=== PATIENT | female | born 1945 | race Caucasian/White ===

== ENCOUNTER 2017-12-24 13:30 | Outpatient (RCR) | payer MEDICARE, OTHER, SELFPAY ==
--- NOTE | 2017-11-26 16:40 | HP.PTEVAL_ITS ---
Patient's Visit Information TINA GARCIA is a 72 year old F referred to Physical Therapy by Ld ESCOBAR with a diagnosis of LUMBAR SPINAL STENOSIS. Date of Evaluation: 11/26/17 Physical Therapist: Angy Madrigal - Visit Plan Frequency: 2-3x /Week Duration: 4-6 Weeks Plan: MEASURE BENJI KNEE FLEXION ROM NEXT VISIT. AQUATIC THERAPY AND HOME INSTRUCTIONS FOR POSTURE CORRECTION/STRENGTHENING, INSTRUCTION IN APPROPRIATE BODY MECHANICS AND ACTIVITY MODIFICATIONS. DLS STARTING WITH A NEUTRAL SPINE PROGRESSING ROM TOLERATED. BENJI LE ROM, STRETCHING AND STRENGTHENING. HEP INSTRUCTION. - Subjective Subjective: Work/Leisure: RETIRED. Disability: NO. Present symptoms: BENJI LOW BACK, BENJI HIPS, LEFT LATERAL THIGH DEEP ITCHING. Present since: ABOUT 10- 15 YEARS AGO. Pain Scale: WORST 9/10, LEAST 0/10. Currently: 0/10. UNCHANGING. Commenced as a result of: NO APPARENT REASON. Symptoms at onset: BENJI LOW BACK AND HIPS. Worse: WALKING, STANDING, LAUNDRY, RIDING IN THE CAR FOR LONG PERIODS OF TIME. HAS STOPPED STEPS DUE TO PAIN. Better: SITTING AND LYING DOWN. Disturbed sleep: YES. Previous history/Previous treatment: ACCUPUNCUTURE APPOINTMENT PENDING SOON. 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 CHIROPRACTOR BUT NO BENEFIT SO STOPPED GOING YEARS AGO. LUMBAR FRACTURE FROM FALL A TEENAGER - FULLY RECOVERED. Coughing/sneezing/straining: NEGATIVE. Gait: DISTANCE LIMITED DUE TO PAIN. WEAKNESS IN LEGS WITH WALKING AND THAT IS SCARING ME. PATIENT REPORTS SHE FEELS LIKE HER RIGHT LEG DRAGS. OCCASSIONALLY USES CANE AND DID TODAY FOR DISTANCE. I FEEL VERY CLUMSY. Difficulty initiating urinatin: NO. Accidents : NO MVA'S. 2 FALLS WHICH PATIENT RELATES TO BLADDER INFECTION. Unexplained weight loss: NO. Imaging: BRAIN CT 11/04/17 - NORMAL. NO LUMBAR X-RAYS OR MRI FOR ABOUT 11 YEARS. PMH: HYPERLIPIDEMIA, ESSENTIAL TREMOR, DEPRESSION, INSOMNIA, ANXIETY, , DIARRHEA, OSTEOPENIA, HTN, H/O COLON CANCER AGE 42 AND REMOVED. Recent major surgery: RIGHT TKR WITH REVISION 2012 AND 2014, STILL SYMPTOMATIC AND UNDER CARE OF DR. ERNST CURRENTLY. RIGHT ELBOW ORIF 10 YEARS. - Objective Sitting Posture: POOR. Standing Posture: POOR. SCOLIOSIS WITH RIGHT RIB HUMP. Lordosis: REDUCED. Active Correction of posture: NE. Other Observations: INDEP GAIT INTO PT WITH A STRAIGHT CANE AND MILD LIMP ON THE RIGHT LE, DECREASED CADANCE AND INCREASED TRUNK FLEXION. SHE IS UNABLE TO TRANSFER INDEP'LY FROM SIT TO STAND WITHOUT UE ASSIST. Motor deficit: BENJI LE STRENGTH IS GROSSLY 4/5 EXCEPT RIGHT KNEE 4-/5, RIGHT HIP 3+/5 AND LEFT HIP 4-/ 5. Sensory deficit: BENJI LE LIGHT TOUCH SENSATION APPEARS TO BE INTACT AND SYMMETRICAL. ROM: BENJI LE ROM APPEARS TO BE WFL. Dural Signs: NEGATIVE BENJI LE' S. Lumbar mvmt loss: flex - MIN. ext - KELLI. R SG - KELLI. L SG - KELLI. PATIENT DENIES INCREASED PAIN WITH LUMBAR ROM TESTING. Core strength: POOR. Palpation: TIGHT BENJI PARASPINALS. - Goals Goal 1:: DECREASE C/O BACK AND LE SX'S Goal Time Frame: 4-6 Weeks Goal 2:: IMPROVE PERSONAL CARE, LIFTING, WALKING, SITTING, STANDING, SLEEP, SOCIAL LIFE, TRAVEL AND HOMEMAKING FUNCTION Goal Time Frame: 4-6 Weeks Goal 3:: INSTRUCT IN PROPHYLAXIS Goal Time Frame: 4-6 Weeks - Rehabilitation Potential Rehabilitation Potential: Fair - Anticipated Interventions Patient/Client Instruction: Educate patient on: Condition, Plan of Care, Risk Factors, Benefits of Fitness Program For the Purpose of:: To improve self management Therapeutic Exercise to Include: Strength training, Body mechanics, Postural training, Flexibilty training, Dynamic Lumbar Stabilization For the Purpose of:: To improve ability of physical actions for home/community/ work/leisure Cryotherapy (ice pack, ice massage): Yes Thermo therapy (hot pack): Yes Ultrasound (thermal/non thermal): Yes For the Purpose of:: To decrease pain, To decrease swelling/inflammation Thank you for the opportunity to evaluate your patient. For Medicare and Medicare HMO plans, please review the plan of care and approve it. It will need to be FAXED BACK to us at [phone] for Medicare purposes. Please let me know if there are questions or concerns regarding this plan of care. Physician Signature: Date:
--- NOTE | 2017-12-24 15:53 | HP.PTREVAL_ITS ---
Ld Gan DR.TKWOK It has been my pleasure to treat TINA GARCIA over the last 10 visits for LUMBAR SPINAL STENOSIS. Please see the progress note below for an update on the physical therapy plan of care! Subjective: PATIENT REPORTS SHE FEELS LIKE SHE IS MOVING EASIER. WALKING AROUND HER LITTLE HOUSE IS EASIER. HER HIPS DO NOT FLARE UP FAST. PATIENT REPORTS SHE CAN DO MORE LIKE GOING IN THE CAR, WALKING TO THE MAILBOX AND DO LAUNDRY BETTER. STANDING IS STILL A BIG PROBLEM - IS COOKING. PATIENT REPORTS SHE IS LASTING LONGER INTO THE DAY THOUGH AND IT ISN'T BAD LATER IN THE DAY IT WAS. NOT USING THE CANE AT HOME. PATIENT REPORTS THE WATER EX IS HELPING AND SHE WANTS TO CONTINUE WITH US HOWEVER SHE IS GOING OUT OF TOWN FOR A MONTH. SHE DOES THINK SHE WILL HAVE ACCESS TO A POOL THERE AND WILL TRY TO CONTINUE ON HER OWN UNTIL RETURN. Objective/Function: PATIENT IS REPORTING DECREASING PAIN AND INCREASING FUNCTION WHICH SHE RELATES TO THE POOL THERAPY. UPON EXAM, SHE IS DEMONSTRATING THE ABILITY TO BETTER CORRECT HER POSTURE AND SHE COMMUNICATES A GOOD UNDERSTANDING OF THE NEED TO TRY TO CONTINUE INDEP WATER EX ON VACATION. ALL OTHER TESTING IS SIMILAR TO INITIAL EVAL Plan Plan: RESUME PT NEEDED UPON RETURN FROM GOING OUT OF TOWN. PATIENT IS AGREEABLE. Goals Goal 1:: DECREASE C/O BACK AND LE SX'S Goal Time Frame: 4-6 Weeks Goal Progress: Progressing Goal 2:: IMPROVE PERSONAL CARE, LIFTING, WALKING, SITTING, STANDING, SLEEP, SOCIAL LIFE, TRAVEL AND HOMEMAKING FUNCTION Goal Time Frame: 4-6 Weeks Goal Progress: Progressing Goal 3:: INSTRUCT IN PROPHYLAXIS Goal Time Frame: 4-6 Weeks Goal Progress: Progressing Anticipated Interventions Patient/Client Instruction: Educate patient on: Condition, Plan of Care, Risk Factors, Benefits of Fitness Program For the Purpose of:: To improve self management Therapeutic Exercise to Include: Strength training, Body mechanics, Postural training, Flexibilty training, Dynamic Lumbar Stabilization For the Purpose of:: To improve ability of physical actions for home/community/ work/leisure Cryotherapy (ice pack, ice massage): Yes Thermo therapy (hot pack): Yes Ultrasound (thermal/non thermal): Yes For the Purpose of:: To decrease pain, To decrease swelling/inflammation Please do not hesitate to contact me at [phone] by phone or Fax: if you have questions or concerns regarding this new plan of care! Sincerely, Angy Madrigal
--- NOTE | 2018-01-15 12:18 | HP.PTDCNRP_ITS ---
HP - Discharge Summary (1) - Patient Information TINA GARCIA was seen in my office for initial evaluation on 11/26/17. The following Plan of Care was established for this patient: Initial Frequency: 2-3x /Week Initial Duration: 4-6 Weeks - Anticipated Interventions Patient/Client Instruction: Educate patient on: Condition, Plan of Care, Risk Factors, Benefits of Fitness Program For the Purpose of:: To improve self management Therapeutic Exercise to Include: Strength training, Body mechanics, Postural training, Flexibilty training, Dynamic Lumbar Stabilization For the Purpose of:: To improve ability of physical actions for home/community/ work/leisure Cryotherapy (ice pack, ice massage): Yes Thermo therapy (hot pack): Yes Ultrasound (thermal/non thermal): Yes For the Purpose of:: To decrease pain, To decrease swelling/inflammation This patient was last seen in our office 12/24/17. Pertinent comments regarding their Physical therapy will appear below: This patient has not returned to Physical Therapy and is appropriate to return to MD for further follow-up as needed. At this point I will be discontinuing this patient from physical therapy. I would be happy to see this patient again in the future if found appropriate by the physician. Thank you! Angy Madrigal
== END 2017-12-24 19:00 | disposition home or self-care (01) ==
LOC: PT 13:30
PROVIDERS: Family Provider Family Medicine Geriatric Medicine; PCP Family Medicine Geriatric Medicine; Visit Provider Family Medicine Geriatric Medicine
DX: M48.061 Spinal stenosis, lumbar region without neurogenic claudication (principal)
CPT/HCPCS: 97113; 97162; 97530

== ENCOUNTER → 2018-04-27 13:29 | Outpatient (CLI) | payer MEDICARE, OTHER, SELFPAY ==
[2018-04-27 14:59] LABS: Absolute Lymphocyte Count 2.28 X10^3/ul (0.83-4.51); Absolute Neutrophil Count 2.8 X10^3/uL (2.0-7.7); Basophil# 0.03 X10^3/uL; Basophil% 0.5 % (0-1); Eosinophil# 0.16 X10^3/uL; Eosinophils% 2.8 % (0-5); Hematocrit 43.9 % (37-47); Hemoglobin 15.2 g/dl (12.0-15.0); Lymphocyte # 2.28 X10^3/ul (4.0); Lymphocyte % 40.1 % (19-41); Mean Corp Hgb Conc 34.6 g/gl (32-36); Mean Corpuscular Hgb 32.1 pg (27.0-32.0); Mean Corpuscular Volume 92.6 fL (81-99); Mean Platelet Vol. 11.1 fl (6.2-12.0); Monocyte# 0.44 X10^3/uL; Monocyte% 7.7 % (0-10); Neutrophil # 2.77 X10^3/uL (2.7-7.7); Neutrophil % 48.7 % (47-70); POSITIVE COUNT NO; POSITIVE DIFFERENTIAL NO; POSITIVE MORPHOLOGY NO; Platelet Count 161 K/mm3 (150-450); RBC Distribution Width CV 12.7 % (11.6-14.6); RBC Distribution Width SD 42.7 fl (35.1-43.9); Red Blood Count 4.74 M/mm3 (4.2-5.4); White Blood Count 5.7 K/mm3 (4.4-11.0)
[2018-04-27 15:16] LABS: Vitamin D,25 Hydroxy 29.4 ng/mL (29.95-100.01)
[2018-04-27 15:24] LABS: ALB/GLOB Ratio 1.1 RATIO (0.9-2.4); AST(SGOT) 28 U/L (15-37); Alanine Aminotransfer ALT/SGPT 33 U/L (13-56); Albumin, Serum 3.7 g/dL (3.2-5.0); Alkaline Phosphatase 84 U/L (45-117); Anion Gap 7 (5-15); BUN 15 mg/dL (7-18); BUN/Creat Ratio 19.6 RATIO (10-20); Calcium,Total 9.2 mg/dL (8.5-10.1); Chloride 104 mmol/L (98-107); Creatinine, Serum 0.76 mg/dL (0.55-1.02); EST Glomerular Filtration Rate 79 mL/min (>60); Est Glom Filt Rate - Afr Amer 96 mL/min (>60); Globulin 3.5 g/dL (2.2-4.2); Glucose 89 mg/dL (74-106); Protein, Total 7.2 g/dL (6.4-8.2); Sodium Level 141 mmol/L (136-145); Thyroid Stim Hormone (TSH) 0.43 uIU/mL (0.358-3.74)
[2018-04-28 09:51] LABS: Hep C Antibodies <0.1 s/co ratio (0.0-0.9)
== END ==
PROVIDERS: Family Provider Family Medicine Geriatric Medicine; PCP Family Medicine Geriatric Medicine; Visit Provider Family Medicine Geriatric Medicine
DX: I10 Essential (primary) hypertension (principal); E55.9 Vitamin D deficiency, unspecified; Z13.89 Encounter for screening for other disorder
CPT/HCPCS: 36415; 80053; 82306; 84443; 85025; 86803

== ENCOUNTER → 2018-09-02 11:07 | Outpatient (CLI) | payer MEDICARE, OTHER, SELFPAY ==
--- NOTE | 2018-09-02 11:10 | BI_ITS ---
MAMMOGRAPHY - BILATERAL SCREENING REASON FOR EXAM: Female, 73 years old. Routine annual screening examination. PERTINENT HISTORY: Non-contributory. Prior right stereotactic breast biopsy and left stereotactic breast biopsy. TECHNIQUE: Digital bilateral breast french (3D mammographic acquisition) in the CC and MLO projections. 2-D mediolateral oblique (MLO) and craniocaudad (CC) views of both breasts were obtained. CAD: Full Field Digital Mammography with Computer Added Detection was performed. COMPARISON: Comparison is made with prior study date June 11, 2017 and August 30, 2016. FINDINGS: Breast Composition: The breasts are heterogeneously dense, which may obscure small masses. There are no dominant masses or suspicious calcifications. 2 tissue markers are seen in the upper mid portion of the left breast. A tissue clip marker is also seen in the anterior superior aspect of the right breast. No other significant abnormalities are identified. There has been no significant change since the prior study. BI/SCREENING MAMM (CAD), BILAT IMPRESSION: Stable bilateral screening mammogram. Yearly follow-up mammogram recommended. (A) ASSESSMENT CATEGORY: BIRADS Category 2: Benign. A letter regarding these results will be sent to the patient by the facility within 30 days. Approximately 10% of breast cancers are not detected by mammography. A normal mammogram should not delay biopsy of a clinically suspicious abnormality. [id number] Electronically Signed: Fer Helms MD at 12:59 EST Tel [phone], Service support ,
--- NOTE | 2018-09-02 11:13 | BD_ITS ---
STUDY: DUAL ENERGY X-RAY ABSORPTIOMETRY / DXA REASON FOR EXAM: Female, 73 years old. The patient is postmenopausal. Loss of height. TECHNIQUE: Bone Mineral Density (BMD) measurements of lumbar spine and bilateral hips were obtained. COMPARISON: Comparison is made with prior study dated August 27, 2016. FINDINGS: Lumbar Spine (L1-L4): g/cm2 (0.932) / T-score (-2.2) / Z-score (-0.5) Findings are suggestive of osteopenia with a moderate fracture risk. Left Femur Total: g/cm2 (0.877) / T-score (-1.0) / Z-score (0.5) Left Femoral Neck: g/cm2 (0.817) / T-score (-1.6) / Z-score (0.2) Right Femur Total: g/cm2 (0.785) / T-score (-1.8) / Z-score (-0.2) Right Femoral Neck: g/cm2 (0.776) / T-score (-1.9) / Z-score (-0.1) The T-Scores on the most recent prior examination were: Lumbar Spine (L1-L4): There has been improvement of bone density since the previous examination. Left Femur Total: which represents no significant change. . Right Femur Total: which represents a worsening of 3.1%. BD/Dexa Bone Density Study IMPRESSION: The patient is considered osteopenic as outlined below according to World Brant Organization (WHO) criteria with a moderate fracture risk. There has been worsening of bone density since the previous examination. Reference Information: The T-score is the number of standard deviations above or below the standard which is normal for young adults at their peak bone mineral density. The World Health Organization (WHO) interprets the T-scores as follows: Above -1 Normal bone density Between -1 and -2.5 Osteopenia Equal to / or below -2.5 Osteoporosis As a practical clinical guideline, osteopenia may be graded as follows: Mild -1 through -1.5 Moderate -1.6 through -2.0 Severe -2.1 through -2.4 The Z-score is the number of standard deviations above or below age-matched controls. A Z-score of less than -1.5 would be considered abnormal. References: 1. NIH Osteoporosis and Related Bone Diseases http://www.osteo.org 2. International Society for Clinical Densitometry http://www.iscd.org 3. National Osteoporosis Foundation http://www.nof.org Electronically Signed: Fer Helms MD at 11:10 EST Tel [phone], Service support ,
== END ==
PROVIDERS: Family Provider Family Medicine Geriatric Medicine; PCP Family Medicine Geriatric Medicine; Referring Provider Family Medicine Geriatric Medicine; Visit Provider Family Medicine Geriatric Medicine
DX: Z12.31 Encounter for screening mammogram for malignant neoplasm of breast (principal); Z78.0 Asymptomatic menopausal state
CPT/HCPCS: 77063; 77067; 77080

== ENCOUNTER → 2018-10-29 13:13 | Outpatient (CLI) | payer MEDICARE, OTHER, SELFPAY ==
[2018-10-29 17:26] LABS: Absolute Lymphocyte Count 2.54 X10^3/ul (0.83-4.51); Absolute Neutrophil Count 3.8 X10^3/uL (2.0-7.7); Basophil# 0.05 X10^3/uL; Basophil% 0.6 % (0-1); Eosinophil# 1.27 X10^3/uL; Eosinophils% 15.3 % (0-5); Hematocrit 42.5 % (37-47); Hemoglobin 14.2 g/dl (12.0-15.0); Lymphocyte # 2.54 X10^3/ul (4.0); Lymphocyte % 30.6 % (19-41); Mean Corp Hgb Conc 33.4 g/gl (32-36); Mean Corpuscular Hgb 31.8 pg (27.0-32.0); Mean Corpuscular Volume 95.1 fL (81-99); Mean Platelet Vol. 11.2 fl (6.2-12.0); Monocyte# 0.56 X10^3/uL; Monocyte% 6.8 % (0-10); Neutrophil # 3.84 X10^3/uL (2.7-7.7); Neutrophil % 46.3 % (47-70); Platelet Count 177 K/mm3 (150-450); RBC Distribution Width CV 13.2 % (11.6-14.6); RBC Distribution Width SD 44.7 fl (35.1-43.9); Red Blood Count 4.47 M/mm3 (4.2-5.4); White Blood Count 8.3 K/mm3 (4.4-11.0)
[2018-10-29 17:34] LABS: POSITIVE COUNT NO; POSITIVE DIFFERENTIAL NO; POSITIVE MORPHOLOGY NO
[2018-10-29 17:46] LABS: Vitamin D,25 Hydroxy 27.7 ng/mL (29.95-100.01)
[2018-10-29 18:01] LABS: ALB/GLOB Ratio 1.1 RATIO (0.9-2.4); AST(SGOT) 23 U/L (15-37); Alanine Aminotransfer ALT/SGPT 38 U/L (13-56); Albumin, Serum 3.6 g/dL (3.2-5.0); Alkaline Phosphatase 100 U/L (45-117); Anion Gap 7 (5-15); BUN 19 mg/dL (7-18); BUN/Creat Ratio 33.8 RATIO (10-20); Calcium,Total 8.9 mg/dL (8.5-10.1); Chloride 105 mmol/L (98-107); Creatinine, Serum 0.56 mg/dL (0.55-1.02); EST Glomerular Filtration Rate 113 mL/min (>60); Est Glom Filt Rate - Afr Amer 136 mL/min (>60); Globulin 3.4 g/dL (2.2-4.2); Glucose 80 mg/dL (74-106); Potassium 3.6 mmol/L (3.5-5.1); Sodium Level 141 mmol/L (136-145); Thyroid Stim Hormone (TSH) 1.25 uIU/mL (0.358-3.74)
== END ==
PROVIDERS: Family Provider Family Medicine Geriatric Medicine; PCP Family Medicine Geriatric Medicine; Visit Provider Family Medicine Geriatric Medicine
DX: E55.9 Vitamin D deficiency, unspecified (principal); I10 Essential (primary) hypertension
CPT/HCPCS: 36415; 80053; 82306; 84443; 85025

== ENCOUNTER → 2019-02-09 13:07 | Outpatient (CLI) | payer MEDICARE, OTHER, SELFPAY ==
--- NOTE | 2019-02-09 13:09 | RAD_ITS ---
STUDY: X-RAY - RIGHT KNEE REASON FOR EXAM: Female, 74 years old. Right knee pain. History of total hip arthroplasty. TECHNIQUE: 7 view(s) of the knee. COMPARISON: May 02, 2017 FINDINGS: There is generalized osteopenia unchanged. There is a stable revision total knee arthroplasty with no change in position and no complications identified. There is vascular calcification. RAD/Knee 4 or More Views IMPRESSION: Osteopenia with stable uncomplicated revision total knee arthroplasty. Electronically Signed: Clay Vidal MD at 10:29 EDT , Service support ,
== END ==
PROVIDERS: Family Provider Family Medicine Geriatric Medicine; PCP Family Medicine Geriatric Medicine; Referring Provider Orthopaedic Surgery; Visit Provider Orthopaedic Surgery
DX: R52 Pain, unspecified (principal)
CPT/HCPCS: 73564

== ENCOUNTER → 2019-04-06 15:20 | Outpatient (CLI) | payer MEDICARE, OTHER, SELFPAY ==
--- NOTE | 2019-04-06 15:31 | CT_ITS ---
STUDY: CT BRAIN WITHOUT CONTRAST REASON FOR EXAM: Female, 74 years old. Closed head injury due to a fall. RADIATION DOSAGE (If Supplied By Facility): CTDIvol = ( 44.99 ) mGy, DLP = ( 779.24 ) mGycm TECHNIQUE: Transaxial CT imaging of the brain was performed without administration of intravenous contrast material. Individualized dose optimization techniques were used for this CT. COMPARISON: Comparison is made with prior study dated November 04, 2017. FINDINGS: Normal soft tissue structures. There is hyperostosis frontalis internus. Normal size ventricles and extra-axial spaces for the patient's age. Normal white matter tracts of the cerebral hemispheres. Normal basal ganglia and thalami. Normal brainstem. Normal cerebellum. There is no intracranial hemorrhage. There are no findings of an acute ischemic infarction. Normal visualized paranasal sinuses. CT/Brain/Head without Contrast IMPRESSION: Normal unenhanced CT scan of the brain. Electronically Signed: Fer Helms, at 16:02 EDT , Service support ,
--- NOTE | 2019-04-06 15:40 | RAD_ITS ---
STUDY: X-RAY - LEFT FOOT CLINICAL: Female, 74 years old. Left second digit pain post fall yesterday TECHNIQUE: 3 view(s) of the foot. COMPARISON: None. FINDINGS: There is a small plantar calcaneal spur. There is mild demineralization of osseous structures. Normal visualized subtalar, talonavicular, calcaneocuboid, tarsal and tarsometatarsal articulations. Normal metatarsi. Normal metatarsophalangeal joint of the great toe. Normal tibial and fibular sesamoid bones. Normal interphalangeal joint of the great toe. Normal phalanges of the great toe. Normal second through fifth metatarsophalangeal joints. Normal interphalangeal joints and phalanges of the lesser toes. The soft tissue structures are unremarkable. RAD/Foot min 3 Views IMPRESSION: There is no acute displaced fracture or dislocation. Small plantar calcaneal spur. Mild osteopenia. Electronically Signed: Sierra Major MD at 6:56 EDT , Service support ,
--- NOTE | 2019-04-06 15:40 | RAD_ITS ---
STUDY: X-RAY - RIGHT KNEE REASON FOR EXAM: Female, 74 years old. Anterior pain in patellar region post fall yesterday. TECHNIQUE: 4 view(s) of the knee. COMPARISON: February 09, 2019 FINDINGS: Stable total knee arthroplasty in anatomic alignment with intact hardware. Normal visualized distal femur. Normal visualized proximal tibia and fibula. Normal proximal tibiofibular articulation. Normal medial femorotibial compartment. Normal lateral femorotibial compartment. Normal patellofemoral articulation. There is no demonstrated joint effusion. The soft tissue structures are unremarkable. RAD/Knee 4 or More Views IMPRESSION: Intact total knee arthroplasty in anatomic alignment with intact cortices. No effusion. No significant interval change. Electronically Signed: Sierra Major MD at 6:55 EDT , Service support ,
== END ==
PROVIDERS: Family Provider Family Medicine Geriatric Medicine; PCP Family Medicine Geriatric Medicine; Referring Provider Family Medicine Geriatric Medicine; Visit Provider Family Medicine Geriatric Medicine
DX: S09.90XA Unspecified injury of head, initial encounter (principal); M25.569 Pain in unspecified knee; M79.609 Pain in unspecified limb
CPT/HCPCS: 70450; 73564; 73630

== ENCOUNTER → 2019-05-03 13:50 | Outpatient (CLI) | payer MEDICARE, OTHER, SELFPAY ==
[2019-05-03 17:46] LABS: Absolute Lymphocyte Count 2.07 X10^3/ul (0.83-4.51); Absolute Neutrophil Count 3.8 X10^3/uL (2.0-7.7); Basophil# 0.04 X10^3/uL; Basophil% 0.6 % (0-1); Eosinophil# 0.17 X10^3/uL; Eosinophils% 2.5 % (0-5); Hematocrit 43.7 % (37-47); Hemoglobin 14.6 g/dl (12.0-15.0); Lymphocyte # 2.07 X10^3/ul (4.0); Lymphocyte % 30.6 % (19-41); Mean Corp Hgb Conc 33.4 g/gl (32-36); Mean Corpuscular Hgb 31.1 pg (27.0-32.0); Mean Platelet Vol. 10.9 fl (6.2-12.0); Monocyte# 0.65 X10^3/uL; Monocyte% 9.6 % (0-10); Neutrophil # 3.81 X10^3/uL (2.7-7.7); Neutrophil % 56.4 % (47-70); Platelet Count 168 K/mm3 (150-450); White Blood Count 6.8 K/mm3 (4.4-11.0)
[2019-05-03 17:47] LABS: POSITIVE COUNT NO; POSITIVE DIFFERENTIAL NO; POSITIVE MORPHOLOGY NO
[2019-05-03 18:01] LABS: Vitamin D,25 Hydroxy 29.4 ng/mL (29.95-100.01)
[2019-05-03 18:08] LABS: ALB/GLOB Ratio 0.9 RATIO (0.9-2.4); AST(SGOT) 33 U/L (15-37); Alanine Aminotransfer ALT/SGPT 39 U/L (13-56); Albumin, Serum 3.4 g/dL (3.2-5.0); Alkaline Phosphatase 109 U/L (45-117); Anion Gap 4 (5-15); BUN 18 mg/dL (7-18); BUN/Creat Ratio 30.9 RATIO (10-20); Calcium,Total 9.1 mg/dL (8.5-10.1); Chloride 105 mmol/L (98-107); Creatinine, Serum 0.58 mg/dL (0.55-1.02); EST Glomerular Filtration Rate 108 mL/min (>60); Est Glom Filt Rate - Afr Amer 131 mL/min (>60); Globulin 3.7 g/dL (2.2-4.2); Glucose 90 mg/dL (74-106); Potassium 3.6 mmol/L (3.5-5.1); Protein, Total 7.1 g/dL (6.4-8.2); Sodium Level 136 mmol/L (136-145)
== END ==
PROVIDERS: Family Provider Family Medicine Geriatric Medicine; PCP Family Medicine Geriatric Medicine; Visit Provider Family Medicine Geriatric Medicine
DX: I10 Essential (primary) hypertension (principal); E55.9 Vitamin D deficiency, unspecified
CPT/HCPCS: 36415; 80053; 82306; 84443; 85025

== ENCOUNTER → 2019-05-21 10:02 | Outpatient (CLI) | payer MEDICARE, OTHER, SELFPAY ==
[2019-05-20 12:58] LABS: Absolute Lymphocyte Count 1.48 X10^3/uL (0.83-4.51); Absolute Neutrophil Count 3.4 X10^3/uL (2.0-7.7); Basophil# 0.06 X10^3/uL; Eosinophils% 3.5 % (0-5); Hematocrit 41.7 % (37-47); Hemoglobin 13.6 g/dL (12.0-15.0); Lymphocyte # 1.48 X10^3/ul (4.0); Lymphocyte % 25.9 % (19-41); Mean Corp Hgb Conc 32.6 g/dL (32-36); Mean Corpuscular Hgb 30.8 pg (27.0-32.0); Mean Corpuscular Volume 94.3 fL (81-99); Monocyte# 0.57 X10^3/uL; NRBC Flagged by Analyzer 0 % (0-5); Neutrophil # 3.38 X10^3/uL (2.7-7.7); Neutrophil % 59.1 % (47-70); Platelet Count 183 K/mm3 (150-450); RBC Distribution Width CV 12.8 % (11.6-14.6); RBC Distribution Width SD 44.5 fl (35.1-43.9); Red Blood Count 4.42 M/mm3 (4.2-5.4); White Blood Count 5.7 K/mm3 (4.4-11.0)
[2019-05-20 13:10] LABS: Anion Gap 3 (5-15); BUN 6 mg/dL (7-18); BUN/Creat Ratio 11.2 RATIO (10-20); Calcium,Total 8.8 mg/dL (8.5-10.1); Chloride 102 mmol/L (98-107); Creatinine, Serum 0.54 mg/dL (0.55-1.02); EST Glomerular Filtration Rate 119 mL/min (>60); Est Glom Filt Rate - Afr Amer 144 mL/min (>60); Glucose 88 mg/dL (74-106); Potassium 3.4 mmol/L (3.5-5.1); Sodium Level 138 mmol/L (136-145)
--- NOTE | 2019-05-21 10:06 | ECHOD_ITS ---
Reason For Study: SOB Procedure This was a 2D Doppler, Color Flow transthoracic echocardiogram. Pt supine for majority of exam due to hip/nerve pain. Exam performed in department. Left Ventricle Normal LV size. The estimated ejection fraction is 60 %. Stage 2 diastolic dysfunction. No regional wall motion abnormalities noted. Right Ventricle Normal RV size. Normal systolic function. Atria The left atrium is mildly enlarged. Normal right atrium. No doppler evidence for ASD. Mitral Valve There is no mitral valve stenosis. Trivial mitral valve insufficiency. Tricuspid Valve There is no tricuspid stenosis. Mild to moderate (1-2+) tricuspid valve insufficiency. Pulmonary artery systolic pressure is 45 mmHg. Mild pulmonary hypertension. Aortic Valve Trisinus/trileaflet aortic valve. There is no aortic stenosis. Mild (1+) aortic valve insufficiency. Pulmonic Valve There is no pulmonic valvular stenosis. Trivial pulmonic valve insufficiency. Great Vessels Normal aortic root. Pericardium/Pleural No pericardial effusion. MMode/2D Measurements & Calculations LVIDd: 4.4 cm IVSd: 0.76 cm Ao root diam: 3.4 cm LVIDs: 2.8 cm LVPWd: 0.86 cm RVDd: 3.7 cm FS: 35.3 % LAV(MOD-bp): 70.9 ml LA A4 area: 21.6 cm2 LA dimension(2D): 4.2 cm LAV(MOD-bp) Indexed: 38.5 ml/m2 LAV(MOD-sp2): 85.3 ml LAV(MOD-sp4): 61.9 ml RA A4 area: 16.7 cm2 Time Measurements MV dec time: 0.17 sec Doppler Measurements & Calculations MV E max jose alejandro: 103.9 cm/sec Lat Peak E' Jose Alejandro: 8.5 cm/sec Med Peak E' Jose Alejandro: 7.7 cm/sec MV A max jose alejandro: 54.4 cm/sec E/E' lat: 12.3 E/E' med: 13.4 MV E/A: 1.9 Ao V2 max: 123.7 cm/sec AI max jose alejandro: 398.9 cm/sec LV V1 max: 100.4 cm/sec Ao max P.1 mmHg AI max P.7 mmHg LV V1 max P.0 mmHg AI dec slope: 165.1 cm/sec2 AI P1/2t: 707.8 msec PA V2 max: 77.5 cm/sec TR max jose alejandro: 297.9 cm/sec TR max P.6 mmHg Interpretation Summary The estimated ejection fraction is 60 %. Stage 2 diastolic dysfunction. The left atrium is mildly enlarged. Trivial mitral valve insufficiency. Mild to moderate (1-2+) tricuspid valve insufficiency. Pulmonary artery systolic pressure is 45 mmHg. Mild pulmonary hypertension. Mild (1+) aortic valve insufficiency. Trivial pulmonic valve insufficiency. Ordering Physician: Ld Gan Referring Physician: Ld Gan Chi Performed By: Anaya Mejía, OLIVER, RVT
== END ==
PROVIDERS: Family Provider Family Medicine Geriatric Medicine; PCP Family Medicine Geriatric Medicine; Referring Provider Family Medicine Geriatric Medicine; Visit Provider Family Medicine Geriatric Medicine
DX: I10 Essential (primary) hypertension (principal); R06.02 Shortness of breath
CPT/HCPCS: 36415; 80048; 85025; 93306

== ENCOUNTER → 2019-05-28 14:18 | Outpatient (CLI) | payer MEDICARE, OTHER, SELFPAY ==
[2019-05-28 15:38] LABS: Anion Gap 5 (5-15); BUN 17 mg/dL (7-18); Calcium,Total 9.4 mg/dL (8.5-10.1); Chloride 105 mmol/L (98-107); Creatinine, Serum 0.59 mg/dL (0.55-1.02); EST Glomerular Filtration Rate 107 mL/min (>60); Est Glom Filt Rate - Afr Amer 130 mL/min (>60); Glucose 82 mg/dL (74-106); Potassium 4.2 mmol/L (3.5-5.1); Sodium Level 140 mmol/L (136-145)
== END ==
PROVIDERS: Family Provider Family Medicine Geriatric Medicine; PCP Family Medicine Geriatric Medicine; Referring Provider Family Medicine Geriatric Medicine; Visit Provider Family Medicine Geriatric Medicine
DX: E87.6 Hypokalemia (principal)
CPT/HCPCS: 36415; 80048

== ENCOUNTER → 2019-11-01 15:10 | Outpatient (CLI) | payer MEDICARE, OTHER, SELFPAY ==
[2019-10-15 10:18] VITALS: BMI 36.6
[2019-11-01 18:06] LABS: Absolute Lymphocyte Count 1.93 X10^3/uL (0.83-4.51); Absolute Neutrophil Count 2.5 X10^3/uL (2.0-7.7); Basophil# 0.05 X10^3/uL; Eosinophils% 5.8 % (0-5); Hematocrit 40.4 % (37-47); Hemoglobin 13.4 g/dL (12.0-15.0); Lymphocyte # 1.93 X10^3/ul (4.0); Lymphocyte % 37.3 % (19-41); Mean Corp Hgb Conc 33.2 g/dL (32-36); Mean Corpuscular Hgb 30.9 pg (27.0-32.0); Mean Corpuscular Volume 93.1 fL (81-99); Mean Platelet Vol. 10.1 fl (6.2-12.0); Monocyte# 0.42 X10^3/uL; Monocyte% 8.1 % (0-10); NRBC Flagged by Analyzer 0 % (0-5); Neutrophil # 2.47 X10^3/uL (2.7-7.7); Neutrophil % 47.6 % (47-70); Platelet Count 177 K/mm3 (150-450); RBC Distribution Width CV 12.6 % (11.6-14.6); RBC Distribution Width SD 43.3 fl (35.1-43.9); Red Blood Count 4.34 M/mm3 (4.2-5.4); White Blood Count 5.2 K/mm3 (4.4-11.0)
[2019-11-01 18:09] LABS: ALB/GLOB Ratio 0.8 RATIO (0.9-2.4); AST(SGOT) 28 U/L (15-37); Alanine Aminotransfer ALT/SGPT 36 U/L (13-56); Albumin, Serum 3.3 g/dL (3.2-5.0); Alkaline Phosphatase 103 U/L (45-117); Anion Gap 5 (5-15); BUN 17 mg/dL (7-18); BUN/Creat Ratio 25.1 RATIO (10-20); Chloride 105 mmol/L (98-107); Creatinine, Serum 0.68 mg/dL (0.55-1.02); EST Glomerular Filtration Rate 91 mL/min (>60); Est Glom Filt Rate - Afr Amer 110 mL/min (>60); Globulin 3.9 g/dL (2.2-4.2); Glucose 85 mg/dL (74-106); Protein, Total 7.2 g/dL (6.4-8.2); Sodium Level 137 mmol/L (136-145); Thyroid Stim Hormone (TSH) 1.17 uIU/mL (0.358-3.74)
== END ==
PROVIDERS: Family Provider Family Medicine Geriatric Medicine; PCP Family Medicine Geriatric Medicine; Visit Provider Family Medicine Geriatric Medicine
DX: I10 Essential (primary) hypertension (principal); E55.9 Vitamin D deficiency, unspecified
CPT/HCPCS: 36415; 80053; 82306; 84443; 85025

== ENCOUNTER → 2019-12-06 15:48 | Outpatient (CLI) | payer MEDICARE, OTHER, SELFPAY ==
[2019-11-11 10:22] VITALS: BMI 36.6
--- NOTE | 2019-12-06 15:52 | BI_ITS ---
MAMMOGRAPHY - BILATERAL SCREENING REASON FOR EXAM: Female, 74 years old. Routine annual screening examination. PERTINENT HISTORY: Non-contributory. Prior bilateral stereotactic breast biopsies. TECHNIQUE: Digital bilateral breast sukhdev (3D mammographic acquisition) in the CC and MLO projections. 2-D mediolateral oblique (MLO) and craniocaudad (CC) views of both breasts were obtained. CAD: Full Field Digital Mammography with Computer Added Detection was performed. COMPARISON: Comparison is made with prior examination dated September 02, 2018 and June 11, 2017. FINDINGS: Breast Composition: The breasts are heterogeneously dense, which may obscure small masses. There are no dominant masses or suspicious calcifications. Once again, 2 tissue markers are seen in the upper midportion of the left breast. A tissue clip marker is also seen in the anterior superior aspect of the right breast. Stable scattered calcifications. No other significant abnormalities are identified. There has been no significant change since the prior study. BI/SCREEN MAMM (CAD) W/SUKHDEV BILAT IMPRESSION: Stable bilateral screening mammogram. Yearly follow-up mammogram recommended. (A) ASSESSMENT CATEGORY: BIRADS Category 2: Benign. A letter regarding these results will be sent to the patient by the facility within 30 days. Approximately 10% of breast cancers are not detected by mammography. A normal mammogram should not delay biopsy of a clinically suspicious abnormality. [id number] Electronically Signed: Fer Helms, at 8:35 EST , Service support ,
== END ==
PROVIDERS: PCP Family Medicine Geriatric Medicine; Referring Provider Family Medicine Geriatric Medicine; Visit Provider Family Medicine Geriatric Medicine
DX: Z12.31 Encounter for screening mammogram for malignant neoplasm of breast (principal)
CPT/HCPCS: 77063; 77067

== ENCOUNTER → 2019-12-29 12:57 | Outpatient (CLI) | payer MEDICARE, OTHER, SELFPAY ==
[2019-11-11 10:22] VITALS: BMI 36.6
== END ==
PROVIDERS: PCP Family Medicine Geriatric Medicine; Referring Provider Family Medicine Geriatric Medicine; Visit Provider Family Medicine Geriatric Medicine
DX: R07.0 Pain in throat (principal); R50.9 Fever, unspecified; N39.0 Urinary tract infection, site not specified
CPT/HCPCS: 87086; 87088; 87633; 87880

== ENCOUNTER → 2020-03-16 11:58 | Outpatient (CLI) | payer MEDICARE, OTHER, SELFPAY ==
[2019-11-11 10:22] VITALS: BMI 36.6
[2020-03-16 12:56] LABS: Anion Gap 6 (5-15); BUN 18 mg/dL (7-18); BUN/Creat Ratio 27.3 RATIO (10-20); Calcium,Total 9.3 mg/dL (8.5-10.1); Chloride 105 mmol/L (98-107); Creatinine, Serum 0.66 mg/dL (0.55-1.02); EST Glomerular Filtration Rate 93 mL/min (>60); Est Glom Filt Rate - Afr Amer 113 mL/min (>60); Glucose 85 mg/dL (74-106); Potassium 3.7 mmol/L (3.5-5.1); Sodium Level 139 mmol/L (136-145)
== END ==
PROVIDERS: PCP Family Medicine Geriatric Medicine; Visit Provider Family Medicine Geriatric Medicine
DX: G47.00 Insomnia, unspecified (principal)
CPT/HCPCS: 36415; 80048

== ENCOUNTER → 2020-05-04 13:09 | Outpatient (CLI) | payer MEDICARE, OTHER, SELFPAY ==
[2019-11-11 10:22] VITALS: BMI 36.6
[2020-05-04 15:54] LABS: Absolute Lymphocyte Count 1.92 X10^3/uL (0.83-4.51); Absolute Neutrophil Count 3.7 X10^3/uL (2.0-7.7); Basophil# 0.04 X10^3/uL; Basophil% 0.6 % (0-1); Eosinophil# 0.27 X10^3/uL; Eosinophils% 4.2 % (0-5); Hematocrit 43.2 % (37-47); Hemoglobin 13.9 g/dL (12.0-15.0); Lymphocyte # 1.92 X10^3/ul (4.0); Lymphocyte % 29.9 % (19-41); Mean Corp Hgb Conc 32.2 g/dL (32-36); Mean Corpuscular Hgb 31.1 pg (27.0-32.0); Mean Corpuscular Volume 96.6 fL (81-99); Mean Platelet Vol. 10.5 fl (6.2-12.0); Monocyte# 0.47 X10^3/uL; Monocyte% 7.3 % (0-10); NRBC Flagged by Analyzer 0 % (0-5); Neutrophil # 3.71 X10^3/uL (2.7-7.7); Neutrophil % 57.7 % (47-70); Platelet Count 153 K/mm3 (150-450); RBC Distribution Width CV 12.6 % (11.6-14.6); RBC Distribution Width SD 44.6 fl (35.1-43.9); Red Blood Count 4.47 M/mm3 (4.2-5.4); White Blood Count 6.4 K/mm3 (4.4-11.0)
[2020-05-04 16:11] LABS: Vitamin D,25 Hydroxy 59.8 ng/mL
[2020-05-04 16:18] LABS: ALB/GLOB Ratio 0.9 RATIO (0.9-2.4); AST(SGOT) 24 U/L (15-37); Alanine Aminotransfer ALT/SGPT 33 U/L (13-56); Albumin, Serum 3.6 g/dL (3.2-5.0); Alkaline Phosphatase 96 U/L (45-117); Anion Gap 6 (5-15); BUN 21 mg/dL (7-18); BUN/Creat Ratio 30.7 RATIO (10-20); Chloride 104 mmol/L (98-107); Creatinine, Serum 0.68 mg/dL (0.55-1.02); EST Glomerular Filtration Rate 89 mL/min (>60); Est Glom Filt Rate - Afr Amer 108 mL/min (>60); Globulin 3.8 g/dL (2.2-4.2); Glucose 90 mg/dL (74-106); Potassium 3.5 mmol/L (3.5-5.1); Protein, Total 7.4 g/dL (6.4-8.2); Sodium Level 140 mmol/L (136-145); Thyroid Stim Hormone (TSH) 0.85 uIU/mL (0.358-3.74)
== END ==
PROVIDERS: PCP Family Medicine Geriatric Medicine; Visit Provider Family Medicine Geriatric Medicine
DX: E55.9 Vitamin D deficiency, unspecified (principal); I10 Essential (primary) hypertension
CPT/HCPCS: 36415; 80053; 82306; 84443; 85025

== ENCOUNTER → 2020-07-27 16:13 | Outpatient (CLI) | payer MEDICARE, OTHER, SELFPAY ==
[2019-11-11 10:22] VITALS: BMI 36.6
--- NOTE | 2020-07-27 16:16 | MRI_ITS ---
STUDY: MRI BRAIN WITHOUT CONTRAST REASON FOR EXAM: Female, 75 years old. ATAXIA, leg weakness, trouble with eye focus, choking TECHNIQUE: Standardized multiplanar fat and water weighted pulse sequences were obtained. COMPARISON: CTs 04/06/2019 FINDINGS: Normal size of the ventricles and extra-axial spaces for the patient''s age. There are a limited number of small white matter hyperintensities, distributed throughout the deep white matter tracts of the cerebral hemispheres, consistent with mild chronic white matter ischemic changes. Normal bilateral basal ganglia. Normal thalami. There is no extra-axial fluid accumulation. Normal flow voids within the major intracranial circulation suggesting patency by spin echo criteria. Normal sella turcica, pituitary gland, infundibular stalk, optic chiasm and hypothalamus. Normal tectal plate and pineal gland. Normal midbrain, bertha and medulla. Normal cerebellum. Normal basal cisterns. Normal bilateral temporal bones. Normal bilateral internal auditory canals. No demonstrated orbital abnormality, within the constraints of a routine brain study. Normal visualized paranasal sinuses. Hyperostosis frontalis interna. Normal visualized soft tissue structures. Normal visualized upper cervical spine. MRI/Brain without Contrast IMPRESSION: No evidence of acute infarct or hemorrhage. Electronically Signed: Andres Jauregui MD at 20:56 EDT Tel , Service support ,
== END ==
PROVIDERS: PCP Family Medicine Geriatric Medicine; Referring Provider Family Medicine Geriatric Medicine; Visit Provider Family Medicine Geriatric Medicine
DX: R27.9 Unspecified lack of coordination (principal)
CPT/HCPCS: 70551

== ENCOUNTER → 2020-10-02 15:37 | Outpatient (CLI) | payer MEDICARE, OTHER, SELFPAY ==
[2019-11-11 10:22] VITALS: BMI 36.6
--- NOTE | 2020-10-02 15:40 | RAD_ITS ---
STUDY: X-RAY - ABDOMEN/PELVIS REASON FOR EXAM: Female, 75 years old. ABDOMEN PAIN AFTER SHE EATS. TECHNIQUE: AP supine and upright views of the abdomen and pelvis. COMPARISON: Comparison is made with prior study dated 06/07/2016. FINDINGS: Normal visualized lung bases. There is a moderate amount of colonic fecal material. There is no demonstrated free abdominal air. The visualized liver, spleen and kidneys are grossly normal in size and morphology. There are calcified phleboliths in the pelvis. Dextroscoliosis. RAD/Abd Inc Decub and/or Erect IMPRESSION: Moderate amount of fecal material is seen within the colon. Electronically Signed: Fer Helms, at 15:34 EST , Service support ,
== END ==
PROVIDERS: PCP Family Medicine Geriatric Medicine; Referring Provider Family Medicine Geriatric Medicine; Visit Provider Family Medicine Geriatric Medicine
DX: R10.9 Unspecified abdominal pain (principal)
CPT/HCPCS: 74019

== ENCOUNTER → 2020-10-06 10:31 | Outpatient (CLI) | payer MEDICARE, OTHER, SELFPAY ==
[2019-11-11 10:22] VITALS: BMI 36.6
--- NOTE | 2020-10-06 10:33 | US_ITS ---
STUDY: ABDOMINAL ULTRASOUND - RIGHT UPPER QUADRANT REASON FOR VISIT: Female, 75 years old ABDOMEN PAIN -- IRREGULAR BOWEL MOVEMENTS TECHNIQUE: Ultrasound evaluation of the right upper quadrant was performed with real-time and static mckee-scale imaging. TECHNICAL QUALITY: Adequate. COMPARISON: None. FINDINGS: Liver: The liver measures 18 cm. There is normal echogenicity of the liver. The bile ducts are within normal limits. There is hepatic color flow. The direction of portal flow is hepatopetal. There is no demonstrated mass lesion. Gallbladder: The patient is status post cholecystectomy. Common Bile Duct (C.B.D.): The common bile duct measures 7.5 mm. Pancreas: There is no demonstrated pancreatic mass or cyst. Right Kidney: Normal size of the right kidney. The right kidney measures 10.1 x 4.3 x 3.4 cm. There is thinning of the renal cortex.. There is no demonstrated renal mass or cyst. There is no right hydronephrosis. US/Abdomen Limited IMPRESSION: Cholecystectomy. No biliary dilation. Electronically Signed: Scott Lowery MD ([place]) at 15:08 EST , Service support ,
== END ==
PROVIDERS: PCP Family Medicine Geriatric Medicine; Referring Provider Family Medicine Geriatric Medicine; Visit Provider Family Medicine Geriatric Medicine
DX: R10.9 Unspecified abdominal pain (principal)
CPT/HCPCS: 76705

== ENCOUNTER → 2020-11-01 06:21 | Outpatient (CLI) | payer MEDICARE, OTHER, SELFPAY ==
[2019-11-11 10:22] VITALS: BMI 36.6
--- NOTE | 2020-11-01 16:31 | NEURO ---
NCS and/or EMG Patient Report Ordering Doctor: Ld Gan Chi DATE OF SERVICE: 11/01/20 Kaila Figueroa presents for electrodiagnostic testing of the lower limbs. She reports numbness and tingling in both feet. Electrodiagnostic findings: Peroneal motor nerve demonstrates normal distal latency with reduced amplitude bilaterally. There is reduced conduction velocity on the right side. Decreased tibial motor amplitude is noted bilaterally. Absent plantar responses bilaterally. On needle EMG, all muscles tested in the lower limbs showed no evidence of denervation. Motor unit action potentials were normal amplitude and duration. Electrodiagnostic impression: This is an abnormal study in the lower limbs 1. Electrodiagnostic findings demonstrate peripheral polyneuropathy, with involvement of motor and sensory nerves. 2. No electrodiagnostic evidence is noted for lumbosacral radiculopathy. If there are any further questions, please do not hesitate to contact me
== END ==
PROVIDERS: PCP Family Medicine Geriatric Medicine; Referring Provider Family Medicine Geriatric Medicine; Visit Provider Family Medicine Geriatric Medicine
DX: R20.2 Paresthesia of skin (principal)
CPT/HCPCS: 95886; 95912

== ENCOUNTER → 2020-11-02 13:49 | Outpatient (CLI) | payer MEDICARE, OTHER, SELFPAY ==
[2019-11-11 10:22] VITALS: BMI 36.6
[2020-11-02 15:37] LABS: Absolute Lymphocyte Count 1.89 X10^3/uL (0.83-4.51); Absolute Neutrophil Count 3.5 X10^3/uL (2.0-7.7); Basophil# 0.05 X10^3/uL; Basophil% 0.8 % (0-1); Eosinophil# 0.29 X10^3/uL; Eosinophils% 4.6 % (0-5); Hematocrit 39.9 % (37-47); Hemoglobin 13.6 g/dL (12.0-15.0); Lymphocyte # 1.89 X10^3/ul (4.0); Lymphocyte % 29.7 % (19-41); Mean Corp Hgb Conc 34.1 g/dL (32-36); Mean Corpuscular Hgb 33.2 pg (27.0-32.0); Mean Corpuscular Volume 97.3 fL (81-99); Mean Platelet Vol. 10.1 fl (6.2-12.0); Monocyte# 0.59 X10^3/uL; Monocyte% 9.3 % (0-10); NRBC Flagged by Analyzer 0 % (0-5); Neutrophil # 3.52 X10^3/uL (2.7-7.7); Neutrophil % 55.1 % (47-70); Platelet Count 161 K/mm3 (150-450); RBC Distribution Width CV 13.2 % (11.6-14.6); RBC Distribution Width SD 46.3 fl (35.1-43.9); White Blood Count 6.4 K/mm3 (4.4-11.0)
[2020-11-02 15:54] LABS: AST(SGOT) 27 U/L (15-37); Alanine Aminotransfer ALT/SGPT 38 U/L (13-56); Albumin, Serum 3.5 g/dL (3.2-5.0); Alkaline Phosphatase 98 U/L (45-117); Anion Gap 4 (5-15); BUN 19 mg/dL (7-18); BUN/Creat Ratio 26.4 RATIO (10-20); Calcium,Total 9.1 mg/dL (8.5-10.1); Chloride 105 mmol/L (98-107); Creatinine, Serum 0.72 mg/dL (0.55-1.02); EST Glomerular Filtration Rate 84 mL/min (>60); Est Glom Filt Rate - Afr Amer 102 mL/min (>60); Globulin 3.6 g/dL (2.2-4.2); Glucose 90 mg/dL (74-106); Potassium 3.7 mmol/L (3.5-5.1); Protein, Total 7.1 g/dL (6.4-8.2); Sodium Level 138 mmol/L (136-145); Thyroid Stim Hormone (TSH) 0.94 uIU/mL (0.358-3.74)
[2020-11-02 16:00] LABS: Vitamin D,25 Hydroxy 31.2 ng/mL
== END ==
PROVIDERS: PCP Family Medicine Geriatric Medicine; Visit Provider Family Medicine Geriatric Medicine
DX: I10 Essential (primary) hypertension (principal); E55.9 Vitamin D deficiency, unspecified
CPT/HCPCS: 36415; 80053; 82306; 84443; 85025

== ENCOUNTER → 2020-11-09 12:27 | Outpatient (CLI) | payer MEDICARE, OTHER, SELFPAY ==
[2019-11-11 10:22] VITALS: BMI 36.6
--- NOTE | 2020-11-09 12:35 | BD_ITS ---
STUDY: DUAL ENERGY X-RAY ABSORPTIOMETRY / DXA REASON FOR EXAM: Female, 75 years old. 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 COMPARISON: Comparison is made with prior examination dated 09/02/2018. FINDINGS: Lumbar Spine (L1-L4): g/cm2 (0.879) / T-score (-2.7) / Z-score (-0.9) Findings are suggestive of osteoporosis with a high fracture risk. Left Femur Total: g/cm2 (0.858) / T-score (-1.2) / Z-score (0.5) Left Femoral Neck: g/cm2 (0.834) / T-score (-1.5) / Z-score (0.4) Right Femur Total: g/cm2 (0.755) / T-score (-2.0) / Z-score (-0.3) Right Femoral Neck: g/cm2 (0.804) / T-score (-1.7) / Z-score (0.2) The T-Scores on the most recent prior examination were: Lumbar Spine (L1-L4): There has been worsening of bone density since the previous examination. Left Femur Total: which represents a worsening of 2.2%. Right Femur Total: which represents a worsening of 3.8%. BD/Dexa Bone Density Study IMPRESSION: The patient is considered osteoporotic as outlined below according to World [employer]ant Organization (WHO) criteria with a high fracture risk. There has been worsening of bone density since the previous examination. Reference Information: The T-score is the number of standard deviations above or below the standard which is normal for young adults at their peak bone mineral density. The World Health Organization (WHO) interprets the T-scores as follows: Above -1 Normal bone density Between -1 and -2.5 Osteopenia Equal to / or below -2.5 Osteoporosis As a practical clinical guideline, osteopenia may be graded as follows: Mild -1 through -1.5 Moderate -1.6 through -2.0 Severe -2.1 through -2.4 The Z-score is the number of standard deviations above or below age-matched controls. A Z-score of less than -1.5 would be considered abnormal. References: 1. NIH Osteoporosis and Related Bone Diseases www osteo.org 2. International Society for Clinical Densitometry www iscd.org 3. National Osteoporosis Foundation www nof.org Electronically Signed: Fer Helms, at 14:41 EST , Service support ,
== END ==
PROVIDERS: PCP Family Medicine Geriatric Medicine; Referring Provider Family Medicine Geriatric Medicine; Visit Provider Family Medicine Geriatric Medicine
DX: Z78.0 Asymptomatic menopausal state (principal)
CPT/HCPCS: 77080

== ENCOUNTER → 2020-11-16 12:46 | Outpatient (CLI) | payer MEDICARE, OTHER, SELFPAY ==
[2019-11-11 10:22] VITALS: BMI 36.6
--- NOTE | 2020-11-16 13:28 | ST.MBS ---
Modified Barium Swallow - Patient Information Study Date: 11/16/20 Study Time: 13:00 Direct Billable Minutes: 90 Total Minutes procedure & reportin Diagnosis: dysphagia, unspecified (R13.10) Referring Physician: mAador Alvarez Reason for Referral: Patient has reported having frequent coughing including during meals/drinks. Medical History: The patient is a 75/F with past medical history including HTN, GERD, and fibromyalgia per past medical chart. Current Diet Ordered: Regular Textures/Thin Liquids Dentition: Natural Teeth Mental Status: WNL Respiratory Status: Oxygenating on Room Air - Study Findings Consistencies: Thin Liquid, Enemy Swim Thick Liquid, Pudding, Cookie - Penetration-Aspiration Scale Penetration-Aspiration Scale: OBJECTIVE ASSESSMENT OF SWALLOW FUNCTION (QUANTITATIVE ? PER TRIAL): PENETRATION / ASPIRATION SCALE (ROCK): 1 = does not enter airway 2 = enters airway/above vocal folds/ejected 3 = enters airway/above vocal folds/not ejected 4 = enters airway/contacts vocal folds/ejected 5 = enters airway/contacts vocal folds/not ejected 6 = enters airway/below vocal folds/ejected 7 = enters airway/below vocal folds/not ejected despite effort 8 = enters airway/below vocal folds/no effort - Penetration-Aspiration Scale Score Thin Liquid via teaspoon Result: 1= does not enter airway Thin Liquid via teaspoon Trial 2 Result: 1= does not enter airway Thin Liquid via small single sip from cup Result: 1= does not enter airway Thin Liquid via large single sip from cup Result: 2= enter airway/above vocal folds/ejected Thin Liquid via sequential sips from cup Result: 1= does not enter airway Enemy Swim Thick Liquid via large single sip from cup Result: 1= does not enter airway Cookie Result: 1= does not enter airway Thin Liquid via sequential sips from straw Result: 1= does not enter airway - Oral Phase Labial Seal: No Labial Escape Tongue Control During Bolus Hold: Cohesive bolus between tongue to palatal seal Bolus Preparation/Mastication: Timely and efficient chewing and mashing Bolus Transport/Lingual Motion: Brisk tongue motion Oral Residue: Trace residue lining oral structures - Pharyngeal Phase Initiation of Pharyngeal Swallow: Bolus head in valleculae Soft Palate Elevation: No bolus between soft palate and pharyngeal wall Laryngeal Elevation: Partial superior movement thyroid cart/partial apprx aryt-epig petiole Anterior Hyoid Excursion: Partial anterior movement Epiglottic Movement: Complete inversion Laryngeal Vestibule Closure at Height of Swallow: Incomplete; narrow column of air/contrast in laryngeal vestibule Pharyngeal Stripping Wave: Present - diminished Pharyngoesophageal Segment Opening: Complete distension and complete duration; no obstruction of flow Tongue Base Retraction: Narrow column of contrast between tongue base & post. pharyngeal wall Pharyngeal Residue: Trace residue within or on pharyngeal structures - Diagnosis/Impression Diagnosis: Swallow Function Within Normal Limits Impression: The patient has reported symptoms of frequent coughing including during meals and drinks. The patient trialed thin liquid barium via teaspoon, via cup and via straw. Penetration above the vocal cords found 1x following large single sip. No aspiration was found on this date and time. The patient had timely, effective mastication of Dottie Doone shortbread cookie and used thin liquid barium via straw as a chaser to clear trace oral residue. It is recommended patient resume a regular textured/thin liquid diet with only general swallowing precautions listed on this report. - Recommendations Diet: Regular Textures, Thin Liquids Compensatory Strategies: Small Bites, Small Sips, Sitting upright, Remain sitting upright for 30 minutes after PO intake Recommend Repeat Modified Barium Swallow: No Need for Skilled Speech Therapy Services: No Education Completed: 1. Described result of evaluation., 2. Pt understands evaluation & agrees with goals and treatment plan. - Status Active ST Patient: Active - Contact Information [facility] Speech Therapy:: Angy Velasquez MA, CCC-[employer]ARD[employer] FLOORING SPECIALIST [place] [phone] [email or web address]
== END ==
PROVIDERS: PCP Family Medicine Geriatric Medicine; Referring Provider Otolaryngology; Visit Provider Otolaryngology
DX: R13.10 Dysphagia, unspecified (principal)
CPT/HCPCS: 74230; 92611

== ENCOUNTER → 2021-04-04 15:47 | Outpatient (CLI) | payer MEDICARE, OTHER, SELFPAY ==
[2019-11-11 10:22] VITALS: BMI 36.6
== END ==
PROVIDERS: PCP Family Medicine Geriatric Medicine; Visit Provider Family Medicine Geriatric Medicine
DX: R11.2 Nausea with vomiting, unspecified (principal); N39.0 Urinary tract infection, site not specified; I10 Essential (primary) hypertension

== ENCOUNTER → 2021-04-04 15:47 | Outpatient (CLI) | payer MEDICARE, OTHER, SELFPAY ==
[2019-11-11 10:22] VITALS: BMI 36.6
--- NOTE | 2021-04-04 16:00 | RAD_ITS ---
STUDY: X-RAY - ABDOMEN/PELVIS REASON FOR EXAM: Female, 76 years old. 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 COMPARISON: None. FINDINGS: Normal visualized lung bases. There is an unremarkable bowel gas pattern. The visualized liver, spleen and kidneys are grossly normal in size and morphology. Status post cholecystectomy. Dextroscoliosis of the thoracolumbar spine with degenerative disc disease. RAD/Abdomen Single View IMPRESSION: Normal x-ray examination of the abdomen and pelvis. Electronically Signed: Hang Mcdermott MD at 10:02 EDT Tel , Service support ,
[2021-04-04 16:57] LABS: Absolute Lymphocyte Count 1.67 X10^3/uL (0.83-4.51); Absolute Neutrophil Count 3.5 X10^3/uL (2.0-7.7); Basophil# 0.04 X10^3/uL; Basophil% 0.7 % (0-1); Eosinophil# 0.23 X10^3/uL; Eosinophils% 3.9 % (0-5); Hematocrit 40.2 % (37-47); Hemoglobin 13.2 g/dL (12.0-15.0); Lymphocyte # 1.67 X10^3/ul (0.83-4.51); Lymphocyte % 28.1 % (19-41); Mean Corp Hgb Conc 32.8 g/dL (32-36); Mean Corpuscular Hgb 31.4 pg (27.0-32.0); Mean Corpuscular Volume 95.7 fL (81-99); Mean Platelet Vol. 10.5 fl (6.2-12.0); Monocyte# 0.52 X10^3/uL; Monocyte% 8.8 % (0-10); NRBC Flagged by Analyzer 0 % (0-5); Neutrophil # 3.46 X10^3/uL (2.7-7.7); Neutrophil % 58.2 % (47-70); Platelet Count 171 K/mm3 (150-450); RBC Distribution Width CV 12.9 % (11.6-14.6); RBC Distribution Width SD 45.6 fl (35.1-43.9); White Blood Count 5.9 K/mm3 (4.4-11.0)
[2021-04-04 17:44] LABS: Anion Gap 4 (5-15); BUN 17 mg/dL (7-18); BUN/Creat Ratio 24.3 RATIO (10-20); Chloride 104 mmol/L (98-107); EST Glomerular Filtration Rate 87 mL/min (>60); Est Glom Filt Rate - Afr Amer 105 mL/min (>60); Glucose 87 mg/dL (74-106); Potassium 3.7 mmol/L (3.5-5.1); Sodium Level 141 mmol/L (136-145); Thyroid Stim Hormone (TSH) 0.65 uIU/mL (0.358-3.74)
== END ==
PROVIDERS: PCP Family Medicine Geriatric Medicine; Referring Provider Family Medicine Geriatric Medicine; Visit Provider Family Medicine Geriatric Medicine
DX: R11.2 Nausea with vomiting, unspecified (principal); I10 Essential (primary) hypertension; N39.0 Urinary tract infection, site not specified
CPT/HCPCS: 36415; 74018; 80048; 84443; 85025; 87086; 87088

== ENCOUNTER → 2021-05-08 12:55 | Outpatient (CLI) | payer MEDICARE, OTHER, SELFPAY ==
[2019-11-11 10:22] VITALS: BMI 36.6
[2021-05-08 17:13] LABS: Absolute Lymphocyte Count 1.57 X10^3/uL (0.83-4.51); Absolute Neutrophil Count 3.6 X10^3/uL (2.0-7.7); Basophil# 0.04 X10^3/uL; Basophil% 0.7 % (0-1); Eosinophil# 0.24 X10^3/uL; Eosinophils% 4.1 % (0-5); Hematocrit 42.7 % (37-47); Hemoglobin 13.8 g/dL (12.0-15.0); Lymphocyte # 1.57 X10^3/ul (0.83-4.51); Lymphocyte % 26.8 % (19-41); Mean Corp Hgb Conc 32.3 g/dL (32-36); Monocyte# 0.34 X10^3/uL; Monocyte% 5.8 % (0-10); NRBC Flagged by Analyzer 0 % (0-5); Neutrophil # 3.64 X10^3/uL (2.7-7.7); Neutrophil % 62.3 % (47-70); Platelet Count 159 K/mm3 (150-450); RBC Distribution Width CV 12.9 % (11.6-14.6); RBC Distribution Width SD 45.7 fl (35.1-43.9); Red Blood Count 4.45 M/mm3 (4.2-5.4); White Blood Count 5.9 K/mm3 (4.4-11.0)
[2021-05-08 17:38] LABS: Vitamin D,25 Hydroxy 31.4 ng/mL
[2021-05-08 17:42] LABS: AST(SGOT) 33 U/L (15-37); Alanine Aminotransfer ALT/SGPT 40 U/L (13-56); Albumin, Serum 3.5 g/dL (3.2-5.0); Alkaline Phosphatase 84 U/L (45-117); Anion Gap 5 (5-15); BUN 15 mg/dL (7-18); BUN/Creat Ratio 20.1 RATIO (10-20); Calcium,Total 8.8 mg/dL (8.5-10.1); Chloride 105 mmol/L (98-107); Creatinine, Serum 0.75 mg/dL (0.55-1.02); EST Glomerular Filtration Rate 81 mL/min (>60); Est Glom Filt Rate - Afr Amer 98 mL/min (>60); Globulin 3.5 g/dL (2.2-4.2); Glucose 94 mg/dL (74-106); Potassium 3.8 mmol/L (3.5-5.1); Sodium Level 139 mmol/L (136-145); Thyroid Stim Hormone (TSH) 1.01 uIU/mL (0.358-3.74)
== END ==
PROVIDERS: PCP Family Medicine Geriatric Medicine; Visit Provider Family Medicine Geriatric Medicine
DX: E55.9 Vitamin D deficiency, unspecified (principal); I10 Essential (primary) hypertension; N39.0 Urinary tract infection, site not specified
CPT/HCPCS: 36415; 80053; 82306; 84443; 85025; 87086; 87088

== ENCOUNTER 2021-05-10 05:16 | Observation (INO) | payer MEDICARE, OTHER, SELFPAY ==
[2019-11-11 10:22] VITALS: BMI 36.6
[2021-05-10] VITALS (12 sets, daily range): BP systolic 132–177; BP diastolic 52–85; PULSE 45–73; RESP 12–18; TEMP 36.2–37.1; O2SAT 91–100; BMI 38.7; BMI 38.1
--- NOTE | 2021-05-10 05:21 | RAD_ITS ---
STUDY: X-RAY - LEFT ANKLE REASON FOR EXAM: Female, 76 years old. Fracture TECHNIQUE: 3 view(s) of the ankle. COMPARISON: None. FINDINGS: There is a fracture dislocation of the right ankle. There is a displaced fracture of the medial malleolus with lateral dislocation of the talus relative to the tibia. There is fracture of the distal fibula with medial apex angulation. On the lateral view there is a suggestion of a subtle posterior malleolus or tibial fracture. There is a small plantar spur. RAD/Ankle min 3 Views IMPRESSION: Fracture dislocation of the right ankle. Medial malleolus fracture distal fibular fracture possible posterior malleolus fracture. Soft tissue edema disruption of the ankle mortise. Electronically Signed: Courtney Quiles MD at 7:32 EDT Tel , Service support ,
--- NOTE | 2021-05-10 05:22 | EDS_ITS ---
HPI <Dr. Peterson Barraza MD - Last Filed: 05/10/21 07:11> History of Present Illness Informant: patient and EMS Occured/Mechanism Mechanism/Context: Yes injury Onset/Context/Timing Onset: Today and Hours Context: Sudden Onset Timing: Continuous Quality of Pain: Sharp Current Severity: Moderate Maximum Severity: Moderate Associated Symptoms Associated Symptoms: Negative for Parasthesia and Weakness Narrative Narrative: 76-year-old female was walking through her home when she twisted her left ankle and went down. This occurred this evening. Denies other injuries. Denies any prior surgery to that extremity. Prior similar symptoms: No Recent Illness/Hospitalization: No PFSH <Dr. Peterson Barraza MD - Last Filed: 05/10/21 07:11> [facility] Medical History (Updated 05/10/21 @ 06:[address] Peterson Barraza MD) Anxiety Diastolic dysfunction Essential hypertension Fibromyalgia History of revision of total replacement of right knee joint (~2014) Pulmonary hypertension Home Medications pravastatin 40 mg tablet 40 mg PO DAILY 02/09/19 [History Last Taken Unknown] jhyalrjppb-xfwbtlgbfcquk-olbujhei 50 mg-300 mg-40 mg capsule 1 cap PO Q6H PRN cap 07/20/19 [History Last Taken Unknown] escitalopram oxalate 20 mg tablet 20 mg PO DAILY tab 07/20/19 [History Last Taken Unknown] primidone 50 mg tablet 250 mg PO QHS 07/20/19 [History Last Taken Unknown] trazodone 150 mg tablet 150 mg PO QHS 07/20/19 [History Last Taken Unknown] baclofen 10 mg tablet 10 mg PO TID tab 07/28/19 [History Last Taken Unknown] carvedilol 12.5 mg tablet 12.5 mg PO BID #180 tab 07/28/19 [Rx Last Taken Unknown] diazepam 5 mg tablet 5 mg PO TID PRN tab 07/28/19 [History Last Taken Unknown] hydrochlorothiazide 12.5 mg tablet 12.5 mg PO DAILY #90 tab 07/28/19 [Rx Last Taken Unknown] loperamide 2 mg tablet 4 mg PO DAILY tab 07/28/19 [History Last Taken Unknown] meclizine 25 mg tablet 25 mg PO TID PRN 07/28/19 [History Last Taken Unknown] ondansetron HCl 4 mg tablet 4 mg PO TID PRN 10/02/19 [History Last Taken Unknown] lisinopril 40 mg tablet See Rx Instructions .ROUTE .COMPLEX #90 tab 03/21/21 [Rx Last Taken Unknown] Allergy/AdvReac Type Severity Reaction Status Date / Time No Known Allergies Allergy Verified 05/10/21 05:22 Surgical History History of cholecystectomy History of open reduction and internal fixation (ORIF) procedure History of tonsillectomy History of total right knee replacement (~2010) Social History Smoking Status: Never smoker how long ago did patient quit smokin years ago alcohol intake: never substance use type: does not use caffeine: No ROS <Dr. Peterson Barraza MD - Last Filed: 05/10/21 07:11> ROS ED ROS Narrative Patient denies recent illness. Review of Systems ROS Unobtainable: Denies due to encephalopathy Constitutional Constitutional ED: Denies chills or fever(s) Eyes Eyes: Denies change in vision ENT ENT ED: Denies ear pain or sore throat Cardiovascular Cardiovascular: Denies chest pain Respiratory/Chest Respiratory/Chest: Denies dyspnea Gastrointestinal Gastrointestinal: Denies abdominal pain, diarrhea, nausea or vomiting Genitourinary Genitourinary ED: Denies dysuria or hematuria Musculoskeletal Musculoskeletal: Denies myalgias Integumentary Denies rash Neurologic Neurologic: Denies headache(s) Psychiatric Psychiatric: Denies depression Endocrine Endocrinology: Denies polyuria Hematologic/Lymphatic Hematologic/Lymphatic: Denies easy bruising Allergic/Immunologic Allergic/Immunologic ED: Denies urticaria EXAM <Dr. Peterson Barraza MD - Last Filed: 05/10/21 07:11> Physical Exam Narrative Exam Narrative: Older female. Vital signs stable afebrile. HEENT exam atraumatic. No facial droop. Lungs clear to auscultation. Heart regular rhythm no murmur. Abdomen soft nontender. Chest wall nontender. Pelvic girdle intact. Both upper extremities are nontender. 5/5 pullman clerk strength. Back nontender. Right lower extremity unremarkable normal dorsi plantar flexion. No deformity. Left hip and knee are nontender left ankle is deformed. She has cap refill in her right foot. Skin is intact. Exam is consistent with a left ankle fracture. Neurologically she is awake and alert. States she has neuropathies in both feet and has decreased sensation. Const Vital Signs: 05/10/21 05:17 05/10/21 06:10 05/10/21 06:11 Temperature 97.2 F L Temperature Source Temporal Pulse Rate 57 L 47 L Pulse Rate [1 (Initial Baseline)] 47 L Pulse Rate [2] 52 L Respiratory Rate 16 13 Respiratory Rate [1 (Initial Baseline)] 13 Respiratory Rate [2] 13 Blood Pressure 171/80 H 177/85 H Blood Pressure [1 (Initial Baseline)] 177/85 H Blood Pressure [2] 174/77 H Blood Pressure Mean 110 Pulse Ox 94 98 Oxygen Delivery Method Room Air Oxygen Delivery Method [1 (Initial Baseline)] Nasal Cannula Oxygen Delivery Method [2] Nasal Cannula Oxygen Flow Rate (L/min) Oxygen Flow Rate (L/min) [1 (Initial Baseline)] 2 Oxygen Flow Rate (L/min) [2] 10 05/10/21 06:24 05/10/21 06:29 05/10/21 06:34 Temperature Temperature Source Pulse Rate 46 L 49 L 49 L Pulse Rate [1 (Initial Baseline)] Pulse Rate [2] Respiratory Rate 12 13 12 Respiratory Rate [1 (Initial Baseline)] Respiratory Rate [2] Blood Pressure 141/61 H 144/69 H 158/74 H Blood Pressure [1 (Initial Baseline)] Blood Pressure [2] Blood Pressure Mean Pulse Ox 98 98 99 Oxygen Delivery Method Room Air Nasal Cannula Nasal Cannula Oxygen Delivery Method [1 (Initial Baseline)] Oxygen Delivery Method [2] Oxygen Flow Rate (L/min) 8 5 2 Oxygen Flow Rate (L/min) [1 (Initial Baseline)] Oxygen Flow Rate (L/min) [2] 05/10/21 07:21 Temperature 98.8 F Temperature Source Oral Pulse Rate 46 L Pulse Rate [1 (Initial Baseline)] Pulse Rate [2] Respiratory Rate 14 Respiratory Rate [1 (Initial Baseline)] Respiratory Rate [2] Blood Pressure 169/77 H Blood Pressure [1 (Initial Baseline)] Blood Pressure [2] Blood Pressure Mean 107 Pulse Ox 94 Oxygen Delivery Method Room Air Oxygen Delivery Method [1 (Initial Baseline)] Oxygen Delivery Method [2] Oxygen Flow Rate (L/min) Oxygen Flow Rate (L/min) [1 (Initial Baseline)] Oxygen Flow Rate (L/min) [2] Positive well nourished and well developed General Appearance ED: well developed HEENT Reports moist mucous membranes normocephalic and atraumatic; Negative for trauma or tenderness Eyes PERRL Neck full ROM and supple Thyroid: Negative for tender Chest Wall inspection of chest normal and palpation of chest normal Resp normal respiratory effort, no retractions and clear to auscultation bilaterally Cardio regular rate, regular rhythm, S1 normal heart sound, S2 normal heart sound and no murmurs GI non-tender, non-distended and no masses Auscultation: normoactive bowel sounds Palpation: soft; Negative for tender or guarding Back/Spine no CVA tenderness Cervical Spine: Negative for cervical spine tenderness Thoracic Spine / Upper Back: Negative for thoracic spinal tenderness Lumbar Spine / Lower Back: Negative for lumbar spinal tenderness Extremity normal to inspection and full ROM Extremity Narrative: Normal right lower extremity. Left lower extremity has deformity tenderness at the left ankle consistent with a fracture. Skin is intact. Left foot has normal cap refill. Neuro oriented x3 and moves all extremities Sensorium / Orientation: alert, oriented to person, oriented to place and oriented to time Psych mental status grossly normal Skin no wounds Lesions: no lesions Rashes: no rashes <Dr. Cici Ayala MD - Last Filed: 05/10/21 07:41> Physical Exam Const Vital Signs: 05/10/21 05:17 05/10/21 06:10 05/10/21 06:11 Temperature 97.2 F L Temperature Source Temporal Pulse Rate 57 L 47 L Pulse Rate [1 (Initial Baseline)] 47 L Pulse Rate [2] 52 L Respiratory Rate 16 13 Respiratory Rate [1 (Initial Baseline)] 13 Respiratory Rate [2] 13 Blood Pressure 171/80 H 177/85 H Blood Pressure [1 (Initial Baseline)] 177/85 H Blood Pressure [2] 174/77 H Blood Pressure Mean 110 Pulse Ox 94 98 Oxygen Delivery Method Room Air Oxygen Delivery Method [1 (Initial Baseline)] Nasal Cannula Oxygen Delivery Method [2] Nasal Cannula Oxygen Flow Rate (L/min) Oxygen Flow Rate (L/min) [1 (Initial Baseline)] 2 Oxygen Flow Rate (L/min) [2] 10 05/10/21 06:24 05/10/21 06:29 05/10/21 06:34 Temperature Temperature Source Pulse Rate 46 L 49 L 49 L Pulse Rate [1 (Initial Baseline)] Pulse Rate [2] Respiratory Rate 12 13 12 Respiratory Rate [1 (Initial Baseline)] Respiratory Rate [2] Blood Pressure 141/61 H 144/69 H 158/74 H Blood Pressure [1 (Initial Baseline)] Blood Pressure [2] Blood Pressure Mean Pulse Ox 98 98 99 Oxygen Delivery Method Room Air Nasal Cannula Nasal Cannula Oxygen Delivery Method [1 (Initial Baseline)] Oxygen Delivery Method [2] Oxygen Flow Rate (L/min) 8 5 2 Oxygen Flow Rate (L/min) [1 (Initial Baseline)] Oxygen Flow Rate (L/min) [2] 05/10/21 07:21 Temperature 98.8 F Temperature Source Oral Pulse Rate 46 L Pulse Rate [1 (Initial Baseline)] Pulse Rate [2] Respiratory Rate 14 Respiratory Rate [1 (Initial Baseline)] Respiratory Rate [2] Blood Pressure 169/77 H Blood Pressure [1 (Initial Baseline)] Blood Pressure [2] Blood Pressure Mean 107 Pulse Ox 94 Oxygen Delivery Method Room Air Oxygen Delivery Method [1 (Initial Baseline)] Oxygen Delivery Method [2] Oxygen Flow Rate (L/min) Oxygen Flow Rate (L/min) [1 (Initial Baseline)] Oxygen Flow Rate (L/min) [2] MDM <Dr. Peterson Barraza MD - Last Filed: 05/10/21 07:11> MDM MDM Narrative Medical decision making narrative: 76-year-old female fell at home as what appears to be a left ankle fracture. X-rays are being obtained. She will be given IV morphine and Zofran. Discussed with patient and her . They did not think that she would be able to deal with this at home or get around the house. Speak to the hospitalist about admission. Lab Data Attestation: I reviewed the patient's lab results. Lab results narrative: CBC showed a white count of 6. Hemoglobin 13. Electrolytes unremarkable potassium 3.2. Normal creatinine and gap. Labs: Laboratory Results - last 24 hr 05/10/21 05/10/21 06:35 06:35 WBC 6.6 RBC 4.15 L Hgb 13.2 Hct 39.0 MCV 94.0 MCH 31.8 MCHC 33.8 RDW Std Deviation 43.7 RDW Coeff of Rishi 12.6 Plt Count 151 MPV 10.6 Sodium 140 Potassium 3.2 L Chloride 106 Carbon Dioxide 30.0 Anion Gap 4 L BUN 12 Creatinine 0.60 Estim Creat Clear Calc 37.24 Est GFR (MDRD) Af Amer 126 Est GFR (MDRD) Non-Af 104 BUN/Creatinine Ratio 20.0 Glucose 103 Calcium 9.2 Radiography Diagnostic Testing: Radiology Impression Ankle X-Ray 05/10/21 05:21 IMPRESSION: Fracture dislocation of the right ankle. Medial malleolus fracture distal fibular fracture possible posterior malleolus fracture. Soft tissue edema disruption of the ankle mortise. Electronically Signed: Courtney Quiles MD at 7:32 EDT Tel , Service support , Left ankle x-ray 3 views interpreted by myself shows a bimalleolar fracture of both the medial lateral malleolus. I discussed the films with both the patient and her . She was consciously sedated with propofol and placed in a short leg posterior splint with sugar tong support. Patient tolerated procedure well. <Dr. Cici Ayala MD - Last Filed: 05/10/21 07:41> [facility] Lab Data Labs: Laboratory Results - last 24 hr 05/10/21 05/10/21 06:35 06:35 WBC 6.6 RBC 4.15 L Hgb 13.2 Hct 39.0 MCV 94.0 MCH 31.8 MCHC 33.8 RDW Std Deviation 43.7 RDW Coeff of Rishi 12.6 Plt Count 151 MPV 10.6 Sodium 140 Potassium 3.2 L Chloride 106 Carbon Dioxide 30.0 Anion Gap 4 L BUN 12 Creatinine 0.60 Estim Creat Clear Calc 37.24 Est GFR (MDRD) Af Amer 126 Est GFR (MDRD) Non-Af 104 BUN/Creatinine Ratio 20.0 Glucose 103 Calcium 9.2 Radiography Diagnostic Testing: Radiology Impression Ankle X-Ray 05/10/21 05:21 IMPRESSION: Fracture dislocation of the right ankle. Medial malleolus fracture distal fibular fracture possible posterior malleolus fracture. Soft tissue edema disruption of the ankle mortise. Electronically Signed: Courtney Quiles MD at 7:32 EDT Tel , Service support , Procedures <Dr. Peterson Barraza MD - Last Filed: 05/10/21 07:11> Lower Extremity Splints Lower Extremity Splint: Orthoglass and Stirrup Splint Fabrication: Fabricated Location: Left Other Procedures Procedure(s): Conscious sedation by ER using propofol. 50 mg IV. Patient tolerated procedure well. Her oxygen saturation and blood pressure remained stable and normal the entire time. Conscious sedation lasted about 10 minutes. Fracture reduction using manual traction. And patient was placed in the splint. Discharge Plan Dx/Rx/DC Orders Clinical Impression: Fall, Bimalleolar fracture of left ankle Disposition Disposition: Acute Care Hospital [facility]
[2021-05-10] MEDS: Ondansetron 4 MG/2 ML Vial IV (05:34)
[2021-05-10] MEDS: morphine 8 MG/ML Syringe 6 MG IV (05:34)
[2021-05-10] MEDS: Propofol 200 MG/20 ML Vial 50 MG IV BOLUS (06:21)
[2021-05-10 06:40] LABS: Hemoglobin 13.2 g/dL (12.0-15.0); Mean Corp Hgb Conc 33.8 g/dL (32-36); Mean Corpuscular Hgb 31.8 pg (27.0-32.0); Mean Platelet Vol. 10.6 fl (6.2-12.0); Platelet Count 151 K/mm3 (150-450); RBC Distribution Width CV 12.6 % (11.6-14.6); RBC Distribution Width SD 43.7 fl (35.1-43.9); Red Blood Count 4.15 M/mm3 (4.2-5.4); White Blood Count 6.6 K/mm3 (4.4-11.0)
[2021-05-10 06:54] LABS: Anion Gap 4 (5-15); BUN 12 mg/dL (7-18); Calcium,Total 9.2 mg/dL (8.5-10.1); Chloride 106 mmol/L (98-107); EST Glomerular Filtration Rate 104 mL/min (>60); Est Glom Filt Rate - Afr Amer 126 mL/min (>60); Estimated Creatinine Clearance 37.24 ml/min; Glucose 103 mg/dL (74-106); Potassium 3.2 mmol/L (3.5-5.1); Sodium Level 140 mmol/L (136-145)
--- NOTE | 2021-05-10 07:29 | PCM.HP.STD ---
HPI - General General Date of Admission: 05/10/21 Date of Service: 05/10/21 Chief Complaint: L ankle pain, fall. HPI Narrative The patient is a 76 y/o F w/ PMHx: HTN, HLD, Anxiety and Depression, Obesity, Former Tobacco use, Essential tremor, Fibromyalgia who presents to the [facility] 05/10/21 with history of unfortunate mechanical fall while getting up early in the morning to use the restroom, falling and twisting her left ankle with immediate severe 10 out of 10 sharp pain, inability to wear weight, obvious deformity prompting ED evaluation. Upon evaluation patient noted pain had decreased from 10-6 following pain medication in the ED and reduction per ED physician. Work-up in the ED included T 97.2, heart rate 57, BP initially 171/80, respiratory rate 16, 98% on room air, CBC with WC 6.6, hemoglobin 13.2, platelet 151 without differential performed, BMP with sodium 3.2 otherwise not marked appearing, urinalysis unremarkable, plain film of the left ankle with a fracture dislocation with displaced fracture of the medial malleolus as well as lateral dislocation of the talus relative to the tibia, fracture of the distal fibula with medial apex angulation as well as a subtle posterior malleolus or tibial fracture and a small plantar spur with soft tissue edema disruption of the ankle mortis, following reduction in the ED per ED physician with as well posterior splinting with a sugar tong follow-up postreduction x-ray with improved trimalleolar fracture alignment although mild persistent displacement with soft tissue swelling with evident cast application. [facility] Medical History (Updated 05/10/21 @ 17:[address] Cici Ayala MD) Anxiety Diastolic dysfunction Essential and other specified forms of tremor Essential hypertension Fibromyalgia Former smoker History of revision of total replacement of right knee joint (~2014) Osteoporosis Pulmonary hypertension Home Medications pravastatin 40 mg tablet 40 mg PO DAILY 02/09/19 [History Last Taken 05/09/21] tmuturgsdf-zgqutzcwrgeyo-oszxxdtr 50 mg-300 mg-40 mg capsule 1 cap PO Q6H PRN cap 07/20/19 [History Last Taken 05/09/21] escitalopram oxalate 20 mg tablet 20 mg PO DAILY tab 07/20/19 [History Last Taken 05/09/21] primidone 50 mg tablet 250 mg PO QHS 07/20/19 [History Last Taken 05/09/21] trazodone 150 mg tablet 150 mg PO QHS 07/20/19 [History Last Taken 05/09/21] baclofen 10 mg tablet 10 mg PO TID tab 07/28/19 [History Last Taken 05/09/21] carvedilol 12.5 mg tablet 12.5 mg PO BID #180 tab 07/28/19 [Rx Last Taken 05/09/21] diazepam 5 mg tablet 5 mg PO TID PRN tab 07/28/19 [History Last Taken Unknown] hydrochlorothiazide 12.5 mg tablet 12.5 mg PO DAILY #90 tab 07/28/19 [Rx Last Taken 05/09/21] loperamide 2 mg tablet 4 mg PO DAILY tab 07/28/19 [History Last Taken 05/09/21] meclizine 25 mg tablet 25 mg PO TID PRN 07/28/19 [History Last Taken 05/09/21] ondansetron HCl 4 mg tablet 4 mg PO TID PRN 07/28/19 [History Last Taken 05/09/21] Allergy/AdvReac Type Severity Reaction Status Date / Time No Known Allergies Allergy Verified 05/10/21 05:22 Family History (Updated 05/10/21 @ 17:[address] Cici Ayala MD) Mother Dementia Father Colon cancer age 70, unclear specific onset date. Surgical History History of cholecystectomy History of open reduction and internal fixation (ORIF) procedure History of tonsillectomy History of total right knee replacement (~2010) Social History (Updated 05/10/21 @ 17:[address] Cici Ayala MD) household members: spouse Smoking Status: Former smoker how long ago did patient quit smoking: Quit 15 years ago, 1/2 ppd starting in high school. alcohol intake: never substance use type: does not use caffeine: No ROS ROS Narrative Admission Review of Systems: CONSTITUTIONAL: No weight loss, fever, chills, + weakness or fatigue. HEENT: Eyes: No visual loss, blurred vision, double vision or yellow sclerae. Ears, Nose, Throat: No hearing loss, sneezing, congestion, runny nose or sore throat. SKIN: + L ankle evident ecchymoses and bruising initially, now in splint. CARDIOVASCULAR: No chest pain, chest pressure or chest discomfort, palpitations, edema, orthopnea, syncopal events. RESPIRATORY: No shortness of breath, cough or sputum, wheezing, hemoptysis. GASTROINTESTINAL: No anorexia, nausea, vomiting or diarrhea, abdominal pain, melena, BRBPR. GENITOURINARY: No dysuria, frequency, urgency or retention. NEUROLOGICAL: No headache, dizziness, syncope, paralysis, ataxia, numbness or tingling in the extremities, focal weakness, change in bowel or bladder control, seizure. MUSCULOSKELETAL: + muscle, back pain, joint pain or stiffness. HEMATOLOGIC: No anemia, bleeding or bruising. LYMPHATICS: No enlarged nodes. No history of splenectomy. PSYCHIATRIC: + history of depression or anxiety. ENDOCRINOLOGIC: No reports of sweating, cold or heat intolerance. No polyuria or polydipsia. ALLERGIES: No history of asthma, hives, eczema or rhinitis. Vital Signs Vital Signs Vital Signs: 05/10/21 05:17 05/10/21 06:10 05/10/21 06:11 Temperature 97.2 F L Temperature Source Temporal Pulse Rate 57 L 47 L Pulse Rate [1 (Initial Baseline)] 47 L Pulse Rate [2] 52 L Respiratory Rate 16 13 Respiratory Rate [1 (Initial Baseline)] 13 Respiratory Rate [2] 13 Blood Pressure 171/80 H 177/85 H Blood Pressure [1 (Initial Baseline)] 177/85 H Blood Pressure [2] 174/77 H Blood Pressure Mean 110 Pulse Ox 94 98 Oxygen Delivery Method Room Air Oxygen Delivery Method [1 (Initial Baseline)] Nasal Cannula Oxygen Delivery Method [2] Nasal Cannula Oxygen Flow Rate (L/min) Oxygen Flow Rate (L/min) [1 (Initial Baseline)] 2 Oxygen Flow Rate (L/min) [2] 05/10/21 06:24 05/10/21 06:29 05/10/21 06:34 Temperature Temperature Source Pulse Rate 46 L 49 L 49 L Pulse Rate [1 (Initial Baseline)] Pulse Rate [2] Respiratory Rate 12 13 12 Respiratory Rate [1 (Initial Baseline)] Respiratory Rate [2] Blood Pressure 141/61 H 144/69 H 158/74 H Blood Pressure [1 (Initial Baseline)] Blood Pressure [2] Blood Pressure Mean Pulse Ox 98 98 99 Oxygen Delivery Method Room Air Nasal Cannula Nasal Cannula Oxygen Delivery Method [1 (Initial Baseline)] Oxygen Delivery Method [2] Oxygen Flow Rate (L/min) 8 5 2 Oxygen Flow Rate (L/min) [1 (Initial Baseline)] Oxygen Flow Rate (L/min) [2] 05/10/21 07:21 Temperature 98.8 F Temperature Source Oral Pulse Rate 46 L Pulse Rate [1 (Initial Baseline)] Pulse Rate [2] Respiratory Rate 14 Respiratory Rate [1 (Initial Baseline)] Respiratory Rate [2] Blood Pressure 169/77 H Blood Pressure [1 (Initial Baseline)] Blood Pressure [2] Blood Pressure Mean 107 Pulse Ox 94 Oxygen Delivery Method Room Air Oxygen Delivery Method [1 (Initial Baseline)] Oxygen Delivery Method [2] Oxygen Flow Rate (L/min) Oxygen Flow Rate (L/min) [1 (Initial Baseline)] Oxygen Flow Rate (L/min) [2] Weight Weight: 204 lb 12.951 oz Body Mass Index (BMI) 38.7 Physical Exam Narrative Physical Examination: General: Awake, alert, oriented x 3 and cooperative, seated upright in the MS bed, notes pain 6/10. Skin: Normal color, normal turgor, no icterus, no cyanosis except noted ecchymoses and obvious injury to left ankle, currently now in cast/tong splint. HEENT: AT/NC, EOMI, PERRLA, mildly dry MM, no carotid bruits or JVD noted; however, thickened neck makes examination difficult. Lungs: CTA bilaterally, moderate effort, mild decrease BL bases, no rales, ronchi or wheezing. Heart: Regular rate and rhythm; no gallop, rub audible. Abdomen: Soft, obese, NTTP, ND, distant normal BS, no obvious HSM; however, habitus makes examination difficult. Extremities: No cyanosis, no clubbing, left ankle with as noted ankle fracture, edematous, splint/cast in place, toes edematous. Neurological: Patient awake, alert, oriented x 3, cognitive function intact; pupils equally reactive to light and accommodation, cranial nerves II-XII grossly normal, moving all 4 extremities including left lower extremity able to move toes but beyond this avoided any specific movement given ankle fracture, strength accordingly severely globally decreased. Psychiatric: Affect appears mildly uncomfortable, no acute evidence of depressive or anxiety feelings. Results Lab / Micro Data Result Diagrams: 05/10/21 06:35 05/10/21 06:35 Labs: Laboratory Results - last 24 hr 05/10/21 06:35: WBC 6.6, RBC 4.15 L, Hgb 13.2, Hct 39.0, MCV 94.0, MCH 31.8, MCHC 33.8, RDW Std Deviation 43.7, RDW Coeff of Rishi 12.6, Plt Count 151, MPV 10.6 05/10/21 06:35: Sodium 140, Potassium 3.2 L, Chloride 106, Carbon Dioxide 30.0, Anion Gap 4 L, BUN 12, Creatinine 0.60, Estim Creat Clear Calc 37.24, Est GFR (MDRD) Af Amer 126, Est GFR (MDRD) Non-Af 104, BUN/Creatinine Ratio 20.0, Glucose 103, Calcium 9.2 Assessment & Plan Assessment/Plan (1) Closed trimalleolar fracture of left ankle: QUALIFIERS: Encounter type: initial encounter Qualified Code(s): S82.852A - Displaced trimalleolar fracture of left lower leg, initial encounter for closed fracture PLAN: The patient is a 76 y/o F w/ PMHx: Chronic headaches, HTN, HLD, Anxiety and Depression, Obesity, Former Tobacco use, Essential tremor, Fibromyalgia who presents to the [facility] 05/10/21 with history of unfortunate mechanical fall while getting up early in the morning to use the restroom, falling and twisting her left ankle with immediate severe 10 out of 10 sharp pain, inability to wear weight, obvious deformity prompting ED evaluation. 1. Mechanical fall with left bimalleolar ankle fracture: We will admit to the medical surgical floor, maintain on fall precautions, nonweightbearing status, continue ED initiated tongue/cast, orthopedic surgery contacted and foot and ankle specialist will evaluate patient, as needed oral and IV pain regimen, as needed antiemetic if necessary, plan on case management, PT and OT assessments for discharge planning as patient had felt unsafe at home as partial reason for admission. 2. Hypertension: Continue home regimen including Coreg, hydrochlorothiazide with hold parameters as needed, PRN hydralazine. 3. 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 Hyperlipidemia: Continue home statin regimen. 5. Former tobacco use: Encourage continued tobacco cessation. 6. Chronic headaches: We will continue patient as needed Fioricet regimen specifically requested per her. 7. DVT prophylaxis: SCDs, Lovenox. 8. CODE status: present. Discussed CODE status at length including difference between FULL code, DNR-CCA and DNR-CC status. Following discussions about the differences in these status, requested Full Code status. Advanced Care Planning Face to Face Time: 16 minutes. Charges/Coding Visit Charges OBSV E&M: 14911 Initial observation care L3 Procedures Hospitalists Procedures: 97869 Advncd Care Plan 30 Min
--- NOTE | 2021-05-10 08:07 | RAD_ITS ---
STUDY: X-RAY - LEFT ANKLE REASON FOR EXAM: Female, 76 years old. POST REDUCTION XRAY TECHNIQUE: 3 view(s) of the ankle. COMPARISON: Earlier the same day. FINDINGS: Cast application. Improved trimalleolar fracture alignment with mild persistent displacement. No dislocation. No bone destruction. Osteopenia/osteoporosis. Plantar spur. Soft tissue swelling. RAD/Ankle min 3 Views IMPRESSION: Improved trimalleolar fracture alignment with mild persistent displacement Soft tissue swelling Cast application Electronically Signed: Amador Ellington DO at 8:39 EDT Tel , Service support ,
[2021-05-10 08:12] LABS: Magnesium 1.9 mg/dL (1.6-2.6)
[2021-05-10] MEDS: Loperamide 2 MG Capsule 4 MG PO (09:45)
[2021-05-10] MEDS: Carvedilol 12.5 MG Tablet PO ×2 (09:46→23:00)
[2021-05-10] MEDS: hydroCHLOROthiazide 6.25mg TAB 12.5 MG PO (09:46)
[2021-05-10] MEDS: Escitalopram Oxalate 20 MG Tablet PO (09:46)
[2021-05-10] MEDS: Pravastatin 40 MG Tablet PO (09:47)
[2021-05-10] MEDS: oxyCODONE 5 MG Tablet PO ×3 (09:49→23:03)
[2021-05-10] MEDS: Enoxaparin 40 MG/0.4 ML Syringe SC (09:50)
[2021-05-10] MEDS: Baclofen 10 MG Tablet PO ×2 (09:52→22:59)
--- NOTE | 2021-05-10 11:05 | PCM.CONS.GEN ---
Assessment & Plan Assessment/Plan (1) Closed trimalleolar fracture of left ankle: PLAN: PLAN: Patient chart reviewed and patient evaluated. Full discussion had with the patient about the patient's current clinical condition. Radiographs reviewed with the patient in detail. At this time, I discussed with her that she has what is called a displaced trimalleolar fracture of her left ankle. Furthermore, there is significant swelling of the left lower extremity. I discussed with her conservative therapy. Conservative therapy would include continue nonweightbearing in the left lower extremity with eventual placement in a below the knee cast. Eventual transition will be performed to a weightbearing boot and a brace. I discussed the usual treatment course for this. I discussed the risks and benefits of conservative therapy, including but not limited to delayed or nonhealing bone, continued pain, permanent dysfunction of limb. I discussed surgical intervention, which would include an open reduction with internal fixation of the left ankle trimalleolar fracture. I discussed the risks and benefits of surgery, including but not limited to delayed or nonhealing wounds, delayed or nonhealing bone, DVT, infection, decreased function of limb, continued pain, damage to surrounding structures, loss of limb, loss of life. Furthermore, due to the patient's complicated medical history, significant edema present, her age along with osteopenia present on the x-rays, she is at high risk of postoperative complications. All the patient's questions were answered to her satisfaction and all her concerns were addressed. No guarantees were made as to the outcome of the procedure. Due to the patient's active lifestyle and deformity that is present, I do believe that surgical intervention will help the patient return to her activity. Patient is agreeable to this, and states that she is active. She is afraid that if surgery is not performed, this will significantly decrease her quality of life. I am in agreement with this assessment. I did discuss with the patient's that there is significant swelling of the soft tissues surrounding the ankle. This will inhibit immediate surgical intervention. Due to the significant swelling that is present, we will have to delay the surgery for a period of up to 2 weeks. Patient displayed verbal understanding, and is agreeable to delay surgery. At this time I do recommend that the dressing to the left lower extremity be kept clean, dry, intact. I recommend the patient remain nonweightbearing to the left lower extremity. I will continue discussions with the patient for further surgical planning. A CT scan of the left ankle was ordered for pre-operative planning. Patient was agreeable to this. There is no immediate surgical intervention planned at this time. We will plan for surgery in the enxt one to two weeks. Patient's n.p.o. status can be removed. I will continue to follow patient closely and update accordingly. Thank you very much for the consultation and allowing me to take part in the care of your patient HPI Consult Data Date of Consult: 05/10/21 HPI Narrative HPI Narrative: TINA GARCIA, is a 76 F who presents today with a chief complaint of pain in her left ankle. After verbal questioning, patient states that she was in her usual state of health and was asleep at approximately 5 AM on the morning of May 10, 2021. She woke and proceeded to head to the restroom. Unfortunately, she did lose her balance and fell. She did not lose consciousness, and is able to recall the entire event. She does not believe that she tripped over anything and does not believe that she slipped. She believes that she lost her balance . Unfortunately, she did fall awkwardly on her left ankle. Patient felt immediate pain after the injury, and noticed a deformity of the left ankle. She attempted to get up, but was unable to place weight on her left foot. Due to this, the emergency squad was called and patient was transported to the [facility] for further evaluation. At that time, x-rays were taken, revealing a left ankle trimalleolar fracture. This was dislocated in nature. The patient was sedated, and closed reduction was performed. After verbal questioning of the patient and her , they stated that the patient would be unable to be at home and remaining nonweightbearing to the left foot. Due to this, patient was admitted for further evaluation and eventual placement into a rehabilitation facility. Patient states that her left ankle was pain free prior to this injury. She has no previous injury to this ankle prior to today. After verbal questioning, patient states that she admits to pain in her left ankle, but she does have a history of neuropathy. She states that her pain is mild. She states that the pain at its worst is a 5 out of 10, and that it is well controlled. She has not placed any weight on her left foot since the injury. Patient denies any other areas of injury at this time. Patient denies any other acute complaints. Currently, patient denies fever, chills, nausea, vomiting, shortness of breath, chest pain. Patient denies left calf pain. [facility] Medical History (Updated 05/10/21 @ 11:[address] Kody Arrington DPM) Anxiety Diastolic dysfunction Essential and other specified forms of tremor Essential hypertension Fibromyalgia Former smoker History of revision of total replacement of right knee joint (~2014) Osteoporosis Pulmonary hypertension Home Medications pravastatin 40 mg tablet 40 mg PO DAILY 02/09/19 [History Last Taken 05/09/21] mwtumruseo-xzgdbgrllphrz-mcqfrcds 50 mg-300 mg-40 mg capsule 1 cap PO Q6H PRN cap 07/20/19 [History Last Taken 05/09/21] escitalopram oxalate 20 mg tablet 20 mg PO DAILY tab 07/20/19 [History Last Taken 05/09/21] primidone 50 mg tablet 250 mg PO QHS 07/20/19 [History Last Taken 05/09/21] trazodone 150 mg tablet 150 mg PO QHS 07/20/19 [History Last Taken 05/09/21] baclofen 10 mg tablet 10 mg PO TID tab 07/28/19 [History Last Taken 05/09/21] carvedilol 12.5 mg tablet 12.5 mg PO BID #180 tab 07/28/19 [Rx Last Taken 05/09/21] diazepam 5 mg tablet 5 mg PO TID PRN tab 07/28/19 [History Last Taken Unknown] hydrochlorothiazide 12.5 mg tablet 12.5 mg PO DAILY #90 tab 07/28/19 [Rx Last Taken 05/09/21] loperamide 2 mg tablet 4 mg PO DAILY tab 07/28/19 [History Last Taken 05/09/21] meclizine 25 mg tablet 25 mg PO TID PRN 07/28/19 [History Last Taken 05/09/21] ondansetron HCl 4 mg tablet 4 mg PO TID PRN 07/28/19 [History Last Taken 05/09/21] Allergy/AdvReac Type Severity Reaction Status Date / Time No Known Allergies Allergy Verified 05/10/21 05:22 Surgical History History of cholecystectomy History of open reduction and internal fixation (ORIF) procedure History of tonsillectomy History of total right knee replacement (~2010) Social History Smoking Status: Never smoker how long ago did patient quit smokin years ago alcohol intake: never substance use type: does not use caffeine: No ROS ROS Narrative as per HPI. Other review of systems negative Constitutional Constitutional: Reports systems reviewed and no addt'l complaints, except as documented Eyes Eyes: Reports systems reviewed and no addt'l complaints, except as documented ENT HEENT: Reports systems reviewed and no addt'l complaints, except as documented Cardiovascular Cardiovascular: Reports systems reviewed and no addt'l complaints, except as documented Respiratory/Chest Respiratory/Chest: Reports systems reviewed and no addt'l complaints, except as documented Gastrointestinal Gastrointestinal: Reports systems reviewed and no addt'l complaints, except as documented Musculoskeletal Musculoskeletal: Reports systems reviewed and no addt'l complaints, except as documented Integumentary Integumentary: Reports systems reviewed and no addt'l complaints, except as documented Neurologic Neurologic: Reports systems reviewed and no addt'l complaints, except as documented Psychiatric Psychiatric: Reports systems reviewed and no addt'l complaints, except as documented Endocrine Endocrinology: Reports systems reviewed and no addt'l complaints, except as documented Hematologic/Lymphatic Hematologic/Lymphatic: Reports systems reviewed and no addt'l complaints, except as documented Allergic/Immunologic Allergic/Immunologic: Reports systems reviewed and no addt'l complaints, except as documented Physical Exam Narrative Patient seen at bedside resting comfortably. Dressing to left lower extremity is clean, dry, and intact. Foot and ankle appear in a rectus position to the long axis of the tibia at this time and no obvious deformity noted. Const alert, oriented x3 and no apparent distress HEENT normocephalic Head and Scalp: normal to inspection Face and Sinus: normal facial exam Nose: external nose normal Eyes PERRL and EOMs intact bilaterally General Eye: normal appearance of both eyes Neck full ROM General: normal visual inspection Chest inspection of chest normal Resp normal respiratory effort Cardio regular rate, regular rhythm, S1 normal heart sound and S2 normal heart sound GI normal to inspection, nondistended, normoactive bowel sounds Extremity Extremity Narrative: Extremity Narrative: Left lower extremity: Dressing is clean, dry, intact. Dressing removed to further examination. Vascular: Weakly palpable dorsalis pedis pulse and nonpalpable posterior tibial pulse of the right lower extremity. Capillary fill time is less than 3 seconds all digits of the left foot. Temperature gradient is within normal limits of the left lower extremity. Significant nonpitting edema noted in the medial and lateral aspect of the right ankle. Significant nonpitting edema noted on the dorsal aspect of the left foot. Loss of skin lines noted. Neurological: Gross and protective sensation is diminished to the left lower extremity. Patient states that this is normal for her due to her history of neuropathy Dermatological: Ecchymosis noted in the medial and lateral aspect of the right ankle. Skin envelope is intact at this time with no evidence of open lesions noted. No evidence of fracture blisters noted. Musculoskeletal: Ankle appears in a slight valgus position at this time. Talus appears underneath the tibia. Positive pain upon palpation and compression of the lateral and medial aspect of the right ankle. Muscle strength was deferred at this time. Skin Skin Narrative: Skin envelope is intact at this time to the left lower extremity Neuro oriented x3 Lab / Micro Data Result Diagrams: 05/10/21 06:35 05/10/21 06:35 Labs: Laboratory Results - last 24 hr 05/10/21 06:35: WBC 6.6, RBC 4.15 L, Hgb 13.2, Hct 39.0, MCV 94.0, MCH 31.8, MCHC 33.8, RDW Std Deviation 43.7, RDW Coeff of Rishi 12.6, Plt Count 151, MPV 10.6 05/10/21 06:35: Sodium 140, Potassium 3.2 L, Chloride 106, Carbon Dioxide 30.0, Anion Gap 4 L, BUN 12, Creatinine 0.60, Estim Creat Clear Calc 37.24, Est GFR (MDRD) Af Amer 126, Est GFR (MDRD) Non-Af 104, BUN/Creatinine Ratio 20.0, Glucose 103, Calcium 9.2 05/10/21 06:35: Magnesium 1.9 Radiology Impression Ankle X-Ray 05/10/21 05:21 IMPRESSION: Fracture dislocation of the right ankle. Medial malleolus fracture distal fibular fracture possible posterior malleolus fracture. Soft tissue edema disruption of the ankle mortise. Electronically Signed: Courtney Quiles MD at 7:32 EDT Tel , Service support , Ankle X-Ray 05/10/21 08:07 IMPRESSION: Improved trimalleolar fracture alignment with mild persistent displacement Soft tissue swelling Cast application Electronically Signed: Amador Ellington DO at 8:39 EDT Tel , Service support , Charges/Coding Visit Charges Inpatient E&M: 04133 Init Hosp L2
--- NOTE | 2021-05-10 11:26 | CT_ITS ---
STUDY: CT LEFT ANKLE WITHOUT CONTRAST REASON FOR EXAM: Female, 76 years old. trimalleolar fracture left ankle RADIATION DOSAGE (If Supplied By Facility): CTDIvol = ( 13.33 ) mGy, DLP = ( 380.63 ) mGycm TECHNIQUE: Thin section transaxial imaging of the ankle was obtained, with sagittal and coronal reconstructed images. Individualized dose optimization techniques were used for this CT. COMPARISON: X-ray dated 05/10/2021. FINDINGS: Cast application. Acute medial malleolus fracture with 6 mm fracture fragment separation (coronal image 37 series 602). Acute nondisplaced comminuted distal fibula fracture (coronal image 41 series 602). Acute nondisplaced posterior malleolus fracture (sagittal image 22 series 601). Tibiotalar subluxation with approximately 4 mm step-off laterally. Medial malleolus clear space preserved. Lateral malleolus clear space preserved. No mary dislocation. No bone destruction. Tiny tibiotalar joint space bone fragments. Plantar spur. Mild tarsometatarsal joint arthrosis. Osteopenia. Extensive lateral swelling with small hematoma (axial image 25 series 2) measuring 2.8 cm x [address]/Extremity Lower without Contra IMPRESSION: Acute casted trimalleolar fractures, as above Tibiotalar subluxation without mary dislocation Extensive soft tissue swelling lateral malleolus small hematoma Electronically Signed: Amador Ellington DO at 11:52 EDT Tel , Service support ,
[2021-05-10 13:29] LABS: Bacteria 0 SEEN /hpf (None Seen); Mucous, Urine 0 SEEN /hpf (<or=2+); Squamous Epithelial Cells - UA 0 SEEN /hpf (5-10); White Blood Cells 0 SEEN /hpf (0-5)
[2021-05-10 13:38] LABS: Color, Urine Yellow (Yellow); Glucose, Dipstick Normal (Normal); Ketone-Dipstick Negative (Negative); Leukocyte Esterase-Dipstick Negative /ul (Negative); Nitrite-Dipstick Negative (Negative); Occult Blood-Urine 150 /ul (Negative); Protein-Dipstick 15 mg/dl (Negative); Urine Bilirubin Dipstick Negative (Negative); Urine Clarity Clear (Clear); Urine Urobilinogen Normal (Normal)
[2021-05-10 14:13] LABS: Amorphous Sediment 1+; Red Blood Cells-Urine 5-10 SEEN /hpf (0-5)
[2021-05-10] MEDS: 0.9% Saline Lock 10 ML Syringe IV (14:13)
[2021-05-10] MEDS: Acetaminophen/Butalbital/Caffe 1 Tablet PO (14:14)
[2021-05-10] MEDS: traZODone 50 MG Tablet 150 MG PO (22:59)
[2021-05-10] MEDS: Primidone 250 MG Tablet PO (23:00)
[2021-05-11 02:45] VITALS: BP 142/53; PULSE 61; RESP 16; TEMP 37.1; O2SAT 98
[2021-05-11] MEDS: oxyCODONE 5 MG Tablet PO (03:52)
[2021-05-11] MEDS: Acetaminophen/Butalbital/Caffe 1 Tablet PO ×2 (04:13→10:23)
[2021-05-11] MEDS: Baclofen 10 MG Tablet PO ×2 (06:02→13:19)
--- NOTE | 2021-05-11 06:21 | PCM.PN.HOSP ---
Subjective Subjective Patient overnight with complaints of headache, asking for one of her Fioricets and notes that it is similar to her prior, commonly using at least 1-2 tabs daily. Patient notes that pain to her ankle is improved with less swelling. Discussed need for increased elevation above her heart to assist with swelling further. Patient overnight did require eventual Luu catheter placement as noted urinary retention which discussed was likely less activity and narcotic therapy with plan Flomax addition. Patient denies fevers, chills, nausea, emesis, abdominal pain, chest pain or dyspnea. Objective Data Objective Data Vital Signs: Vital Signs Temp Pulse Resp BP Pulse Ox 98.7 F 61 16 142/53 H 98 05/11/21 02:45 05/11/21 02:45 05/11/21 02:45 05/11/21 02:45 05/11/21 02:45 Oxygen Flow Rate (L/min) [2] 10 Oxygen Flow Rate (L/min) [1 ( 2 Initial Baseline)] Oxygen Flow Rate (L/min) 2 Oxygen Delivery Method [2] Nasal Cannula Oxygen Delivery Method [1 ( Nasal Cannula Initial Baseline)] Oxygen Delivery Method Room Air Weight: 199 lb 1.239 oz Body Mass Index (BMI) 38.1 Intake & Output: Intake and Output for Last 24 Hours 05/09/21 05/10/21 05/11/21 23:59 23:59 23:59 Intake Total 450 / 950 1100 / 1100 Output Total 1300 / 1300 200 / 200 Balance -850 / -350 900 / 900 Lab / Micro Data Result Diagrams: 05/11/21 06:42 05/11/21 06:42 Labs: Laboratory Results - last 24 hr 05/10/21 06:35: WBC 6.6, RBC 4.15 L, Hgb 13.2, Hct 39.0, MCV 94.0, MCH 31.8, MCHC 33.8, RDW Std Deviation 43.7, RDW Coeff of Rishi 12.6, Plt Count 151, MPV 10.6 05/10/21 06:35: Sodium 140, Potassium 3.2 L, Chloride 106, Carbon Dioxide 30.0, Anion Gap 4 L, BUN 12, Creatinine 0.60, Estim Creat Clear Calc 37.24, Est GFR (MDRD) Af Amer 126, Est GFR (MDRD) Non-Af 104, BUN/Creatinine Ratio 20.0, Glucose 103, Calcium 9.2 05/10/21 06:35: Magnesium 1.9 05/10/21 13:20: Urine Color Yellow, Urine Clarity Clear, Urine pH 5.0, Ur Specific [place] 1.020, Urine Protein 15 H, Urine Glucose (UA) Normal, Urine Ketones Negative, Urine Occult Blood 150 H, Urine Nitrite Negative, Urine Bilirubin Negative, Urine Urobilinogen Normal, Ur Leukocyte Esterase Negative, Urine RBC 5-10 SEEN, Urine WBC 0 SEEN, Ur Squamous Epith Cells 0 SEEN, Amorphous Sediment 1+, Urine Bacteria 0 SEEN, Urine Mucus 0 SEEN Radiography Diagnostic Testing: Radiology Impression Ankle X-Ray 05/10/21 05:21 IMPRESSION: Fracture dislocation of the right ankle. Medial malleolus fracture distal fibular fracture possible posterior malleolus fracture. Soft tissue edema disruption of the ankle mortise. Electronically Signed: Courtney Quiles MD at 7:32 EDT Tel , Service support , Ankle X-Ray 05/10/21 08:07 IMPRESSION: Improved trimalleolar fracture alignment with mild persistent displacement Soft tissue swelling Cast application Electronically Signed: Amador Ellington DO at 8:39 EDT Tel , Service support , Lower Extremity CT 05/10/21 11:26 IMPRESSION: Acute casted trimalleolar fractures, as above Tibiotalar subluxation without mary dislocation Extensive soft tissue swelling lateral malleolus small hematoma Electronically Signed: Amador Ellington DO at 11:52 EDT Tel , Service support , Physical Exam Narrative Physical Examination: General: Awake, alert, oriented x 3 and cooperative, seated upright in the MS bed, notes pain improved. Skin: Normal color, normal turgor, no icterus, no cyanosis except noted ecchymoses and obvious injury to left ankle, remains in splint/cast. HEENT: AT/NC, EOMI, PERRLA, improved MMM. Lungs: CTA bilaterally, moderate effort, mild decrease BL bases, no rales, ronchi or wheezing. Heart: Regular rate and rhythm; no gallop, rub audible. Abdomen: Soft, obese, NTTP, ND, normal BS, Luu catheter in place. Extremities: No cyanosis, no clubbing, left ankle with as noted ankle fracture, edematous, splint/cast in place, toes less edematous, improved appearing. Neurological: Patient awake, alert, oriented x 3, cognitive function intact; pupils equally reactive to light and accommodation, cranial nerves II-XII grossly normal, moving all 4 extremities including left lower extremity able to move toes but beyond this avoided any specific movement given ankle fracture, strength improving, moderately to severely globally decreased. Psychiatric: Affect appears improved, less uncomfortable appearing, no acute evidence of depressive or anxiety feelings. Assessment & Plan Assessment/Plan (1) Closed trimalleolar fracture of left ankle: QUALIFIERS: Encounter type: initial encounter Qualified Code(s): S82.852A - Displaced trimalleolar fracture of left lower leg, initial encounter for closed fracture PLAN: The patient is a 76 y/o F w/ PMHx: Chronic headaches, HTN, HLD, Anxiety and Depression, Obesity, Former Tobacco use, Essential tremor, Fibromyalgia who presents to the [facility] 05[facility]10[facility]21 with history of unfortunate mechanical fall while getting up early in the morning to use the restroom, falling and twisting her left ankle with immediate severe 10 out of 10 sharp pain, inability to wear weight, obvious deformity prompting ED evaluation. 1. Mechanical fall with left bimalleolar ankle fracture: Patient admitted to medical surgical floor, maintain on fall precautions, nonweightbearing status to the left ankle, evaluated per podiatric surgery with planned likely intervention in approximately 2 weeks to allow edema to decrease, CT left lower extremity obtained per podiatry with noted acute casted trimalleolar fractures with tibiotalar subluxation without mary dislocation with extensive soft tissue swelling of the lateral malleolus with a small hematoma, continue to encourage elevation, icing, oral and IV pain regimen, as needed antiemetic. Case management consulted with PT and OT assessments with planned TCU once insurance approval obtained. 2. Hypertension: Continue home regimen including Coreg, hydrochlorothiazide; however, given blood pressure still elevated although may be pain component we will add low-dose Norvasc and continue to monitor, maintain on hold parameters as needed, PRN hydralazine. 3. 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 Hyperlipidemia: Continue home statin regimen. 5. Former tobacco use: Encourage continued tobacco cessation. 6. Chronic headaches: We will continue patient as needed Fioricet regimen specifically requested per her. 7. DVT prophylaxis: SCDs, Lovenox. 8. CODE status: Full Code. Charges/Coding Visit Charges OBSV E&M: 47779 Subsequent observation care L2
--- NOTE | 2021-05-11 07:12 | PCM.PN.ORT ---
Subjective Subjective Patient seen at bedside resting comfortably. Admits to improved pain in her left ankle. Pain is well controlled with pain medications. Patient has been able to sleep. Patient denies any other acute complaints at this time. Currently, patient denies fever, chills, nausea, vomiting, shortness of breath, chest pain. Patient denies left calf pain. Objective Data Objective Data Vital Signs: Vital Signs Temp Pulse Resp BP Pulse Ox 98.7 F 61 16 142/53 H 98 05/11/21 02:45 05/11/21 02:45 05/11/21 02:45 05/11/21 02:45 05/11/21 02:45 Oxygen Flow Rate (L/min) [2] 10 Oxygen Flow Rate (L/min) [1 ( 2 Initial Baseline)] Oxygen Flow Rate (L/min) 2 Oxygen Delivery Method [2] Nasal Cannula Oxygen Delivery Method [1 ( Nasal Cannula Initial Baseline)] Oxygen Delivery Method Room Air Weight: 90.3 kg Body Mass Index (BMI) 38.1 Intake & Output: Intake and Output for Last 24 Hours 05/09/21 05/10/21 05/11/21 23:59 23:59 23:59 Intake Total 450 / 950 1100 / 1100 Output Total 1300 / 1300 200 / 200 Balance -850 / -350 900 / 900 Lab / Micro Data Result Diagrams: 05/11/21 06:42 05/10/21 06:35 Labs: Laboratory Results - last 24 hr 05/10/21 06:35: Magnesium 1.9 05/10/21 13:20: Urine Color Yellow, Urine Clarity Clear, Urine pH 5.0, Ur Specific [place] 1.020, Urine Protein 15 H, Urine Glucose (UA) Normal, Urine Ketones Negative, Urine Occult Blood 150 H, Urine Nitrite Negative, Urine Bilirubin Negative, Urine Urobilinogen Normal, Ur Leukocyte Esterase Negative, Urine RBC 5-10 SEEN, Urine WBC 0 SEEN, Ur Squamous Epith Cells 0 SEEN, Amorphous Sediment 1+, Urine Bacteria 0 SEEN, Urine Mucus 0 SEEN Radiography Diagnostic Testing: Radiology Impression Ankle X-Ray 05/10/21 05:21 IMPRESSION: Fracture dislocation of the right ankle. Medial malleolus fracture distal fibular fracture possible posterior malleolus fracture. Soft tissue edema disruption of the ankle mortise. Electronically Signed: Courtney Quiles MD at 7:32 EDT Tel , Service support , Ankle X-Ray 05/10/21 08:07 IMPRESSION: Improved trimalleolar fracture alignment with mild persistent displacement Soft tissue swelling Cast application Electronically Signed: Amador Ellington, DO at 8:39 EDT Tel , Service support , Lower Extremity CT 05/10/21 11:26 IMPRESSION: Acute casted trimalleolar fractures, as above Tibiotalar subluxation without mary dislocation Extensive soft tissue swelling lateral malleolus small hematoma Electronically Signed: Amador Ellington, DO at 11:52 EDT Tel , Service support , Physical Exam Narrative Patient appears in no distress at this time and is sitting in bed comfortably. Const alert, oriented x3 and no apparent distress HEENT normocephalic and head/scalp atraumatic Head and Scalp: normal to inspection Eyes PERRL and EOMs intact bilaterally Neck General: normal visual inspection Chest inspection of chest normal Resp normal respiratory effort and normal air movement Effort and Inspection: able to speak in complete sentences and symmetric chest movement Cardio regular rate, regular rhythm, S1 normal heart sound and S2 normal heart sound GI normal to inspection, nondistended, normoactive bowel sounds Extremity Extremity Narrative: Left lower extremity: Dressing is clean, dry, intact. Dressing removed to further examination. Vascular: Weakly palpable dorsalis pedis pulse and nonpalpable posterior tibial pulse of the right lower extremity. Capillary fill time is less than 3 seconds all digits of the left foot. Temperature gradient is within normal limits of the left lower extremity. Significant nonpitting edema noted in the medial and lateral aspect of the right ankle. Significant nonpitting edema noted on the dorsal aspect of the left foot. Loss of skin lines noted. Neurological: Gross and protective sensation is diminished to the left lower extremity. Patient states that this is normal for her due to her history of neuropathy Dermatological: Ecchymosis noted in the medial and lateral aspect of the right ankle. Skin envelope is intact at this time with no evidence of open lesions noted. No evidence of fracture blisters noted. Musculoskeletal: Ankle appears in a slight valgus position at this time. Talus appears underneath the tibia. Positive pain upon palpation and compression of the lateral and medial aspect of the right ankle. Muscle strength was deferred at this time. Skin no wounds Neuro oriented x3 Assessment & Plan Assessment/Plan (1) Closed trimalleolar fracture of left ankle: QUALIFIERS: Encounter type: initial encounter Qualified Code(s): S82.852A - Displaced trimalleolar fracture of left lower leg, initial encounter for closed fracture PLAN: Patient chart reviewed and patient evaluated. Full discussion had with the patient about the patient's current clinical condition. CT scan reviewed with the patient in detail. At this time, I discussed with her that she has what is called a displaced trimalleolar fracture of her left ankle. Furthermore, there is significant swelling of the left lower extremity. I discussed with her conservative therapy vs surgical intervention. Surgical intervention would include an open reduction with internal fixation of the left ankle trimalleolar fracture. I discussed the risks and benefits of surgery, including but not limited to delayed or nonhealing wounds, delayed or nonhealing bone, DVT, infection, decreased function of limb, continued pain, damage to surrounding structures, loss of limb, loss of life. Furthermore, due to the patient's complicated medical history, significant edema present, her age along with osteopenia present on the x-rays, she is at high risk of postoperative complications. All the patient's questions were answered to her satisfaction and all her concerns were addressed. No guarantees were made as to the outcome of the procedure. Due to the patient's active lifestyle and deformity that is present, I do believe that surgical intervention will help the patient return to her activity. Patient is agreeable to this, and states that she is active. She is afraid that if surgery is not performed, this will significantly decrease her quality of life. I am in agreement with this assessment. I did discuss with the patient's that there is significant swelling of the soft tissues surrounding the ankle. This will inhibit immediate surgical intervention. Due to the significant swelling that is present, we will have to delay the surgery for a period of up to 2 weeks. Patient displayed verbal understanding, and is agreeable to delay surgery. At this time I do recommend that the dressing to the left lower extremity be kept clean, dry, intact. A new compressive dressing was placed to the left lower extremity and the splint was reapplied. Neurovascular status was assessed at the application and deemed intact to the left lower extremity. I recommend the patient remain nonweightbearing to the left lower extremity. I will continue discussions with the patient for further surgical planning. There is no immediate surgical intervention planned at this time. We will plan for surgery in the next one to two weeks. Please have patient follow up with me in the [facility] on 05/15/21 as an outpatient if she is discharged before then I will continue to follow patient and update accordingly. I will next see the patient on 05/15 if still an inpatient. Thank you very much for allowing me to take part in the care of your patient Charges/Coding Visit Charges Inpatient E&M: 92980 Subs Hosp L2
[2021-05-11 07:15] LABS: Absolute Lymphocyte Count 1.77 X10^3/uL (0.83-4.51); Absolute Neutrophil Count 4.3 X10^3/uL (2.0-7.7); Basophil# 0.04 X10^3/uL; Basophil% 0.6 % (0-1); Eosinophil# 0.16 X10^3/uL; Eosinophils% 2.3 % (0-5); Hematocrit 38.1 % (37-47); Lymphocyte # 1.77 X10^3/ul (0.83-4.51); Lymphocyte % 25.3 % (19-41); Mean Corp Hgb Conc 34.1 g/dL (32-36); Mean Corpuscular Hgb 31.5 pg (27.0-32.0); Mean Corpuscular Volume 92.3 fL (81-99); Mean Platelet Vol. 10.5 fl (6.2-12.0); Monocyte# 0.76 X10^3/uL; Monocyte% 10.9 % (0-10); NRBC Flagged by Analyzer 0 % (0-5); Neutrophil # 4.25 X10^3/uL (2.7-7.7); Neutrophil % 60.6 % (47-70); Platelet Count 136 K/mm3 (150-450); RBC Distribution Width CV 12.4 % (11.6-14.6); RBC Distribution Width SD 42.2 fl (35.1-43.9); Red Blood Count 4.13 M/mm3 (4.2-5.4)
[2021-05-11 07:35] LABS: AST(SGOT) 57 U/L (15-37); Alanine Aminotransfer ALT/SGPT 68 U/L (13-56); Albumin, Serum 3.3 g/dL (3.2-5.0); Alkaline Phosphatase 112 U/L (45-117); Anion Gap 7 (5-15); BUN 5 mg/dL (7-18); BUN/Creat Ratio 9.3 RATIO (10-20); Calcium,Total 8.9 mg/dL (8.5-10.1); Chloride 101 mmol/L (98-107); Creatinine, Serum 0.54 mg/dL (0.55-1.02); EST Glomerular Filtration Rate 118 mL/min (>60); Est Glom Filt Rate - Afr Amer 143 mL/min (>60); Estimated Creatinine Clearance 37.24 ml/min; Globulin 3.3 g/dL (2.2-4.2); Glucose 94 mg/dL (74-106); Potassium 3.7 mmol/L (3.5-5.1); Protein, Total 6.6 g/dL (6.4-8.2); Sodium Level 138 mmol/L (136-145)
[2021-05-11 07:46] VITALS: BP 147/57; PULSE 59; RESP 18; TEMP 36.7; O2SAT 99
[2021-05-11] MEDS: Loperamide 2 MG Capsule 4 MG PO (07:50)
[2021-05-11] MEDS: Tamsulosin HCl 0.4 MG Capsule PO (07:50)
[2021-05-11] MEDS: Pravastatin 40 MG Tablet PO (07:51)
[2021-05-11] MEDS: hydroCHLOROthiazide 6.25mg TAB 12.5 MG PO (07:51)
[2021-05-11] MEDS: Enoxaparin 40 MG/0.4 ML Syringe SC (07:51)
[2021-05-11] MEDS: Escitalopram Oxalate 20 MG Tablet PO (07:53)
--- NOTE | 2021-05-11 10:39 | CASEMGMT ---
Social Work Assessment Referral Date: 05/11/2021 Date of Assessment: 05/11/2021 Reason for consult: Likely SNF placement Informant: Physician Personal Status: SW met with pt to complete initial assessment. SW introduced self and role at [facility]. Pt is alert and orientated, answers questions appropriately. Pt's Mikey is present in room and pt gave this worker permission to speak to her in front of her guest. Living Arrangements: Pt states she lives with her in a two story home with first floor set up. Pt states there are about five steps to enter the home with railings by the steps. DME: Cane, walker, wheelchair PCP: Dr. Gan Pharmacy: [id number] ADLs: Pt states she was requiring assistance with ADLs, Mikey states he is able to assist pt as needed. Transportation: Mikey Advanced Directives: Pt states she has complete both HCPOA and LW. Mikey states he has documents on his computer and he is able to email them to this worker. SW provided business card with email. Substance Abuse Hx: Pt denied any current use, states she used to smoke cigarettes but quit about 15 years ago. HHC: Pt states she has had HHC in the past, unable to recall name of the agency SNF: None SW spoke with pt and Mikey about discharge plans. Pt states she is aware she will need SNF at discharge. Patient was provided a list of SNF providers including quality and resource use data and consistent with the patient?s preferred geographic region, medical needs, and insurance network. Pt's preferred provide is [facility] TCU. Pt states she has had COVID vaccinations. SW placed a call to [facility] with TCU and provided referral. TCU is able to accept pt today. HUMERA updated pt and Mikey. Physician updated. Plan: TCU today Quiana Eller AURICULAR DETOXIFICATION SPECIALIST, TRACK REPAIR SUPERVISOR
--- NOTE | 2021-05-11 11:40 | PCM.TXEXTCAR ---
Diet 05/10/21 08:56 Diet: Cardiac - Heart Healthy Food consistency:: Regular Liquid Consistency:: Regular/Thin Routine Orders/Code Status Enema Type: Fleetz Enema Frequency: Daily PRN Suppository Type: Dulcolax 10mg Suppository Frequency: Daily PRN Laureano Catheter Size: 16 Change Laureano Catheter: Please change laureano catheter per TCU protocol. Keep PO Greater than or Equal to (%): 92 Routine Lab Work: - (Please repeat CBC, BMP within 1 week.) Code Status: Full Code Suggestions for Active Care Change Position every (hours): 2 Hours to sit in a chair: 4 Times a day to sit in chair: 3 Therapies Weight Bearing: Non weight bearing (NWB to the LLE.) Extremity Affected:: Left Lower Physical Therapy: Eval and Treat Occupational Therapy: Eval and Treat Problem/Diagnosis (1) Closed trimalleolar fracture of left ankle: Status: Acute Allergies/Procedures Done in Hospital Allergies No Known Allergies Allergy (Verified 05/10/21 05:22) Procedures: EKG Type of Care/Length of Stay Estimated LOS: Convalescent Care Less Than 30 days Type of Care Needed: Skilled Rehab Potential: Good Prognosis: Good Additional Orders/Day of Discharge Additional Orders: (1) Please maintain laureano catheter for 1-2 days then attempt D/C as started on flomax for retention, may need to replace if recurrent retention with Urology assessment. (2) Fall precautions. (3) Continue icing, LLE elevation above heart for edema. (4) Encourage OOB to at least chair with all meals. (5) Encourage IS 10x/hr 7a-7p. (6) Monitor BP, added norvas inpatient as not at goal, may need further adjusted. Day of Discharge: 05/11/21 Discharge Plan Admission Admit Date/Time: 05/10/21 07:44 Primary Reason for Your Visit: Mechanical fall with left bimalleolar ankle fracture, Urinary retention Attending Provider: Cici Ayala Primary Care Provider: Ld Gan Chi Consulting Providers: Kody Arrington Instructions Patient Instructions: Treating Ankle Fractures, Understanding an Ankle Fracture, ED Urinary Retention, Female Additional Instructions / Restrictions: Mechanical fall with left bimalleolar ankle fracture: Currently plan is for continued conservative care, elevation, icing, oral pain control, nonweightbearing status with outpatient follow-up with Dr. Kody Arrington with possible intervention in 2 weeks once swelling has improved. Current plan is for follow-up in the office 05/15/2021 as an outpatient. During the admission likely secondary to decreased mobility, narcotic therapy you had onset of urinary retention requiring Laureano catheter placement. Laureano catheter will be continued upon transition to TCU with initiation of Flomax and would plan attempt to remove Laureano catheter in 1 to 2 days. If this is needed recurrently then may require urology consultation. During the admission your blood pressure was up likely secondary to pain however it was ongoing despite pain control prompting addition of oral Norvasc to your blood pressure regimen. This will be further addressed and continue to be evaluated/adjusted upon your TCU transition. Discharge Orders/Prescriptions Prescriptions: No Action pravastatin 40 mg tablet 40 mg PO DAILY RF: 0 trazodone 150 mg tablet 150 mg PO QHS RF: 0 inxpsvecuz-hpdzsyqswjivo-dadf [Fioricet] 50-300-40 mg capsule 1 cap PO Q6H PRN (Reason: headaches) RF: 0 escitalopram oxalate [Lexapro] 20 mg tablet 20 mg PO DAILY RF: 0 diazepam [Valium] 5 mg tablet 5 mg PO TID PRN (Reason: Anxiety) RF: 0 baclofen 10 mg tablet 10 mg PO TID RF: 0 loperamide [Imodium A-D] 2 mg tablet 4 mg PO DAILY RF: 0 hydrochlorothiazide 12.5 mg tablet 12.5 mg PO DAILY Qty: 90 RF: 3 carvedilol 12.5 mg tablet 12.5 mg PO BID Qty: 180 RF: 3 primidone 50 mg tablet 250 mg PO QHS RF: 0 meclizine 25 mg tablet 25 mg PO TID PRN (Reason: Dizziness) RF: 0 ondansetron HCl 4 mg tablet 4 mg PO TID PRN (Reason: Nausea) RF: 0 Referrals / Follow Up: Ld Gan Chi, MD [Primary Care Provider] - (Please assure continued follow-up with Dr. Gan upon TCU transition.) Kody Arrington DPM [STAFF PHYSICIAN] - (Follow-up on 05/15/[address] Kody Arrington.) Disposition Disposition (needs filled in before D/C Order can be placed): [facility] Facility Charges/Coding Visit Charges Inpatient E&M: 25234 Disch Hosp
--- NOTE | 2021-05-11 11:46 | PCM.DC.SUM ---
Providers Date of Admission: 05/10/21 Primary Care Physician: Dr. Ld Gan MD Consultations 05/10/21 08:56 Consult: Orthopedics Routine Consulting Provider: Kody Arrington Reason for Consult: L ankle fracture EMERGENT Consult: No MD Notified: Yes Date Notified: 05/10/21 Time Notified: 07:39 Method of Notification: called Vadim Arrington Reason For Visit: L ANKLE FRACTURE, FALL Diagnosis Discharge Diagnosis (1) Closed trimalleolar fracture of left ankle: Status: Acute Code(s): S82.852A - Displaced trimalleolar fracture of left lower leg, initial encounter for closed fracture Qualifiers: Encounter type: initial encounter Qualified Code(s): S82.852A - Displaced trimalleolar fracture of left lower leg, initial encounter for closed fracture Medications at Discharge Home Medications pravastatin 40 mg tablet 40 mg PO DAILY 02/09/19 escitalopram oxalate 20 mg tablet 20 mg PO DAILY tab 07/20/19 primidone 50 mg tablet 250 mg PO QHS 07/20/19 trazodone 150 mg tablet 150 mg PO QHS 07/20/19 baclofen 10 mg tablet 10 mg PO TID tab 07/28/19 carvedilol 12.5 mg tablet 12.5 mg PO BID #180 tab 07/28/19 diazepam 5 mg tablet 5 mg PO TID PRN tab 07/28/19 hydrochlorothiazide 12.5 mg tablet 12.5 mg PO DAILY #90 tab 07/28/19 loperamide 2 mg tablet 4 mg PO DAILY tab 07/28/19 meclizine 25 mg tablet 25 mg PO TID PRN 07/28/19 ondansetron HCl 4 mg tablet 4 mg PO TID PRN 07/28/19 amlodipine 5 mg PO DAILY #0 tab 05/11/21 romqjvpeuk-owriytonmdgzf-hhts 1 tab PO Q4H PRN PRN #0 tab 05/11/21 enoxaparin 40 mg SUBCUT DAILY #0 ml 05/11/21 lisinopril 40 mg PO DAILY #0 tab 05/11/21 oxycodone 5 mg PO Q4H PRN PRN #0 tab 05/11/21 tamsulosin 0.4 mg PO BID #0 cap 05/11/21 Hospital Course Operations None Procedures EKG and - (Splinting in the ED.) Summary of Care Provided Minutes Spent on Discharge: 35 Hospital Course: Discharge Diagnoses: 1. Mechanical fall with left bimalleolar ankle fracture 2. Urinary retention, likely associated with narcotics, decreased movement secondary to #1 3. Hypertension 4. Anxiety and depression 5. Hyperlipidemia 6. Former tobacco use 7. Chronic headaches 8. Obesity Discharge Summary: The patient is a 76 y/o F w/ PMHx: Chronic headaches, HTN, HLD, Anxiety and Depression, Obesity, Former Tobacco use, Essential tremor, Fibromyalgia who presents to the [facility] 05/10/21 with history of unfortunate mechanical fall while getting up early in the morning to use the restroom, falling and twisting her left ankle with immediate severe 10 out of 10 sharp pain, inability to wear weight, obvious deformity prompting ED evaluation. Patient admitted to medical surgical floor, maintain on fall precautions, nonweightbearing status to the left ankle, evaluated per podiatric surgery with planned likely intervention in approximately 2 weeks to allow edema to decrease, CT left lower extremity obtained per podiatry with noted acute casted trimalleolar fractures with tibiotalar subluxation without mary dislocation with extensive soft tissue swelling of the lateral malleolus with a small hematoma, continued to encourage elevation, icing, oral pain regimen. Case management consulted with PT and OT assessments with TCU transition approved. During admission, BP elevated despite pain regimen; therefore, continued home regimen including Coreg, hydrochlorothiazide and added low dose norvasc. Patient during admission with urinary retention, laureano eventually placed and patient started on flomax with recommendation upon patient transition to consider reattempt for Laureano DC in 1 to 2 days following this medication initiation and if recurrent need may require urology assessment. Patient discharged to TCU in improved condition with plan follow-up with PCP as well as follow-up with Dr. Kody Arrington 05/15/2021 and likely operative intervention in 2 weeks. Patient continued on nonweightbearing status. Discharge Time: 35 Minutes Weight / BMI Weight Weight: 199 lb 1.239 oz Body Mass Index (BMI) 38.1 ABG / Lab / Microbiology Data Result Diagrams: 05/11/21 06:42 05/11/21 06:42 Laboratory: Laboratory Results - last 24 hr 05/10/21 13:20: Urine Color Yellow, Urine Clarity Clear, Urine pH 5.0, Ur Specific [place] 1.020, Urine Protein 15 H, Urine Glucose (UA) Normal, Urine Ketones Negative, Urine Occult Blood 150 H, Urine Nitrite Negative, Urine Bilirubin Negative, Urine Urobilinogen Normal, Ur Leukocyte Esterase Negative, Urine RBC 5-10 SEEN, Urine WBC 0 SEEN, Ur Squamous Epith Cells 0 SEEN, Amorphous Sediment 1+, Urine Bacteria 0 SEEN, Urine Mucus 0 SEEN 05/11/21 06:42: WBC 7.0, RBC 4.13 L, Hgb 13.0, Hct 38.1, MCV 92.3, MCH 31.5, MCHC 34.1, RDW Std Deviation 42.2, RDW Coeff of Rishi 12.4, Plt Count 136 L, MPV 10.5, Immature Gran % (Auto) 0.300, Neut % (Auto) 60.6, Lymph % (Auto) 25.3, [place] % (Auto) 10.9 H, Eos % (Auto) 2.3, Baso % (Auto) 0.6, Absolute Neuts (auto) 4.3, Absolute Lymphs (auto) 1.77, Nucleated RBC % 0 05/11/21 06:42: Sodium 138, Potassium 3.7, Chloride 101, Carbon Dioxide 30.0, Anion Gap 7, BUN 5 L, Creatinine 0.54 L, Estim Creat Clear Calc 37.24, Est GFR (MDRD) Af Amer 143, Est GFR (MDRD) Non-Af 118, BUN/Creatinine Ratio 9.3 L, Glucose 94, Calcium 8.9, Total Bilirubin 0.40, AST 57 H, ALT 68 H, Alkaline Phosphatase 112, Total Protein 6.6, Albumin 3.3, Globulin 3.3, Albumin/Globulin Ratio 1.0 Microbiology: Microbiology 05/11/21 10:10 Mucosa - Nasopharyngeal SARS-CoV-2 Antigen (Rapid) - Final Radiography Diagnostic Testing: Radiology Impression Lower Extremity CT 05/10/21 11:26 IMPRESSION: Acute casted trimalleolar fractures, as above Tibiotalar subluxation without mary dislocation Extensive soft tissue swelling lateral malleolus small hematoma Electronically Signed: Amador Ellington DO at 11:52 EDT Tel , Service support , Meaningful Use Info Meaningful Use Diagnoses (Choose all that apply): None applicable Discharge Plan Admission Admit Date/Time: 05/10/21 07:44 Primary Reason for Your Visit: Mechanical fall with left bimalleolar ankle fracture, Urinary retention Attending Provider: Cici Ayala Primary Care Provider: Ld Gan Chi Consulting Providers: Kody Arrington Instructions Patient Instructions: Treating Ankle Fractures, Understanding an Ankle Fracture, ED Urinary Retention, Female Additional Instructions / Restrictions: Mechanical fall with left bimalleolar ankle fracture: Currently plan is for continued conservative care, elevation, icing, oral pain control, nonweightbearing status with outpatient follow-up with Dr. Kody Arrington with possible intervention in 2 weeks once swelling has improved. Current plan is for follow-up in the office 05/15/2021 as an outpatient. During the admission likely secondary to decreased mobility, narcotic therapy you had onset of urinary retention requiring Laureano catheter placement. Laureano catheter will be continued upon transition to TCU with initiation of Flomax and would plan attempt to remove Laureano catheter in 1 to 2 days. If this is needed recurrently then may require urology consultation. During the admission your blood pressure was up likely secondary to pain however it was ongoing despite pain control prompting addition of oral Norvasc to your blood pressure regimen. This will be further addressed and continue to be evaluated/adjusted upon your TCU transition. Discharge Orders/Prescriptions Prescriptions: New vlxwrhmwbb-optoyybxzjwuv-yqsq 50-325-40 mg Tablet 1 tab PO Q4H PRN PRN (Reason: headaches) Qty: 0 RF: 0 amlodipine 5 mg Tablet 5 mg PO DAILY Qty: 0 RF: 0 tamsulosin 0.4 mg Capsule 0.4 mg PO BID Qty: 0 RF: 0 lisinopril 40 mg Tablet 40 mg PO DAILY Qty: 0 RF: 0 oxycodone 5 mg Tablet 5 mg PO Q4H PRN PRN (Reason: Pain Score 4-5) Qty: 0 RF: 0 enoxaparin 40 mg/0.4 mL Syringe 40 mg subcut DAILY Qty: 0 RF: 0 Continued pravastatin 40 mg tablet 40 mg PO DAILY RF: 0 trazodone 150 mg tablet 150 mg PO QHS RF: 0 escitalopram oxalate [Lexapro] 20 mg tablet 20 mg PO DAILY RF: 0 diazepam [Valium] 5 mg tablet 5 mg PO TID PRN (Reason: Anxiety) RF: 0 baclofen 10 mg tablet 10 mg PO TID RF: 0 loperamide [Imodium A-D] 2 mg tablet 4 mg PO DAILY RF: 0 hydrochlorothiazide 12.5 mg tablet 12.5 mg PO DAILY Qty: 90 RF: 3 carvedilol 12.5 mg tablet 12.5 mg PO BID Qty: 180 RF: 3 primidone 50 mg tablet 250 mg PO QHS RF: 0 meclizine 25 mg tablet 25 mg PO TID PRN (Reason: Dizziness) RF: 0 ondansetron HCl 4 mg tablet 4 mg PO TID PRN (Reason: Nausea) RF: 0 Discontinued kqwehtyzhw-ahbcfedezhqhs-kjfz [Fioricet] 50-300-40 mg capsule 1 cap PO Q6H PRN (Reason: headaches) RF: 0 Referrals / Follow Up: Ld Gan Chi, MD [Primary Care Provider] - (Please assure continued follow-up with Dr. Gan upon TCU transition.) Kody Arrington DPM [STAFF PHYSICIAN] - (Follow-up on 05/15/[address] Kody Arrington.) Disposition Disposition (needs filled in before D/C Order can be placed): [facility] Facility Charges/Coding Visit Charges Inpatient E&M: 41804 Disch Hosp
--- NOTE | 2021-05-11 11:47 | CASEMGMT ---
Social Work Note SW received email from pt's Mikey with HCPOA and LW documents, documents are not completed, documents are on a word document. SW in to speak with pt and Mikey. SW informed pt and Mikey that documents were received but documents are not complete. Mikey states that their employment attorney wrote up the documents. SW informed Mikey that this worker is not sure if this worker can sign off on the documents his media strategist completed but informed pt and Mikey that this worker has advanced directives documents that pt can complete while at [facility] and then this worker can sign off on those documents. Pt agreeable to completing new HCPOA and LW documents. HCPOA and LW completed, original provided back to pt and copy on pt's chart. Quiana Eller HOT MIX OPERATOR, SUPERINTENDENT TRANSPORTATION
--- NOTE | 2021-05-11 11:51 | CASEMGMT ---
Social Work Note Per motorcycle tester questions, pt has completed HCPOA and LW and provided documents to [facility]. Documents are not complete. Pt completed new HCPOA and LW documents and documents placed on pt's chart. Original provided to pt. Quiana Eller WELDER METAL FAB, EXECUTIVE PRODUCER PROMOS
--- NOTE | 2021-05-11 11:51 | CASEMGMT ---
RN ARTHUR NOTE: Intro role of CM to patient and who is in room. [facility]ES form explained re: Observation status for treatment of left ankle fracture . Explained hospitalization will be paid per her insurance policy for Outpatient billing and condition will continue to be evaluated for Inpt necessity. Also let pt/ know that [facility] sends paper in the billing packet with their phone number if questions arise. Discussed Pharmacy section of BARNES form and self administered medication guideline. Pt/ verbalize understanding and do not have further questions. Form signed, copy made and placed in chart, and original given to pt/. Pa HUTTONN RN CM
[2021-05-11] MEDS: amLODIPine 5 MG Tablet PO (12:21)
[2021-05-11 13:15] VITALS: BP 117/49; PULSE 88; RESP 18; TEMP 37; O2SAT 94
== END 2021-05-11 13:39 | disposition skilled nursing facility (03) ==
LOC: ED 06:34 → MS3 07:59
PROVIDERS: Admitting Provider Family Medicine; Emergency Provider Emergency Medicine; PCP Family Medicine Geriatric Medicine; Visit Provider Family Medicine
DX: S82.852A Displaced trimalleolar fracture of left lower leg, initial encounter for closed fracture (principal); W01.0XXD Fall on same level from slipping, tripping and stumbling without subsequent striking against object, subsequent encounter; Y93.01 Activity, walking, marching and hiking; Y92.009 Unspecified place in unspecified non-institutional (private) residence as the place of occurrence of the external cause; Y99.9 Unspecified external cause status; M79.7 Fibromyalgia; I10 Essential (primary) hypertension; F41.9 Anxiety disorder, unspecified; I27.20 Pulmonary hypertension, unspecified; E78.5 Hyperlipidemia, unspecified; E66.01 Morbid (severe) obesity due to excess calories; G25.0 Essential tremor; Z68.38 Body mass index [BMI] 38.0-38.9, adult; F32.9 Major depressive disorder, single episode, unspecified; Z79.899 Other long term (current) drug therapy; Z87.891 Personal history of nicotine dependence; R51.9 Headache, unspecified; R33.9 Retention of urine, unspecified
CPT/HCPCS: 27818; 36415; 73610; 73700; 80048; 80053; 81001; 83735; 85025; 85027; 87086; 87426; 96372; 96374; 96375; 97163; 97166; 99218; 99251; 99285; A4216; G0378; G0463; J2405

== ENCOUNTER 2021-05-11 13:50 | Inpatient (IN) | payer MEDICARE, OTHER, SELFPAY ==
[2021-05-10 08:56] VITALS: BMI 38.1
[2021-05-11 14:04] VITALS: BP 144/77; PULSE 86; RESP 18; TEMP 36.6; O2SAT 94; BMI 38.7
--- NOTE | 2021-05-11 14:24 | HP.PCM_ITS ---
HPI - General General Date of Admission: 05/11/21 HPI Narrative 05/10/2021 TINA GARCIA, is a 76 Female who presents to [facility] Emergency Department with left ankle pain. Walking at home, twisted left ankle, fell down. X-ray shows left ankle fracture. Morphine IV, Zofran IV given. unable to care for her at home. 05/10/2021 Admit to Hospital. Non-Weight bearing left lower extremity, tongue cast, IV pain medications for left bimalleolar fracture. 05/10/2021 Dr. Constantin Arrington recommended left ankle surgery in 2 weeks when swelling improved. 05/11/2021 Admit to TCU with debility, here for rehabilitation, strengthening, pending left ankle surgery, then discharge home with . [facility] Medical History Anxiety Diastolic dysfunction Essential and other specified forms of tremor Essential hypertension Fibromyalgia Former smoker History of revision of total replacement of right knee joint (~2014) Osteoporosis Pulmonary hypertension Home Medications pravastatin 40 mg tablet 40 mg PO DAILY 02/09/19 [History Last Taken 05/09/21] escitalopram oxalate 20 mg tablet 20 mg PO DAILY tab 07/20/19 [History Last Taken 05/09/21] primidone 50 mg tablet 250 mg PO QHS 07/20/19 [History Last Taken 05/09/21] trazodone 150 mg tablet 150 mg PO QHS 07/20/19 [History Last Taken 05/09/21] baclofen 10 mg tablet 10 mg PO TID tab 07/28/19 [History Last Taken 05/09/21] diazepam 5 mg tablet 5 mg PO TID PRN tab 07/28/19 [History Last Taken Unknown] loperamide 2 mg tablet 4 mg PO DAILY tab 07/28/19 [History Last Taken 05/09/21] meclizine 25 mg tablet 25 mg PO TID PRN 07/28/19 [History Last Taken 05/09/21] ondansetron HCl 4 mg tablet 4 mg PO TID PRN 07/28/19 [History Last Taken 05/09/21] amlodipine 5 mg PO DAILY 05/11/21 [History Last Taken Unknown] ijopqwewki-rguccoaiagplu-ubow 1 tab PO Q4H PRN PRN #0 tab 05/11/21 [Rx Last Taken Unknown] carvedilol 12.5 mg PO BID 05/11/21 [History Last Taken Unknown] enoxaparin 40 mg SUBCUT DAILY 05/11/21 [History Last Taken Unknown] hydrochlorothiazide 12.5 mg PO DAILY 05/11/21 [History Last Taken Unknown] lisinopril 40 mg PO DAILY 05/11/21 [History Last Taken Unknown] oxycodone 5 mg PO Q4H PRN PRN #0 tab 05/11/21 [Rx Last Taken Unknown] tamsulosin 0.4 mg PO BID 05/11/21 [History Last Taken Unknown] Allergy/AdvReac Type Severity Reaction Status Date / Time No Known Allergies Allergy Verified 05/10/21 05:22 Family History Mother Dementia Father Colon cancer age 70, unclear specific onset date. Surgical History History of cholecystectomy History of open reduction and internal fixation (ORIF) procedure History of tonsillectomy History of total right knee replacement (~2010) Social History household members: spouse Smoking Status: Former smoker how long ago did patient quit smoking: Quit 15 years ago, 1/2 ppd starting in high school. alcohol intake: never substance use type: does not use caffeine: No ROS Constitutional Constitutional: Denies chills, fever(s) or weight gain ENT HEENT: Denies headache(s), nasal congestion or nasal discharge Cardiovascular Cardiovascular: Denies chest pain or palpitations Respiratory/Chest Respiratory/Chest: Denies cough, excessive phlegm production or shortness of breath with exertion Gastrointestinal Gastrointestinal: Denies abdominal pain, nausea or vomiting Genitourinary Genitourinary: Denies dysuria Musculoskeletal Musculoskeletal: Denies joint pain or joint swelling Integumentary Integumentary: Denies rash or wounds Neurologic Neurologic: Denies focal weakness, numbness or tingling Psychiatric Psychiatric: Reports auditory hallucinations; Denies anxiety, depression, homicidal ideation or suicidal ideation Vital Signs Vital Signs Vital Signs: Weight Body Mass Index (BMI) 38.1 Physical Exam Const alert and oriented x3 General Appearance: cooperative HEENT normocephalic Eyes PERRL and EOMs intact bilaterally Neck supple, no JVD and no carotid bruits Resp normal respiratory effort, normal air movement and clear to auscultation bilaterally Cardio regular rate and regular rhythm GI normal to inspection, nondistended, normoactive bowel sounds, non-tender and non-distended Extremity normal capillary refill Extremity Narrative: Left lower extremity splint, ТАТЬЯНА wrap. General Extremity: Negative for edema Skin no rashes or lesions noted General Skin Exam: no breakdown Psych affect normal Appearance: appropriate Assessment & Plan Assessment/Plan (1) Debility: (2) Closed trimalleolar fracture of left ankle: QUALIFIERS: Encounter type: initial encounter Qualified Code(s): S82.852A - Displaced trimalleolar fracture of left lower leg, initial encounter for closed fracture (3) Anxiety: (4) Hypertension: (5) Diastolic dysfunction: (6) Fibromyalgia: (7) Pulmonary hypertension: (8) Hyperlipidemia: (9) Depression: (10) Migraine: (11) Tremor: (12) Insomnia: (13) Muscle spasm: (14) Dizziness: PLAN: 76 year old female with below past medical history hospitalized for left ankle fracture, Dr. Constantin Arrington recommends left ankle surgery once swelling improved, admitted to TCU with debility, here for rehabilitation, strengthening, pending left ankle surgery, discharge home with . * Debility - PT/OT. * Pain - Tylenol 1000MG Q6H PRN pain (1-5), Oxycodone 5MG Q4H PRN pain (6-10). * Bowel - Senna/colace 1 tablet twice daily, Duloclax 10MG daliy PRN. * Adult immunization - Administer Prevnar 13, Pneumovax 23, Fluzone, COVID19 vaccine as appropriate. * DVT prophylaxis - Lovenox 40MG SC daily. * Hypertension - Coreg 12.5MG BID, Lisinopril 40MG daily, HCTZ 12.5MG daily, Amlodipine 5MG daily. * Muscle spasm - Baclofen 10MG TID. * Anxiety - Diazepam 5MG TID PRN, stable chronic intermediate use, GDR not recommended. * Depression - Lexapro 20MG daily, stable chronic terminal makeup operator use, GDR not recommended. * Dizziness - Meclizine 25MG TID PRN. * Nausea - Zofran 4MG TID PRN. * Hyperlipidemia - Pravastatin 40MG QHS. * Tremor - Primidone 250MG QHS. * Urinary retention - Tamsulosin 0.4MG BID. * Insomnia - Trazodone 150MG QHS.
[2021-05-11] MEDS: oxyCODONE 5 MG Tablet PO (15:49)
[2021-05-11] MEDS: Tamsulosin HCl 0.4 MG Capsule PO (17:32)
[2021-05-11] MEDS: Senna/Docusate Sodium 1 Tablet PO (17:32)
[2021-05-11] MEDS: Carvedilol 12.5 MG Tablet PO (17:32)
[2021-05-11] MEDS: Primidone 250 MG Tablet PO (21:08)
[2021-05-11] MEDS: Pravastatin 40 MG Tablet PO (21:08)
[2021-05-11] MEDS: Baclofen 10 MG Tablet PO (21:08)
[2021-05-11] MEDS: traZODone 50 MG Tablet 150 MG PO (21:08)
[2021-05-11] MEDS: Acetaminophen 500 MG Tablet 1000 MG PO (21:14)
[2021-05-12 05:00] VITALS: BP 121/58; PULSE 74; RESP 16; TEMP 36.5; O2SAT 94
[2021-05-12] MEDS: Acetaminophen 500 MG Tablet 1000 MG PO ×2 (05:13→17:50)
[2021-05-12] MEDS: hydroCHLOROthiazide 12.5mg 12.5 MG PO (05:14)
[2021-05-12] MEDS: Baclofen 10 MG Tablet PO ×3 (05:14→21:25)
[2021-05-12] MEDS: Carvedilol 12.5 MG Tablet PO ×2 (05:14→17:44)
[2021-05-12] MEDS: Escitalopram Oxalate 20 MG Tablet PO (05:14)
[2021-05-12] MEDS: Senna/Docusate Sodium 1 Tablet PO ×2 (05:15→17:44)
[2021-05-12] MEDS: amLODIPine 5 MG Tablet PO (05:15)
[2021-05-12] MEDS: Enoxaparin 40 MG/0.4 ML Syringe SC (05:16)
[2021-05-12] MEDS: Nystatin Powder 15gm Bottle 1 APPLIC TOPICAL ×2 (05:16→17:53)
[2021-05-12] MEDS: oxyCODONE 5 MG Tablet PO ×2 (05:20→21:24)
[2021-05-12 08:08] LABS: Absolute Lymphocyte Count 1.63 X10^3/uL (0.83-4.51); Basophil# 0.05 X10^3/uL; Basophil% 0.6 % (0-1); Eosinophil# 0.18 X10^3/uL; Lymphocyte # 1.63 X10^3/ul (0.83-4.51); Lymphocyte % 18.5 % (19-41); Mean Corp Hgb Conc 34.2 g/dL (32-36); Mean Corpuscular Hgb 31.4 pg (27.0-32.0); Mean Corpuscular Volume 91.8 fL (81-99); Mean Platelet Vol. 10.6 fl (6.2-12.0); Monocyte# 0.89 X10^3/uL; Monocyte% 10.1 % (0-10); NRBC Flagged by Analyzer 0 % (0-5); Neutrophil # 6.04 X10^3/uL (2.7-7.7); Neutrophil % 68.3 % (47-70); Platelet Count 147 K/mm3 (150-450); RBC Distribution Width CV 12.7 % (11.6-14.6); RBC Distribution Width SD 42.8 fl (35.1-43.9); Red Blood Count 4.14 M/mm3 (4.2-5.4); White Blood Count 8.8 K/mm3 (4.4-11.0)
[2021-05-12] MEDS: Tamsulosin HCl 0.4 MG Capsule PO ×2 (08:22→17:44)
[2021-05-12 08:34] LABS: Anion Gap 9 (5-15); BUN 7 mg/dL (7-18); Calcium,Total 8.8 mg/dL (8.5-10.1); Chloride 99 mmol/L (98-107); Creatinine, Serum 0.47 mg/dL (0.55-1.02); EST Glomerular Filtration Rate 138 mL/min (>60); Est Glom Filt Rate - Afr Amer 167 mL/min (>60); Estimated Creatinine Clearance 35.45 ml/min; Glucose 105 mg/dL (74-106); Potassium 2.9 mmol/L (3.5-5.1); Sodium Level 137 mmol/L (136-145)
[2021-05-12] MEDS: Potassium Chloride Oral Tablet 20 MEQ 40 MEQ PO (10:12)
[2021-05-12] MEDS: Tuberculin,Purif.prot.deriv. 50 TU/ML Vial 0.1 ML ID (10:13)
[2021-05-12 14:36] VITALS: BP 157/61; PULSE 74; RESP 16; TEMP 36.3; O2SAT 16
--- NOTE | 2021-05-12 16:10 | NURSING ---
Pt stated Dr. Gan Discontinued her Lisinopril d/t cough pt refused 05/[address] Gna updated and Lisinopril Discontinued. Will continue to monitor blood pressure call light within reach.
[2021-05-12] MEDS: traZODone 50 MG Tablet 150 MG PO (21:25)
[2021-05-12] MEDS: Primidone 250 MG Tablet PO (21:25)
[2021-05-12] MEDS: Pravastatin 40 MG Tablet PO (21:25)
[2021-05-13] MEDS: Acetaminophen 500 MG Tablet 1000 MG PO ×2 (03:15→16:21)
[2021-05-13] MEDS: diazePAM 5 MG Tablet PO ×2 (03:15→21:54)
[2021-05-13 05:00] VITALS: BP 137/58; PULSE 77; RESP 16; TEMP 36.6; O2SAT 95
[2021-05-13] MEDS: Baclofen 10 MG Tablet PO ×3 (06:40→21:53)
[2021-05-13] MEDS: amLODIPine 5 MG Tablet PO (06:40)
[2021-05-13] MEDS: Escitalopram Oxalate 20 MG Tablet PO (06:40)
[2021-05-13] MEDS: Carvedilol 12.5 MG Tablet PO ×2 (06:40→17:16)
[2021-05-13] MEDS: hydroCHLOROthiazide 12.5mg 12.5 MG PO (06:41)
[2021-05-13] MEDS: Senna/Docusate Sodium 1 Tablet PO (06:41)
[2021-05-13] MEDS: Enoxaparin 40 MG/0.4 ML Syringe SC (06:42)
[2021-05-13] MEDS: Nystatin Powder 15gm Bottle 1 APPLIC TOPICAL ×2 (06:44→17:17)
[2021-05-13] MEDS: Tamsulosin HCl 0.4 MG Capsule PO ×2 (07:32→17:16)
[2021-05-13] MEDS: Potassium Chloride Oral Tablet 20 MEQ PO (07:32)
--- NOTE | 2021-05-13 08:10 | NURSING ---
Addendum entered by Fany López 05/13/21 08:12: Discharge paperwork mentions an appointment for Dr. Constantin Arrington contact acid plant operator from [facility] on 05/15/21 but does not mention a time, BRANCH SERVICE LEADER legal administrative secretary updated on need to call office tomorrow morning to clarify time and get transport set up d/t office being closed today. Original Note: Discharge paperwork mentions an appointment for Dr. Constantin Arrington contact acid plant operator from [facility] on 05/15/21 bu, POt does not mention a time
[2021-05-13 13:58] VITALS: BP 114/75; PULSE 91; RESP 18; TEMP 36.9; O2SAT 95
[2021-05-13] MEDS: traZODone 50 MG Tablet 150 MG PO (21:53)
[2021-05-13] MEDS: Primidone 250 MG Tablet PO (21:53)
[2021-05-13] MEDS: Pravastatin 40 MG Tablet PO (21:53)
[2021-05-14] MEDS: amLODIPine 5 MG Tablet PO (05:58)
[2021-05-14] MEDS: Carvedilol 12.5 MG Tablet PO ×2 (05:58→17:34)
[2021-05-14] MEDS: Baclofen 10 MG Tablet PO ×3 (05:58→22:02)
[2021-05-14] MEDS: Escitalopram Oxalate 20 MG Tablet PO (05:59)
[2021-05-14] MEDS: hydroCHLOROthiazide 12.5mg 12.5 MG PO (05:59)
[2021-05-14] MEDS: Enoxaparin 40 MG/0.4 ML Syringe SC (06:00)
[2021-05-14 06:01] LABS: Anion Gap 6 (5-15); BUN 9 mg/dL (7-18); BUN/Creat Ratio 22.1 RATIO (10-20); Calcium,Total 8.6 mg/dL (8.5-10.1); Chloride 101 mmol/L (98-107); Creatinine, Serum 0.41 mg/dL (0.55-1.02); EST Glomerular Filtration Rate 162 mL/min (>60); Est Glom Filt Rate - Afr Amer 196 mL/min (>60); Estimated Creatinine Clearance 35.45 ml/min; Glucose 94 mg/dL (74-106); Potassium 3.3 mmol/L (3.5-5.1); Sodium Level 137 mmol/L (136-145)
[2021-05-14] MEDS: Acetaminophen 500 MG Tablet 1000 MG PO ×2 (06:05→22:00)
[2021-05-14] MEDS: Nystatin Powder 15gm Bottle 1 APPLIC TOPICAL ×2 (06:05→18:44)
[2021-05-14 06:06] VITALS: BP 124/60; PULSE 78; RESP 16; TEMP 36.6; O2SAT 94
[2021-05-14] MEDS: Tamsulosin HCl 0.4 MG Capsule PO ×2 (08:07→17:34)
[2021-05-14] MEDS: Potassium Chloride Oral Tablet 20 MEQ 40 MEQ PO (08:11)
[2021-05-14] MEDS: Loperamide 2 MG Capsule 4 MG PO (08:55)
--- NOTE | 2021-05-14 09:22 | PHA.CONS_ITS ---
Progress Note - Pharmacy Subjective: TCU Admission Objective: Allergies No Known Allergies Allergy (Verified 05/10/21 05:22) Current Medications Generic Name Dose Route Start Last Admin Trade Name Genesis PRN Reason Stop Dose Admin Acetaminophen 1,000 mg 05/11/21 14:40 05/14/21 06:05 Acetaminophen 500 Mg Tablet PO 1,000 mg Q6H PRN PRN Administration Pain Score 1-5 Amlodipine Besylate 5 mg 05/12/21 06:00 05/14/21 05:58 Amlodipine 5 Mg Tablet PO 5 mg DAILY DILCIA Administration Baclofen 10 mg 05/11/21 22:00 05/14/21 05:58 Baclofen 10 Mg Tablet PO 10 mg TID DILCIA Administration Bisacodyl 10 mg 05/11/21 14:23 Bisacodyl 5 Mg Tablet PO DAILY PRN CONSTIPATION Carvedilol 12.5 mg 05/11/21 18:00 05/14/21 05:58 Carvedilol 12.5 Mg Tablet PO 12.5 mg BID DILCIA Administration Diazepam 5 mg 05/11/21 14:16 05/13/21 21:54 Diazepam 5 Mg Tablet PO 5 mg TID PRN Administration ANXIETY Enoxaparin Sodium 40 mg 05/12/21 06:00 05/14/21 06:00 Enoxaparin 40 Mg/0.4 Ml Syringe SC 40 mg DAILY DILCIA Administration Escitalopram Oxalate 20 mg 05/12/21 06:00 05/14/21 05:59 Escitalopram Oxalate 20 Mg Tablet PO 20 mg DAILY DILCIA Administration Hydrochlorothiazide 12.5 mg 05/12/21 06:00 05/14/21 05:59 Hydrochlorothiazide 12.5mg PO 12.5 mg DAILY DILCIA Administration Loperamide HCl 4 mg 05/15/21 06:00 Loperamide 2 Mg Capsule PO DAILY DILCIA Meclizine HCl 25 mg 05/11/21 14:16 Meclizine Hcl 25 Mg Tablet PO TID PRN Dizziness Nystatin 1 applic 05/12/21 06:00 05/14/21 06:05 Nystatin Powder 15gm Bottle TOPICAL 1 applic BID DILCIA Administration Protocol Ondansetron HCl 4 mg 05/11/21 15:00 Ondansetron Odt 4 Mg Tablet PO TID PRN Nausea Oxycodone HCl 5 mg 05/11/21 14:41 05/12/21 21:24 Oxycodone 5 Mg Tablet PO 5 mg Q4H PRN PRN Administration Pain Score 6-10 Potassium Chloride 40 meq 05/14/21 08:00 05/14/21 08:11 Potassium Chloride Oral Tablet 20 Meq PO 40 meq DAILYCM DILCIA Administration Pravastatin Sodium 40 mg 05/11/21 22:00 05/13/21 21:53 Pravastatin 40 Mg Tablet PO 40 mg QHS DILCIA Administration Primidone 250 mg 05/11/21 22:00 05/13/21 21:53 Primidone 250 Mg Tablet PO 250 mg QHS DILCIA Administration Senna/Docusate Sodium 1 tablet 05/13/21 21:45 Senna/Docusate Sodium 1 Tablet PO BID PRN PRN CONSTIPATION Tamsulosin HCl 0.4 mg 05/11/21 17:30 05/14/21 08:07 Tamsulosin Hcl 0.4 Mg Capsule PO 0.4 mg 0830,1730 DILCIA Administration Trazodone HCl 300 mg 05/14/21 22:00 Trazodone 100 Mg Tablet PO QHS [facility] Tuberculin PPD 0.1 ml 05/19/21 10:00 Tuberculin,Purif.Prot.Deriv. 50 Tu/Ml Vial ID 05/19/21 10:01 X1 ONE Problem List (Last Reviewed 05/11/21 @ 14:[address] Ld Gan MD) Dizziness (Acute) Muscle spasm (Acute) Insomnia (Acute) Tremor (Acute) Migraine (Acute) Depression (Acute) Hyperlipidemia (Acute) Pulmonary hypertension (Acute) Fibromyalgia (Acute) Diastolic dysfunction (Acute) Hypertension (Chronic) Anxiety (Acute) Debility (Acute) Closed trimalleolar fracture of left ankle (Acute) Vital Signs Temp Pulse Resp BP Pulse Ox 97.9 F 78 16 124/60 H 94 05/14/21 06:06 05/14/21 06:06 05/14/21 06:06 05/14/21 06:06 05/14/21 06:06 Oxygen Flow Rate (L/min) 95 Oxygen Delivery Method Room Air Weight: 89.8 kg Body Mass Index (BMI) 38.7 Sodium 137 mmol/L (136-145) 05/14/21 05:20 Potassium 3.3 mmol/L (3.5-5.1) L 05/14/21 05:20 Chloride 101 mmol/L (98-107) 05/14/21 05:20 Carbon Dioxide 30.0 mmol/L (21.0-32.0) 05/14/21 05:20 Anion Gap 6 (5-15) 05/14/21 05:20 BUN 9 mg/dL (7-18) 05/14/21 05:20 Creatinine 0.41 mg/dL (0.55-1.02) L 05/14/21 05:20 Est GFR (MDRD) Af Amer 196 mL/min (>60) 05/14/21 05:20 Est GFR (MDRD) Non-Af 162 mL/min (>60) 05/14/21 05:20 BUN/Creatinine Ratio 22.1 RATIO (10-20) H 05/14/21 05:20 Glucose 94 mg/dL (74-106) 05/14/21 05:20 Assessment/Plan: 1. Pain: acetaminophen 1000mg PO Q6H PRN pain 1-5 and oxycodone 5mg PO Q4H PRN pain 6-10. Please continue to monitor for increased pain, PRN usage, constipation and respiratory depression. 2. DVT prophylaxis: enoxaparin 40mg SC daily. Please continue to monitor for S/S of bleeding, hemoglobin (last 13g/dL), platelets (last 147,000), and renal function. 3. Hypertension: carvedilol 12.5mg PO BID, hydrochlorothiazide 12.5mg PO daily, and amlodipine 5mg PO daily. Please continue to monitor BP (last 124/60), HR (last 78), potassium (last 3.3mmol/L), sodium (last 137mg/dL), and edema. 4. Tremor: primidone 250mg PO QHS. Please continue to monitor for tremor. *5. Hyperlipidemia: pravastatin 40mg PO QHS. Please continue to monitor for muscle pain. Patient does not have a lipid panel in chart. Please consider ordering a lipid panel. Thanks. 6. Urinary retention: tamsulosin 0.4mg PO BID. Please continue to monitor for urinary retention and hypotension. 7. Muscle spasms: baclofen 10mg PO TID. Please continue to monitor for muscle pain and anticholinergic side effects. 8. Dizziness: meclizine 25mg PO TID PRN dizziness. Please continue to monitor for dizziness, PRN usage and drowsiness. 9. Nausea: ondansetron 4mg PO TID PRN nausea. Please continue to monitor for PRN usage and nausea. 10. Hypokalemia (potassium 3.3mmol/L): potassium chloride 40mEq PO DAILYCM. Please continue to monitor potassium levels. Psychotropic Medications: 1. Anxiety: diazepam 5mg PO TID PRN anxiety. Please see physician note regarding GDR. 2. Depression: escitalopram 20mg PO daily. Please see physician note regarding GDR. 3. Insomnia: trazodone 300mg PO QHS. Dose increased this morning, would not try a GDR at this point. Please continue to monitor for excessive drowsiness. Unnecessary Medications: None Bowel Regimen: senna/docusate 1T PO BID PRN constipation, bisacodyl 10mg PO daily PRN constipation and loperamide 4mg PO daily. Please continue to monitor for S/S of constipation and PRN usage. Date of Note:: 05/14/21
--- NOTE | 2021-05-14 11:52 | NURSING ---
Iva CHANGED CODE STATUS TO DNR-CCA WITH INTUBATION. NEW FORM SIGNED BY Iva AND PURPLE BRACELET APPLIED.
--- NOTE | 2021-05-14 12:22 | CASEMGMT ---
Social Work See attached for complete assessment. MOLST form completed with patient. Patient wishes to be a DNR-CCA with intubation. Nursing staff updated. Patient plans to continue with care/treatment on the TCU until ankle surgery. Patient to have orthopeadic doctor appointment tomorrow. Will continue to follow. Chelsey ERVIN, CUATE
[2021-05-14 14:08] VITALS: BP 148/76; PULSE 90; RESP 18; TEMP 36.1; O2SAT 97
[2021-05-14] MEDS: Menthol/Lanolin/Calamine/Znox 113 GM Tube 1 APPLIC TOPICAL (18:44)
[2021-05-14 22:00] VITALS: PULSE 90; RESP 18; O2SAT 97
[2021-05-14] MEDS: traZODone 100 MG Tablet 300 MG PO (22:01)
[2021-05-14] MEDS: Primidone 250 MG Tablet PO (22:02)
[2021-05-14] MEDS: Pravastatin 40 MG Tablet PO (22:03)
[2021-05-15] MEDS: diazePAM 5 MG Tablet PO (02:55)
[2021-05-15 05:00] VITALS: BP 144/71; PULSE 81; RESP 18; TEMP 36.4; O2SAT 95
[2021-05-15] MEDS: Enoxaparin 40 MG/0.4 ML Syringe SC (06:38)
[2021-05-15] MEDS: Loperamide 2 MG Capsule 4 MG PO (06:38)
[2021-05-15] MEDS: Escitalopram Oxalate 20 MG Tablet PO (06:39)
[2021-05-15] MEDS: hydroCHLOROthiazide 12.5mg 12.5 MG PO (06:39)
[2021-05-15] MEDS: Menthol/Lanolin/Calamine/Znox 113 GM Tube 1 APPLIC TOPICAL ×2 (06:39→17:25)
[2021-05-15] MEDS: amLODIPine 5 MG Tablet PO (06:39)
[2021-05-15] MEDS: Baclofen 10 MG Tablet PO ×3 (06:39→21:04)
[2021-05-15] MEDS: Nystatin Powder 15gm Bottle 1 APPLIC TOPICAL ×2 (06:39→21:04)
[2021-05-15] MEDS: Potassium Chloride Oral Tablet 20 MEQ 40 MEQ PO (08:17)
[2021-05-15] MEDS: Carvedilol 12.5 MG Tablet PO ×2 (08:18→17:24)
[2021-05-15] MEDS: Tamsulosin HCl 0.4 MG Capsule PO ×2 (08:20→17:24)
[2021-05-15 08:27] VITALS: BP 117/81; PULSE 91
--- NOTE | 2021-05-15 10:40 | CASEMGMT ---
Social Work Brief interview for mental status (BIMS) and resident mood interview (PHQ-9) completed on this day. Chelsey ERVIN, ECHOS
[2021-05-15] MEDS: NYSTATIN 500,000 UNIT/5 ML UDC 500000 UNIT PO ×3 (11:23→21:04)
[2021-05-15 14:14] VITALS: BP 133/72; PULSE 92; RESP 16; TEMP 36.3; O2SAT 93
[2021-05-15] MEDS: Pravastatin 40 MG Tablet PO (21:04)
[2021-05-15] MEDS: Primidone 250 MG Tablet PO (21:04)
[2021-05-15] MEDS: oxyCODONE 5 MG Tablet PO (21:08)
[2021-05-15] MEDS: traZODone 100 MG Tablet 300 MG PO (22:02)
[2021-05-16 05:10] VITALS: BP 126/65; PULSE 83; RESP 17; TEMP 36.6; O2SAT 93
[2021-05-16] MEDS: hydroCHLOROthiazide 12.5mg 12.5 MG PO (05:14)
[2021-05-16] MEDS: Menthol/Lanolin/Calamine/Znox 113 GM Tube 1 APPLIC TOPICAL ×2 (05:14→17:25)
[2021-05-16] MEDS: Enoxaparin 40 MG/0.4 ML Syringe SC (05:15)
[2021-05-16] MEDS: NYSTATIN 500,000 UNIT/5 ML UDC 500000 UNIT PO ×4 (05:15→22:13)
[2021-05-16] MEDS: Escitalopram Oxalate 20 MG Tablet PO (05:15)
[2021-05-16] MEDS: amLODIPine 5 MG Tablet PO (05:15)
[2021-05-16] MEDS: Baclofen 10 MG Tablet PO ×3 (05:16→22:13)
[2021-05-16] MEDS: Nystatin Powder 15gm Bottle 1 APPLIC TOPICAL ×2 (05:16→17:25)
[2021-05-16 05:57] LABS: Anion Gap 6 (5-15); BUN 9 mg/dL (7-18); BUN/Creat Ratio 19.4 RATIO (10-20); Calcium,Total 8.4 mg/dL (8.5-10.1); Chloride 103 mmol/L (98-107); Creatinine, Serum 0.46 mg/dL (0.55-1.02); EST Glomerular Filtration Rate 139 mL/min (>60); Est Glom Filt Rate - Afr Amer 169 mL/min (>60); Estimated Creatinine Clearance 35.45 ml/min; Glucose 92 mg/dL (74-106); Sodium Level 139 mmol/L (136-145)
[2021-05-16] MEDS: Potassium Chloride Oral Tablet 20 MEQ 40 MEQ PO (08:38)
[2021-05-16] MEDS: Tamsulosin HCl 0.4 MG Capsule PO ×2 (08:38→17:24)
[2021-05-16] MEDS: Carvedilol 12.5 MG Tablet PO ×2 (08:38→17:23)
--- NOTE | 2021-05-16 10:40 | CASEMGMT ---
Social Work Plan of care meeting held. Patient present as well as patient spouse. No discharge date set. Patient to have doctors appointment on 05/18/2021 with orthopaedic surgeon for status of when patient will have surgery on left ankle. Patient to continue with care and treatment on the Transitional Care Unit. Will continue to follow. Chelsey ERVIN, CUATE
[2021-05-16 14:03] VITALS: BP 129/54; PULSE 82; RESP 16; TEMP 36.3; O2SAT 94
[2021-05-16] MEDS: Acetaminophen 500 MG Tablet 1000 MG PO (17:22)
--- NOTE | 2021-05-16 18:03 | NURSING ---
pt c/o vaginal irritation stating she feels like she is getting a yeast infection, Dr. Gan updated and N.O. x1 dose diflucan
[2021-05-16] MEDS: FLUCONAZOLE 150 MG TABLET PO (20:13)
[2021-05-16 20:21] VITALS: PULSE 72; RESP 16; O2SAT 94
[2021-05-16] MEDS: Pravastatin 40 MG Tablet PO (22:13)
[2021-05-16] MEDS: Primidone 250 MG Tablet PO (22:13)
[2021-05-16] MEDS: traZODone 100 MG Tablet 300 MG PO (22:13)
[2021-05-17 05:00] VITALS: BP 148/68; PULSE 78; RESP 14; TEMP 36.4; O2SAT 94
[2021-05-17] MEDS: Enoxaparin 40 MG/0.4 ML Syringe SC (06:02)
[2021-05-17] MEDS: NYSTATIN 500,000 UNIT/5 ML UDC 500000 UNIT PO ×4 (06:02→21:56)
[2021-05-17] MEDS: amLODIPine 5 MG Tablet PO (06:02)
[2021-05-17] MEDS: Escitalopram Oxalate 20 MG Tablet PO (06:02)
[2021-05-17] MEDS: hydroCHLOROthiazide 12.5mg 12.5 MG PO (06:02)
[2021-05-17] MEDS: Baclofen 10 MG Tablet PO ×3 (06:02→21:56)
[2021-05-17] MEDS: Nystatin Powder 15gm Bottle 1 APPLIC TOPICAL ×2 (06:08→18:02)
[2021-05-17] MEDS: Menthol/Lanolin/Calamine/Znox 113 GM Tube 1 APPLIC TOPICAL ×2 (06:09→18:01)
[2021-05-17] MEDS: Potassium Chloride Oral Tablet 20 MEQ 40 MEQ PO (08:05)
[2021-05-17] MEDS: Tamsulosin HCl 0.4 MG Capsule PO ×2 (08:05→17:58)
[2021-05-17] MEDS: Carvedilol 12.5 MG Tablet PO ×2 (08:05→17:57)
[2021-05-17 16:00] VITALS: BP 121/69; PULSE 73; RESP 18; TEMP 36.5; O2SAT 98
[2021-05-17] MEDS: Acetaminophen 500 MG Tablet 1000 MG PO (21:55)
[2021-05-17] MEDS: traZODone 100 MG Tablet 300 MG PO (21:56)
[2021-05-17] MEDS: Primidone 250 MG Tablet PO (21:57)
[2021-05-17] MEDS: Pravastatin 40 MG Tablet PO (21:58)
--- NOTE | 2021-05-18 02:21 | NURSING ---
Pt c/o bladder pain when sitting up or reaching for something. Cath is draining well, urine clear-faint yellow color, tubing appears taught. removed and reapplied stat lock to give more slack to tubing to see if that will help with discomfort. Will continue to monitor, rn aware.
[2021-05-18 05:00] VITALS: BP 136/60; PULSE 78; RESP 18; O2SAT 94
[2021-05-18] MEDS: NYSTATIN 500,000 UNIT/5 ML UDC 500000 UNIT PO ×4 (06:32→22:21)
[2021-05-18] MEDS: hydroCHLOROthiazide 12.5mg 12.5 MG PO (06:32)
[2021-05-18] MEDS: Escitalopram Oxalate 20 MG Tablet PO (06:32)
[2021-05-18] MEDS: Baclofen 10 MG Tablet PO ×3 (06:32→22:25)
[2021-05-18] MEDS: Enoxaparin 40 MG/0.4 ML Syringe SC (06:32)
[2021-05-18] MEDS: Menthol/Lanolin/Calamine/Znox 113 GM Tube 1 APPLIC TOPICAL ×2 (06:33→17:37)
[2021-05-18] MEDS: amLODIPine 5 MG Tablet PO (06:33)
[2021-05-18] MEDS: Nystatin Powder 15gm Bottle 1 APPLIC TOPICAL ×2 (06:33→22:21)
[2021-05-18] MEDS: Loperamide 2 MG Capsule 4 MG PO (06:53)
[2021-05-18] MEDS: Potassium Chloride Oral Tablet 20 MEQ 40 MEQ PO (08:22)
[2021-05-18] MEDS: Tamsulosin HCl 0.4 MG Capsule PO ×2 (08:22→17:36)
[2021-05-18] MEDS: Acetaminophen 500 MG Tablet 1000 MG PO ×2 (08:28→23:20)
[2021-05-18] MEDS: Carvedilol 12.5 MG Tablet PO ×2 (08:29→17:36)
[2021-05-18 08:33] VITALS: BP 125/70; PULSE 87
--- NOTE | 2021-05-18 08:33 | NURSING ---
PT LEFT AT 8:35 AM BY WHEEL CHAIR FOR APPOINTMENT. TO MEET AT OFFICE.
--- NOTE | 2021-05-18 11:30 | NURSING ---
PT BACK TO FLOOR FROM APPOINTMENT AT 11:10. NEW ORDERS,RN AWARE AND LOOKING OVER.
[2021-05-18] MEDS: oxyCODONE 5 MG Tablet PO ×2 (11:35→23:19)
--- NOTE | 2021-05-18 13:18 | NURSING ---
Orders from ortho appointment. Scheduled to have surgery for ankle repair on 05/24/21. Communication order entered.
--- NOTE | 2021-05-18 14:43 | NURSING ---
UPDATED AT PT DR. APPOINTMENT.
[2021-05-18 15:49] VITALS: BP 130/64; PULSE 77; RESP 17; TEMP 36.2; O2SAT 95
--- NOTE | 2021-05-18 22:00 | NURSING ---
Luu catheter drained for 2000 ml of semi-cloudy, yellow urine. Semi-foul odor noted. Denies any c/o abdominal pain.
[2021-05-18] MEDS: Primidone 250 MG Tablet PO (22:25)
[2021-05-18] MEDS: Pravastatin 40 MG Tablet PO (22:25)
[2021-05-18] MEDS: traZODone 100 MG Tablet 300 MG PO (22:26)
[2021-05-19 05:37] VITALS: BP 147/63; PULSE 81; RESP 16; TEMP 36.3; O2SAT 96
[2021-05-19] MEDS: NYSTATIN 500,000 UNIT/5 ML UDC 500000 UNIT PO ×4 (05:38→21:59)
[2021-05-19] MEDS: Loperamide 2 MG Capsule 4 MG PO (05:39)
[2021-05-19] MEDS: Escitalopram Oxalate 20 MG Tablet PO (05:39)
[2021-05-19] MEDS: amLODIPine 5 MG Tablet PO (05:39)
[2021-05-19] MEDS: Baclofen 10 MG Tablet PO ×3 (05:40→22:00)
[2021-05-19] MEDS: hydroCHLOROthiazide 12.5mg 12.5 MG PO (05:40)
[2021-05-19] MEDS: Enoxaparin 40 MG/0.4 ML Syringe SC (05:40)
[2021-05-19] MEDS: Menthol/Lanolin/Calamine/Znox 113 GM Tube 1 APPLIC TOPICAL ×2 (05:47→17:39)
[2021-05-19] MEDS: Nystatin Powder 15gm Bottle 1 APPLIC TOPICAL ×2 (05:47→17:39)
[2021-05-19 06:35] LABS: Absolute Lymphocyte Count 1.53 X10^3/uL (0.83-4.51); Basophil# 0.04 X10^3/uL; Basophil% 0.5 % (0-1); Eosinophil# 0.23 X10^3/uL; Eosinophils% 2.7 % (0-5); Hematocrit 37.4 % (37-47); Hemoglobin 12.4 g/dL (12.0-15.0); Lymphocyte # 1.53 X10^3/ul (0.83-4.51); Lymphocyte % 17.6 % (19-41); Mean Corp Hgb Conc 33.2 g/dL (32-36); Mean Corpuscular Hgb 31.2 pg (27.0-32.0); Mean Platelet Vol. 8.8 fl (6.2-12.0); Monocyte# 0.85 X10^3/uL; Monocyte% 9.8 % (0-10); NRBC Flagged by Analyzer 0 % (0-5); Neutrophil # 5.95 X10^3/uL (2.7-7.7); Neutrophil % 68.6 % (47-70); Platelet Count 209 K/mm3 (150-450); RBC Distribution Width CV 12.6 % (11.6-14.6); RBC Distribution Width SD 43.6 fl (35.1-43.9); Red Blood Count 3.98 M/mm3 (4.2-5.4); White Blood Count 8.7 K/mm3 (4.4-11.0)
[2021-05-19 07:02] LABS: Anion Gap 5 (5-15); BUN 8 mg/dL (7-18); BUN/Creat Ratio 16.3 RATIO (10-20); Calcium,Total 8.5 mg/dL (8.5-10.1); Chloride 104 mmol/L (98-107); Creatinine, Serum 0.49 mg/dL (0.55-1.02); EST Glomerular Filtration Rate 131 mL/min (>60); Est Glom Filt Rate - Afr Amer 158 mL/min (>60); Estimated Creatinine Clearance 35.45 ml/min; Glucose 103 mg/dL (74-106); Potassium 3.6 mmol/L (3.5-5.1); Sodium Level 136 mmol/L (136-145)
[2021-05-19] MEDS: Carvedilol 12.5 MG Tablet PO ×2 (09:04→17:38)
[2021-05-19] MEDS: Tamsulosin HCl 0.4 MG Capsule PO ×2 (09:04→17:38)
[2021-05-19] MEDS: Potassium Chloride Oral Tablet 20 MEQ 40 MEQ PO (09:04)
[2021-05-19] MEDS: oxyCODONE 5 MG Tablet PO ×2 (10:29→22:06)
[2021-05-19] MEDS: Tuberculin,Purif.prot.deriv. 50 TU/ML Vial 0.1 ML ID (10:30)
[2021-05-19] MEDS: Acetaminophen 500 MG Tablet 1000 MG PO ×2 (13:14→22:05)
[2021-05-19 14:21] VITALS: BP 129/46; PULSE 79; RESP 16; TEMP 35.6; O2SAT 93
[2021-05-19 16:00] VITALS: BP 129/46; PULSE 79; RESP 16; TEMP 36.2; O2SAT 93
--- NOTE | 2021-05-19 20:52 | NURSING ---
Focused assessment complete. Requests HS meds closer to 2200.
[2021-05-19] MEDS: Primidone 250 MG Tablet PO (21:59)
[2021-05-19] MEDS: traZODone 100 MG Tablet 300 MG PO (22:00)
[2021-05-19] MEDS: Pravastatin 40 MG Tablet PO (22:00)
[2021-05-20 05:48] VITALS: BP 121/76; PULSE 74; RESP 16; TEMP 36.3; O2SAT 94
[2021-05-20] MEDS: Enoxaparin 40 MG/0.4 ML Syringe SC (05:49)
[2021-05-20] MEDS: Baclofen 10 MG Tablet PO ×3 (05:50→21:26)
[2021-05-20] MEDS: amLODIPine 5 MG Tablet PO (05:50)
[2021-05-20] MEDS: Escitalopram Oxalate 20 MG Tablet PO (05:50)
[2021-05-20] MEDS: NYSTATIN 500,000 UNIT/5 ML UDC 500000 UNIT PO ×4 (05:51→21:28)
[2021-05-20] MEDS: hydroCHLOROthiazide 12.5mg 12.5 MG PO (05:52)
[2021-05-20] MEDS: Menthol/Lanolin/Calamine/Znox 113 GM Tube 1 APPLIC TOPICAL ×2 (05:53→16:54)
[2021-05-20] MEDS: Nystatin Powder 15gm Bottle 1 APPLIC TOPICAL ×2 (05:54→16:55)
[2021-05-20] MEDS: Carvedilol 12.5 MG Tablet PO ×2 (08:42→16:51)
[2021-05-20] MEDS: Potassium Chloride Oral Tablet 20 MEQ 40 MEQ PO (08:42)
[2021-05-20] MEDS: Tamsulosin HCl 0.4 MG Capsule PO ×2 (08:42→16:49)
[2021-05-20] MEDS: Acetaminophen 500 MG Tablet 1000 MG PO ×2 (08:48→21:26)
[2021-05-20] MEDS: oxyCODONE 5 MG Tablet PO (08:48)
[2021-05-20 13:11] VITALS: BP 137/67; PULSE 71; RESP 17; TEMP 36.4; O2SAT 96
[2021-05-20 21:21] VITALS: PULSE 70; RESP 16; O2SAT 96
[2021-05-20] MEDS: traZODone 100 MG Tablet 300 MG PO (21:26)
[2021-05-20] MEDS: Pravastatin 40 MG Tablet PO (21:26)
[2021-05-20] MEDS: Primidone 250 MG Tablet PO (21:26)
[2021-05-21 05:00] VITALS: BP 156/60; PULSE 71; RESP 16; TEMP 36.4; O2SAT 95
[2021-05-21] MEDS: amLODIPine 5 MG Tablet PO (06:28)
[2021-05-21] MEDS: NYSTATIN 500,000 UNIT/5 ML UDC 500000 UNIT PO ×4 (06:28→21:33)
[2021-05-21] MEDS: Escitalopram Oxalate 20 MG Tablet PO (06:28)
[2021-05-21] MEDS: Baclofen 10 MG Tablet PO ×3 (06:28→21:33)
[2021-05-21] MEDS: Enoxaparin 40 MG/0.4 ML Syringe SC (06:33)
[2021-05-21] MEDS: Menthol/Lanolin/Calamine/Znox 113 GM Tube 1 APPLIC TOPICAL ×2 (06:36→17:12)
[2021-05-21] MEDS: Nystatin Powder 15gm Bottle 1 APPLIC TOPICAL ×2 (06:36→17:12)
[2021-05-21] MEDS: hydroCHLOROthiazide 12.5mg 12.5 MG PO (08:12)
[2021-05-21] MEDS: Acetaminophen 500 MG Tablet 1000 MG PO ×2 (08:13→21:36)
[2021-05-21] MEDS: Potassium Chloride Oral Tablet 20 MEQ 40 MEQ PO (08:15)
[2021-05-21] MEDS: Tamsulosin HCl 0.4 MG Capsule PO ×2 (08:15→17:12)
[2021-05-21] MEDS: Carvedilol 12.5 MG Tablet PO ×2 (08:17→17:12)
[2021-05-21 08:19] VITALS: BP 128/58; PULSE 82
[2021-05-21 10:15] VITALS: PULSE 71; RESP 18; O2SAT 95
--- NOTE | 2021-05-21 11:54 | NURSING ---
Talked with Nurse from Dr. Arrington's office Pre-op orders confirmed with Nurse. New order entered for CBC w/diff, BMP, Hemaglobin A1c, PT/PTT, EKG, and Chest X-ray.
--- NOTE | 2021-05-21 13:32 | RAD_ITS ---
STUDY: X-RAY CHEST REASON FOR EXAM: Female, 76 years old. Preoperative TECHNIQUE: PA and lateral views of the chest. COMPARISON: None. FINDINGS: The lungs are clear and expanded. Scattered calcified granulomas. There is no demonstrated pleural abnormality. There is moderate cardiac enlargement. Normal mediastinum and jeannine. Normal visualized pulmonary arteries. There is atherosclerotic calcification of the aortic arch with tortuosity. There are diffuse degenerative changes of the visualized thoracic spine. Dextroscoliosis. Normal visualized ribs, clavicles, and shoulders. There is no demonstrated abnormality of the visualized soft tissue structures of the upper abdomen. RAD/Chest PA and Lateral IMPRESSION: Cardiomegaly. Dextroscoliosis. Electronically Signed: Fer Helms MD at 15:34 EDT , Service support ,
--- NOTE | 2021-05-21 13:33 | EKG12_ITS ---
Test Reason : PREOP Blood Pressure : / mmHG Vent. Rate : 079 BPM Atrial Rate : 079 BPM P-R Int : 142 ms QRS Dur : 076 ms QT Int : 372 ms P-R-T Axes : 044 -29 052 degrees QTc Int : 426 ms Normal sinus rhythm Voltage criteria for left ventricular hypertrophy Poor R wave progression Abnormal ECG Confirmed by ERAN WYMAN, JORDAN ([id number]), society editor AMPARO OWEN ([id number]) on 05/23/2021 1:20:05 PM Referred By: TERRI Confirmed By:JORDAN BARILLAS MD
[2021-05-21 13:57] VITALS: BP 140/78; PULSE 85; RESP 16; TEMP 35.8; O2SAT 94
[2021-05-21 14:48] LABS: International Normalized Ratio 1.1; Partial Thromboplast Time 30.3 Seconds (24.1-36.2); Prothrombin Time (Protime)PT. 13.3 SECONDS (11.7-14.9)
[2021-05-21] MEDS: Primidone 250 MG Tablet PO (21:33)
[2021-05-21] MEDS: traZODone 100 MG Tablet 300 MG PO (21:33)
[2021-05-21] MEDS: Pravastatin 40 MG Tablet PO (21:33)
[2021-05-22 05:00] VITALS: BP 139/63; PULSE 75; RESP 16; TEMP 36.4; O2SAT 94
[2021-05-22] MEDS: NYSTATIN 500,000 UNIT/5 ML UDC 500000 UNIT PO ×4 (06:13→22:16)
[2021-05-22] MEDS: Baclofen 10 MG Tablet PO ×3 (06:13→22:16)
[2021-05-22] MEDS: Loperamide 2 MG Capsule 4 MG PO ×2 (06:14→08:18)
[2021-05-22] MEDS: amLODIPine 5 MG Tablet PO (06:14)
[2021-05-22] MEDS: Enoxaparin 40 MG/0.4 ML Syringe SC (06:14)
[2021-05-22] MEDS: Escitalopram Oxalate 20 MG Tablet PO (06:14)
[2021-05-22] MEDS: hydroCHLOROthiazide 12.5mg 12.5 MG PO (06:14)
[2021-05-22] MEDS: Menthol/Lanolin/Calamine/Znox 113 GM Tube 1 APPLIC TOPICAL ×2 (06:17→16:55)
[2021-05-22] MEDS: Nystatin Powder 15gm Bottle 1 APPLIC TOPICAL ×2 (06:19→16:56)
[2021-05-22] MEDS: Tamsulosin HCl 0.4 MG Capsule PO ×2 (08:15→16:55)
[2021-05-22] MEDS: Carvedilol 12.5 MG Tablet PO ×2 (08:15→16:55)
[2021-05-22] MEDS: Potassium Chloride Oral Tablet 20 MEQ 40 MEQ PO (08:15)
[2021-05-22] MEDS: Acetaminophen 500 MG Tablet 1000 MG PO ×2 (08:21→15:18)
[2021-05-22 08:25] VITALS: BP 134/64; PULSE 80
[2021-05-22 13:55] VITALS: BP 126/58; PULSE 81; RESP 16; TEMP 36.6; O2SAT 95
[2021-05-22 22:15] VITALS: PULSE 60; RESP 16; O2SAT 91
[2021-05-22] MEDS: Pravastatin 40 MG Tablet PO (22:16)
[2021-05-22] MEDS: Primidone 250 MG Tablet PO (22:17)
[2021-05-22] MEDS: traZODone 100 MG Tablet 300 MG PO (22:17)
[2021-05-23 05:00] VITALS: BP 134/63; PULSE 67; RESP 18; O2SAT 94
[2021-05-23] MEDS: Menthol/Lanolin/Calamine/Znox 113 GM Tube 1 APPLIC TOPICAL ×2 (05:56→17:24)
[2021-05-23] MEDS: amLODIPine 5 MG Tablet PO (05:57)
[2021-05-23] MEDS: Loperamide 2 MG Capsule 4 MG PO ×2 (05:57→09:06)
[2021-05-23] MEDS: Acetaminophen 500 MG Tablet 1000 MG PO ×2 (05:57→22:15)
[2021-05-23] MEDS: Baclofen 10 MG Tablet PO ×3 (05:58→20:34)
[2021-05-23] MEDS: hydroCHLOROthiazide 12.5mg 12.5 MG PO (05:58)
[2021-05-23] MEDS: Escitalopram Oxalate 20 MG Tablet PO (05:58)
[2021-05-23] MEDS: Nystatin Powder 15gm Bottle 1 APPLIC TOPICAL ×2 (05:58→17:24)
[2021-05-23] MEDS: NYSTATIN 500,000 UNIT/5 ML UDC 500000 UNIT PO ×4 (05:58→20:33)
[2021-05-23] MEDS: Carvedilol 12.5 MG Tablet PO ×2 (07:59→17:23)
[2021-05-23] MEDS: Tamsulosin HCl 0.4 MG Capsule PO ×2 (07:59→17:22)
[2021-05-23] MEDS: Potassium Chloride Oral Tablet 20 MEQ 40 MEQ PO (07:59)
[2021-05-23] MEDS: diazePAM 5 MG Tablet PO (12:17)
[2021-05-23 13:17] VITALS: BP 132/73; PULSE 85; RESP 17; TEMP 36.4; O2SAT 94
[2021-05-23] MEDS: traZODone 100 MG Tablet 300 MG PO (20:33)
[2021-05-23] MEDS: Primidone 250 MG Tablet PO (20:34)
[2021-05-23] MEDS: Pravastatin 40 MG Tablet PO (20:35)
[2021-05-24] MEDS: amLODIPine 5 MG Tablet PO (06:06)
[2021-05-24] MEDS: Carvedilol 12.5 MG Tablet PO ×2 (06:06→17:03)
[2021-05-24 06:07] VITALS: BP 132/49; PULSE 68; RESP 16; TEMP 36.9; O2SAT 94
--- NOTE | 2021-05-24 08:12 | MDS.RN ---
Information for the mds was obtained from review of the clinical record, interview of resident, staff, and direct observation of resident's care.
--- NOTE | 2021-05-24 08:39 | NURSING ---
pt off unit to AC
[2021-05-24 14:58] VITALS: BP 129/62; PULSE 76; RESP 18; TEMP 36.9; O2SAT 94
[2021-05-24] MEDS: Potassium Chloride Oral Tablet 20 MEQ 40 MEQ PO (15:10)
[2021-05-24] MEDS: Acetaminophen 500 MG Tablet 1000 MG PO ×2 (15:10→21:33)
[2021-05-24] MEDS: Escitalopram Oxalate 20 MG Tablet PO (15:11)
[2021-05-24] MEDS: hydroCHLOROthiazide 12.5mg 12.5 MG PO (15:11)
[2021-05-24] MEDS: Loperamide 2 MG Capsule 4 MG PO (15:11)
[2021-05-24] MEDS: Baclofen 10 MG Tablet PO ×2 (15:11→21:22)
[2021-05-24] MEDS: NYSTATIN 500,000 UNIT/5 ML UDC 500000 UNIT PO ×2 (17:02→21:23)
[2021-05-24] MEDS: Tamsulosin HCl 0.4 MG Capsule PO (17:02)
[2021-05-24] MEDS: oxyCODONE 5 MG Tablet PO ×2 (17:02→21:21)
[2021-05-24] MEDS: Menthol/Lanolin/Calamine/Znox 113 GM Tube 1 APPLIC TOPICAL (17:02)
[2021-05-24] MEDS: Nystatin Powder 15gm Bottle 1 APPLIC TOPICAL (17:03)
[2021-05-24] MEDS: traZODone 100 MG Tablet 300 MG PO (21:22)
[2021-05-24] MEDS: Pravastatin 40 MG Tablet PO (21:22)
[2021-05-24 22:00] VITALS: RESP 16
[2021-05-24] MEDS: Primidone 250 MG Tablet PO (23:20)
[2021-05-25] MEDS: oxyCODONE 5 MG Tablet PO ×2 (01:27→06:38)
[2021-05-25] MEDS: Acetaminophen 500 MG Tablet 1000 MG PO ×3 (03:30→18:40)
[2021-05-25] MEDS: amLODIPine 5 MG Tablet PO (06:30)
[2021-05-25] MEDS: Loperamide 2 MG Capsule 4 MG PO (06:30)
[2021-05-25] MEDS: Baclofen 10 MG Tablet PO ×3 (06:30→23:33)
[2021-05-25] MEDS: Nystatin Powder 15gm Bottle 1 APPLIC TOPICAL ×2 (06:31→17:13)
[2021-05-25] MEDS: Menthol/Lanolin/Calamine/Znox 113 GM Tube 1 APPLIC TOPICAL ×2 (06:32→17:13)
[2021-05-25] MEDS: diazePAM 5 MG Tablet PO (06:37)
[2021-05-25] MEDS: Enoxaparin 40 MG/0.4 ML Syringe SC (06:47)
[2021-05-25] MEDS: hydroCHLOROthiazide 12.5mg 12.5 MG PO (06:55)
[2021-05-25] MEDS: Escitalopram Oxalate 20 MG Tablet PO (06:55)
[2021-05-25] MEDS: Tamsulosin HCl 0.4 MG Capsule PO ×2 (08:14→17:13)
[2021-05-25] MEDS: Carvedilol 12.5 MG Tablet PO ×2 (08:14→17:13)
[2021-05-25] MEDS: Potassium Chloride Oral Tablet 20 MEQ 40 MEQ PO (08:21)
[2021-05-25] MEDS: oxyCODONE 5 MG Tablet 10 MG PO ×4 (10:40→23:33)
[2021-05-25 14:37] VITALS: BP 107/50; PULSE 78; RESP 14; TEMP 36.1; O2SAT 95
[2021-05-25 17:17] VITALS: BP 123/58; PULSE 72
[2021-05-25] MEDS: traZODone 100 MG Tablet 300 MG PO (23:32)
[2021-05-25] MEDS: Primidone 250 MG Tablet PO (23:33)
[2021-05-26 02:07] VITALS: PULSE 73; O2SAT 96
[2021-05-26 05:00] VITALS: BP 126/57; PULSE 79; RESP 18; O2SAT 94
[2021-05-26] MEDS: oxyCODONE 5 MG Tablet 10 MG PO ×4 (06:38→21:00)
[2021-05-26] MEDS: Baclofen 10 MG Tablet PO ×3 (06:40→22:05)
[2021-05-26] MEDS: Escitalopram Oxalate 20 MG Tablet PO (06:40)
[2021-05-26] MEDS: Acetaminophen 500 MG Tablet 1000 MG PO ×3 (06:40→21:01)
[2021-05-26] MEDS: amLODIPine 5 MG Tablet PO (06:40)
[2021-05-26] MEDS: hydroCHLOROthiazide 12.5mg 12.5 MG PO (06:41)
[2021-05-26] MEDS: Loperamide 2 MG Capsule 4 MG PO (06:41)
[2021-05-26] MEDS: Enoxaparin 40 MG/0.4 ML Syringe SC (06:41)
[2021-05-26] MEDS: Nystatin Powder 15gm Bottle 1 APPLIC TOPICAL ×2 (06:42→21:03)
[2021-05-26] MEDS: Menthol/Lanolin/Calamine/Znox 113 GM Tube 1 APPLIC TOPICAL ×2 (06:42→21:03)
[2021-05-26] MEDS: Potassium Chloride Oral Tablet 20 MEQ 40 MEQ PO (08:48)
[2021-05-26] MEDS: Carvedilol 12.5 MG Tablet PO ×2 (08:48→18:06)
[2021-05-26] MEDS: Tamsulosin HCl 0.4 MG Capsule PO ×2 (08:48→18:06)
[2021-05-26 08:49] VITALS: BP 113/43; PULSE 91
[2021-05-26 08:52] LABS: Absolute Lymphocyte Count 1.29 X10^3/uL (0.83-4.51); Absolute Neutrophil Count 4.5 X10^3/uL (2.0-7.7); Basophil# 0.04 X10^3/uL; Basophil% 0.6 % (0-1); Eosinophil# 0.14 X10^3/uL; Eosinophils% 2.1 % (0-5); Hematocrit 36.2 % (37-47); Hemoglobin 11.8 g/dL (12.0-15.0); Lymphocyte # 1.29 X10^3/ul (0.83-4.51); Lymphocyte % 19.4 % (19-41); Mean Corp Hgb Conc 32.6 g/dL (32-36); Monocyte# 0.65 X10^3/uL; Monocyte% 9.8 % (0-10); NRBC Flagged by Analyzer 0 % (0-5); Neutrophil # 4.49 X10^3/uL (2.7-7.7); Neutrophil % 67.3 % (47-70); Platelet Count 263 K/mm3 (150-450); RBC Distribution Width CV 13.2 % (11.6-14.6); RBC Distribution Width SD 46.1 fl (35.1-43.9); Red Blood Count 3.81 M/mm3 (4.2-5.4); White Blood Count 6.7 K/mm3 (4.4-11.0)
[2021-05-26 09:14] LABS: Anion Gap 5 (5-15); BUN 5 mg/dL (7-18); BUN/Creat Ratio 14.5 RATIO (10-20); Calcium,Total 8.5 mg/dL (8.5-10.1); Chloride 106 mmol/L (98-107); Creatinine, Serum 0.35 mg/dL (0.55-1.02); EST Glomerular Filtration Rate 196 mL/min (>60); Est Glom Filt Rate - Afr Amer 237 mL/min (>60); Estimated Creatinine Clearance 35.45 ml/min; Glucose 89 mg/dL (74-106); Potassium 3.8 mmol/L (3.5-5.1); Sodium Level 140 mmol/L (136-145)
[2021-05-26 10:50] VITALS: PULSE 70; RESP 18; O2SAT 95
--- NOTE | 2021-05-26 15:25 | NURSING ---
UPDATED AT VISIT
[2021-05-26 16:00] VITALS: BP 111/60; PULSE 75; RESP 16; TEMP 36.3; O2SAT 94
[2021-05-26] MEDS: traZODone 100 MG Tablet 300 MG PO (22:05)
[2021-05-26] MEDS: Primidone 250 MG Tablet PO (22:05)
[2021-05-26] MEDS: Pravastatin 40 MG Tablet PO (22:05)
[2021-05-26] MEDS: diazePAM 5 MG Tablet PO (23:18)
[2021-05-27 05:00] VITALS: BP 134/67; PULSE 70; RESP 18; O2SAT 95
[2021-05-27] MEDS: oxyCODONE 5 MG Tablet 10 MG PO ×5 (05:51→22:48)
[2021-05-27] MEDS: Acetaminophen 500 MG Tablet 1000 MG PO ×3 (05:52→22:49)
[2021-05-27] MEDS: Menthol/Lanolin/Calamine/Znox 113 GM Tube 1 APPLIC TOPICAL ×2 (05:53→22:50)
[2021-05-27] MEDS: Baclofen 10 MG Tablet PO ×3 (05:53→22:48)
[2021-05-27] MEDS: Loperamide 2 MG Capsule 4 MG PO (05:53)
[2021-05-27] MEDS: amLODIPine 5 MG Tablet PO (05:53)
[2021-05-27] MEDS: Nystatin Powder 15gm Bottle 1 APPLIC TOPICAL ×2 (05:53→22:50)
[2021-05-27] MEDS: hydroCHLOROthiazide 12.5mg 12.5 MG PO (05:53)
[2021-05-27] MEDS: Escitalopram Oxalate 20 MG Tablet PO (05:53)
[2021-05-27] MEDS: Enoxaparin 40 MG/0.4 ML Syringe SC (05:53)
[2021-05-27 09:07] VITALS: BP 122/49; PULSE 70
[2021-05-27] MEDS: Potassium Chloride Oral Tablet 20 MEQ 40 MEQ PO (09:07)
[2021-05-27] MEDS: Carvedilol 12.5 MG Tablet PO ×2 (09:07→17:11)
[2021-05-27] MEDS: Tamsulosin HCl 0.4 MG Capsule PO ×2 (09:07→17:11)
--- NOTE | 2021-05-27 15:32 | NURSING ---
UPDATED AT VISIT BY PT.
[2021-05-27 16:00] VITALS: BP 105/49; PULSE 74; RESP 18; TEMP 36.1; O2SAT 94
[2021-05-27 17:11] VITALS: BP 123/60; PULSE 64
[2021-05-27 22:00] VITALS: PULSE 73; O2SAT 95
[2021-05-27] MEDS: Pravastatin 40 MG Tablet PO (22:48)
[2021-05-27] MEDS: Primidone 250 MG Tablet PO (22:48)
[2021-05-27] MEDS: traZODone 100 MG Tablet 300 MG PO (22:48)
[2021-05-28 05:10] VITALS: BP 132/55; PULSE 69; RESP 16; TEMP 35.9; O2SAT 95
[2021-05-28] MEDS: Baclofen 10 MG Tablet PO ×3 (05:12→21:14)
[2021-05-28] MEDS: hydroCHLOROthiazide 12.5mg 12.5 MG PO (05:12)
[2021-05-28] MEDS: amLODIPine 5 MG Tablet PO (05:12)
[2021-05-28] MEDS: Escitalopram Oxalate 20 MG Tablet PO (05:12)
[2021-05-28] MEDS: Loperamide 2 MG Capsule 4 MG PO (05:12)
[2021-05-28] MEDS: Enoxaparin 40 MG/0.4 ML Syringe SC (05:13)
[2021-05-28] MEDS: Acetaminophen 500 MG Tablet 1000 MG PO ×3 (05:14→21:14)
[2021-05-28] MEDS: oxyCODONE 5 MG Tablet 10 MG PO ×5 (05:17→21:32)
[2021-05-28] MEDS: Menthol/Lanolin/Calamine/Znox 113 GM Tube 1 APPLIC TOPICAL ×2 (05:25→17:27)
[2021-05-28] MEDS: Nystatin Powder 15gm Bottle 1 APPLIC TOPICAL ×2 (05:26→17:27)
[2021-05-28] MEDS: Tamsulosin HCl 0.4 MG Capsule PO ×2 (09:11→17:27)
[2021-05-28] MEDS: Potassium Chloride Oral Tablet 20 MEQ 40 MEQ PO (09:11)
[2021-05-28] MEDS: Carvedilol 12.5 MG Tablet PO ×2 (09:11→17:27)
[2021-05-28 10:00] VITALS: PULSE 68; RESP 16
[2021-05-28 14:44] VITALS: BP 121/68; PULSE 67; RESP 16; TEMP 36.2; O2SAT 97
[2021-05-28] MEDS: traZODone 100 MG Tablet 300 MG PO (21:14)
[2021-05-28] MEDS: Pravastatin 40 MG Tablet PO (21:14)
[2021-05-28] MEDS: Primidone 250 MG Tablet PO (21:14)
[2021-05-29] MEDS: diazePAM 5 MG Tablet PO (02:29)
[2021-05-29] MEDS: oxyCODONE 5 MG Tablet 10 MG PO ×5 (02:29→20:39)
[2021-05-29 06:37] VITALS: BP 125/59; PULSE 69; RESP 16; TEMP 36.3; O2SAT 96
[2021-05-29] MEDS: Escitalopram Oxalate 20 MG Tablet PO (06:39)
[2021-05-29] MEDS: amLODIPine 5 MG Tablet PO (06:39)
[2021-05-29] MEDS: Baclofen 10 MG Tablet PO ×3 (06:39→23:01)
[2021-05-29] MEDS: Acetaminophen 500 MG Tablet 1000 MG PO ×3 (06:39→20:39)
[2021-05-29] MEDS: hydroCHLOROthiazide 12.5mg 12.5 MG PO (06:39)
[2021-05-29] MEDS: Enoxaparin 40 MG/0.4 ML Syringe SC (06:42)
[2021-05-29] MEDS: Nystatin Powder 15gm Bottle 1 APPLIC TOPICAL ×2 (06:44→20:41)
[2021-05-29] MEDS: Menthol/Lanolin/Calamine/Znox 113 GM Tube 1 APPLIC TOPICAL ×2 (06:45→20:41)
[2021-05-29] MEDS: Potassium Chloride Oral Tablet 20 MEQ 40 MEQ PO (08:24)
[2021-05-29] MEDS: Carvedilol 12.5 MG Tablet PO ×2 (08:24→18:07)
[2021-05-29] MEDS: Tamsulosin HCl 0.4 MG Capsule PO ×2 (08:25→18:06)
[2021-05-29 08:26] VITALS: BP 125/50; PULSE 77
--- NOTE | 2021-05-29 10:18 | NURSING ---
pt requesting potassium pills to be smaller stating that she was having a hard time getting them down. explained to pt that she would have 4 pills compared to 2. pt stated she was ok with that. called aquilino in pharmacy. rn aware.
[2021-05-29 14:03] VITALS: BP 138/47; PULSE 77; RESP 18; TEMP 36.2; O2SAT 96
[2021-05-29] MEDS: Polyethylene Glycol 3350 17 GM PACKET PO (14:57)
[2021-05-29] MEDS: traZODone 100 MG Tablet 300 MG PO (23:01)
[2021-05-29] MEDS: Pravastatin 40 MG Tablet PO (23:01)
[2021-05-29] MEDS: Primidone 250 MG Tablet PO (23:01)
[2021-05-30 05:00] VITALS: BP 134/51; PULSE 67; RESP 18; O2SAT 97
[2021-05-30] MEDS: oxyCODONE 5 MG Tablet 10 MG PO ×4 (06:23→22:11)
[2021-05-30] MEDS: Enoxaparin 40 MG/0.4 ML Syringe SC (06:23)
[2021-05-30] MEDS: Acetaminophen 500 MG Tablet 1000 MG PO ×3 (06:23→22:13)
[2021-05-30] MEDS: Menthol/Lanolin/Calamine/Znox 113 GM Tube 1 APPLIC TOPICAL ×2 (06:23→17:03)
[2021-05-30] MEDS: Nystatin Powder 15gm Bottle 1 APPLIC TOPICAL ×2 (06:23→17:03)
[2021-05-30] MEDS: Escitalopram Oxalate 20 MG Tablet PO (06:24)
[2021-05-30] MEDS: Polyethylene Glycol 3350 17 GM PACKET PO (06:24)
[2021-05-30] MEDS: amLODIPine 5 MG Tablet PO (06:24)
[2021-05-30] MEDS: hydroCHLOROthiazide 12.5mg 12.5 MG PO (06:24)
[2021-05-30] MEDS: Baclofen 10 MG Tablet PO ×3 (06:24→22:12)
[2021-05-30] MEDS: Potassium Chloride Oral Tablet 10 MEQ 40 MEQ PO (09:24)
[2021-05-30] MEDS: Tamsulosin HCl 0.4 MG Capsule PO ×2 (09:24→17:01)
[2021-05-30] MEDS: Carvedilol 12.5 MG Tablet PO ×2 (09:24→17:01)
[2021-05-30 09:27] VITALS: BP 127/55; PULSE 73
[2021-05-30] MEDS: Senna/Docusate Sodium 1 Tablet PO (13:05)
[2021-05-30] MEDS: Bisacodyl 5 MG Tablet 10 MG PO (15:34)
[2021-05-30 16:00] VITALS: BP 126/53; PULSE 67; RESP 16; TEMP 36.2; O2SAT 95
--- NOTE | 2021-05-30 17:45 | RAD_ITS ---
HISTORY: Constipation EXAMINATION/TECHNIQUE: XR Abdomen 1 View: COMPARISON: None FINDINGS: LINES AND TUBES: None. BOWEL GAS PATTERN: Non-obstructive. Significant colonic fecal retention with formed stool in the rectum. FREE AIR: Not assessed on a single supine view. ORGANOMEGALY: Not seen. CALCIFICATIONS: No abnormal calcifications observed. BONES AND SOFT TISSUES: No acute pathology. Scoliosis. RAD/Abdomen Single View IMPRESSION: Colonic fecal retention consistent with clinical constipation. at 1908 Reported and signed by: Cachorro Merino MD Electronically Signed: Cachorro Merino MD at 19:07 EDT Tel , Service support ,
[2021-05-30] MEDS: traZODone 100 MG Tablet 300 MG PO (22:11)
[2021-05-30] MEDS: Pravastatin 40 MG Tablet PO (22:13)
[2021-05-30] MEDS: Primidone 250 MG Tablet PO (22:14)
[2021-05-31 05:00] VITALS: BP 123/61; PULSE 66; RESP 18; O2SAT 94
[2021-05-31] MEDS: Baclofen 10 MG Tablet PO ×3 (06:29→22:26)
[2021-05-31] MEDS: Acetaminophen 500 MG Tablet 1000 MG PO ×3 (06:29→22:25)
[2021-05-31] MEDS: hydroCHLOROthiazide 12.5mg 12.5 MG PO (06:29)
[2021-05-31] MEDS: Enoxaparin 40 MG/0.4 ML Syringe SC (06:29)
[2021-05-31] MEDS: oxyCODONE 5 MG Tablet 10 MG PO ×4 (06:29→23:47)
[2021-05-31] MEDS: Menthol/Lanolin/Calamine/Znox 113 GM Tube 1 APPLIC TOPICAL ×2 (06:30→17:27)
[2021-05-31] MEDS: Escitalopram Oxalate 20 MG Tablet PO (06:30)
[2021-05-31] MEDS: Nystatin Powder 15gm Bottle 1 APPLIC TOPICAL ×2 (06:30→17:27)
[2021-05-31] MEDS: amLODIPine 5 MG Tablet PO (06:30)
[2021-05-31] MEDS: Carvedilol 12.5 MG Tablet PO ×2 (08:23→17:29)
[2021-05-31] MEDS: Potassium Chloride Oral Tablet 10 MEQ 40 MEQ PO (08:23)
[2021-05-31] MEDS: Tamsulosin HCl 0.4 MG Capsule PO ×2 (08:24→17:26)
--- NOTE | 2021-05-31 13:42 | MDS.RN ---
Information for the mds was obtained from review of the clinical record, interview of resident, staff, and direct observation of resident's care.
[2021-05-31 13:54] VITALS: BP 113/53; PULSE 74; RESP 16; TEMP 36.3; O2SAT 98
[2021-05-31 17:31] VITALS: BP 131/55; PULSE 63
[2021-05-31] MEDS: traZODone 100 MG Tablet 300 MG PO (22:25)
[2021-05-31] MEDS: Primidone 250 MG Tablet PO (22:26)
[2021-05-31] MEDS: Pravastatin 40 MG Tablet PO (22:26)
[2021-06-01 05:59] VITALS: BP 124/58; PULSE 60; RESP 16; TEMP 36.1; O2SAT 96
[2021-06-01] MEDS: Baclofen 10 MG Tablet PO ×3 (06:01→22:24)
[2021-06-01] MEDS: Loperamide 2 MG Capsule 4 MG PO (06:01)
[2021-06-01] MEDS: amLODIPine 5 MG Tablet PO (06:01)
[2021-06-01] MEDS: hydroCHLOROthiazide 12.5mg 12.5 MG PO (06:02)
[2021-06-01] MEDS: Enoxaparin 40 MG/0.4 ML Syringe SC (06:02)
[2021-06-01] MEDS: Acetaminophen 500 MG Tablet 1000 MG PO ×3 (06:02→22:22)
[2021-06-01] MEDS: Escitalopram Oxalate 20 MG Tablet PO (06:03)
[2021-06-01] MEDS: Nystatin Powder 15gm Bottle 1 APPLIC TOPICAL ×2 (08:05→22:28)
[2021-06-01] MEDS: Menthol/Lanolin/Calamine/Znox 113 GM Tube 1 APPLIC TOPICAL ×2 (08:06→17:07)
[2021-06-01] MEDS: Carvedilol 12.5 MG Tablet PO ×2 (08:09→17:07)
[2021-06-01] MEDS: Potassium Chloride Oral Tablet 10 MEQ 40 MEQ PO (08:09)
[2021-06-01] MEDS: Tamsulosin HCl 0.4 MG Capsule PO ×2 (08:09→17:07)
[2021-06-01] MEDS: oxyCODONE 5 MG Tablet 10 MG PO ×3 (08:11→22:24)
[2021-06-01 08:15] VITALS: BP 113/50; PULSE 67
--- NOTE | 2021-06-01 10:05 | NURSING ---
transport here to take pt to appointment at 8;40am. transferred by wheel chair.
--- NOTE | 2021-06-01 10:14 | NURSING ---
pt returned from appointment at 10:10
[2021-06-01] MEDS: Bisacodyl 5 MG Tablet 10 MG PO (11:00)
[2021-06-01] MEDS: Polyethylene Glycol 3350 17 GM PACKET PO (11:00)
[2021-06-01 11:15] VITALS: PULSE 81; RESP 18; O2SAT 96
--- NOTE | 2021-06-01 11:15 | NURSING ---
prn mirlax and Dulcolax given for constipation.
[2021-06-01] MEDS: Doxycycline 100 MG CAPSULE PO ×2 (11:47→17:08)
[2021-06-01 13:59] VITALS: BP 139/54; PULSE 81; RESP 16; TEMP 36.4; O2SAT 96
--- NOTE | 2021-06-01 15:46 | NURSING ---
PT STATED SHE UPDATES FAMILY
--- NOTE | 2021-06-01 16:38 | NURSING ---
STOOL SOFTENERS POSITIVE RESULTS. LOOSE LIQUID.
[2021-06-01] MEDS: traZODone 100 MG Tablet 300 MG PO (22:23)
[2021-06-01] MEDS: Primidone 250 MG Tablet PO (22:24)
[2021-06-01] MEDS: Pravastatin 40 MG Tablet PO (22:24)
[2021-06-02 05:55] VITALS: BP 140/49; PULSE 61; RESP 16; TEMP 36.3; O2SAT 97
[2021-06-02] MEDS: Enoxaparin 40 MG/0.4 ML Syringe SC (05:57)
[2021-06-02] MEDS: Doxycycline 100 MG CAPSULE PO ×2 (05:58→17:13)
[2021-06-02] MEDS: Escitalopram Oxalate 20 MG Tablet PO (05:58)
[2021-06-02] MEDS: Acetaminophen 500 MG Tablet 1000 MG PO ×3 (05:58→22:05)
[2021-06-02] MEDS: hydroCHLOROthiazide 12.5mg 12.5 MG PO (05:58)
[2021-06-02] MEDS: Baclofen 10 MG Tablet PO ×3 (05:58→22:05)
[2021-06-02] MEDS: amLODIPine 5 MG Tablet PO (05:59)
[2021-06-02] MEDS: Nystatin Powder 15gm Bottle 1 APPLIC TOPICAL ×2 (06:00→17:14)
[2021-06-02] MEDS: Menthol/Lanolin/Calamine/Znox 113 GM Tube 1 APPLIC TOPICAL ×2 (06:01→17:13)
[2021-06-02 06:54] LABS: Absolute Lymphocyte Count 1.75 X10^3/uL (0.83-4.51); Absolute Neutrophil Count 2.7 X10^3/uL (2.0-7.7); Basophil# 0.05 X10^3/uL; Basophil% 0.9 % (0-1); Eosinophil# 0.23 X10^3/uL; Eosinophils% 4.4 % (0-5); Hematocrit 36.2 % (37-47); Hemoglobin 11.6 g/dL (12.0-15.0); Lymphocyte # 1.75 X10^3/ul (0.83-4.51); Lymphocyte % 33.2 % (19-41); Mean Corpuscular Hgb 31.1 pg (27.0-32.0); Mean Corpuscular Volume 97.1 fL (81-99); Mean Platelet Vol. 8.8 fl (6.2-12.0); Monocyte# 0.49 X10^3/uL; Monocyte% 9.3 % (0-10); NRBC Flagged by Analyzer 0 % (0-5); Neutrophil # 2.71 X10^3/uL (2.7-7.7); Neutrophil % 51.4 % (47-70); Platelet Count 252 K/mm3 (150-450); RBC Distribution Width CV 13.4 % (11.6-14.6); RBC Distribution Width SD 48.2 fl (35.1-43.9); Red Blood Count 3.73 M/mm3 (4.2-5.4); White Blood Count 5.3 K/mm3 (4.4-11.0)
[2021-06-02 07:20] LABS: Anion Gap 5 (5-15); BUN 5 mg/dL (7-18); BUN/Creat Ratio 14.4 RATIO (10-20); Calcium,Total 8.5 mg/dL (8.5-10.1); Chloride 106 mmol/L (98-107); Creatinine, Serum 0.35 mg/dL (0.55-1.02); EST Glomerular Filtration Rate 195 mL/min (>60); Est Glom Filt Rate - Afr Amer 236 mL/min (>60); Estimated Creatinine Clearance 37.24 ml/min; Glucose 87 mg/dL (74-106); Potassium 4.1 mmol/L (3.5-5.1); Sodium Level 140 mmol/L (136-145)
[2021-06-02] MEDS: Potassium Chloride Oral Tablet 10 MEQ 40 MEQ PO (09:21)
[2021-06-02] MEDS: Tamsulosin HCl 0.4 MG Capsule PO ×2 (09:21→17:13)
[2021-06-02] MEDS: Carvedilol 12.5 MG Tablet PO ×2 (09:21→17:13)
[2021-06-02] MEDS: oxyCODONE 5 MG Tablet 10 MG PO ×3 (09:24→18:41)
[2021-06-02 09:25] VITALS: BP 124/61; PULSE 68
[2021-06-02 15:07] VITALS: BP 117/73; PULSE 76; RESP 16; TEMP 36.2; O2SAT 94
[2021-06-02 22:04] VITALS: PULSE 72; RESP 16; O2SAT 96
[2021-06-02] MEDS: Pravastatin 40 MG Tablet PO (22:05)
[2021-06-02] MEDS: traZODone 100 MG Tablet 300 MG PO (22:05)
[2021-06-02] MEDS: Primidone 250 MG Tablet PO (22:05)
[2021-06-03] MEDS: Doxycycline 100 MG CAPSULE PO ×2 (06:50→17:48)
[2021-06-03] MEDS: Acetaminophen 500 MG Tablet 1000 MG PO ×3 (06:50→21:54)
[2021-06-03] MEDS: amLODIPine 5 MG Tablet PO (06:50)
[2021-06-03] MEDS: hydroCHLOROthiazide 12.5mg 12.5 MG PO (06:50)
[2021-06-03] MEDS: Baclofen 10 MG Tablet PO ×3 (06:50→21:54)
[2021-06-03] MEDS: Escitalopram Oxalate 20 MG Tablet PO (06:51)
[2021-06-03] MEDS: oxyCODONE 5 MG Tablet 10 MG PO ×3 (06:54→21:54)
[2021-06-03] MEDS: Enoxaparin 40 MG/0.4 ML Syringe SC (06:55)
[2021-06-03] MEDS: Menthol/Lanolin/Calamine/Znox 113 GM Tube 1 APPLIC TOPICAL ×2 (06:55→17:52)
[2021-06-03] MEDS: Nystatin Powder 15gm Bottle 1 APPLIC TOPICAL ×2 (06:56→17:52)
[2021-06-03 07:01] VITALS: BP 126/70; PULSE 74; RESP 16; TEMP 36.9; O2SAT 96
[2021-06-03] MEDS: Potassium Chloride Oral Tablet 10 MEQ 40 MEQ PO (08:26)
[2021-06-03] MEDS: Tamsulosin HCl 0.4 MG Capsule PO ×2 (08:26→17:48)
[2021-06-03] MEDS: Carvedilol 12.5 MG Tablet PO ×2 (08:26→17:49)
[2021-06-03 14:51] VITALS: BP 122/53; PULSE 67; RESP 18; TEMP 36.3; O2SAT 93
[2021-06-03 17:50] VITALS: BP 131/57; PULSE 66
[2021-06-03] MEDS: traZODone 100 MG Tablet 300 MG PO (21:54)
[2021-06-03] MEDS: Primidone 250 MG Tablet PO (21:55)
[2021-06-03] MEDS: Pravastatin 40 MG Tablet PO (21:55)
[2021-06-04 06:33] VITALS: BP 121/54; PULSE 64; RESP 16; TEMP 36.2; O2SAT 96
[2021-06-04] MEDS: Enoxaparin 40 MG/0.4 ML Syringe SC (06:34)
[2021-06-04] MEDS: Baclofen 10 MG Tablet PO ×3 (06:35→22:29)
[2021-06-04] MEDS: Acetaminophen 500 MG Tablet 1000 MG PO ×3 (06:35→22:28)
[2021-06-04] MEDS: hydroCHLOROthiazide 12.5mg 12.5 MG PO (06:35)
[2021-06-04] MEDS: Escitalopram Oxalate 20 MG Tablet PO (06:35)
[2021-06-04] MEDS: Doxycycline 100 MG CAPSULE PO ×2 (06:35→17:58)
[2021-06-04] MEDS: amLODIPine 5 MG Tablet PO (06:35)
[2021-06-04] MEDS: Menthol/Lanolin/Calamine/Znox 113 GM Tube 1 APPLIC TOPICAL ×2 (06:38→22:36)
[2021-06-04] MEDS: Nystatin Powder 15gm Bottle 1 APPLIC TOPICAL ×2 (06:39→22:36)
[2021-06-04] MEDS: oxyCODONE 5 MG Tablet 10 MG PO ×3 (09:05→22:35)
[2021-06-04] MEDS: Tamsulosin HCl 0.4 MG Capsule PO ×2 (09:07→17:57)
[2021-06-04] MEDS: Potassium Chloride Oral Tablet 10 MEQ 40 MEQ PO (09:07)
[2021-06-04] MEDS: Carvedilol 12.5 MG Tablet PO ×2 (09:07→17:57)
[2021-06-04 09:10] VITALS: BP 127/74; PULSE 73
[2021-06-04 14:41] VITALS: BP 125/73; PULSE 66; RESP 17; TEMP 36.1; O2SAT 96
--- NOTE | 2021-06-04 19:28 | PN.TCU_ITS ---
Subjective Subjective Resident seen, examined for regulatory visit. She is sitting in chair in room. On 05/24/2021, Dr. Kody Arrington performed open reduction internal fixation left ankle trimalleolar fracture. Resident is non weight bearing to left lower extremity, but she has been participating with therapy and progressing. Objective Data Objective Data Vital Signs: Vital Signs Temp Pulse Resp BP Pulse Ox 97.0 F L 66 17 125/73 H 96 06/04/21 14:41 06/04/21 14:41 06/04/21 14:41 06/04/21 14:41 06/04/21 14:41 Oxygen Flow Rate (L/min) 95 Oxygen Delivery Method Room Air Weight: 91.654 kg Body Mass Index (BMI) 38.7 Intake & Output: Intake and Output for Last 24 Hours 06/02/21 06/03/21 06/04/21 23:59 23:59 23:59 Intake Total 600 / 600 1080 / 1080 640 / 640 Output Total 2150 / 2150 3600 / 3600 3000 / 3000 Balance -1550 / -1550 -2520 / -2520 -2360 / -2360 Medical Nutrition Assessment Dietitian: Nutrition Therapy Diagnosis Start: 05/23/21 15:43 Freq: Status: Active Protocol: Document 05/30/21 14:33 MIGUEL A (Rec: 05/30/21 14:33 [facility] [id number]) Nutrition Malnutrition Evidence of Malnutrition Exists No Intake Problem None at this time Status Active Problem Clinical Problem Obese, Class 2 Etiology related to lack of activity and suspected excessive energy intake Signs/Symptoms as evidenced by BMI 39.5 Status Inactive Problem Recommendation Dietitian Recommendations/Changes Will discontinue therapeutic diet per res request. Will communciate to tally office res desire for smaller portions. Lab / Micro Data Result Diagrams: 06/02/21 06:23 06/02/21 06:23 Physical Exam Const alert and oriented x3 General Appearance: cooperative HEENT normocephalic Eyes PERRL and EOMs intact bilaterally Neck supple, no JVD and no carotid bruits Resp normal respiratory effort, normal air movement and clear to auscultation bilaterally Cardio regular rate and regular rhythm GI normal to inspection, nondistended, normoactive bowel sounds, non-tender and non-distended Extremity normal capillary refill Extremity Narrative: Left lower extremity splint. General Extremity: Negative for edema Skin no rashes or lesions noted General Skin Exam: no breakdown Psych affect normal Appearance: appropriate Assessment & Plan Assessment/Plan (1) Debility: (2) Closed trimalleolar fracture of left ankle: QUALIFIERS: Encounter type: initial encounter Qualified Code(s): S82.852A - Displaced trimalleolar fracture of left lower leg, initial encounter for closed fracture (3) Anxiety: (4) Hypertension: (5) Diastolic dysfunction: (6) Fibromyalgia: (7) Pulmonary hypertension: (8) Hyperlipidemia: (9) Depression: (10) Migraine: (11) Tremor: (12) Insomnia: (13) Muscle spasm: (14) Dizziness: PLAN: 76 year old female with below past medical history hospitalized for left ankle fracture, left ORIF ankle fracture 05/24/[address] Constantin Arrington, admitted to TCU with debility, here for rehabilitation, strengthening, prior to discharge home with . * Debility - PT/OT. * Pain - Tylenol 1000MG Q8H, Oxycodone 10MG Q4H PRN pain (6-10). * Bowel - Miralax 17GM daily PRN, Senna/colace 1 tablet twice daily PRN, Dulocla x 10MG daliy PRN. * Adult immunization - Administer Prevnar 13, Pneumovax 23, Fluzone, COVID19 vaccine as appropriate. * DVT prophylaxis - Lovenox 40MG SC daily. * Hypertension - HCTZ 12.5MG daily, Amlodipine 5MG daily. * Muscle spasm - Baclofen 10MG TID. 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 * Depression - Lexapro 20MG daily, stable chronic shelter use, GDR not recommended. * Dizziness - Meclizine 25MG TID PRN. * Nausea - Zofran 4MG TID PRN. * Hyperlipidemia - Pravastatin 40MG QHS. * Tremor - Primidone 250MG QHS. * Urinary retention - Tamsulosin 0.4MG twice daily, indwelling laureano catheter. * Insomnia - Trazodone 300MG QHS. * ID - Doxycycline 100mg twice daily. * Lactose intolerance - Lactase daily PRN. * Diarrhea - Loperamide 4mg daily. * Skin irritation - Calmoseptine topical twice daily. * Tinea Corporis - Nystatin powder topical twice daily. * Hypokalemia - KCL 40MEQ daily. Capacity Capacity Assessment Tool Can the patient make a choice & communicate that choice?: Yes Can the patient understand benefits, risks and alternatives?: Yes Can the patient make a logical, rational choice?: Yes Is the choice the patient makes consistent w/ their values?: Yes Is there an impending, emergent risk to the patient?: No Does the patient have an Advance Directive?: Yes Is there a Surrogate Available?: Yes i.e. HCPOA: Yes i.e. close relative (spouse, child, parent, sibling)?: Yes
[2021-06-04] MEDS: Pravastatin 40 MG Tablet PO (22:29)
[2021-06-04] MEDS: traZODone 100 MG Tablet 300 MG PO (22:30)
[2021-06-04] MEDS: Primidone 250 MG Tablet PO (22:35)
[2021-06-05 05:37] VITALS: BP 134/47; PULSE 63; RESP 14; TEMP 36.1; O2SAT 95
[2021-06-05] MEDS: amLODIPine 5 MG Tablet PO (05:41)
[2021-06-05] MEDS: oxyCODONE 5 MG Tablet 10 MG PO ×3 (05:41→19:38)
[2021-06-05] MEDS: Doxycycline 100 MG CAPSULE PO ×2 (05:42→17:44)
[2021-06-05] MEDS: Baclofen 10 MG Tablet PO ×3 (05:42→22:38)
[2021-06-05] MEDS: Enoxaparin 40 MG/0.4 ML Syringe SC (05:42)
[2021-06-05] MEDS: hydroCHLOROthiazide 12.5mg 12.5 MG PO (05:42)
[2021-06-05] MEDS: Acetaminophen 500 MG Tablet 1000 MG PO ×3 (05:42→19:38)
[2021-06-05] MEDS: Escitalopram Oxalate 20 MG Tablet PO (05:42)
[2021-06-05] MEDS: Menthol/Lanolin/Calamine/Znox 113 GM Tube 1 APPLIC TOPICAL ×2 (05:44→20:01)
[2021-06-05] MEDS: Nystatin Powder 15gm Bottle 1 APPLIC TOPICAL ×2 (05:45→20:02)
[2021-06-05] MEDS: Tamsulosin HCl 0.4 MG Capsule PO ×2 (08:53→17:43)
[2021-06-05] MEDS: Carvedilol 12.5 MG Tablet PO ×2 (08:53→17:43)
[2021-06-05] MEDS: Potassium Chloride Oral Tablet 10 MEQ 40 MEQ PO (08:53)
[2021-06-05 08:55] VITALS: BP 125/55; PULSE 70
[2021-06-05 10:00] VITALS: PULSE 65; RESP 18; O2SAT 96
[2021-06-05 14:19] VITALS: BP 111/66; PULSE 68; RESP 16; TEMP 36.4; O2SAT 96
--- NOTE | 2021-06-05 14:37 | CASEMGMT ---
Social Work SW met with pt to discuss discharge plans. Pt stating that ortho has informed her she will be NWB for 6 more weeks. SW discussed with pt Medicare benefit and likelihood that pt will not be able to stay in TCU until WBS is improved. Pt stating that she still feels like she has a lot of things to work on and would benefit from continued stay in TCU. Pt does state that a ramp is ordered for entry into the home. Pt does have a walker but will need a knee sling and pt has a wheelchair but it is wide and will not fit through the door way. Pt spouse to measure doorways and let SW know. SW will continue to follow for support and discharge planning. SANAZ Moody
--- NOTE | 2021-06-05 14:52 | NURSING ---
PT STATED SHE UPDATES HER FAMILY
--- NOTE | 2021-06-05 17:48 | NURSING ---
PT REQUESTING THAT ON WEIGH DAYS THAT 2 PEOPLE HELP HER UP ON SCALE. RN AWARE
[2021-06-05] MEDS: traZODone 100 MG Tablet 300 MG PO (22:37)
[2021-06-05] MEDS: Pravastatin 40 MG Tablet PO (22:38)
[2021-06-05] MEDS: Primidone 250 MG Tablet PO (22:38)
[2021-06-06 05:00] VITALS: BP 126/59; PULSE 65; RESP 18; O2SAT 95
[2021-06-06] MEDS: amLODIPine 5 MG Tablet PO (06:37)
[2021-06-06] MEDS: Acetaminophen 500 MG Tablet 1000 MG PO ×3 (06:37→22:27)
[2021-06-06] MEDS: Doxycycline 100 MG CAPSULE PO ×2 (06:37→17:57)
[2021-06-06] MEDS: Enoxaparin 40 MG/0.4 ML Syringe SC (06:37)
[2021-06-06] MEDS: Nystatin Powder 15gm Bottle 1 APPLIC TOPICAL ×2 (06:37→18:04)
[2021-06-06] MEDS: hydroCHLOROthiazide 12.5mg 12.5 MG PO (06:37)
[2021-06-06] MEDS: Baclofen 10 MG Tablet PO ×3 (06:37→22:28)
[2021-06-06] MEDS: Escitalopram Oxalate 20 MG Tablet PO (06:37)
[2021-06-06] MEDS: Menthol/Lanolin/Calamine/Znox 113 GM Tube 1 APPLIC TOPICAL ×2 (06:37→18:04)
[2021-06-06] MEDS: oxyCODONE 5 MG Tablet 10 MG PO ×4 (06:38→22:27)
[2021-06-06] MEDS: Tamsulosin HCl 0.4 MG Capsule PO ×2 (08:37→17:56)
[2021-06-06] MEDS: Carvedilol 12.5 MG Tablet PO ×2 (08:37→17:57)
[2021-06-06] MEDS: Potassium Chloride Oral Tablet 10 MEQ 40 MEQ PO (08:37)
[2021-06-06 14:13] VITALS: BP 101/64; PULSE 65; RESP 16; TEMP 36.3; O2SAT 94
[2021-06-06] MEDS: traZODone 100 MG Tablet 300 MG PO (22:28)
[2021-06-06] MEDS: Pravastatin 40 MG Tablet PO (22:28)
[2021-06-06] MEDS: Primidone 250 MG Tablet PO (22:28)
[2021-06-06 22:45] VITALS: PULSE 61; RESP 16; O2SAT 95
[2021-06-07 05:00] VITALS: BP 145/64; PULSE 64; RESP 16; TEMP 36.1; O2SAT 96
[2021-06-07] MEDS: hydroCHLOROthiazide 12.5mg 12.5 MG PO (06:49)
[2021-06-07] MEDS: Enoxaparin 40 MG/0.4 ML Syringe SC (06:49)
[2021-06-07] MEDS: Baclofen 10 MG Tablet PO ×3 (06:49→21:58)
[2021-06-07] MEDS: Doxycycline 100 MG CAPSULE PO ×2 (06:49→17:23)
[2021-06-07] MEDS: amLODIPine 5 MG Tablet PO (06:49)
[2021-06-07] MEDS: Acetaminophen 500 MG Tablet 1000 MG PO ×3 (06:49→21:58)
[2021-06-07] MEDS: Escitalopram Oxalate 20 MG Tablet PO (06:49)
[2021-06-07] MEDS: Menthol/Lanolin/Calamine/Znox 113 GM Tube 1 APPLIC TOPICAL ×2 (06:51→22:00)
[2021-06-07] MEDS: Nystatin Powder 15gm Bottle 1 APPLIC TOPICAL ×2 (06:52→22:00)
[2021-06-07] MEDS: Potassium Chloride Oral Tablet 10 MEQ 40 MEQ PO (08:09)
[2021-06-07] MEDS: Carvedilol 12.5 MG Tablet PO ×2 (08:09→17:23)
[2021-06-07] MEDS: Tamsulosin HCl 0.4 MG Capsule PO ×2 (08:09→17:23)
[2021-06-07] MEDS: oxyCODONE 5 MG Tablet 10 MG PO ×3 (08:12→21:58)
[2021-06-07 08:17] VITALS: BP 119/85; PULSE 64
[2021-06-07] MEDS: diazePAM 5 MG Tablet PO (11:49)
[2021-06-07 14:52] VITALS: BP 114/78; PULSE 72; RESP 16; TEMP 36.2; O2SAT 94
--- NOTE | 2021-06-07 15:20 | NURSING ---
PT STATED SHE UPDATES FAMILY. IN ROOM,
[2021-06-07 15:25] VITALS: PULSE 81; RESP 18; O2SAT 97
--- NOTE | 2021-06-07 15:42 | CASEMGMT ---
Social Work SW spoke with pt spouse who states that he has ordered a ramp and [employer] is coming to their home on Friday to evaluate having it installed. Pt spouse also states that he has purchased a transport chair that will fit through the doorways of the home and that he is currently talking to someone about getting a knee sling. HUMERA will continue to follow for d/c planning. Brad Moody
[2021-06-07] MEDS: traZODone 100 MG Tablet 300 MG PO (21:58)
[2021-06-07] MEDS: Primidone 250 MG Tablet PO (21:58)
[2021-06-07] MEDS: Pravastatin 40 MG Tablet PO (21:58)
[2021-06-08] MEDS: Acetaminophen 500 MG Tablet 1000 MG PO ×3 (06:03→22:52)
[2021-06-08] MEDS: Loperamide 2 MG Capsule 4 MG PO (06:03)
[2021-06-08] MEDS: oxyCODONE 5 MG Tablet 10 MG PO ×2 (06:03→13:57)
[2021-06-08] MEDS: amLODIPine 5 MG Tablet PO (06:04)
[2021-06-08] MEDS: Baclofen 10 MG Tablet PO ×3 (06:04→22:52)
[2021-06-08] MEDS: Doxycycline 100 MG CAPSULE PO ×2 (06:04→17:35)
[2021-06-08] MEDS: Escitalopram Oxalate 20 MG Tablet PO (06:04)
[2021-06-08] MEDS: Enoxaparin 40 MG/0.4 ML Syringe SC (06:04)
[2021-06-08] MEDS: hydroCHLOROthiazide 12.5mg 12.5 MG PO (06:04)
[2021-06-08] MEDS: Nystatin Powder 15gm Bottle 1 APPLIC TOPICAL ×2 (06:06→17:38)
[2021-06-08] MEDS: Menthol/Lanolin/Calamine/Znox 113 GM Tube 1 APPLIC TOPICAL ×2 (06:06→17:38)
[2021-06-08 06:07] VITALS: BP 124/53; PULSE 72; RESP 18; TEMP 36.7; O2SAT 96
--- NOTE | 2021-06-08 10:44 | NURSING ---
Pt had appointment with Dr. Arrington today at [facility]. Communication from Dr. Arrington states to continue non-weight bearing to LLE, continue tylenol 3,000mg daily (1,000mg Q8h prn), continue doxycycline and lovenox, f/u in one week with Dr. Arrington, keep cast dry at all times.
[2021-06-08] MEDS: Carvedilol 12.5 MG Tablet PO ×2 (10:52→17:35)
[2021-06-08] MEDS: Tamsulosin HCl 0.4 MG Capsule PO ×2 (10:52→17:34)
[2021-06-08] MEDS: Potassium Chloride Oral Tablet 10 MEQ 40 MEQ PO (10:52)
[2021-06-08 14:09] VITALS: BP 126/46; PULSE 62; RESP 16; TEMP 36.1; O2SAT 96
[2021-06-08 17:36] VITALS: BP 123/53; PULSE 61
[2021-06-08 22:06] VITALS: PULSE 64
[2021-06-08] MEDS: Primidone 250 MG Tablet PO (22:52)
[2021-06-08] MEDS: traZODone 100 MG Tablet 300 MG PO (22:52)
[2021-06-08] MEDS: Pravastatin 40 MG Tablet PO (22:54)
[2021-06-09 05:00] VITALS: BP 131/47; PULSE 63; RESP 18; O2SAT 96
[2021-06-09] MEDS: Menthol/Lanolin/Calamine/Znox 113 GM Tube 1 APPLIC TOPICAL ×2 (06:37→18:43)
[2021-06-09] MEDS: Nystatin Powder 15gm Bottle 1 APPLIC TOPICAL ×2 (06:38→18:45)
[2021-06-09] MEDS: Enoxaparin 40 MG/0.4 ML Syringe SC (06:39)
[2021-06-09] MEDS: hydroCHLOROthiazide 12.5mg 12.5 MG PO (06:39)
[2021-06-09] MEDS: amLODIPine 5 MG Tablet PO (06:39)
[2021-06-09] MEDS: Doxycycline 100 MG CAPSULE PO ×2 (06:39→18:43)
[2021-06-09] MEDS: Baclofen 10 MG Tablet PO ×3 (06:39→22:05)
[2021-06-09] MEDS: Acetaminophen 500 MG Tablet 1000 MG PO ×3 (06:39→22:07)
[2021-06-09] MEDS: Escitalopram Oxalate 20 MG Tablet PO (06:39)
[2021-06-09] MEDS: Potassium Chloride Oral Tablet 10 MEQ 40 MEQ PO (07:55)
[2021-06-09] MEDS: Tamsulosin HCl 0.4 MG Capsule PO ×2 (07:55→18:43)
[2021-06-09] MEDS: Carvedilol 12.5 MG Tablet PO ×2 (07:55→18:43)
[2021-06-09] MEDS: Loperamide 2 MG Capsule 4 MG PO (07:57)
[2021-06-09 08:29] LABS: Absolute Lymphocyte Count 2.01 X10^3/uL (0.83-4.51); Basophil# 0.05 X10^3/uL; Basophil% 0.9 % (0-1); Eosinophil# 0.21 X10^3/uL; Eosinophils% 3.6 % (0-5); Hematocrit 41.4 % (37-47); Hemoglobin 13.5 g/dL (12.0-15.0); Lymphocyte # 2.01 X10^3/ul (0.83-4.51); Lymphocyte % 34.8 % (19-41); Mean Corp Hgb Conc 32.6 g/dL (32-36); Mean Corpuscular Hgb 31.8 pg (27.0-32.0); Mean Corpuscular Volume 97.4 fL (81-99); Mean Platelet Vol. 9.5 fl (6.2-12.0); Monocyte# 0.51 X10^3/uL; Monocyte% 8.8 % (0-10); NRBC Flagged by Analyzer 0 % (0-5); Neutrophil # 2.95 X10^3/uL (2.7-7.7); Neutrophil % 51.2 % (47-70); Platelet Count 229 K/mm3 (150-450); RBC Distribution Width CV 13.8 % (11.6-14.6); RBC Distribution Width SD 49.6 fl (35.1-43.9); Red Blood Count 4.25 M/mm3 (4.2-5.4); White Blood Count 5.8 K/mm3 (4.4-11.0)
[2021-06-09 08:51] LABS: Anion Gap 5 (5-15); BUN 11 mg/dL (7-18); BUN/Creat Ratio 25.3 RATIO (10-20); Calcium,Total 8.6 mg/dL (8.5-10.1); Chloride 107 mmol/L (98-107); Creatinine, Serum 0.44 mg/dL (0.55-1.02); EST Glomerular Filtration Rate 150 mL/min (>60); Est Glom Filt Rate - Afr Amer 182 mL/min (>60); Estimated Creatinine Clearance 37.24 ml/min; Glucose 86 mg/dL (74-106); Potassium 3.9 mmol/L (3.5-5.1); Sodium Level 139 mmol/L (136-145)
[2021-06-09] MEDS: oxyCODONE 5 MG Tablet 10 MG PO ×2 (11:13→22:07)
[2021-06-09 14:39] VITALS: BP 141/56; PULSE 62; RESP 16; TEMP 36.2; O2SAT 94
[2021-06-09 21:30] VITALS: BP 156/72; PULSE 89; RESP 16; TEMP 36.8; O2SAT 97
--- NOTE | 2021-06-09 21:30 | NURSING ---
CONTACT AGENT approaches this nurse reporting pt is on the floor. Upon entering room, pt sitting on buttocks. Reports new cast applied is slippery and did not stay on knee walker attachment. Pt reports gracefully sat on the floor. Denies any pain or discomfort. SANDOVAL without difficulty. Vitals obtained- 156/72, 89, 16, 98.2, ans 97% on RA. Transferred back to be via jessica lift per this nurse and CONTACT AGENT. Positioned in bed for comfort. Pericare and cath care completed. Brief was not soiled, but changed. HS meds given. LLE elevated on soft pillow and polarcare applied after refilled w/ ice and water. Rt pedal edema noted and pt refuses to have RLE elevated. Call light w/ in reach.
--- NOTE | 2021-06-09 22:00 | PCA ---
When transferring patient into bed, patients left leg slipped out of platform on walker and TENTERING MACHINE FEEDER had to lower patient to the floor. Patient denied any pain. RN was made aware.
[2021-06-09] MEDS: traZODone 100 MG Tablet 300 MG PO (22:04)
[2021-06-09] MEDS: Pravastatin 40 MG Tablet PO (22:05)
[2021-06-09] MEDS: Primidone 250 MG Tablet PO (22:06)
[2021-06-10 06:31] VITALS: BP 125/51; PULSE 63; RESP 16; TEMP 36.8; O2SAT 97
[2021-06-10] MEDS: Acetaminophen 500 MG Tablet 1000 MG PO ×3 (06:31→21:40)
[2021-06-10] MEDS: Baclofen 10 MG Tablet PO ×3 (06:32→21:39)
[2021-06-10] MEDS: Escitalopram Oxalate 20 MG Tablet PO (06:32)
[2021-06-10] MEDS: Doxycycline 100 MG CAPSULE PO ×2 (06:32→18:05)
[2021-06-10] MEDS: Enoxaparin 40 MG/0.4 ML Syringe SC (06:33)
[2021-06-10] MEDS: hydroCHLOROthiazide 12.5mg 12.5 MG PO (06:33)
[2021-06-10] MEDS: amLODIPine 5 MG Tablet PO (06:34)
[2021-06-10] MEDS: Loperamide 2 MG Capsule 4 MG PO (06:34)
[2021-06-10] MEDS: Menthol/Lanolin/Calamine/Znox 113 GM Tube 1 APPLIC TOPICAL ×2 (06:35→18:07)
[2021-06-10] MEDS: Nystatin Powder 15gm Bottle 1 APPLIC TOPICAL ×2 (06:35→18:06)
[2021-06-10] MEDS: Potassium Chloride Oral Tablet 10 MEQ 40 MEQ PO (09:31)
[2021-06-10] MEDS: Carvedilol 12.5 MG Tablet PO ×2 (09:33→18:05)
[2021-06-10] MEDS: Tamsulosin HCl 0.4 MG Capsule PO ×2 (09:33→18:05)
[2021-06-10] MEDS: diazePAM 5 MG Tablet PO (09:40)
[2021-06-10 14:24] VITALS: BP 115/59; TEMP 36.3
[2021-06-10] MEDS: oxyCODONE 5 MG Tablet 10 MG PO (18:25)
[2021-06-10] MEDS: Primidone 250 MG Tablet PO (21:39)
[2021-06-10] MEDS: Pravastatin 40 MG Tablet PO (21:39)
[2021-06-10] MEDS: traZODone 100 MG Tablet 300 MG PO (21:39)
[2021-06-10 21:54] VITALS: PULSE 68; RESP 16; O2SAT 95
[2021-06-11 06:32] VITALS: BP 114/45; PULSE 61; RESP 16; TEMP 36; O2SAT 96
[2021-06-11] MEDS: Acetaminophen 500 MG Tablet 1000 MG PO ×3 (06:34→22:19)
[2021-06-11] MEDS: hydroCHLOROthiazide 12.5mg 12.5 MG PO (06:34)
[2021-06-11] MEDS: Escitalopram Oxalate 20 MG Tablet PO (06:35)
[2021-06-11] MEDS: Loperamide 2 MG Capsule 4 MG PO (06:35)
[2021-06-11] MEDS: Enoxaparin 40 MG/0.4 ML Syringe SC (06:35)
[2021-06-11] MEDS: Baclofen 10 MG Tablet PO ×3 (06:36→22:19)
[2021-06-11] MEDS: Menthol/Lanolin/Calamine/Znox 113 GM Tube 1 APPLIC TOPICAL ×2 (06:39→22:38)
[2021-06-11] MEDS: Nystatin Powder 15gm Bottle 1 APPLIC TOPICAL ×2 (06:40→22:38)
--- NOTE | 2021-06-11 07:54 | NURSING ---
Doxycycline is not in med box or accudose. Communication sent to pharmacy. Oncoming nurse updated.
--- NOTE | 2021-06-11 07:55 | NURSING ---
Mile held this am d/t DBP at 45. Pt more fatigued than baseline but is able to carry on conversation. Denies any dizziness or lightheadedness. Reported to oncoming nurse.
[2021-06-11] MEDS: amLODIPine 5 MG Tablet PO (08:45)
[2021-06-11] MEDS: Potassium Chloride Oral Tablet 10 MEQ 40 MEQ PO (08:45)
[2021-06-11] MEDS: Doxycycline 100 MG CAPSULE PO ×2 (08:45→17:36)
[2021-06-11] MEDS: Carvedilol 12.5 MG Tablet PO ×2 (08:45→17:35)
[2021-06-11] MEDS: Tamsulosin HCl 0.4 MG Capsule PO ×2 (08:46→17:35)
[2021-06-11 08:51] VITALS: BP 126/66; PULSE 68
[2021-06-11 11:00] VITALS: PULSE 59; RESP 18; O2SAT 95
[2021-06-11] MEDS: Ondansetron ODT 4 MG Tablet PO (11:07)
[2021-06-11 14:48] VITALS: BP 110/61; PULSE 72; RESP 16; TEMP 35.8; O2SAT 96
--- NOTE | 2021-06-11 15:30 | NURSING ---
PER . BENAVIDES IS TO BE D/C. PT ASKING IF IT COULD BE DONE AT BED TIME. PT VERY ANXIOUS ABOUT IT AND DIDNT WANT IT REMOVED. EXPLAINED TO PT ABOUT THE RISKS OF KEEPING A BENAVIDES IN,PT UNDER STOOD. THIS NURSE ASKED PT IF SHE WOULD LIKE A PUREWICK AT NIGHT,PT STATED I WOULD LIKE TO TRY IT. OK PER RN.
--- NOTE | 2021-06-11 15:39 | NURSING ---
PT HAS APPOINTMENT WITH AT [facility] ON 06/18 AT 10:15 AM. DAVID AT 9:15 AM.
[2021-06-11] MEDS: Primidone 250 MG Tablet PO (22:19)
[2021-06-11] MEDS: Pravastatin 40 MG Tablet PO (22:19)
[2021-06-11] MEDS: traZODone 100 MG Tablet 300 MG PO (22:19)
--- NOTE | 2021-06-12 00:40 | NURSING ---
Luu removed at hs at [address] order. 15 ml fl removed from balloon, Tip intact, pericare provided, and purwick placed for tonight with attends. Bladder scanned at 31 ml. Pt states no discomfort or pain, laying in bed with call light in reach. RN aware.
[2021-06-12 05:00] VITALS: BP 116/63; PULSE 59; RESP 18; TEMP 36.4; O2SAT 98
[2021-06-12] MEDS: amLODIPine 5 MG Tablet PO (06:33)
[2021-06-12] MEDS: Enoxaparin 40 MG/0.4 ML Syringe SC (06:33)
[2021-06-12] MEDS: Acetaminophen 500 MG Tablet 1000 MG PO ×3 (06:33→22:16)
[2021-06-12] MEDS: Escitalopram Oxalate 20 MG Tablet PO (06:33)
[2021-06-12] MEDS: Doxycycline 100 MG CAPSULE PO ×2 (06:34→17:49)
[2021-06-12] MEDS: hydroCHLOROthiazide 12.5mg 12.5 MG PO (06:34)
[2021-06-12] MEDS: Menthol/Lanolin/Calamine/Znox 113 GM Tube 1 APPLIC TOPICAL ×2 (06:36→17:49)
[2021-06-12] MEDS: Nystatin Powder 15gm Bottle 1 APPLIC TOPICAL (06:36)
[2021-06-12] MEDS: Carvedilol 12.5 MG Tablet PO ×2 (08:18→17:49)
[2021-06-12] MEDS: Potassium Chloride Oral Tablet 10 MEQ 40 MEQ PO (08:19)
[2021-06-12 10:00] VITALS: PULSE 62; RESP 16; O2SAT 95
[2021-06-12] MEDS: oxyCODONE 5 MG Tablet 10 MG PO (11:20)
[2021-06-12 15:12] VITALS: BP 115/68; PULSE 63; RESP 16; TEMP 36.9; O2SAT 96
[2021-06-12] MEDS: Pravastatin 40 MG Tablet PO (22:16)
[2021-06-12] MEDS: Primidone 250 MG Tablet PO (22:16)
[2021-06-12] MEDS: Baclofen 10 MG Tablet PO (22:16)
[2021-06-12] MEDS: traZODone 100 MG Tablet 300 MG PO (22:17)
--- NOTE | 2021-06-13 02:13 | NURSING ---
Patient rang, feeling like she has to urinate and unable too. Bladder scanned at 591 mL. Patient requested to be transferred to bedside commode. MIG TIG WELDER and this Nurse transferred patient.
[2021-06-13] MEDS: amLODIPine 5 MG Tablet PO (05:37)
[2021-06-13] MEDS: Escitalopram Oxalate 20 MG Tablet PO (05:38)
[2021-06-13] MEDS: Acetaminophen 500 MG Tablet 1000 MG PO ×3 (05:38→20:15)
[2021-06-13] MEDS: hydroCHLOROthiazide 12.5mg 12.5 MG PO (05:38)
[2021-06-13] MEDS: Doxycycline 100 MG CAPSULE PO ×2 (05:38→17:57)
[2021-06-13] MEDS: Baclofen 10 MG Tablet PO ×3 (05:38→20:15)
[2021-06-13] MEDS: Enoxaparin 40 MG/0.4 ML Syringe SC (05:38)
[2021-06-13] MEDS: Menthol/Lanolin/Calamine/Znox 113 GM Tube 1 APPLIC TOPICAL ×2 (05:41→17:55)
[2021-06-13] MEDS: Potassium Chloride Oral Tablet 10 MEQ 40 MEQ PO (08:33)
[2021-06-13] MEDS: Carvedilol 12.5 MG Tablet PO ×2 (08:34→17:56)
[2021-06-13] MEDS: Tamsulosin HCl 0.4 MG Capsule PO ×2 (08:34→17:57)
[2021-06-13 08:39] VITALS: BP 115/54; PULSE 74
[2021-06-13] MEDS: Ondansetron ODT 4 MG Tablet PO ×2 (09:58→19:51)
[2021-06-13 10:00] VITALS: PULSE 66; RESP 18; O2SAT 96
--- NOTE | 2021-06-13 11:03 | NURSING ---
PT STATED SHE WILL HAVE HER TAKE HER TO HER APPOINTMENT WITH ON 06/18 AT 9;15 am and to cancel the transport. copper plate lithographer notified,rn aware.
--- NOTE | 2021-06-13 12:56 | CASEMGMT ---
Social Work SW met with pt to discuss discharge plans. Pt states ramp has not been installed yet and she is uncertain when this will happen. SW explained to pt that discharge date will likely be set soon. Pt stating she is continuing to work to improve and she understands she cannot stay until WBS is upgraded. Pt has obtained a transport chair and a gait belt. Pt will need a knee sling at discharge as well. Phone call to [employer] and they do not carry this product. Phone calll to [employer] and they can order this item for $90 and insurance does not cover it. Pt updated about knee sling. SW to follow for d/c planning. SANAZ Moody
[2021-06-13 15:41] VITALS: BP 123/62; PULSE 66; RESP 18; TEMP 36.4; O2SAT 96
[2021-06-13] MEDS: Primidone 250 MG Tablet PO (20:15)
[2021-06-13] MEDS: Pravastatin 40 MG Tablet PO (20:15)
[2021-06-13] MEDS: traZODone 100 MG Tablet 300 MG PO (20:15)
[2021-06-14] MEDS: Acetaminophen 500 MG Tablet 1000 MG PO ×3 (06:24→22:04)
[2021-06-14] MEDS: Baclofen 10 MG Tablet PO ×3 (06:25→22:04)
[2021-06-14] MEDS: Enoxaparin 40 MG/0.4 ML Syringe SC (06:25)
[2021-06-14] MEDS: amLODIPine 5 MG Tablet PO (06:25)
[2021-06-14] MEDS: hydroCHLOROthiazide 12.5mg 12.5 MG PO (06:25)
[2021-06-14] MEDS: Doxycycline 100 MG CAPSULE PO ×2 (06:25→17:00)
[2021-06-14] MEDS: Escitalopram Oxalate 20 MG Tablet PO (06:25)
[2021-06-14] MEDS: Menthol/Lanolin/Calamine/Znox 113 GM Tube 1 APPLIC TOPICAL (06:27)
[2021-06-14] MEDS: Tamsulosin HCl 0.4 MG Capsule PO ×2 (08:59→17:00)
[2021-06-14] MEDS: Potassium Chloride Oral Tablet 10 MEQ 40 MEQ PO (08:59)
[2021-06-14] MEDS: Ondansetron ODT 4 MG Tablet PO ×2 (09:03→17:55)
[2021-06-14 09:07] VITALS: BP 112/52; PULSE 68
[2021-06-14] MEDS: diazePAM 5 MG Tablet PO (12:19)
[2021-06-14 12:49] VITALS: BP 102/51; PULSE 87; RESP 18; TEMP 36.4; O2SAT 96
[2021-06-14] MEDS: Carvedilol 12.5 MG Tablet PO (17:00)
[2021-06-14 17:01] VITALS: BP 124/51; PULSE 80
[2021-06-14] MEDS: traZODone 100 MG Tablet 300 MG PO (22:04)
[2021-06-14] MEDS: Primidone 250 MG Tablet PO (22:04)
[2021-06-14] MEDS: Pravastatin 40 MG Tablet PO (22:04)
[2021-06-14 22:29] VITALS: PULSE 69; RESP 16; O2SAT 96
[2021-06-15 06:24] VITALS: BP 131/56; PULSE 69; RESP 16; O2SAT 96
[2021-06-15] MEDS: amLODIPine 5 MG Tablet PO (06:26)
[2021-06-15] MEDS: Baclofen 10 MG Tablet PO ×3 (06:26→22:35)
[2021-06-15] MEDS: Doxycycline 100 MG CAPSULE PO ×2 (06:26→17:06)
[2021-06-15] MEDS: Enoxaparin 40 MG/0.4 ML Syringe SC (06:26)
[2021-06-15] MEDS: Acetaminophen 500 MG Tablet 1000 MG PO ×3 (06:26→22:35)
[2021-06-15] MEDS: Escitalopram Oxalate 20 MG Tablet PO (06:26)
[2021-06-15] MEDS: hydroCHLOROthiazide 12.5mg 12.5 MG PO (06:26)
[2021-06-15] MEDS: Ondansetron ODT 4 MG Tablet PO ×2 (06:30→17:09)
[2021-06-15] MEDS: Potassium Chloride Oral Tablet 10 MEQ 40 MEQ PO (08:23)
[2021-06-15] MEDS: Tamsulosin HCl 0.4 MG Capsule PO ×2 (08:23→17:06)
[2021-06-15] MEDS: diazePAM 5 MG Tablet PO (08:25)
[2021-06-15 09:28] VITALS: BP 116/44; PULSE 81
[2021-06-15 10:00] VITALS: PULSE 80; RESP 16; O2SAT 98
[2021-06-15] MEDS: oxyCODONE 5 MG Tablet 10 MG PO ×2 (11:32→19:31)
[2021-06-15 14:03] VITALS: BP 132/51; PULSE 86; RESP 18; TEMP 36.1; O2SAT 99
--- NOTE | 2021-06-15 18:58 | NURSING ---
Pt complaining of increased pain to left ankle, stating she thinks she over did it in therapy today because today is the first day she used weights when exercising. Pt states it feels like bone pain and hopes nothing is messed up. This nurse stated she would update Dr. Gan and asked if she would feel more comfortable if we did a repeat xray of her ankle. Pt stated that she did not want Dr. Gan updated or a repeat xray at this time, she would see how she felt in the morning and make a decision.
--- NOTE | 2021-06-15 21:54 | NURSING ---
Pt. requests RTN Trazodone be re-ordered, states I have to have it to sleep, I take it every night, contacted via phone related to pt. request. New order Trazodone 300mg PO QHS
[2021-06-15] MEDS: Pravastatin 40 MG Tablet PO (22:35)
[2021-06-15] MEDS: Primidone 250 MG Tablet PO (22:36)
[2021-06-15] MEDS: traZODone 100 MG Tablet 300 MG PO (22:53)
[2021-06-16 06:07] VITALS: BP 133/62; PULSE 69; RESP 14; O2SAT 92
[2021-06-16] MEDS: amLODIPine 5 MG Tablet PO (06:09)
[2021-06-16] MEDS: Enoxaparin 40 MG/0.4 ML Syringe SC (06:09)
[2021-06-16] MEDS: Baclofen 10 MG Tablet PO ×3 (06:10→22:23)
[2021-06-16] MEDS: Escitalopram Oxalate 20 MG Tablet PO (06:10)
[2021-06-16] MEDS: Acetaminophen 500 MG Tablet 1000 MG PO ×3 (06:10→22:23)
[2021-06-16] MEDS: Doxycycline 100 MG CAPSULE PO ×2 (06:10→17:07)
[2021-06-16] MEDS: hydroCHLOROthiazide 12.5mg 12.5 MG PO (06:10)
[2021-06-16] MEDS: Ondansetron ODT 4 MG Tablet PO ×2 (06:16→14:23)
[2021-06-16 07:50] LABS: Absolute Neutrophil Count 2.2 X10^3/uL (2.0-7.7); Basophil# 0.03 X10^3/uL; Basophil% 0.6 % (0-1); Eosinophil# 0.21 X10^3/uL; Eosinophils% 4.3 % (0-5); Hematocrit 38.4 % (37-47); Hemoglobin 12.1 g/dL (12.0-15.0); Lymphocyte % 38.7 % (19-41); Mean Corp Hgb Conc 31.5 g/dL (32-36); Mean Corpuscular Hgb 31.2 pg (27.0-32.0); Mean Platelet Vol. 9.7 fl (6.2-12.0); Monocyte# 0.56 X10^3/uL; Monocyte% 11.4 % (0-10); NRBC Flagged by Analyzer 0 % (0-5); Neutrophil # 2.18 X10^3/uL (2.7-7.7); Neutrophil % 44.4 % (47-70); Platelet Count 192 K/mm3 (150-450); RBC Distribution Width CV 13.8 % (11.6-14.6); RBC Distribution Width SD 50.6 fl (35.1-43.9); Red Blood Count 3.88 M/mm3 (4.2-5.4); White Blood Count 4.9 K/mm3 (4.4-11.0)
[2021-06-16 08:12] LABS: Anion Gap 3 (5-15); BUN 11 mg/dL (7-18); BUN/Creat Ratio 25.1 RATIO (10-20); Calcium,Total 8.4 mg/dL (8.5-10.1); Chloride 108 mmol/L (98-107); Creatinine, Serum 0.44 mg/dL (0.55-1.02); EST Glomerular Filtration Rate 149 mL/min (>60); Est Glom Filt Rate - Afr Amer 180 mL/min (>60); Estimated Creatinine Clearance 37.24 ml/min; Glucose 83 mg/dL (74-106); Potassium 4.5 mmol/L (3.5-5.1); Sodium Level 140 mmol/L (136-145)
[2021-06-16] MEDS: oxyCODONE 5 MG Tablet 10 MG PO ×2 (08:56→19:27)
[2021-06-16] MEDS: Tamsulosin HCl 0.4 MG Capsule PO ×2 (08:57→17:06)
[2021-06-16] MEDS: Potassium Chloride Oral Tablet 10 MEQ 40 MEQ PO (08:57)
--- NOTE | 2021-06-16 13:57 | NURSING ---
pt stated she updates family
[2021-06-16 16:24] VITALS: BP 135/57; PULSE 87; RESP 18; TEMP 36.6; O2SAT 94
[2021-06-16] MEDS: Pravastatin 40 MG Tablet PO (22:23)
[2021-06-16] MEDS: traZODone 100 MG Tablet 300 MG PO (22:23)
[2021-06-16] MEDS: Primidone 250 MG Tablet PO (22:23)
--- NOTE | 2021-06-17 01:25 | NURSING ---
Pt voiced her feeling under a lot of stress lately, and mentioned her mother is not well and actively dying. She stated hospice will be in on Friday. She would like to go and visit her mother before she passes. RN aware.
[2021-06-17] MEDS: hydroCHLOROthiazide 12.5mg 12.5 MG PO (06:48)
[2021-06-17] MEDS: Doxycycline 100 MG CAPSULE PO ×2 (06:48→17:36)
[2021-06-17] MEDS: Baclofen 10 MG Tablet PO ×3 (06:48→19:56)
[2021-06-17] MEDS: Enoxaparin 40 MG/0.4 ML Syringe SC (06:48)
[2021-06-17] MEDS: Escitalopram Oxalate 20 MG Tablet PO (06:48)
[2021-06-17] MEDS: amLODIPine 5 MG Tablet PO (06:48)
[2021-06-17] MEDS: Acetaminophen 500 MG Tablet 1000 MG PO ×3 (06:48→19:55)
[2021-06-17] MEDS: Ondansetron ODT 4 MG Tablet PO ×2 (06:51→15:13)
[2021-06-17] MEDS: Potassium Chloride Oral Tablet 10 MEQ 40 MEQ PO (08:40)
[2021-06-17] MEDS: Tamsulosin HCl 0.4 MG Capsule PO ×2 (08:41→17:36)
[2021-06-17 10:00] VITALS: PULSE 75; RESP 18; O2SAT 95
[2021-06-17] MEDS: oxyCODONE 5 MG Tablet 10 MG PO ×2 (15:56→20:02)
[2021-06-17 16:28] VITALS: BP 114/63; PULSE 69; RESP 18; TEMP 36.8; O2SAT 93
[2021-06-17] MEDS: Pravastatin 40 MG Tablet PO (19:56)
[2021-06-17] MEDS: Primidone 250 MG Tablet PO (19:56)
[2021-06-17] MEDS: traZODone 100 MG Tablet 300 MG PO (22:22)
[2021-06-18] MEDS: Escitalopram Oxalate 20 MG Tablet PO (06:31)
[2021-06-18] MEDS: Enoxaparin 40 MG/0.4 ML Syringe SC (06:31)
[2021-06-18] MEDS: Doxycycline 100 MG CAPSULE PO ×2 (06:31→17:11)
[2021-06-18] MEDS: amLODIPine 5 MG Tablet PO (06:31)
[2021-06-18] MEDS: hydroCHLOROthiazide 12.5mg 12.5 MG PO (06:31)
[2021-06-18] MEDS: Acetaminophen 500 MG Tablet 1000 MG PO ×3 (06:32→20:00)
[2021-06-18] MEDS: Baclofen 10 MG Tablet PO ×3 (06:32→20:00)
[2021-06-18] MEDS: Ondansetron ODT 4 MG Tablet PO (06:35)
[2021-06-18] MEDS: Tamsulosin HCl 0.4 MG Capsule PO ×2 (08:59→17:11)
[2021-06-18] MEDS: Potassium Chloride Oral Tablet 10 MEQ 40 MEQ PO (08:59)
[2021-06-18] MEDS: diazePAM 5 MG Tablet PO (09:01)
[2021-06-18] MEDS: oxyCODONE 5 MG Tablet 10 MG PO ×2 (09:02→13:34)
--- NOTE | 2021-06-18 10:02 | NURSING ---
Addendum entered by Fany López 06/18/21 13:10: continue Ice PRN, elevate left foot above level of heart, F/U in 3 weeks on 07/11/21 at 1345 Addendum entered by Fany López 06/18/21 13:06: Pt returned from Office visit with Dr. Arrington, cast placed to left lower extremity keep cast dry and left lower extremity, remain Non weight bearing to Left foot/ankle, continue DVT prophylaxis, conitn Original Note: Pt left for appointment with Dr. Arrington. here to transport
[2021-06-18 14:33] VITALS: BP 121/67; PULSE 71; RESP 16; TEMP 36.1; O2SAT 99
[2021-06-18 19:43] VITALS: PULSE 75; RESP 16; O2SAT 94
[2021-06-18] MEDS: Pravastatin 40 MG Tablet PO (20:00)
[2021-06-18] MEDS: Primidone 50 MG Tablet PO (21:48)
[2021-06-18] MEDS: Primidone 250 MG Tablet PO (21:48)
[2021-06-18] MEDS: traZODone 100 MG Tablet 300 MG PO (21:49)
[2021-06-19] MEDS: Doxycycline 100 MG CAPSULE PO ×2 (06:12→17:43)
[2021-06-19] MEDS: hydroCHLOROthiazide 12.5mg 12.5 MG PO (06:12)
[2021-06-19] MEDS: amLODIPine 5 MG Tablet PO (06:12)
[2021-06-19] MEDS: Escitalopram Oxalate 20 MG Tablet PO (06:12)
[2021-06-19] MEDS: Acetaminophen 500 MG Tablet 1000 MG PO ×3 (06:12→22:27)
[2021-06-19] MEDS: Loperamide 2 MG Capsule PO (06:12)
[2021-06-19] MEDS: Baclofen 10 MG Tablet PO ×3 (06:12→22:26)
[2021-06-19] MEDS: Enoxaparin 40 MG/0.4 ML Syringe SC (06:13)
[2021-06-19] MEDS: Nystatin Powder 15gm Bottle 1 APPLIC TOPICAL ×2 (06:17→22:30)
[2021-06-19] MEDS: Tamsulosin HCl 0.4 MG Capsule PO ×2 (08:30→17:42)
[2021-06-19] MEDS: Potassium Chloride Oral Tablet 10 MEQ 40 MEQ PO (08:30)
[2021-06-19] MEDS: oxyCODONE 5 MG Tablet 10 MG PO ×2 (09:38→15:57)
[2021-06-19 09:45] VITALS: PULSE 81; RESP 18; O2SAT 98
[2021-06-19 13:32] VITALS: BP 120/55; PULSE 81; RESP 18; TEMP 36.6; O2SAT 98
[2021-06-19] MEDS: Ondansetron ODT 4 MG Tablet PO (14:00)
[2021-06-19] MEDS: traZODone 100 MG Tablet 300 MG PO (22:26)
[2021-06-19] MEDS: Pravastatin 40 MG Tablet PO (22:27)
[2021-06-19] MEDS: Primidone 50 MG Tablet PO (22:27)
[2021-06-19] MEDS: Primidone 250 MG Tablet PO (22:28)
[2021-06-19] MEDS: Menthol/Lanolin/Calamine/Znox 113 GM Tube 1 APPLIC TOPICAL (22:30)
[2021-06-20] MEDS: Acetaminophen 500 MG Tablet 1000 MG PO ×3 (06:38→21:50)
[2021-06-20] MEDS: hydroCHLOROthiazide 12.5mg 12.5 MG PO (06:38)
[2021-06-20] MEDS: Baclofen 10 MG Tablet PO ×3 (06:38→21:50)
[2021-06-20] MEDS: Doxycycline 100 MG CAPSULE PO ×2 (06:38→17:30)
[2021-06-20] MEDS: amLODIPine 5 MG Tablet PO (06:38)
[2021-06-20] MEDS: Enoxaparin 40 MG/0.4 ML Syringe SC (06:38)
[2021-06-20] MEDS: Escitalopram Oxalate 20 MG Tablet PO (06:38)
[2021-06-20] MEDS: Menthol/Lanolin/Calamine/Znox 113 GM Tube 1 APPLIC TOPICAL ×2 (06:39→21:53)
[2021-06-20] MEDS: Nystatin Powder 15gm Bottle 1 APPLIC TOPICAL ×2 (06:39→21:53)
[2021-06-20] MEDS: Tamsulosin HCl 0.4 MG Capsule PO ×2 (08:52→17:30)
[2021-06-20] MEDS: Potassium Chloride Oral Tablet 10 MEQ 40 MEQ PO (08:52)
[2021-06-20] MEDS: Ondansetron ODT 4 MG Tablet PO ×2 (08:59→18:12)
[2021-06-20 13:13] VITALS: BP 132/48; PULSE 84; RESP 16; TEMP 36; O2SAT 98
[2021-06-20] MEDS: Pravastatin 40 MG Tablet PO (21:50)
[2021-06-20] MEDS: Primidone 50 MG Tablet PO (21:50)
[2021-06-20] MEDS: Primidone 250 MG Tablet PO (21:50)
[2021-06-20] MEDS: traZODone 100 MG Tablet 300 MG PO (21:51)
[2021-06-20 21:53] VITALS: PULSE 71; RESP 16; O2SAT 96
[2021-06-21 06:23] VITALS: BP 128/56; PULSE 59
[2021-06-21] MEDS: Doxycycline 100 MG CAPSULE PO ×2 (06:26→16:45)
[2021-06-21] MEDS: Enoxaparin 40 MG/0.4 ML Syringe SC (06:26)
[2021-06-21] MEDS: Baclofen 10 MG Tablet PO ×3 (06:26→19:32)
[2021-06-21] MEDS: Acetaminophen 500 MG Tablet 1000 MG PO ×3 (06:26→19:31)
[2021-06-21] MEDS: Escitalopram Oxalate 20 MG Tablet PO (06:26)
[2021-06-21] MEDS: hydroCHLOROthiazide 12.5mg 12.5 MG PO (06:26)
[2021-06-21] MEDS: Loperamide 2 MG Capsule PO (06:27)
[2021-06-21] MEDS: Ondansetron ODT 4 MG Tablet PO ×2 (06:27→14:56)
[2021-06-21] MEDS: amLODIPine 5 MG Tablet PO (06:27)
[2021-06-21] MEDS: Nystatin Powder 15gm Bottle 1 APPLIC TOPICAL ×2 (06:28→16:46)
[2021-06-21] MEDS: Menthol/Lanolin/Calamine/Znox 113 GM Tube 1 APPLIC TOPICAL ×2 (06:34→16:46)
[2021-06-21] MEDS: Potassium Chloride Oral Tablet 10 MEQ 40 MEQ PO (08:49)
[2021-06-21] MEDS: Tamsulosin HCl 0.4 MG Capsule PO ×2 (08:50→16:45)
--- NOTE | 2021-06-21 10:05 | CASEMGMT ---
Social Work SW met with pt and spoke with pt . Notice of non coverage issued with [employer] 06/28/21 and d/c or pt liability 06/29/21. Pt and spouse states that ramp is to be installed in home by that date. Pt spouse has obtained needed DME. SW provided a list of HHC providers including quality and resource use data and consistent with the patient's preferred geographic region, medical needs and insurance network. Pt preferred provider is [facility]. Referral made to [facility] for PT/OT/MUSICAL INSTRUMENT MAKER and SW will await determination if they can accept. Discharge Date: 06/29/21 Discharge Disposition: Home with . Home Health PT/OT/MUSICAL INSTRUMENT MAKER SANAZ Moody
[2021-06-21 13:41] VITALS: BP 131/74; PULSE 84; RESP 18; TEMP 35.9; O2SAT 96
--- NOTE | 2021-06-21 16:12 | CASEMGMT ---
Social Work Return call from [facility] and they are able to accept pt with a start date of Monday 07/02. SANAZ Moody
[2021-06-21] MEDS: Pravastatin 40 MG Tablet PO (19:31)
[2021-06-21] MEDS: Primidone 50 MG Tablet PO (19:32)
[2021-06-21] MEDS: Primidone 250 MG Tablet PO (19:32)
--- NOTE | 2021-06-21 20:13 | PCM.DC.SUM ---
Providers Date of Admission: 05/11/21 Primary Care Physician: Dr. Ld Gan MD Reason For Visit: LEFT ANKLE FRACTURE Diagnosis Discharge Diagnosis (1) Debility: Status: Acute Code(s): R53.81 - Other malaise (2) Closed trimalleolar fracture of left ankle: Code(s): S82.852A - Displaced trimalleolar fracture of left lower leg, initial encounter for closed fracture Qualifiers: Encounter type: initial encounter Qualified Code(s): S82.852A - Displaced trimalleolar fracture of left lower leg, initial encounter for closed fracture (3) Anxiety: Status: Acute Code(s): F41.9 - Anxiety disorder, unspecified (4) Hypertension: Status: Chronic Code(s): I10 - Essential (primary) hypertension (5) Diastolic dysfunction: Status: Acute Code(s): I51.89 - Other ill-defined heart diseases (6) Fibromyalgia: Status: Acute Code(s): M79.7 - Fibromyalgia (7) Pulmonary hypertension: Status: Acute Code(s): I27.20 - Pulmonary hypertension, unspecified (8) Hyperlipidemia: Status: Acute Code(s): E78.5 - Hyperlipidemia, unspecified (9) Depression: Status: Acute Code(s): F32.9 - Major depressive disorder, single episode, unspecified (10) Migraine: Status: Acute Code(s): G43.909 - Migraine, unspecified, not intractable, without status migrainosus (11) Tremor: Status: Acute Code(s): R25.1 - Tremor, unspecified (12) Insomnia: Status: Acute Code(s): G47.00 - Insomnia, unspecified (13) Muscle spasm: Status: Acute Code(s): M62.838 - Other muscle spasm (14) Dizziness: Status: Acute Code(s): R42 - Dizziness and giddiness Medications at Discharge Home Medications pravastatin 40 mg tablet 40 mg PO DAILY 02/09/19 escitalopram oxalate 20 mg tablet 20 mg PO DAILY tab 07/20/19 baclofen 10 mg tablet 10 mg PO TID tab 07/28/19 diazepam 5 mg tablet 5 mg PO TID PRN tab 07/28/19 loperamide 2 mg tablet 4 mg PO DAILY tab 07/28/19 ondansetron HCl 4 mg tablet 4 mg PO TID PRN 07/28/19 amlodipine 5 mg PO DAILY 05/11/21 hydrochlorothiazide 12.5 mg PO DAILY 05/11/21 tamsulosin 0.4 mg PO BID 05/11/21 acetaminophen 1,000 mg PO Q8 #0 tab 06/21/21 acidophilus-pectin, citrus 1 tab PO BID #0 tab 06/21/21 menthol-zinc oxide [Calmoseptine] 1 applic TOPICAL BID #0 g 06/21/21 nystatin [Nyamyc] 1 applic TOPICAL BID #0 g 06/21/21 potassium chloride 40 meq PO DAILYCM 30 Days #120 tab 06/21/21 primidone 50 mg PO QHS 30 Days #30 tab 06/21/21 primidone 250 mg PO QHS 30 Days #30 tab 06/21/21 trazodone 300 mg PO QHS 30 Days #90 tab 06/21/21 Hospital Course Operations - (Left ORIF ankle fracture.) Procedures None Summary of Care Provided Minutes Spent on Discharge: 35 Hospital Course: 76 year old female with below past medical history hospitalized for left ankle fracture, Dr. Constantin Arrington recommends left ankle surgery once swelling improved, admitted to TCU with debility, here for rehabilitation, strengthening, pending left ankle surgery, discharge home with . Dr. Kody Arrington performed left ORIF ankle fracture 05/24/2021. Discharge home with 06/29/2021, [facility] PT/OT/GRAVITY PROSPECTOR. Physical Exam Const alert and oriented x3 General Appearance: cooperative HEENT normocephalic Eyes PERRL and EOMs intact bilaterally Neck supple, no JVD and no carotid bruits Resp normal respiratory effort, normal air movement and clear to auscultation bilaterally Cardio regular rate and regular rhythm GI normal to inspection, nondistended, normoactive bowel sounds, non-tender and non-distended Extremity normal capillary refill General Extremity: Negative for edema Skin no rashes or lesions noted General Skin Exam: no breakdown Psych affect normal Appearance: appropriate Medical Records Data Medical Nutrition Assessment Dietitian: Malnutrition Criteria Met Start: 05/23/21 15:43 Freq: Status: Active Protocol: Document 06/06/21 16:42 MIGUEL A (Rec: 06/06/21 16:42 SLA [id number]) Nutrition Malnutrition Evidence of Malnutrition Exists No Intake Problem None at this time Status Active Problem Clinical Problem Obese, Class 2 Etiology related to lack of activity and suspected excessive energy intake Signs/Symptoms as evidenced by BMI >35 Status Inactive Problem Recommendation Dietitian Recommendations/Changes Will discontinue therapeutic diet per res request. Will communciate to tally office res desire for smaller portions. Weight / BMI Weight Weight: 93.185 kg Body Mass Index (BMI) 38.7 ABG / Lab / Microbiology Data Result Diagrams: 06/16/21 07:15 06/16/21 07:15 D/C Instructions Discharge Diet: No restrictions Discharge Activity: Return to Normal Activity, May Shower and Use Walker Weight Bearing Status: No weight bearing (Left lower extremity.) Call your doctor if you observe: Fever of 101 or Higher, Inability to urinate, Inability to have a bowel movement, Shortness of breath, Dizziness, Fainting spells, Swelling in the ankles, Chest pain, Increased palpitations (irregular heartbeat) and Uncontrolled pain Additional Instructions: Discharge home with 06/29/2021, [facility] PT/OT/GRAVITY PROSPECTOR. Please Follow Up With: Kody Arrington DPM When: As scheduled. Meaningful Use Info Meaningful Use Diagnoses (Choose all that apply): None applicable Discharge Plan Admission Admit Date/Time: 05/11/21 13:50 Primary Reason for Your Visit: Debility. Attending Provider: Ld Gan Chi Primary Care Provider: Ld Gan Chi Instructions Additional Instructions / Restrictions: Discharge home with 06/29/2021, [facility] PT/OT/GRAVITY PROSPECTOR. Discharge Orders/Prescriptions Prescriptions: New primidone 50 mg Tablet 50 mg PO QHS 30 Days Qty: 30 RF: 0 acetaminophen 500 mg Tablet 1,000 mg PO Q8 Qty: 0 RF: 0 primidone 250 mg Tablet 250 mg PO QHS 30 Days Qty: 30 RF: 0 trazodone 100 mg Tablet 300 mg PO QHS 30 Days Qty: 90 RF: 0 acidophilus-pectin, citrus 25 million cell -100 mg Tablet 1 tab PO BID Qty: 0 RF: 0 nystatin [Nyamyc] 100,000 unit/gram Powder 1 applic topical BID Qty: 0 RF: 0 potassium chloride 10 mEq Tablet,Er Particles/Crystals 40 meq PO DAILYCM 30 Days Qty: 120 RF: 0 menthol-zinc oxide [Calmoseptine] 0.44-20.6 % Ointment 1 applic topical BID Qty: 0 RF: 0 Continued pravastatin 40 mg tablet 40 mg PO DAILY RF: 0 escitalopram oxalate [Lexapro] 20 mg tablet 20 mg PO DAILY RF: 0 diazepam [Valium] 5 mg tablet 5 mg PO TID PRN (Reason: Anxiety) RF: 0 baclofen 10 mg tablet 10 mg PO TID RF: 0 loperamide [Imodium A-D] 2 mg tablet 4 mg PO DAILY RF: 0 ondansetron HCl 4 mg tablet 4 mg PO TID PRN (Reason: Nausea) RF: 0 amlodipine 5 mg tablet 5 mg PO DAILY RF: 0 tamsulosin 0.4 mg capsule 0.4 mg PO BID RF: 0 hydrochlorothiazide 12.5 mg tablet 12.5 mg PO DAILY RF: 0 Discontinued trazodone 150 mg tablet 150 mg PO QHS RF: 0 primidone 50 mg tablet 250 mg PO QHS RF: 0 meclizine 25 mg tablet 25 mg PO TID PRN (Reason: Dizziness) RF: 0 lstimmncsn-bcpkjkgfdmeab-wabr 50-325-40 mg Tablet 1 tab PO Q4H PRN PRN (Reason: headaches) Qty: 0 RF: 0 oxycodone 5 mg Tablet 5 mg PO Q4H PRN PRN (Reason: Pain Score 4-5) Qty: 0 RF: 0 carvedilol 12.5 mg tablet 12.5 mg PO BID RF: 0 lisinopril 40 mg tablet 40 mg PO DAILY RF: 0 enoxaparin 40 mg/0.4 mL syringe 40 mg subcut DAILY RF: 0 Referrals / Follow Up: Ld Gan Chi, MD [Primary Care Provider] - Disposition Disposition (needs filled in before D/C Order can be placed): Home Health Service
[2021-06-21] MEDS: traZODone 100 MG Tablet 300 MG PO (22:05)
[2021-06-22] MEDS: Doxycycline 100 MG CAPSULE PO ×2 (04:56→16:48)
[2021-06-22] MEDS: Menthol/Lanolin/Calamine/Znox 113 GM Tube 1 APPLIC TOPICAL ×2 (04:56→16:48)
[2021-06-22] MEDS: hydroCHLOROthiazide 12.5mg 12.5 MG PO (04:57)
[2021-06-22] MEDS: Enoxaparin 40 MG/0.4 ML Syringe SC (04:57)
[2021-06-22] MEDS: Escitalopram Oxalate 20 MG Tablet PO (04:57)
[2021-06-22] MEDS: Nystatin Powder 15gm Bottle 1 APPLIC TOPICAL ×2 (04:57→16:48)
[2021-06-22] MEDS: Acetaminophen 500 MG Tablet 1000 MG PO ×3 (04:58→20:36)
[2021-06-22] MEDS: Baclofen 10 MG Tablet PO ×3 (05:00→20:39)
[2021-06-22] MEDS: amLODIPine 5 MG Tablet PO (05:04)
[2021-06-22] MEDS: Ondansetron ODT 4 MG Tablet PO ×3 (05:05→22:26)
[2021-06-22 05:53] LABS: Absolute Lymphocyte Count 2.08 X10^3/uL (0.83-4.51); Absolute Neutrophil Count 1.8 X10^3/uL (2.0-7.7); Basophil# 0.03 X10^3/uL; Basophil% 0.7 % (0-1); Eosinophil# 0.12 X10^3/uL; Eosinophils% 2.7 % (0-5); Hematocrit 39.5 % (37-47); Hemoglobin 12.5 g/dL (12.0-15.0); Lymphocyte # 2.08 X10^3/ul (0.83-4.51); Mean Corp Hgb Conc 31.6 g/dL (32-36); Mean Corpuscular Hgb 31.4 pg (27.0-32.0); Mean Corpuscular Volume 99.2 fL (81-99); Mean Platelet Vol. 9.8 fl (6.2-12.0); Monocyte# 0.48 X10^3/uL; Monocyte% 10.6 % (0-10); NRBC Flagged by Analyzer 0 % (0-5); Neutrophil # 1.79 X10^3/uL (2.7-7.7); Neutrophil % 39.6 % (47-70); Platelet Count 171 K/mm3 (150-450); RBC Distribution Width CV 14.4 % (11.6-14.6); RBC Distribution Width SD 53.1 fl (35.1-43.9); Red Blood Count 3.98 M/mm3 (4.2-5.4); White Blood Count 4.5 K/mm3 (4.4-11.0)
[2021-06-22 07:05] LABS: Anion Gap 2 (5-15); BUN 10 mg/dL (7-18); BUN/Creat Ratio 22.1 RATIO (10-20); Calcium,Total 8.2 mg/dL (8.5-10.1); Chloride 109 mmol/L (98-107); Creatinine, Serum 0.45 mg/dL (0.55-1.02); EST Glomerular Filtration Rate 144 mL/min (>60); Est Glom Filt Rate - Afr Amer 174 mL/min (>60); Estimated Creatinine Clearance 37.24 ml/min; Glucose 80 mg/dL (74-106); Potassium 4.1 mmol/L (3.5-5.1); Sodium Level 142 mmol/L (136-145)
[2021-06-22] MEDS: Tamsulosin HCl 0.4 MG Capsule PO ×2 (08:30→16:48)
[2021-06-22] MEDS: Potassium Chloride Oral Tablet 10 MEQ 40 MEQ PO (08:30)
[2021-06-22] MEDS: diazePAM 5 MG Tablet PO ×2 (09:41→19:15)
[2021-06-22] MEDS: Loperamide 2 MG Capsule PO ×2 (09:44→16:48)
[2021-06-22 16:00] VITALS: BP 125/39; PULSE 68; RESP 16; TEMP 36.2; O2SAT 93
[2021-06-22] MEDS: Primidone 250 MG Tablet PO (20:37)
[2021-06-22] MEDS: Primidone 50 MG Tablet PO (20:37)
[2021-06-22] MEDS: Pravastatin 40 MG Tablet PO (20:37)
[2021-06-22] MEDS: traZODone 100 MG Tablet 300 MG PO (22:26)
[2021-06-23] MEDS: hydroCHLOROthiazide 12.5mg 12.5 MG PO (06:47)
[2021-06-23] MEDS: Acetaminophen 500 MG Tablet 1000 MG PO ×3 (06:47→20:55)
[2021-06-23] MEDS: Enoxaparin 40 MG/0.4 ML Syringe SC (06:47)
[2021-06-23] MEDS: Doxycycline 100 MG CAPSULE PO ×2 (06:47→16:59)
[2021-06-23] MEDS: amLODIPine 5 MG Tablet PO (06:47)
[2021-06-23] MEDS: Baclofen 10 MG Tablet PO ×3 (06:47→20:56)
[2021-06-23] MEDS: Escitalopram Oxalate 20 MG Tablet PO (06:48)
[2021-06-23] MEDS: Loperamide 2 MG Capsule PO (06:50)
[2021-06-23] MEDS: Ondansetron ODT 4 MG Tablet PO ×2 (06:51→20:56)
[2021-06-23] MEDS: Menthol/Lanolin/Calamine/Znox 113 GM Tube 1 APPLIC TOPICAL ×2 (06:52→17:01)
[2021-06-23] MEDS: Nystatin Powder 15gm Bottle 1 APPLIC TOPICAL ×2 (06:52→17:01)
[2021-06-23] MEDS: Potassium Chloride Oral Tablet 10 MEQ 40 MEQ PO (08:17)
[2021-06-23] MEDS: Tamsulosin HCl 0.4 MG Capsule PO ×2 (08:17→17:00)
[2021-06-23] MEDS: diazePAM 5 MG Tablet PO (12:00)
[2021-06-23 13:11] VITALS: BP 122/45; PULSE 72; RESP 17; TEMP 36.1; O2SAT 95
[2021-06-23] MEDS: oxyCODONE 5 MG Tablet 10 MG PO (16:59)
[2021-06-23 17:02] VITALS: BP 117/71; PULSE 64
[2021-06-23 20:47] VITALS: PULSE 75; RESP 16; O2SAT 94
[2021-06-23] MEDS: Primidone 250 MG Tablet PO (20:56)
[2021-06-23] MEDS: Pravastatin 40 MG Tablet PO (20:56)
[2021-06-23] MEDS: traZODone 100 MG Tablet 300 MG PO (20:56)
[2021-06-23] MEDS: Primidone 50 MG Tablet PO (20:56)
[2021-06-24] MEDS: Enoxaparin 40 MG/0.4 ML Syringe SC (06:34)
[2021-06-24] MEDS: hydroCHLOROthiazide 12.5mg 12.5 MG PO (06:35)
[2021-06-24] MEDS: amLODIPine 5 MG Tablet PO (06:35)
[2021-06-24] MEDS: Doxycycline 100 MG CAPSULE PO ×2 (06:35→17:21)
[2021-06-24] MEDS: Escitalopram Oxalate 20 MG Tablet PO (06:35)
[2021-06-24] MEDS: Baclofen 10 MG Tablet PO ×3 (06:35→21:45)
[2021-06-24] MEDS: Acetaminophen 500 MG Tablet 1000 MG PO ×3 (06:35→21:46)
[2021-06-24] MEDS: Ondansetron ODT 4 MG Tablet PO ×3 (06:37→22:38)
[2021-06-24] MEDS: Loperamide 2 MG Capsule PO (06:39)
[2021-06-24] MEDS: Menthol/Lanolin/Calamine/Znox 113 GM Tube 1 APPLIC TOPICAL ×2 (06:41→17:23)
[2021-06-24] MEDS: Nystatin Powder 15gm Bottle 1 APPLIC TOPICAL ×2 (06:41→17:22)
[2021-06-24 06:43] VITALS: BP 130/55; PULSE 69; RESP 16; TEMP 36.6; O2SAT 94
[2021-06-24] MEDS: Potassium Chloride Oral Tablet 10 MEQ 40 MEQ PO (08:10)
[2021-06-24] MEDS: Tamsulosin HCl 0.4 MG Capsule PO ×2 (08:10→17:22)
[2021-06-24] MEDS: diazePAM 5 MG Tablet PO (08:11)
[2021-06-24 11:03] VITALS: PULSE 75; O2SAT 97
[2021-06-24] MEDS: oxyCODONE 5 MG Tablet 10 MG PO (13:08)
[2021-06-24] MEDS: Primidone 250 MG Tablet PO (21:45)
[2021-06-24] MEDS: traZODone 100 MG Tablet 300 MG PO (21:45)
[2021-06-24] MEDS: Primidone 50 MG Tablet PO (21:46)
[2021-06-24] MEDS: Pravastatin 40 MG Tablet PO (21:46)
[2021-06-25 06:33] VITALS: BP 120/53; PULSE 63
[2021-06-25] MEDS: Doxycycline 100 MG CAPSULE PO ×2 (06:34→17:16)
[2021-06-25] MEDS: amLODIPine 5 MG Tablet PO (06:34)
[2021-06-25] MEDS: Baclofen 10 MG Tablet PO ×3 (06:35→20:46)
[2021-06-25] MEDS: hydroCHLOROthiazide 12.5mg 12.5 MG PO (06:35)
[2021-06-25] MEDS: Escitalopram Oxalate 20 MG Tablet PO (06:35)
[2021-06-25] MEDS: Loperamide 2 MG Capsule PO (06:35)
[2021-06-25] MEDS: Acetaminophen 500 MG Tablet 1000 MG PO ×3 (06:35→20:47)
[2021-06-25] MEDS: Ondansetron ODT 4 MG Tablet PO ×3 (06:35→23:01)
[2021-06-25] MEDS: Enoxaparin 40 MG/0.4 ML Syringe SC (06:36)
[2021-06-25] MEDS: Nystatin Powder 15gm Bottle 1 APPLIC TOPICAL ×2 (06:49→21:00)
[2021-06-25] MEDS: Menthol/Lanolin/Calamine/Znox 113 GM Tube 1 APPLIC TOPICAL ×2 (06:49→17:16)
[2021-06-25] MEDS: Potassium Chloride Oral Tablet 10 MEQ 40 MEQ PO (08:36)
[2021-06-25] MEDS: Tamsulosin HCl 0.4 MG Capsule PO ×2 (08:36→17:17)
[2021-06-25] MEDS: diazePAM 5 MG Tablet PO (08:38)
--- NOTE | 2021-06-25 09:54 | PCM.PN.RX ---
Progress Note - Pharmacy Subjective: TCU MONTHLY ASSESSMENT Objective: Allergies No Known Allergies Allergy (Verified 05/10/21 05:22) Current Medications Generic Name Dose Route Start Last Admin Trade Name Freq PRN Reason Stop Dose Admin Acetaminophen 1,000 mg 05/27/21 06:00 06/25/21 06:35 Acetaminophen 500 Mg Tablet PO 1,000 mg Q8 DILCIA Administration Amlodipine Besylate 5 mg 06/13/21 06:00 06/25/21 06:34 Amlodipine 5 Mg Tablet PO 5 mg DAILY DILCIA Administration Baclofen 10 mg 06/12/21 22:00 06/25/21 06:35 Baclofen 10 Mg Tablet PO 10 mg TID DILCIA Administration Calamine/Phenol 1 applic 06/19/21 18:00 06/25/21 06:49 Menthol/Lanolin/Calamine/Znox 113 Gm Tube TOPICAL 1 applic BID DILCIA Administration Protocol Diazepam 5 mg 06/13/21 07:49 06/25/21 08:38 Diazepam 5 Mg Tablet PO 5 mg TID PRN PRN Administration ANXIETY Doxycycline Monohydrate 100 mg 06/01/21 10:35 06/25/21 06:34 Doxycycline 100 Mg Capsule PO 100 mg BID DILCIA Administration Enoxaparin Sodium 40 mg 05/25/21 06:00 06/25/21 06:36 Enoxaparin 40 Mg/0.4 Ml Syringe SC 40 mg DAILY DILCIA Administration Escitalopram Oxalate 20 mg 06/13/21 06:00 06/25/21 06:35 Escitalopram Oxalate 20 Mg Tablet PO 20 mg DAILY DILCIA Administration Hydrochlorothiazide 12.5 mg 06/13/21 06:00 06/25/21 06:35 Hydrochlorothiazide 12.5mg PO 12.5 mg DAILY DILCIA Administration Lactobacillus Acidophilus 1 tablet 06/16/21 18:00 06/25/21 06:34 Lactobacillus Acidophilus PO 1 tablet BID DILCIA Administration Loperamide HCl 2 mg 06/13/21 07:49 06/25/21 06:35 Loperamide 2 Mg Capsule PO 2 mg Q6H PRN PRN Administration Diarrhea Nystatin 1 applic 06/19/21 06:00 06/25/21 06:49 Nystatin Powder 15gm Bottle TOPICAL 1 applic BID DILCIA Administration Protocol Ondansetron HCl 4 mg 06/13/21 07:49 06/25/21 06:35 Ondansetron Odt 4 Mg Tablet PO 4 mg Q8H PRN PRN Administration NAUSEA Oxycodone HCl 10 mg 05/25/21 07:53 06/24/21 13:08 Oxycodone 5 Mg Tablet PO 10 mg Q4H PRN PRN Administration Pain Score 6-10 Polyethylene Glycol 17 gm 05/28/21 17:35 06/01/21 11:00 Polyethylene Glycol 3350 17 Gm Packet PO 17 gm DAILY PRN PRN Administration Constipation Potassium Chloride 40 meq 05/30/21 08:00 06/25/21 08:36 Potassium Chloride Oral Tablet 10 Meq PO 40 meq DAILYCM DILCIA Administration Pravastatin Sodium 40 mg 06/12/21 22:00 06/24/21 21:46 Pravastatin 40 Mg Tablet PO 40 mg QHS DILCIA Administration Primidone 50 mg 06/18/21 22:00 06/24/21 21:46 Primidone 50 Mg Tablet PO 50 mg QHS DILCIA Administration Primidone 250 mg 06/18/21 22:00 06/24/21 21:45 Primidone 250 Mg Tablet PO 250 mg QHS DILCIA Administration Tamsulosin HCl 0.4 mg 06/13/21 08:30 06/25/21 08:36 Tamsulosin Hcl 0.4 Mg Capsule PO 0.4 mg 0830,1730 DILCIA Administration Trazodone HCl 300 mg 06/15/21 22:00 06/24/21 21:45 Trazodone 100 Mg Tablet PO 300 mg QHS DILCIA Administration Problem List (Last Updated 05/21/21 @ 13:46 by Pham Shepard) Debility (Acute) Anxiety (Acute) Hypertension (Chronic) Diastolic dysfunction (Acute) Fibromyalgia (Acute) Pulmonary hypertension (Acute) Hyperlipidemia (Acute) Depression (Acute) Migraine (Acute) Tremor (Acute) Insomnia (Acute) Muscle spasm (Acute) Dizziness (Acute) Vital Signs Temp Pulse Resp BP Pulse Ox 97.8 F 63 16 120/53 L 97 06/24/21 06:43 06/25/21 06:33 06/24/21 06:43 06/25/21 06:33 06/24/21 11:03 Oxygen Flow Rate (L/min) 95 Oxygen Delivery Method Room Air Weight: 93.185 kg Body Mass Index (BMI) 38.7 Sodium 142 mmol/L (136-145) 06/22/21 05:05 Potassium 4.1 mmol/L (3.5-5.1) 06/22/21 05:05 Chloride 109 mmol/L (98-107) H 06/22/21 05:05 Carbon Dioxide 31.0 mmol/L (21.0-32.0) 06/22/21 05:05 Anion Gap 2 (5-15) L 06/22/21 05:05 BUN 10 mg/dL (7-18) 06/22/21 05:05 Creatinine 0.45 mg/dL (0.55-1.02) L 06/22/21 05:05 Est GFR (MDRD) Af Amer 174 mL/min (>60) 06/22/21 05:05 Est GFR (MDRD) Non-Af 144 mL/min (>60) 06/22/21 05:05 BUN/Creatinine Ratio 22.1 RATIO (10-20) H 06/22/21 05:05 Glucose 80 mg/dL (74-106) 06/22/21 05:05 Assessment/Plan: 1.Pain: acetaminophen 1000mg PO Q8h and oxycodone 10mg PO Q4H PRN pain 6-10. Please continue to monitor for increased pain, PRN usage, constipation and respiratory depression. 2. DVT prophylaxis: enoxaparin 40mg SC daily. Please continue to monitor for S/S of bleeding, hemoglobin, platelets, and renal function. 3. Hypertension: hydrochlorothiazide 12.5mg PO daily, and amlodipine 5mg PO daily. Please continue to monitor BP, potassium, sodium, and edema. 4. Tremor: primidone 300mg PO QHS. Please continue to monitor for tremor. 5. Hyperlipidemia: pravastatin 40mg PO QHS. Please continue to monitor for muscle pain, lipid panel annually or sooner if clinically indicated, thank you. 6. Urinary retention: tamsulosin 0.4mg PO BID. Please continue to monitor for urinary retention and hypotension. 7. Muscle spasms: baclofen 10mg PO TID. Please continue to monitor for muscle pain and anticholinergic side effects. 8. Nausea: ondansetron 4mg PO TID PRN nausea. Please continue to monitor for PRN usage and nausea. 9. Hypokalemia: potassium chloride 40mEq PO DAILYCM. Please continue to monitor potassium levels. *10. ID: Doxycycline 100mg PO BID. Please assess for infection resolution/ please consider adding stop date as clinically indicated, thank you 11. General Wellness: Acidophilus 1 tab PO BID. Please continue to monitor. Psychotropic Medications: 1. Anxiety: diazepam 5mg PO TID PRN anxiety. Please see physician note regarding GDR. 2. Depression: escitalopram 20mg PO daily. Please see physician note regarding GDR. 3. Insomnia: trazodone 300mg PO QHS. Dose increased this morning, would not try a GDR at this point. Please continue to monitor for excessive drowsiness. Unnecessary Medications: None Bowel Regimen: Miralax 17g PO Daily PRN constipation and loperamide 2mg PO Q6h PRN diarrhea. Please continue to monitor for S/S of constipation and PRN usage. Date of Note:: 06/25/21
[2021-06-25 10:00] VITALS: PULSE 69; RESP 16
[2021-06-25 16:06] VITALS: BP 130/54; PULSE 71; RESP 20; TEMP 36.4; O2SAT 96
[2021-06-25] MEDS: oxyCODONE 5 MG Tablet 10 MG PO (20:45)
[2021-06-25] MEDS: Pravastatin 40 MG Tablet PO (20:45)
[2021-06-25] MEDS: Primidone 50 MG Tablet PO (20:46)
[2021-06-25] MEDS: Primidone 250 MG Tablet PO (20:46)
[2021-06-25] MEDS: traZODone 100 MG Tablet 300 MG PO (22:01)
[2021-06-26 06:36] VITALS: BP 124/56; PULSE 60
[2021-06-26] MEDS: hydroCHLOROthiazide 12.5mg 12.5 MG PO (06:38)
[2021-06-26] MEDS: Doxycycline 100 MG CAPSULE PO ×2 (06:38→17:13)
[2021-06-26] MEDS: Acetaminophen 500 MG Tablet 1000 MG PO ×3 (06:39→20:16)
[2021-06-26] MEDS: Enoxaparin 40 MG/0.4 ML Syringe SC (06:39)
[2021-06-26] MEDS: Escitalopram Oxalate 20 MG Tablet PO (06:39)
[2021-06-26] MEDS: amLODIPine 5 MG Tablet PO (06:39)
[2021-06-26] MEDS: Baclofen 10 MG Tablet PO ×3 (06:39→20:17)
[2021-06-26] MEDS: Ondansetron ODT 4 MG Tablet PO (06:44)
[2021-06-26] MEDS: Nystatin Powder 15gm Bottle 1 APPLIC TOPICAL ×2 (06:48→20:19)
[2021-06-26] MEDS: Menthol/Lanolin/Calamine/Znox 113 GM Tube 1 APPLIC TOPICAL ×2 (06:48→17:13)
[2021-06-26] MEDS: Tamsulosin HCl 0.4 MG Capsule PO ×2 (08:48→17:14)
[2021-06-26] MEDS: Potassium Chloride Oral Tablet 10 MEQ 40 MEQ PO (08:55)
[2021-06-26 10:25] VITALS: PULSE 66; RESP 18; O2SAT 96
[2021-06-26] MEDS: diazePAM 5 MG Tablet PO (12:20)
--- NOTE | 2021-06-26 14:26 | NURSING ---
Resident and spouse, Mikey, updated on COVID status on the unit.
[2021-06-26] MEDS: oxyCODONE 5 MG Tablet 10 MG PO (15:16)
[2021-06-26 16:26] VITALS: BP 116/48; PULSE 62; RESP 19; TEMP 36.4; O2SAT 98
[2021-06-26] MEDS: Primidone 50 MG Tablet PO (20:17)
[2021-06-26] MEDS: Primidone 250 MG Tablet PO (20:17)
[2021-06-26] MEDS: Pravastatin 40 MG Tablet PO (20:18)
[2021-06-26] MEDS: traZODone 100 MG Tablet 300 MG PO (21:59)
[2021-06-27] MEDS: Enoxaparin 40 MG/0.4 ML Syringe SC (06:42)
[2021-06-27] MEDS: Baclofen 10 MG Tablet PO ×3 (06:43→21:16)
[2021-06-27] MEDS: hydroCHLOROthiazide 12.5mg 12.5 MG PO (06:43)
[2021-06-27] MEDS: Acetaminophen 500 MG Tablet 1000 MG PO ×3 (06:43→21:17)
[2021-06-27] MEDS: Escitalopram Oxalate 20 MG Tablet PO (06:43)
[2021-06-27] MEDS: amLODIPine 5 MG Tablet PO (06:43)
[2021-06-27] MEDS: Doxycycline 100 MG CAPSULE PO ×2 (06:43→18:32)
[2021-06-27] MEDS: Loperamide 2 MG Capsule PO ×2 (06:47→21:18)
[2021-06-27] MEDS: oxyCODONE 5 MG Tablet 10 MG PO (06:47)
[2021-06-27] MEDS: Ondansetron ODT 4 MG Tablet PO ×2 (06:48→21:18)
[2021-06-27] MEDS: Potassium Chloride Oral Tablet 10 MEQ 40 MEQ PO (08:53)
[2021-06-27] MEDS: Tamsulosin HCl 0.4 MG Capsule PO ×2 (08:53→18:32)
--- NOTE | 2021-06-27 08:55 | NURSING ---
PT COMPLAINING OF A LOT PAIN IN LEFT ANKLE AND LEFT WRIST. PT STATED THAT SHE HAD TO STAND TO LONG WHEN TRANSFERRING LAST NIGHT WITH AID AND FEELS SHE HURT HER SELF. PT ASKED ABOUT A X-RAY TO ANKLE. KAMERON AWARE
[2021-06-27] MEDS: Nystatin Powder 15gm Bottle 1 APPLIC TOPICAL ×2 (13:19→21:16)
--- NOTE | 2021-06-27 13:22 | NURSING ---
PT STATED SHE WAS STAYING IN BED TODAY TO REST HER ANKLE AND STATED IT SEEMS TO BE HELPING.
[2021-06-27 16:00] VITALS: BP 115/53; PULSE 71; RESP 18; TEMP 36.3; O2SAT 95
[2021-06-27] MEDS: Menthol/Lanolin/Calamine/Znox 113 GM Tube 1 APPLIC TOPICAL (21:16)
[2021-06-27] MEDS: traZODone 100 MG Tablet 300 MG PO (21:16)
[2021-06-27] MEDS: Pravastatin 40 MG Tablet PO (21:17)
[2021-06-27] MEDS: Primidone 50 MG Tablet PO (21:17)
[2021-06-27] MEDS: Primidone 250 MG Tablet PO (21:17)
[2021-06-28] MEDS: hydroCHLOROthiazide 12.5mg 12.5 MG PO (06:42)
[2021-06-28] MEDS: Doxycycline 100 MG CAPSULE PO (06:42)
[2021-06-28] MEDS: Enoxaparin 40 MG/0.4 ML Syringe SC (06:42)
[2021-06-28] MEDS: amLODIPine 5 MG Tablet PO (06:42)
[2021-06-28] MEDS: Baclofen 10 MG Tablet PO ×3 (06:42→21:43)
[2021-06-28] MEDS: Escitalopram Oxalate 20 MG Tablet PO (06:43)
[2021-06-28] MEDS: Acetaminophen 500 MG Tablet 1000 MG PO ×3 (06:43→21:44)
[2021-06-28] MEDS: Menthol/Lanolin/Calamine/Znox 113 GM Tube 1 APPLIC TOPICAL ×2 (06:44→17:26)
[2021-06-28] MEDS: Nystatin Powder 15gm Bottle 1 APPLIC TOPICAL ×2 (06:45→17:26)
[2021-06-28] MEDS: Potassium Chloride Oral Tablet 10 MEQ 40 MEQ PO (08:21)
[2021-06-28] MEDS: Tamsulosin HCl 0.4 MG Capsule PO ×2 (08:21→17:25)
[2021-06-28] MEDS: Ondansetron ODT 4 MG Tablet PO (08:24)
--- NOTE | 2021-06-28 10:10 | CASEMGMT ---
BIMS and PHQ9 interviews complete on this date for MDS. SANAZ Moody
[2021-06-28] MEDS: diazePAM 5 MG Tablet PO (10:59)
[2021-06-28 13:17] VITALS: BP 132/55; PULSE 93; RESP 16; TEMP 36.2; O2SAT 93
[2021-06-28] MEDS: Primidone 50 MG Tablet PO (21:44)
[2021-06-28] MEDS: Pravastatin 40 MG Tablet PO (21:44)
[2021-06-28] MEDS: Primidone 250 MG Tablet PO (21:44)
[2021-06-28] MEDS: Loperamide 2 MG Capsule PO (21:45)
[2021-06-28] MEDS: traZODone 100 MG Tablet 300 MG PO (21:46)
[2021-06-29 01:04] VITALS: PULSE 71; O2SAT 95
[2021-06-29 04:45] LABS: Absolute Lymphocyte Count 1.74 X10^3/uL (0.83-4.51); Absolute Neutrophil Count 1.9 X10^3/uL (2.0-7.7); Basophil# 0.04 X10^3/uL; Basophil% 0.9 % (0-1); Eosinophil# 0.18 X10^3/uL; Eosinophils% 4.1 % (0-5); Hematocrit 37.2 % (37-47); Hemoglobin 11.7 g/dL (12.0-15.0); Lymphocyte # 1.74 X10^3/ul (0.83-4.51); Lymphocyte % 39.3 % (19-41); Mean Corp Hgb Conc 31.5 g/dL (32-36); Mean Corpuscular Hgb 31.1 pg (27.0-32.0); Mean Corpuscular Volume 98.9 fL (81-99); Monocyte% 13.5 % (0-10); NRBC Flagged by Analyzer 0 % (0-5); Neutrophil # 1.86 X10^3/uL (2.7-7.7); Platelet Count 176 K/mm3 (150-450); RBC Distribution Width CV 14.3 % (11.6-14.6); RBC Distribution Width SD 52.4 fl (35.1-43.9); Red Blood Count 3.76 M/mm3 (4.2-5.4); White Blood Count 4.4 K/mm3 (4.4-11.0)
[2021-06-29 05:48] LABS: Anion Gap 3 (5-15); BUN 9 mg/dL (7-18); BUN/Creat Ratio 26.4 RATIO (10-20); Calcium,Total 7.9 mg/dL (8.5-10.1); Chloride 109 mmol/L (98-107); Creatinine, Serum 0.34 mg/dL (0.55-1.02); EST Glomerular Filtration Rate 199 mL/min (>60); Est Glom Filt Rate - Afr Amer 241 mL/min (>60); Estimated Creatinine Clearance 37.24 ml/min; Glucose 78 mg/dL (74-106); Potassium 4.1 mmol/L (3.5-5.1); Sodium Level 142 mmol/L (136-145)
[2021-06-29] MEDS: hydroCHLOROthiazide 12.5mg 12.5 MG PO (06:35)
[2021-06-29] MEDS: amLODIPine 5 MG Tablet PO (06:35)
[2021-06-29] MEDS: Loperamide 2 MG Capsule PO (06:35)
[2021-06-29] MEDS: Acetaminophen 500 MG Tablet 1000 MG PO (06:35)
[2021-06-29] MEDS: Enoxaparin 40 MG/0.4 ML Syringe SC (06:35)
[2021-06-29] MEDS: Escitalopram Oxalate 20 MG Tablet PO (06:35)
[2021-06-29] MEDS: Menthol/Lanolin/Calamine/Znox 113 GM Tube 1 APPLIC TOPICAL (06:36)
[2021-06-29] MEDS: Baclofen 10 MG Tablet PO (06:36)
[2021-06-29] MEDS: Nystatin Powder 15gm Bottle 1 APPLIC TOPICAL (06:36)
[2021-06-29] MEDS: Potassium Chloride Oral Tablet 10 MEQ 40 MEQ PO (07:50)
[2021-06-29] MEDS: Tamsulosin HCl 0.4 MG Capsule PO (07:50)
[2021-06-29 07:51] VITALS: BP 130/56; PULSE 63; RESP 16; TEMP 36.7; O2SAT 94
== END 2021-06-29 12:13 | disposition home health service (06) | DRG 561 ==
PROVIDERS: Admitting Provider Family Medicine Geriatric Medicine; PCP Family Medicine Geriatric Medicine; Visit Provider Family Medicine Geriatric Medicine
DX: S82.852D Displaced trimalleolar fracture of left lower leg, subsequent encounter for closed fracture with routine healing (principal); W19.XXXD Unspecified fall, subsequent encounter; I10 Essential (primary) hypertension; M79.7 Fibromyalgia; F41.9 Anxiety disorder, unspecified; R25.1 Tremor, unspecified; I27.20 Pulmonary hypertension, unspecified; E78.5 Hyperlipidemia, unspecified; B35.4 Tinea corporis; E87.6 Hypokalemia; R33.9 Retention of urine, unspecified; F32.9 Major depressive disorder, single episode, unspecified; G43.909 Migraine, unspecified, not intractable, without status migrainosus; Z87.891 Personal history of nicotine dependence; Z79.899 Other long term (current) drug therapy
CPT/HCPCS: 36415; 71046; 74018; 80048; 83036; 85025; 85610; 85730; 87635; 93005; 97110; 97116; 97163; 97166; 97530; 97535; 97537; 97802; U0005; J2405; U0003

== ENCOUNTER 2021-05-24 08:26 | Day surgery (SDC) | payer MEDICARE, OTHER, SELFPAY ==
[2021-05-24] MEDS: Lactated Ringers 1,000 ML 100 ML IV (08:15)
[2021-05-24 08:51] VITALS: BP 122/66; PULSE 71; RESP 16; TEMP 36.8; O2SAT 94; BMI 37.2
[2021-05-24] MEDS: Cefazolin 2 GM in 0.9% Normal Saline 100 ML IV (09:40)
--- NOTE | 2021-05-24 10:00 | RAD_ITS ---
STUDY: X-RAY - LEFT ANKLE REASON FOR EXAM: Intraoperative fluoroscopy for ORIF of left ankle fracture. TECHNIQUE: 12 intraoperative images of the ankle. COMPARISON: Radiographs 05/10/2021. FINDINGS: There is an intramedullary pin transfixing a fibular fracture and 2 orthopedic screws transfixing a medial malleolar fracture. 460 seconds of fluoroscopy time was used. Electronically Signed: Joseph Mendenhall MD at 15:00 EDT Tel , Service support , RAD/Ankle 2 Views
--- NOTE | 2021-05-24 12:59 | RAD_ITS ---
STUDY: X-RAY - LEFT ANKLE REASON FOR EXAM: Postoperative evaluation of ORIF of left ankle fracture. TECHNIQUE: 3 view(s) of the ankle. COMPARISON: None. FINDINGS: There is an intramedullary pin in the distal fibula transfixing the distal fibular fracture in anatomical alignment and position. There are 2 orthopedic screws in the medial malleolus transfixing the medial malleolar fracture in near anatomical alignment and position. There is a nondisplaced posterior malleolar fracture. There is slight widening of the ankle mortise at the medial aspect. Normal visualized talus and calcaneus. The visualized subtalar, talonavicular, calcaneocuboid and tarsal articulations are normal. There is soft tissue swelling and overlying skin sherrell. RAD/Ankle min 3 Views IMPRESSION: ORIF of trimalleolar fracture. Electronically Signed: Joseph Mendenhall MD at 14:54 EDT Tel , Service support ,
[2021-05-24 13:00] VITALS: BP 122/66; BP 133/76; PULSE 73; RESP 16; TEMP 36.4; O2SAT 93
--- NOTE | 2021-05-24 13:05 | DCINST_ITS ---
Discharge Instructions Diet Discharge Diet: Light diet - advance as tolerated Activity Discharge Activity: May Not Drive, May Not Shower, Use Walker and Use Crutches Weight Bearing Status: No weight bearing (to left leg) Lifting Restrictions: no lifting more than five pounds Keep extremity elevated above heart level: Left Leg Additional Activity Instructions:: 1. Keep dressing to left leg clean, dry, intact. Do not get dressing wet. If get dressing wet, call office for further instruction. I recommend sponge bathing at this time. 2. Ice around left knee 30 minutes every hour as needed for pain. 3. Elevate left foot above level of heart as often as possible until further instructed. 4. No walking/standing/placing any pressure or weight on left foot. Use crutche s/walker/knee scooter for assistance. 5. Begin taking doxycycline (antibiotic) tomorrow, May 25, 2021, one pill twice a day as instructed. 6. Resume lovenox 40mg subcutaneous injection daily starting tomorrow, May 25 2021. 7. Begin taking Percocet (pain medication) today, May 25, 2021 as needed and as instructed on bottle. 8. Follow-up with Dr. Arrington in 1 week as previously scheduled. Dressing / Incision Call your doctor if your incision/area has: Sudden Increased Bleeding and Increased Pain/ Swelling Call your doctor if you observe: Fever of 101 or Higher, Coldness, Increased Pain, Inability to have a bowel movement, Shortness of breath, Chest pain, Increased palpitations (irregular heartbeat), Calf discomfort and Uncontrolled pain Change Dressing in: do not change dressing Remove Dressing in: do not remove dressing Cleanse incision/area with: Do not get Incision Wet and Keep Dressing Clean & Dry Follow Up Care Please Follow Up With: yudelka arrington When: in one week at previously scheduled appointment Test Results: Test results from this visit will be discussed in further detail at your follow-up appointment, if applicable. Discharge Plan Admission Attending Provider: Yudelka Arrington Primary Care Provider: Ld Gan Chi Discharge Orders/Prescriptions Prescriptions: No Action pravastatin 40 mg tablet 40 mg PO DAILY RF: 0 trazodone 150 mg tablet 150 mg PO QHS RF: 0 escitalopram oxalate [Lexapro] 20 mg tablet 20 mg PO DAILY RF: 0 diazepam [Valium] 5 mg tablet 5 mg PO TID PRN (Reason: Anxiety) RF: 0 baclofen 10 mg tablet 10 mg PO TID RF: 0 loperamide [Imodium A-D] 2 mg tablet 4 mg PO DAILY RF: 0 primidone 50 mg tablet 250 mg PO QHS RF: 0 meclizine 25 mg tablet 25 mg PO TID PRN (Reason: Dizziness) RF: 0 ondansetron HCl 4 mg tablet 4 mg PO TID PRN (Reason: Nausea) RF: 0 kkmuifwyeq-uumowgzkfqwim-jyxe 50-325-40 mg Tablet 1 tab PO Q4H PRN PRN (Reason: headaches) Qty: 0 RF: 0 oxycodone 5 mg Tablet 5 mg PO Q4H PRN PRN (Reason: Pain Score 4-5) Qty: 0 RF: 0 carvedilol 12.5 mg tablet 12.5 mg PO BID RF: 0 amlodipine 5 mg tablet 5 mg PO DAILY RF: 0 tamsulosin 0.4 mg capsule 0.4 mg PO BID RF: 0 lisinopril 40 mg tablet 40 mg PO DAILY RF: 0 enoxaparin 40 mg/0.4 mL syringe 40 mg subcut DAILY RF: 0 hydrochlorothiazide 12.5 mg tablet 12.5 mg PO DAILY RF: 0 Disposition Discharge Orders: Discharge Patient (Routine); Ordered 05/24/21 Ordered By: Dr. Yudelka Arrington
--- NOTE | 2021-05-24 13:09 | PCM.OPRPT ---
Report of Operation Date of Procedure: 05/24/21 Pre-Operative Diagnosis: left ankle trimalleolar fracture Post-Operative Diagnosis: left ankle trimalleolar fracture Surgery/Procedure Performed:: open reduction with internal fixation left ankle trimalleolar fracture Description of Surgical Findings:: Consistent with diagnosis. Reduction of deformities achieved and held with internal fixation. Her bone was significantly soft and osteopenic. Furthermore, her tissues proved difficult to close due to their frailty. Surgeon: Kody Arrington nursing home manager: Teresa Foreman Type of Anesthesia: MAC/Supplemental and Spinal Anesthesiologist: Kei Rea Special Medications: 2 grams of ancef given preoperatively for antibiotic prophylaxis Specimen's removed: none Drains: none Estimated Blood Loss (mL): 50mL Description of Procedure: Hemostasis: Pneumatic thigh tourniquet placed at the level of the left thigh at 275 mmHg for 112 minutes Materials: 1. Arthrex 2.7 x 12 mm cortical screw. 2. Arthrex 2.7 x 16 mm cortical screw. 3. Arthrex 4.0 cannulated short thread screw 40 mm, 2 screws used total 4. Arthrex 3.0 x 130 mm fibula left fibular nail #5. Size 0 Vicryl. 6. Size 2-0 Vicryl. 7. Size 3-0 Vicryl. 8. Size 3-0 nylon. 9. Skin sherrell Injectables: None Complications: Difficulty closing the patient's surgical wounds due to the friability of her tissues. Furthermore, her bone was very osteopenic and was difficult to hold reduction. Condition: Stable Indications: TINA GARCIA, is a 76 F who presents today with a chief complaint of pain in her left ankle. After verbal questioning, patient states that she was in her usual state of health and was asleep at approximately 5 AM on the morning of May 10, 2021. She woke and proceeded to head to the restroom. Unfortunately, she did lose her balance and fell. She did not lose consciousness, and is able to recall the entire event. She does not believe that she tripped over anything and does not believe that she slipped. She believes that she lost her balance . Unfortunately, she did fall awkwardly on her left ankle. Patient felt immediate pain after the injury, and noticed a deformity of the left ankle. She attempted to get up, but was unable to place weight on her left foot. Due to this, the emergency squad was called and patient was transported to the [facility] for further evaluation. At that time, x-rays were taken, revealing a left ankle trimalleolar fracture. This was dislocated in nature. The patient was sedated, and closed reduction was performed. After verbal questioning of the patient and her , they stated that the patient would be unable to be at home and remaining nonweightbearing to the left foot. Due to this, patient was admitted for further evaluation and eventual placement into a rehabilitation facility. Patient states that her left ankle was pain free prior to this injury. She has no previous injury to this ankle prior to today. I was then consulted on the patient for further evaluation. Full discussion had with the patient about the patient's current clinical condition. Radiographs reviewed with the patient in detail. At that time, I discussed with her that she has what is called a displaced trimalleolar fracture of her left ankle. Furthermore, there is significant swelling of the left lower extremity. I discussed with her conservative therapy. Conservative therapy would include continue nonweightbearing in the left lower extremity with eventual placement in a below the knee cast. Eventual transition will be performed to a weightbearing boot and a brace. I discussed the usual treatment course for this. I discussed the risks and benefits of conservative therapy, including but not limited to delayed or nonhealing bone, continued pain, permanent dysfunction of limb. I discussed surgical intervention, which would include an open reduction with internal fixation of the left ankle trimalleolar fracture. I discussed the risks and benefits of surgery, including but not limited to delayed or nonhealing wounds, delayed or nonhealing bone, DVT, infection, decreased function of limb, continued pain, damage to surrounding structures, loss of limb, loss of life. Furthermore, due to the patient's complicated medical history, significant edema present, her age along with osteopenia present on the x-rays, she is at high risk of postoperative complications. All the patient's questions were answered to her satisfaction and all her concerns were addressed. No guarantees were made as to the outcome of the procedure. Due to the patient's active lifestyle and deformity that is present, I do believe that surgical intervention will help the patient return to her activity. Patient is agreeable to this, and states that she is active. She is afraid that if surgery is not performed, this will significantly decrease her quality of life. I am in agreement with this assessment. Due to the swelling that was present, surgery was delayed. Patient was then transferred to the transitional care unit in [facility]. Patient then subsequently saw me in the office, and a reduction of the swelling was noted. Due to this, surgical intervention was then planned for today, May 24, 2021. A CT scan of the left ankle was ordered for preoperative assessment. Operative report: Before the patient was brought to the operating room, the risks, benefits, possible outcomes, possible complications of the procedure were discussed with the patient and the patient's once again. All the patient's questions were answered to her satisfaction and all of her concerns were addressed. No guarantees were made to the outcome of the procedure. Patient understood all aspects of the procedure, and was agreeable to proceed with surgical intervention. The left lower extremity was appropriately marked and identified as the correct ankle. Patient was then brought to the operating room. At this time, spinal anesthesia was achieved by the anesthesia team. Next, 2 g of Ancef was given for antibiotic prophylaxis. At this time, IV sedation was achieved. Anesthesia to control the airway and the IV access. Next, well-padded pneumatic thigh tourniquet was placed the level of the left thigh. The left foot, ankle, leg were then scrubbed, prepped, draped in the usual sterile manner. Elevation of the left lower extremity was followed by exsanguination via Esmarch and inflation of the pneumatic thigh tourniquet to 275 mmHg. Attention was then directed to the lateral aspect of the left ankle. At this time, radiograph evaluation was used to determine the level of the fibular fracture. This was then marked on the patient. Next, attention was then directed to the medial aspect of the medial malleolus where the medial malleolus fracture was identified and marked. After reviewing the CT scan and the preoperative x-rays, it was determined that the posterior malleolus fracture was small, nondisplaced and would not need to be fixated. Attention was then directed back to the lateral malleolus. At this time, #15 blade was used to perform a linear longitudinal incision starting at the distal tip of the fibula fracture extending proximally to the proximal tip of the fibular fracture. The incision was approximately 3 cm in length. This incision was deepened utilizing sharp and blunt dissection. Care was taken retract all vital neural and vascular structures. All bleeders were cauterized and ligated as necessary. Next, a linear periosteal incision was made in line with the original skin incision. The periosteal and capsular structures were then reflected anteriorly and posteriorly, thus exposing the fibular fracture at the operative site. At this time, a curette was used to remove any fibrous tissue contained within the fracture site. The surgical site was irrigated copious amounts of normal sterile saline. Next, the fibular fracture was reduced and held with temporary fixation. Of note, the fibula was soft and the bone was osteopenic. Radiograph valuation was then performed. The fibula was noted to be reduced when compared to preoperative assessment. At this time, attention was then directed to the distal aspect of the lateral hindfoot. Next, a live radiograph evaluation was used to insert the K wire from the distal tip of the lateral malleolus through the midshaft of the fibula for the intramedullary fibular nail. Once adequate positioning was had of the K wire, a stab incision was made at the level of the K wire and skin junction. Next, the fibula was then drilled and reamed appropriately. At this time, the Arthrex 3.0 x 130 mm fibular nail for the left fibula was placed through the distal surgical hole into the fibula and into the medullary canal of the fibula. Multiple radiographic views were used to ensure that the nail was well contained within the medullary canal. Once adequate positioning of the nail was had, this was held in place via the 2.7 cortical screws. The screws were inserted in standard fashion. Attempts were made to engage the proximal aspect of the fibular nail into the cortical bone with the talons. It was noted that the talons were not engaging after multiple attempts. Due to the stability of the nail that was present, it was determined that the talons would not be needed at this time. All temporary fixation was then removed. Radiograph evaluation was then performed. The fibular nail was noted to hold the fibula in the corrected reduced position. The fibula nail was noted to be well contained within the fibula and not penetrating any of the cortices. The Arthrex jig was then removed in its entirety. At this time, live radiograph evaluation was used to assess the syndesmosis. The syndesmosis was deemed intact at this time. No fixation of the syndesmosis would be needed. The surgical sites were irrigated with copious amounts of irrisept and normal sterile saline. The periosteal and capsular structures of both of the lateral surgical sites were reapproximated and coapted utilizing size 0 Vicryl and 2-0 Vicryl. The subcutaneous tissues of the surgical sites were reapproximated and coapted utilizing size 2-0 Vicryl. The skin of the proximal surgical site was reapproximated and coapted utilizing skin sherrell. The skin at the distal surgical site was reapproximated and coapted utilizing size 3-0 nylon in a simple interrupted horizontal mattress fashion. Attention was then directed to the medial aspect of the medial malleolus. At this time, #15 blade was used to perform a curvilinear incision starting at the medial aspect of the medial malleolus extending distally to the distal tip of the medial malleolus. This incision was deepened utilizing sharp and blunt dissection. Care was taken retract all vital neural and vascular structures. All bleeders were cauterized and ligated as necessary. Next, a linear periosteal and ligamentous incision was made in line of the original skin incision. The periosteal and ligamentous structures were reflected anteriorly and posteriorly, thus exposing the medial malleolus fracture at the operative site. At this time, a curette was used to remove any fibrous tissue contained within the fracture site. The surgical site was irrigated copious amounts of normal sterile saline. At this time, multiple attempts were made to reduce the medial malleolus fracture. Due to her soft bone and osteopenia, this proved difficult. At this time, is determined that a hook plate might benefit her. The incision was then extended proximally approximately 1 cm. The hook plate was then used to reduce the medial malleolus fracture. This was then held via temporary fixation. Due to the prominence of the medial hook plate, it was determined that closure would prove difficult over this plate. The hook plate was used to help reduce the medial malleolus fracture back into a reduced position. Due to the prominence, it was determined that we would not use the medial malleolus of the plate and would just be used for reduction. K wires then in inserted from the distal tip of the medial malleolus into the midshaft of the tibia. Radiograph evaluation was used to confirm the positioning of these K wires. Once adequate positioning was had, these were then drilled, and the Arthrex size 4.5 x 40 mm cannulated screws x 2 were placed from distal to proximal over the K wires to hold the medial malleolus fracture in the reduced position. Of note during insertion of the screws was adequate compression of the screws and fracture fragment. No shifting of the fracture occurred during insertion of the screws. Once the screws were fully inserted, all temporary fixation was then removed. Radiograph valuation was then performed. The medial malleolus was noted to be reduced when compared to preoperative assessment. The fibula was noted to be reduced when compared to preoperative assessment. The talus was noted to be shifted back into the medial more corrected position. The posterior malleolus fracture was noted to be small and was noted to be less than 25% of the articulating surface. Due to this and his nondisplaced nature, no fixation would be needed. The pneumatic thigh tourniquet was then released and a prompt hyperemic response was noted to the entirety left lower extremity. Bleeders were cauterized and ligated as necessary. The medial surgical site was irrigated with copious amounts of irrisept and normal sterile saline. The ligamentous structures were reapproximated and coapted using size 0 Vicryl. The subcutaneous tissues were reapproximated and coapted using size 2-0 Vicryl and 3-0 Vicryl. The skin was reapproximated coapted using size skin sherrell. Neurovascular status was assessed at the end of the procedure and deemed intact the left lower extremity. Each surgical site was then dressed with Betadine soaked gauze, and a dry sterile dressing setting of 4 x 4 gauze, ABD pads, wrapped with Kerlix. The left foot and ankle were then wrapped in Avinash bandage. Next, a stockinette was placed over the left lower extremity. Cast padding was wrapped from the metatarsal heads extending proximally to a level just distal to the tibial tuberosity. A posterior splint was fashioned to the left lower extremity and was adhered to the left lower extremity utilizing Avinash bandages. Care was taken make sure that the foot and ankle held in neutral position as the posterior splint dried. Neurovascular status was assessed at the end the application of the dressing and deemed intact the left lower extremity. The patient tolerated the anesthesia and procedure well and was transported to the PACU with vital signs stable and neurovascular status intact to left lower extremity. After period of postoperative monitoring, patient cale be discharged back to the transitional care unit with postoperative instructions. The medical receptionist medical assistant, the physician human resources office assistant, was utilized throughout the entire procedure. She helped with patient positioning, holding of limb, holding of retractors. She helped with exposure throughout. She helped with bandage application, and cast application. Without the medical receptionist medical assistant, surgical time would have been increased and surgical outcome could have been less optimal.
[2021-05-24 13:15] VITALS: BP 122/66; BP 134/76; PULSE 75; RESP 16; O2SAT 92
[2021-05-24 13:30] VITALS: BP 122/66; BP 124/73; PULSE 75; RESP 16; O2SAT 92
[2021-05-24 13:44] VITALS: BP 122/66; BP 125/67; PULSE 73; RESP 16; TEMP 36.4; O2SAT 95
[2021-05-24 14:48] VITALS: BP 108/70; BP 122/66; PULSE 76; RESP 16; TEMP 36.4; O2SAT 94
== END 2021-05-24 14:49 | disposition home or self-care (01) ==
LOC: SDC 08:28 → AC 08:28
PROVIDERS: PCP Family Medicine Geriatric Medicine; Referring Provider Podiatrist Foot & Ankle Surgery; Visit Provider Podiatrist Foot & Ankle Surgery
PROC: (CPT 27822; principal; 2021-05-24 09:10)
DX: S82.852A Displaced trimalleolar fracture of left lower leg, initial encounter for closed fracture (principal); W01.0XXA Fall on same level from slipping, tripping and stumbling without subsequent striking against object, initial encounter; M85.80 Other specified disorders of bone density and structure, unspecified site; M79.7 Fibromyalgia; E66.9 Obesity, unspecified; Z68.37 Body mass index [BMI] 37.0-37.9, adult; Z87.891 Personal history of nicotine dependence
CPT/HCPCS: 01480; 27822; 64450; 73600; 73610; 76000; C1713

== ENCOUNTER → 2021-07-13 12:41 | Outpatient (CLI) | payer MEDICARE, OTHER, SELFPAY ==
--- NOTE | 2021-07-13 13:09 | VDLE_ITS ---
Reason For Study: Edema RIGHT GSV is normal. CFV is compressible, spontaneous, phasic, competent and demonstrates normal augmentation. FV is compressible, spontaneous, phasic, competent and demonstrates normal augmentation. POP V is compressible, spontaneous, phasic, competent and demonstrates normal augmentation. T/P Trunk is compressible. PTV is compressible. RT PerV is compressible. Procedure This is a venous duplex using B-mode, color flow and spectral Doppler. Exam performed in department. The study was technically difficult. A preliminary report was called and/or faxed to Dr. Gan. VL/Venous Duplex US, Unilateral Interpretation Summary Deep veins of the right lower extremity are patent and compressible segmentally . There is no evidence of right lower extremity deep vein thrombosis. Valvular competence faraz ears intact within the proximal deep venous system on the right . The right great saphenous vein a ppears patent and compressible segmentally. Ordering Physician: Ld Gan Chi Referring Physician: Ld Gan Chi Performed By: Kierra Faust, NICACS, RVT
[2021-07-13 13:28] LABS: Anion Gap 5 (5-15); BUN 6 mg/dL (7-18); BUN/Creat Ratio 11.8 RATIO (10-20); Calcium,Total 8.4 mg/dL (8.5-10.1); Chloride 107 mmol/L (98-107); Creatinine, Serum 0.51 mg/dL (0.55-1.02); EST Glomerular Filtration Rate 126 mL/min (>60); Est Glom Filt Rate - Afr Amer 152 mL/min (>60); Glucose 90 mg/dL (74-106); Potassium 3.4 mmol/L (3.5-5.1); Sodium Level 141 mmol/L (136-145)
--- NOTE | 2021-07-13 14:48 | EKG12_ITS ---
Test Reason : CHEST PAIN Blood Pressure : / mmHG Vent. Rate : 056 BPM Atrial Rate : 056 BPM P-R Int : 154 ms QRS Dur : 074 ms QT Int : 414 ms P-R-T Axes : 056 -22 047 degrees QTc Int : 399 ms Sinus bradycardia Nonspecific ST and T wave abnormality Abnormal ECG Confirmed by EARN WYMAN, JORDAN ([id number]), supervising editor trailer AMPARO OWEN ([id number]) on 07/16/2021 10:03:01 AM Referred By: TERRI Confirmed By:JORDAN BARILLAS MD
== END ==
PROVIDERS: PCP Family Medicine Geriatric Medicine; Visit Provider Family Medicine Geriatric Medicine
DX: R60.0 Localized edema (principal); E87.6 Hypokalemia
CPT/HCPCS: 36415; 80048; 93005; 93971

== ENCOUNTER 2021-07-15 15:45 | Inpatient (IN) | payer MEDICARE, OTHER, SELFPAY ==
[2021-07-15 16:21] VITALS: BP 131/97; PULSE 57; RESP 18; TEMP 36.4; O2SAT 92; BMI 39.0
--- NOTE | 2021-07-15 18:09 | HP.PCM_ITS ---
HPI - General General Date of Admission: 07/15/21 HPI Narrative 05/10/2021 TINA GARCIA, is a 76 Female who presents to [facility] Emergency Department with left ankle pain. Walking at home, twisted left ankle, fell down. X-ray shows left ankle fracture. Morphine IV, Zofran IV given. unable to care for her at home. 05/10/2021 Admit to Hospital. Non-Weight bearing left lower extremity, tongue cast, IV pain medications for left bimalleolar fracture. 05/10/2021 Dr. Constantin Arrington recommended left ankle surgery in 2 weeks when swelling improved. 05/11/2021 Admit to TCU with debility, here for rehabilitation, strengthening, pending left ankle surgery, then discharge home with . 05/24/2021 Dr. Kody Arrington performed left ORIF ankle fracture. 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 07/13/2021 Patient seen by PCP(myself), unable to care for her at home due to non weight bearing left lower extremity status. 07/15/2021 Admit to TCU with debility, here for rehabilitation, strengthening, prior to discharge home with . Of note, Dr. Kody Arrington no longer in practice in [place]. [facility] Medical History (Updated 07/15/21 @ 18:[address] Ld Gan MD) Ambulates with cane Anxiety Back pain Closed trimalleolar fracture of left ankle Diastolic dysfunction Essential and other specified forms of tremor Essential hypertension Essential tremor Fibromyalgia Former smoker High cholesterol History of chronic diarrhea History of echocardiogram History of GI bleed History of revision of total replacement of right knee joint (~2014) History of stress test Lactose intolerance Osteoporosis Pulmonary hypertension Shortness of breath on exertion Uses wheelchair Walker as ambulation aid Wears glasses Home Medications pravastatin 40 mg tablet 40 mg PO DAILY 02/09/19 [History Last Taken 05/09/21] escitalopram oxalate 20 mg tablet 20 mg PO DAILY tab 07/20/19 [History Last Taken 05/09/21] baclofen 10 mg tablet 10 mg PO TID tab 07/28/19 [History Last Taken 05/09/21] diazepam 5 mg tablet 5 mg PO TID PRN tab 07/28/19 [History Last Taken Unknown] loperamide 2 mg tablet 4 mg PO DAILY tab 07/28/19 [History Last Taken 05/09/21] ondansetron HCl 4 mg tablet 4 mg PO TID PRN 07/28/19 [History Last Taken 05/09/21] amlodipine 5 mg PO DAILY 05/11/21 [History Last Taken Unknown] hydrochlorothiazide 12.5 mg PO DAILY 05/11/21 [History Last Taken Unknown] tamsulosin 0.4 mg PO BID 05/11/21 [History Last Taken Unknown] acetaminophen 1,000 mg PO Q8 07/15/21 [History Last Taken Unknown] acidophilus-pectin, citrus 1 tab PO BID 07/15/21 [History Last Taken Unknown] menthol-zinc oxide [Calmoseptine] 1 applic TOPICAL BID 07/15/21 [History Last Taken Unknown] nystatin [Nyamyc] 1 applic TOPICAL BID 07/15/21 [History Last Taken Unknown] potassium chloride 40 meq PO DAILYCM 07/15/21 [History Last Taken Unknown] primidone 50 mg PO QHS 07/15/21 [History Last Taken Unknown] primidone 250 mg PO QHS 07/15/21 [History Last Taken Unknown] trazodone 300 mg PO QHS 07/15/21 [History Last Taken Unknown] Allergy/AdvReac Type Severity Reaction Status Date / Time No Known Allergies Allergy Verified 05/10/21 05:22 Family History Mother Dementia Father Colon cancer age 70, unclear specific onset date. Surgical History History of cholecystectomy History of open reduction and internal fixation (ORIF) procedure History of tonsillectomy History of total right knee replacement (~2010) Social History household members: spouse Smoking Status: Former smoker how long ago did patient quit smoking: Quit 15 years ago, 1/2 ppd starting in high school. alcohol intake: never substance use type: does not use caffeine: No ROS Constitutional Constitutional: Denies chills, fever(s) or weight gain ENT HEENT: Denies headache(s), nasal congestion or nasal discharge Cardiovascular Cardiovascular: Denies chest pain or palpitations Respiratory/Chest Respiratory/Chest: Denies cough, excessive phlegm production or shortness of breath with exertion Gastrointestinal Gastrointestinal: Denies abdominal pain, nausea or vomiting Genitourinary Genitourinary: Denies dysuria Musculoskeletal Musculoskeletal: Denies joint pain or joint swelling Integumentary Integumentary: Denies rash or wounds Neurologic Neurologic: Denies focal weakness, numbness or tingling Psychiatric Psychiatric: Reports auditory hallucinations; Denies anxiety, depression, homicidal ideation or suicidal ideation Vital Signs Vital Signs Vital Signs: 07/15/21 16:21 Temperature 97.5 F L Temperature Source Temporal Pulse Rate 57 L Pulse Rhythm Regular Pulse Strength Normal (2+) Respiratory Rate 18 Respiratory Effort Normal Non-Labored Respiratory Depth Normal Respiratory Pattern Normal Blood Pressure 131/97 H Blood Pressure Mean 108 Blood Pressure Source Monitor Blood Pressure Position Sitting Blood Pressure Location Right Arm Pulse Ox 92 Oxygen Delivery Method Room Air Weight Weight: 93.712 kg Body Mass Index (BMI) 39.0 Physical Exam Const alert and oriented x3 General Appearance: cooperative HEENT normocephalic Eyes PERRL and EOMs intact bilaterally Neck supple, no JVD and no carotid bruits Resp normal respiratory effort, normal air movement and clear to auscultation bilaterally Cardio regular rate and regular rhythm GI normal to inspection, nondistended, normoactive bowel sounds, non-tender and non-distended Extremity normal capillary refill Extremity Narrative: Left lower extremity Splint. General Extremity: Negative for edema Skin no rashes or lesions noted General Skin Exam: no breakdown Psych affect normal Appearance: appropriate Results Lab / Micro Data Result Diagrams: 07/16/21 05:14 07/16/21 05:14 Micro: Microbiology 07/15/21 16:57 Nasal Secretion SARS-CoV-2 Antigen (Rapid) - Final Assessment & Plan Assessment/Plan (1) Debility: (2) Closed trimalleolar fracture of left ankle: QUALIFIERS: Encounter type: initial encounter Qualified Code(s): S82.852A - Displaced trimalleolar fracture of left lower leg, initial encounter for closed fracture (3) Diastolic dysfunction: (4) Pulmonary hypertension: (5) Anxiety: (6) Hypertension: (7) Fibromyalgia: (8) Hyperlipidemia: (9) Depression: (10) Migraine: (11) Tremor: (12) Insomnia: (13) Muscle spasm: (14) Essential hypertension: PLAN: 76 year old female with below past medical history significant for left ankle fracture, underwent ORIF left ankle 05/24/2021, discharged home from [facility] 06/29/2021, failed home discharge, admit to TCU with debility, here for rehabilitation, strengthening, prior to discharge home with . * Debility - PT/OT. * Pain - Tylenol 1000mg Q8H. * Bowel - Loperamide 4mg daily. * Adult immunization - Administer prevnar 13, pneumovax 23, fluzone, covid19 va ccine as appropriate. * DVT prophylaxis - Lovenox 40mg sc daily. * Hypertension - HCTZ 12.5mg daily, Amlodipine 5mg daily. * Muscle spasm - Baclofen 10mg TID. * Anxiety - Diazepam 5mg Q8H PRN, stable chronic supervisor intermediates use, GDR not recommended. * Depression - Lexapro 20mg daily, stable chronic nursing home use, GDR not recommended. * GI prophylaxis - Lactobacillus 1 tablet twice daily. * Skin irritation - Calmoseptine topical twice daily. * Tinea Corporis - Nystatin power topical twice daily. * Chronic nausea - Zofran odt 4mg tid prn. * Hypokalemia - KCL 20meq tid. * Hyperlipidemia - Pravastatin 40mg QHS. * Tremor - Primidone 300mg QHS. * Urinary retention - Tamsulosin 0.4mg daily. * Insomnia - Trazodone 300mg QHS. * Edema - Furosemide 40mg daily x 7 days.
[2021-07-15] MEDS: Tamsulosin HCl 0.4 MG Capsule PO (19:58)
[2021-07-15] MEDS: Nystatin Powder 15gm Bottle 1 APPLIC TOPICAL (20:05)
[2021-07-15] MEDS: Menthol/Lanolin/Calamine/Znox 113 GM Tube 1 APPLIC TOPICAL (20:06)
[2021-07-15] MEDS: Pravastatin 40 MG Tablet PO (21:44)
[2021-07-15] MEDS: traZODone 100 MG Tablet 300 MG PO (21:44)
[2021-07-15] MEDS: Baclofen 10 MG Tablet PO (21:44)
[2021-07-15] MEDS: Primidone 50 MG Tablet PO (21:44)
[2021-07-15] MEDS: Primidone 250 MG Tablet PO (21:44)
[2021-07-15] MEDS: Acetaminophen 500 MG Tablet 1000 MG PO (21:44)
[2021-07-16 05:35] LABS: Absolute Lymphocyte Count 1.76 X10^3/uL (0.83-4.51); Absolute Neutrophil Count 2.7 X10^3/uL (2.0-7.7); Basophil# 0.05 X10^3/uL; Basophil% 0.9 % (0-1); Eosinophil# 0.22 X10^3/uL; Eosinophils% 4.1 % (0-5); Hematocrit 34.7 % (37-47); Hemoglobin 11.2 g/dL (12.0-15.0); Lymphocyte # 1.76 X10^3/ul (0.83-4.51); Lymphocyte % 32.8 % (19-41); Mean Corp Hgb Conc 32.3 g/dL (32-36); Mean Corpuscular Hgb 31.2 pg (27.0-32.0); Mean Corpuscular Volume 96.7 fL (81-99); Mean Platelet Vol. 10.3 fl (6.2-12.0); Monocyte# 0.58 X10^3/uL; Monocyte% 10.8 % (0-10); NRBC Flagged by Analyzer 0 % (0-5); Neutrophil # 2.73 X10^3/uL (2.7-7.7); Neutrophil % 50.8 % (47-70); Platelet Count 194 K/mm3 (150-450); Red Blood Count 3.59 M/mm3 (4.2-5.4); White Blood Count 5.4 K/mm3 (4.4-11.0)
[2021-07-16 05:58] LABS: Anion Gap 4 (5-15); BUN 5 mg/dL (7-18); BUN/Creat Ratio 11.7 RATIO (10-20); Chloride 110 mmol/L (98-107); Creatinine, Serum 0.43 mg/dL (0.55-1.02); EST Glomerular Filtration Rate 154 mL/min (>60); Est Glom Filt Rate - Afr Amer 186 mL/min (>60); Estimated Creatinine Clearance 37.24 ml/min; Glucose 86 mg/dL (74-106); Potassium 3.3 mmol/L (3.5-5.1); Sodium Level 141 mmol/L (136-145)
[2021-07-16] MEDS: Baclofen 10 MG Tablet PO ×3 (07:18→22:13)
[2021-07-16] MEDS: Loperamide 2 MG Capsule 4 MG PO (07:18)
[2021-07-16] MEDS: Escitalopram Oxalate 20 MG Tablet PO (07:19)
[2021-07-16] MEDS: Acetaminophen 500 MG Tablet 1000 MG PO ×3 (07:19→22:12)
[2021-07-16] MEDS: hydroCHLOROthiazide 12.5mg 12.5 MG PO (07:19)
[2021-07-16] MEDS: amLODIPine 5 MG Tablet PO (07:19)
[2021-07-16] MEDS: Tamsulosin HCl 0.4 MG Capsule PO ×2 (07:21→17:17)
[2021-07-16] MEDS: Enoxaparin 40 MG/0.4 ML Syringe SC (07:21)
[2021-07-16] MEDS: Nystatin Powder 15gm Bottle 1 APPLIC TOPICAL ×2 (07:24→22:14)
[2021-07-16] MEDS: Menthol/Lanolin/Calamine/Znox 113 GM Tube 1 APPLIC TOPICAL ×2 (07:24→17:19)
[2021-07-16] MEDS: Furosemide 40 MG Tablet PO (08:48)
[2021-07-16 09:00] VITALS: PULSE 76; RESP 18; O2SAT 94
[2021-07-16] MEDS: Potassium Chloride Oral Tablet 20 MEQ PO ×2 (11:12→17:17)
[2021-07-16] MEDS: Tuberculin,Purif.prot.deriv. 50 TU/ML Vial 0.1 ML ID (11:12)
[2021-07-16 16:41] VITALS: BP 127/68; PULSE 66; RESP 18; TEMP 36.8; O2SAT 95
--- NOTE | 2021-07-16 17:49 | CASEMGMT ---
Social Work Met with patient for initial assessment. Discussed code status with pt. Pt confirmed DNR-CCA, no intubation. MOLST form correct in chart. Explained Medicare benefit - pt admitted on day 52/100. Explained pt wants to be cautious on using [facility] days because she will need rehab once receives WBS. Pt agrees and states she just wants to get a little stronger to be more helpful to . Pt has f/u appt with ortho in 3 weeks and hopeful to get TTWBS. Pt aware that may till require pt not putting any weight on LE. Encouraged pt to tell this worker when she wants to DC to save days. Pt agrees. pt aware after 100 days are exhausted and does not have break in services, SNF stay will be private pay. SW to continue to follow. AZIZA Osborne TOOL TECHNICIAN
[2021-07-16] MEDS: Pravastatin 40 MG Tablet PO (22:13)
[2021-07-16] MEDS: Primidone 50 MG Tablet PO (22:13)
[2021-07-16] MEDS: Primidone 250 MG Tablet PO (22:13)
[2021-07-16] MEDS: traZODone 100 MG Tablet 300 MG PO (22:13)
[2021-07-17 06:03] LABS: Anion Gap 3 (5-15); BUN 3 mg/dL (7-18); BUN/Creat Ratio 8.1 RATIO (10-20); Calcium,Total 8.2 mg/dL (8.5-10.1); Chloride 109 mmol/L (98-107); Creatinine, Serum 0.37 mg/dL (0.55-1.02); EST Glomerular Filtration Rate 181 mL/min (>60); Est Glom Filt Rate - Afr Amer 219 mL/min (>60); Estimated Creatinine Clearance 37.24 ml/min; Glucose 83 mg/dL (74-106); Potassium 3.3 mmol/L (3.5-5.1); Sodium Level 141 mmol/L (136-145)
[2021-07-17] MEDS: Acetaminophen 500 MG Tablet 1000 MG PO ×3 (06:26→20:01)
[2021-07-17] MEDS: Furosemide 40 MG Tablet PO (06:26)
[2021-07-17] MEDS: Escitalopram Oxalate 20 MG Tablet PO (06:26)
[2021-07-17] MEDS: amLODIPine 5 MG Tablet PO (06:26)
[2021-07-17] MEDS: Tamsulosin HCl 0.4 MG Capsule PO ×2 (06:26→17:44)
[2021-07-17] MEDS: Loperamide 2 MG Capsule 4 MG PO (06:27)
[2021-07-17] MEDS: Baclofen 10 MG Tablet PO ×3 (06:27→20:02)
[2021-07-17] MEDS: hydroCHLOROthiazide 12.5mg 12.5 MG PO (06:27)
[2021-07-17] MEDS: Menthol/Lanolin/Calamine/Znox 113 GM Tube 1 APPLIC TOPICAL ×2 (06:30→17:46)
[2021-07-17] MEDS: Enoxaparin 40 MG/0.4 ML Syringe SC (06:30)
[2021-07-17] MEDS: Nystatin Powder 15gm Bottle 1 APPLIC TOPICAL ×2 (06:31→17:46)
[2021-07-17] MEDS: Potassium Chloride Oral Tablet 20 MEQ PO ×3 (08:06→17:45)
[2021-07-17 14:43] VITALS: BP 137/44; PULSE 72; RESP 16; TEMP 37.2; O2SAT 95
--- NOTE | 2021-07-17 14:50 | PCM.PN.RX ---
Progress Note - Pharmacy Subjective: TCU Admission Objective: Allergies No Known Allergies Allergy (Verified 05/10/21 05:22) Current Medications Generic Name Dose Route Start Last Admin Trade Name Genesis PRN Reason Stop Dose Admin Acetaminophen 1,000 mg 07/15/21 22:00 07/17/21 13:59 Acetaminophen 500 Mg Tablet PO 1,000 mg Q8 DILCIA Administration Amlodipine Besylate 5 mg 07/16/21 06:00 07/17/21 06:26 Amlodipine 5 Mg Tablet PO 5 mg DAILY DILCIA Administration Baclofen 10 mg 07/15/21 22:00 07/17/21 13:59 Baclofen 10 Mg Tablet PO 10 mg TID DILCIA Administration Calamine/Phenol 1 applic 07/15/21 18:00 07/17/21 06:30 Menthol/Lanolin/Calamine/Znox 113 Gm Tube TOPICAL 1 applic BID DILCIA Administration Protocol Diazepam 5 mg 07/15/21 16:30 Diazepam 5 Mg Tablet PO Q8H PRN PRN ANXIETY Enoxaparin Sodium 40 mg 07/16/21 06:00 07/17/21 06:30 Enoxaparin 40 Mg/0.4 Ml Syringe SC 40 mg 0600 DILCIA Administration Escitalopram Oxalate 20 mg 07/16/21 06:00 07/17/21 06:26 Escitalopram Oxalate 20 Mg Tablet PO 20 mg DAILY DILCIA Administration Furosemide 40 mg 07/17/21 06:00 07/17/21 06:26 Furosemide 40 Mg Tablet PO 07/24/21 06:01 40 mg DAILY DILCIA Administration Hydrochlorothiazide 12.5 mg 07/16/21 06:00 07/17/21 06:27 Hydrochlorothiazide 12.5mg PO 12.5 mg DAILY DILCIA Administration Lactobacillus Acidophilus 1 tablet 07/15/21 18:00 07/17/21 06:26 Lactobacillus Acidophilus PO 1 tablet BID DILCIA Administration Loperamide HCl 4 mg 07/16/21 06:00 07/17/21 06:27 Loperamide 2 Mg Capsule PO 4 mg DAILY DILCIA Administration Nystatin 1 applic 07/15/21 18:00 07/17/21 06:31 Nystatin Powder 15gm Bottle TOPICAL 1 applic BID DILCIA Administration Protocol Ondansetron HCl 4 mg 07/15/21 16:30 Ondansetron Odt 4 Mg Tablet PO TID PRN Nausea Oxycodone HCl 5 mg 09/21/21 07:58 Oxycodone 5 Mg Tablet PO Q4H PRN PRN Pain Score 6-10 Potassium Chloride 20 meq 07/16/21 12:45 07/17/21 13:59 Potassium Chloride Oral Tablet 20 Meq PO 20 meq TIDCM DILCIA Administration Pravastatin Sodium 40 mg 07/15/21 22:00 07/16/21 22:13 Pravastatin 40 Mg Tablet PO 40 mg QHS DILCIA Administration Primidone 50 mg 07/15/21 22:00 07/16/21 22:13 Primidone 50 Mg Tablet PO 50 mg QHS DILCIA Administration Primidone 250 mg 07/15/21 22:00 07/16/21 22:13 Primidone 250 Mg Tablet PO 250 mg QHS DILCIA Administration Tamsulosin HCl 0.4 mg 07/15/21 18:00 07/17/21 06:26 Tamsulosin Hcl 0.4 Mg Capsule PO 0.4 mg BID DILCIA Administration Trazodone HCl 300 mg 07/15/21 22:00 07/16/21 22:13 Trazodone 100 Mg Tablet PO 300 mg QHS DILCIA Administration Tuberculin PPD 0.1 ml 07/23/21 10:00 Tuberculin,Purif.Prot.Deriv. 50 Tu/Ml Vial ID 07/23/21 10:01 X1 ONE Problem List (Last Updated 07/15/21 @ 18:[address] Ld Gan MD) Closed trimalleolar fracture of left ankle (Acute) Diastolic dysfunction (Acute) Pulmonary hypertension (Acute) Debility (Acute) Anxiety (Acute) Hypertension (Chronic) Fibromyalgia (Acute) Hyperlipidemia (Acute) Depression (Acute) Migraine (Acute) Tremor (Acute) Insomnia (Acute) Muscle spasm (Acute) Essential hypertension (Chronic) Vital Signs Temp Pulse Resp BP Pulse Ox 99.0 F 72 16 137/44 H 95 07/17/21 14:43 07/17/21 14:43 07/17/21 14:43 07/17/21 14:43 07/17/21 14:43 Oxygen Delivery Method Room Air Weight: 91.6 kg Body Mass Index (BMI) 39.0 Sodium 141 mmol/L (136-145) 07/17/21 05:17 Potassium 3.3 mmol/L (3.5-5.1) L 07/17/21 05:17 Chloride 109 mmol/L (98-107) H 07/17/21 05:17 Carbon Dioxide 29.0 mmol/L (21.0-32.0) 07/17/21 05:17 Anion Gap 3 (5-15) L 07/17/21 05:17 BUN 3 mg/dL (7-18) L 07/17/21 05:17 Creatinine 0.37 mg/dL (0.55-1.02) L 07/17/21 05:17 Est GFR (MDRD) Af Amer 219 mL/min (>60) 07/17/21 05:17 Est GFR (MDRD) Non-Af 181 mL/min (>60) 07/17/21 05:17 BUN/Creatinine Ratio 8.1 RATIO (10-20) L 07/17/21 05:17 Glucose 83 mg/dL (74-106) 07/17/21 05:17 Assessment/Plan: 1. Pain: acetaminophen 1000mg PO Q8H and oxycodone 5mg PO Q6H PRN pain 6-10. Please continue to monitor for increased pain and PRN usage. 2. DVT prophylaxis: enoxaparin 40mg SC daily. Please continue to monitor for S/S of bleeding, hemoglobin (last 11.2g/dL), platelets (last 194,000) and renal function. 3. Hypertension/edema: hydrochlorothiazide 12.5mg PO daily, amlodipine 5mg PO daily and furosemide 40mg PO daily thru 07/24/21. Please continue to monitor potassium (last 3.3mmol/L), sodium (last 141 mmol/L), renal function, BP (last 137/44) and swelling. 4. Hypokalemia: potassium chloride 20mEq PO TIDCM. Please continue to monitor potassium levels. *5. Hyperlipidemia: pravastatin 40mg PO QHS. Please consider ordering a lipid panel (patient does not have one in the chart). Thanks. Please continue to monitor for muscle pain. 6. Tremor: primidone 300mg PO QHS. Please continue to monitor for tremor, agitation and dizziness. 7. Muscle spasms: baclofen 10mg PO TID. Please continue to monitor for muscle spasms and drowsiness. 8. Urinary retention: tamsulosin 0.4mg PO BID. Please continue to monitor for hypotension and urinary retention. 9. Chronic nausea: ondansetron ODT 4mg PO TID PRN nausea. Please continue to monitor for nausea and PRN usage. 10. GI prophylaxis: lactobacillus 1T PO BID. Please continue to monitor. Psychotropic Medications: 1. Anxiety: diazepam 5mg PO Q8H PRN anxiety. Please see physician note regarding GDR. 2. Depression: escitalopram 20mg PO daily. Please see physician note regarding GDR. *3. Insomnia: trazodone 300mg PO QHS. Please consider GDR by 12/2021 if clinically appropriate. Thanks. Unnecessary Medications: None Bowel Regimen: loperamide 4mg PO daily. Please continue to monitor for diarrhea and constipation. Date of Note:: 07/17/21
[2021-07-17] MEDS: Pravastatin 40 MG Tablet PO (20:02)
[2021-07-17] MEDS: Primidone 50 MG Tablet PO (20:02)
[2021-07-17] MEDS: Primidone 250 MG Tablet PO (20:02)
[2021-07-17 22:00] VITALS: PULSE 80; O2SAT 96
[2021-07-17] MEDS: traZODone 100 MG Tablet 300 MG PO (22:37)
[2021-07-18] MEDS: amLODIPine 5 MG Tablet PO (06:52)
[2021-07-18] MEDS: Baclofen 10 MG Tablet PO ×3 (06:52→20:24)
[2021-07-18] MEDS: Tamsulosin HCl 0.4 MG Capsule PO ×2 (06:52→17:38)
[2021-07-18] MEDS: Furosemide 40 MG Tablet PO (06:52)
[2021-07-18] MEDS: hydroCHLOROthiazide 12.5mg 12.5 MG PO (06:52)
[2021-07-18] MEDS: Enoxaparin 40 MG/0.4 ML Syringe SC (06:52)
[2021-07-18] MEDS: Escitalopram Oxalate 20 MG Tablet PO (06:52)
[2021-07-18] MEDS: Acetaminophen 500 MG Tablet 1000 MG PO ×3 (06:53→20:22)
[2021-07-18] MEDS: Loperamide 2 MG Capsule 4 MG PO (06:54)
[2021-07-18] MEDS: Menthol/Lanolin/Calamine/Znox 113 GM Tube 1 APPLIC TOPICAL ×2 (07:00→17:39)
[2021-07-18] MEDS: Nystatin Powder 15gm Bottle 1 APPLIC TOPICAL ×2 (07:01→17:40)
[2021-07-18] MEDS: Potassium Chloride Oral Tablet 10 MEQ 20 MEQ PO ×3 (08:49→17:38)
[2021-07-18 15:35] VITALS: BP 140/79; PULSE 78; RESP 18; TEMP 36.1; O2SAT 95
--- NOTE | 2021-07-18 15:59 | CASEMGMT ---
Social Work IDT met with patient and for care plan meeting. Discussed patient's progress in therapy and nursing. Explained Medicare benefit, admitting on day 52. Reiterated encouragement of using Medicare days as needed as any days in a SNF after those 100 days are private pay. Pt and expressed understanding and are in agreement. SW to continue follow. Roslyn Walden, LEAKAGE TESTER BULLDOZER PRESS OPERATOR
[2021-07-18] MEDS: Pravastatin 40 MG Tablet PO (20:24)
[2021-07-18] MEDS: Primidone 50 MG Tablet PO (20:24)
[2021-07-18] MEDS: Primidone 250 MG Tablet PO (20:24)
[2021-07-18] MEDS: traZODone 100 MG Tablet 300 MG PO (22:10)
[2021-07-19 06:23] LABS: Anion Gap 3 (5-15); BUN 6 mg/dL (7-18); BUN/Creat Ratio 15.2 RATIO (10-20); Calcium,Total 8.4 mg/dL (8.5-10.1); Chloride 107 mmol/L (98-107); EST Glomerular Filtration Rate 168 mL/min (>60); Est Glom Filt Rate - Afr Amer 203 mL/min (>60); Estimated Creatinine Clearance 37.24 ml/min; Glucose 92 mg/dL (74-106); Potassium 3.9 mmol/L (3.5-5.1); Sodium Level 140 mmol/L (136-145)
[2021-07-19] MEDS: amLODIPine 5 MG Tablet PO (06:45)
[2021-07-19] MEDS: Furosemide 40 MG Tablet PO (06:45)
[2021-07-19] MEDS: hydroCHLOROthiazide 12.5mg 12.5 MG PO (06:45)
[2021-07-19] MEDS: Loperamide 2 MG Capsule 4 MG PO (06:45)
[2021-07-19] MEDS: Enoxaparin 40 MG/0.4 ML Syringe SC (06:45)
[2021-07-19] MEDS: Baclofen 10 MG Tablet PO ×3 (06:45→21:47)
[2021-07-19] MEDS: Menthol/Lanolin/Calamine/Znox 113 GM Tube 1 APPLIC TOPICAL ×2 (06:46→17:18)
[2021-07-19] MEDS: Nystatin Powder 15gm Bottle 1 APPLIC TOPICAL ×2 (06:46→22:02)
[2021-07-19] MEDS: Escitalopram Oxalate 20 MG Tablet PO (06:46)
[2021-07-19] MEDS: Acetaminophen 500 MG Tablet 1000 MG PO ×3 (06:46→21:47)
[2021-07-19] MEDS: Tamsulosin HCl 0.4 MG Capsule PO ×2 (06:46→17:20)
[2021-07-19] MEDS: Potassium Chloride Oral Tablet 10 MEQ 20 MEQ PO ×3 (07:53→17:20)
[2021-07-19 16:00] VITALS: BP 123/79; PULSE 79; RESP 16; TEMP 36.3; O2SAT 94
[2021-07-19 19:17] VITALS: PULSE 74; RESP 16; O2SAT 97
[2021-07-19] MEDS: Pravastatin 40 MG Tablet PO (21:47)
[2021-07-19] MEDS: Primidone 50 MG Tablet PO (21:47)
[2021-07-19] MEDS: Primidone 250 MG Tablet PO (21:47)
[2021-07-19] MEDS: traZODone 100 MG Tablet 300 MG PO (21:47)
[2021-07-19] MEDS: oxyCODONE 5 MG Tablet PO (21:49)
[2021-07-20] MEDS: Enoxaparin 40 MG/0.4 ML Syringe SC (06:26)
[2021-07-20] MEDS: Loperamide 2 MG Capsule 4 MG PO (06:26)
[2021-07-20] MEDS: Baclofen 10 MG Tablet PO ×3 (06:26→20:37)
[2021-07-20] MEDS: Acetaminophen 500 MG Tablet 1000 MG PO ×3 (06:26→20:33)
[2021-07-20] MEDS: amLODIPine 5 MG Tablet PO (06:26)
[2021-07-20] MEDS: Tamsulosin HCl 0.4 MG Capsule PO ×2 (06:26→17:08)
[2021-07-20] MEDS: Furosemide 40 MG Tablet PO (06:26)
[2021-07-20] MEDS: hydroCHLOROthiazide 12.5mg 12.5 MG PO (06:26)
[2021-07-20] MEDS: Escitalopram Oxalate 20 MG Tablet PO (06:26)
[2021-07-20] MEDS: Potassium Chloride Oral Tablet 10 MEQ 20 MEQ PO ×3 (08:06→17:07)
--- NOTE | 2021-07-20 09:02 | CASEMGMT ---
Social Work BIMS and PHQ-9 completed for MDS assessment. Roslyn Walden, STATISTICAL SECRETARY LEARNING SUPPORT ASSISTANT
[2021-07-20] MEDS: Menthol/Lanolin/Calamine/Znox 113 GM Tube 1 APPLIC TOPICAL ×2 (09:36→20:32)
[2021-07-20] MEDS: Nystatin Powder 15gm Bottle 1 APPLIC TOPICAL ×2 (09:37→20:32)
--- NOTE | 2021-07-20 12:49 | MDS.RN ---
Completed pain interview for ALEXIA 07/22/21
[2021-07-20 14:54] VITALS: BP 122/58; PULSE 82; RESP 16; TEMP 36.5; O2SAT 93
[2021-07-20] MEDS: Primidone 250 MG Tablet PO (20:38)
[2021-07-20] MEDS: Primidone 50 MG Tablet PO (20:38)
[2021-07-20] MEDS: Pravastatin 40 MG Tablet PO (20:39)
[2021-07-20 22:00] VITALS: PULSE 73; O2SAT 95
[2021-07-20] MEDS: traZODone 100 MG Tablet 300 MG PO (22:05)
[2021-07-21] MEDS: hydroCHLOROthiazide 12.5mg 12.5 MG PO (06:01)
[2021-07-21] MEDS: amLODIPine 5 MG Tablet PO (06:01)
[2021-07-21] MEDS: Loperamide 2 MG Capsule 4 MG PO (06:02)
[2021-07-21] MEDS: Baclofen 10 MG Tablet PO ×3 (06:02→19:55)
[2021-07-21] MEDS: Enoxaparin 40 MG/0.4 ML Syringe SC (06:02)
[2021-07-21] MEDS: Acetaminophen 500 MG Tablet 1000 MG PO ×3 (06:02→19:57)
[2021-07-21] MEDS: Tamsulosin HCl 0.4 MG Capsule PO ×2 (06:02→17:04)
[2021-07-21] MEDS: Furosemide 40 MG Tablet PO (06:02)
[2021-07-21] MEDS: Escitalopram Oxalate 20 MG Tablet PO (06:02)
[2021-07-21] MEDS: Menthol/Lanolin/Calamine/Znox 113 GM Tube 1 APPLIC TOPICAL ×2 (06:05→17:04)
[2021-07-21] MEDS: Nystatin Powder 15gm Bottle 1 APPLIC TOPICAL ×2 (06:06→17:05)
[2021-07-21 06:13] VITALS: BP 131/57; PULSE 72
[2021-07-21] MEDS: Potassium Chloride Oral Tablet 10 MEQ 20 MEQ PO ×3 (08:08→17:04)
[2021-07-21] MEDS: diazePAM 5 MG Tablet PO (10:07)
[2021-07-21 14:37] VITALS: BP 137/72; PULSE 93; RESP 18; TEMP 36.6; O2SAT 96
[2021-07-21] MEDS: Primidone 250 MG Tablet PO (19:56)
[2021-07-21] MEDS: Primidone 50 MG Tablet PO (19:56)
[2021-07-21] MEDS: Pravastatin 40 MG Tablet PO (19:57)
[2021-07-21 22:29] VITALS: PULSE 80; RESP 14; O2SAT 96
[2021-07-21] MEDS: traZODone 100 MG Tablet 300 MG PO (23:25)
[2021-07-22] MEDS: Enoxaparin 40 MG/0.4 ML Syringe SC (06:15)
[2021-07-22] MEDS: amLODIPine 5 MG Tablet PO (06:16)
[2021-07-22] MEDS: hydroCHLOROthiazide 12.5mg 12.5 MG PO (06:16)
[2021-07-22] MEDS: Furosemide 40 MG Tablet PO (06:16)
[2021-07-22] MEDS: Tamsulosin HCl 0.4 MG Capsule PO ×2 (06:16→17:26)
[2021-07-22] MEDS: Baclofen 10 MG Tablet PO ×3 (06:16→20:15)
[2021-07-22] MEDS: Acetaminophen 500 MG Tablet 1000 MG PO ×3 (06:16→20:15)
[2021-07-22] MEDS: Escitalopram Oxalate 20 MG Tablet PO (06:16)
[2021-07-22] MEDS: Menthol/Lanolin/Calamine/Znox 113 GM Tube 1 APPLIC TOPICAL ×2 (06:17→17:26)
[2021-07-22] MEDS: Nystatin Powder 15gm Bottle 1 APPLIC TOPICAL ×2 (06:17→20:15)
[2021-07-22] MEDS: Loperamide 2 MG Capsule 4 MG PO (06:17)
[2021-07-22] MEDS: Potassium Chloride Oral Tablet 10 MEQ 20 MEQ PO ×3 (08:31→17:26)
[2021-07-22] MEDS: diazePAM 5 MG Tablet PO (10:03)
[2021-07-22 14:34] VITALS: BP 124/59; PULSE 76; RESP 16; TEMP 36.6; O2SAT 96
[2021-07-22] MEDS: Pravastatin 40 MG Tablet PO (20:15)
[2021-07-22] MEDS: Primidone 50 MG Tablet PO (20:15)
[2021-07-22] MEDS: Primidone 250 MG Tablet PO (20:15)
[2021-07-22] MEDS: traZODone 100 MG Tablet 300 MG PO (22:08)
[2021-07-23 05:49] LABS: Absolute Lymphocyte Count 2.11 X10^3/uL (0.83-4.51); Basophil# 0.05 X10^3/uL; Eosinophil# 0.26 X10^3/uL; Eosinophils% 5.2 % (0-5); Hematocrit 37.5 % (37-47); Hemoglobin 11.9 g/dL (12.0-15.0); Lymphocyte # 2.11 X10^3/ul (0.83-4.51); Lymphocyte % 42.3 % (19-41); Mean Corp Hgb Conc 31.7 g/dL (32-36); Mean Corpuscular Hgb 30.8 pg (27.0-32.0); Mean Corpuscular Volume 97.2 fL (81-99); Mean Platelet Vol. 9.6 fl (6.2-12.0); Monocyte# 0.53 X10^3/uL; Monocyte% 10.6 % (0-10); NRBC Flagged by Analyzer 0 % (0-5); Neutrophil % 40.1 % (47-70); Platelet Count 196 K/mm3 (150-450); RBC Distribution Width CV 13.6 % (11.6-14.6); RBC Distribution Width SD 48.9 fl (35.1-43.9); Red Blood Count 3.86 M/mm3 (4.2-5.4)
[2021-07-23 06:32] LABS: Anion Gap 7 (5-15); BUN 7 mg/dL (7-18); BUN/Creat Ratio 14.3 RATIO (10-20); Calcium,Total 8.2 mg/dL (8.5-10.1); Chloride 106 mmol/L (98-107); Creatinine, Serum 0.49 mg/dL (0.55-1.02); EST Glomerular Filtration Rate 131 mL/min (>60); Est Glom Filt Rate - Afr Amer 159 mL/min (>60); Estimated Creatinine Clearance 37.24 ml/min; Glucose 85 mg/dL (74-106); Sodium Level 141 mmol/L (136-145)
[2021-07-23] MEDS: Acetaminophen 500 MG Tablet 1000 MG PO ×3 (06:37→21:58)
[2021-07-23] MEDS: Loperamide 2 MG Capsule 4 MG PO (06:37)
[2021-07-23] MEDS: Enoxaparin 40 MG/0.4 ML Syringe SC (06:37)
[2021-07-23] MEDS: Furosemide 40 MG Tablet PO (06:38)
[2021-07-23] MEDS: Tamsulosin HCl 0.4 MG Capsule PO ×2 (06:38→17:36)
[2021-07-23] MEDS: amLODIPine 5 MG Tablet PO (06:38)
[2021-07-23] MEDS: Escitalopram Oxalate 20 MG Tablet PO (06:38)
[2021-07-23] MEDS: Baclofen 10 MG Tablet PO ×3 (06:38→21:58)
[2021-07-23] MEDS: hydroCHLOROthiazide 12.5mg 12.5 MG PO (06:38)
[2021-07-23] MEDS: Nystatin Powder 15gm Bottle 1 APPLIC TOPICAL ×2 (06:42→22:06)
[2021-07-23] MEDS: Menthol/Lanolin/Calamine/Znox 113 GM Tube 1 APPLIC TOPICAL ×2 (06:42→22:08)
[2021-07-23] MEDS: Potassium Chloride Oral Tablet 10 MEQ 20 MEQ PO ×3 (08:11→17:36)
--- NOTE | 2021-07-23 09:25 | NURSING ---
PER NASIR PT DOES NOT NEED 2ND TB TEST.
[2021-07-23] MEDS: oxyCODONE 5 MG Tablet PO ×2 (15:41→21:55)
[2021-07-23 16:00] VITALS: BP 124/70; PULSE 76; RESP 16; TEMP 36.7; O2SAT 96
[2021-07-23] MEDS: diazePAM 5 MG Tablet PO (21:57)
[2021-07-23] MEDS: traZODone 100 MG Tablet 300 MG PO (21:58)
[2021-07-23] MEDS: Primidone 250 MG Tablet PO (21:59)
[2021-07-23] MEDS: Primidone 50 MG Tablet PO (22:00)
[2021-07-23] MEDS: Pravastatin 40 MG Tablet PO (22:00)
--- NOTE | 2021-07-23 23:55 | NURSING ---
Patient requests to talk to Dr. Gan in the morning. Would like to discharge home. Will leave message for physician.
[2021-07-24] MEDS: Acetaminophen 500 MG Tablet 1000 MG PO ×3 (06:04→20:22)
[2021-07-24] MEDS: Enoxaparin 40 MG/0.4 ML Syringe SC (06:04)
[2021-07-24] MEDS: Baclofen 10 MG Tablet PO ×3 (06:05→20:21)
[2021-07-24] MEDS: amLODIPine 5 MG Tablet PO (06:05)
[2021-07-24] MEDS: hydroCHLOROthiazide 12.5mg 12.5 MG PO (06:05)
[2021-07-24] MEDS: Escitalopram Oxalate 20 MG Tablet PO (06:05)
[2021-07-24] MEDS: Tamsulosin HCl 0.4 MG Capsule PO ×2 (06:05→17:33)
[2021-07-24] MEDS: Loperamide 2 MG Capsule 4 MG PO (06:05)
[2021-07-24] MEDS: Furosemide 40 MG Tablet PO (06:05)
[2021-07-24] MEDS: Menthol/Lanolin/Calamine/Znox 113 GM Tube 1 APPLIC TOPICAL ×2 (06:09→20:19)
[2021-07-24] MEDS: Nystatin Powder 15gm Bottle 1 APPLIC TOPICAL ×2 (06:10→20:20)
[2021-07-24] MEDS: Potassium Chloride Oral Tablet 10 MEQ 20 MEQ PO ×3 (07:55→17:32)
[2021-07-24] MEDS: Pregabalin 75 MG Capsule PO ×2 (10:12→17:35)
[2021-07-24 10:30] VITALS: PULSE 74; RESP 18; O2SAT 94
[2021-07-24 13:29] VITALS: BP 120/50; PULSE 93; RESP 18; TEMP 36.2; O2SAT 94
[2021-07-24] MEDS: oxyCODONE 5 MG Tablet PO (20:18)
[2021-07-24] MEDS: Primidone 50 MG Tablet PO (20:21)
[2021-07-24] MEDS: Pravastatin 40 MG Tablet PO (20:22)
[2021-07-24] MEDS: Primidone 250 MG Tablet PO (20:22)
[2021-07-25] MEDS: traZODone 100 MG Tablet 300 MG PO ×2 (00:02→22:17)
[2021-07-25] MEDS: Enoxaparin 40 MG/0.4 ML Syringe SC (05:15)
[2021-07-25] MEDS: Loperamide 2 MG Capsule 4 MG PO (05:15)
[2021-07-25] MEDS: Baclofen 10 MG Tablet PO ×3 (05:16→20:11)
[2021-07-25] MEDS: Acetaminophen 500 MG Tablet 1000 MG PO ×3 (05:17→20:11)
[2021-07-25] MEDS: amLODIPine 5 MG Tablet PO (05:17)
[2021-07-25] MEDS: Menthol/Lanolin/Calamine/Znox 113 GM Tube 1 APPLIC TOPICAL ×2 (05:17→17:28)
[2021-07-25] MEDS: Tamsulosin HCl 0.4 MG Capsule PO ×2 (05:17→17:28)
[2021-07-25] MEDS: hydroCHLOROthiazide 12.5mg 12.5 MG PO (05:17)
[2021-07-25] MEDS: Nystatin Powder 15gm Bottle 1 APPLIC TOPICAL ×2 (05:19→17:29)
[2021-07-25] MEDS: Escitalopram Oxalate 20 MG Tablet PO (05:20)
[2021-07-25] MEDS: Pregabalin 75 MG Capsule PO (05:24)
[2021-07-25] MEDS: Potassium Chloride Oral Tablet 10 MEQ 20 MEQ PO ×3 (08:48→17:27)
[2021-07-25] MEDS: diazePAM 5 MG Tablet PO ×2 (12:30→20:14)
--- NOTE | 2021-07-25 13:41 | NURSING ---
Addendum entered by Fany López 07/25/21 17:26: Dr. Gan updated N.O. d/c lyrica Original Note: Pt stated I want off this lyrica, never again will I take this stuff it makes my whole body feel off. Message left for Dr. Gan to upate on pts request to d/c lyricdasia/
[2021-07-25 16:36] VITALS: BP 125/60; PULSE 71; RESP 17; TEMP 36.4; O2SAT 96
[2021-07-25] MEDS: Primidone 50 MG Tablet PO (20:12)
[2021-07-25] MEDS: Primidone 250 MG Tablet PO (20:12)
[2021-07-25] MEDS: Pravastatin 40 MG Tablet PO (20:13)
[2021-07-25 22:00] VITALS: PULSE 80; O2SAT 97
[2021-07-26] MEDS: amLODIPine 5 MG Tablet PO (06:24)
[2021-07-26] MEDS: Acetaminophen 500 MG Tablet 1000 MG PO ×3 (06:24→20:33)
[2021-07-26] MEDS: Escitalopram Oxalate 20 MG Tablet PO (06:24)
[2021-07-26] MEDS: Enoxaparin 40 MG/0.4 ML Syringe SC (06:24)
[2021-07-26] MEDS: Tamsulosin HCl 0.4 MG Capsule PO ×2 (06:24→17:28)
[2021-07-26] MEDS: hydroCHLOROthiazide 12.5mg 12.5 MG PO (06:24)
[2021-07-26] MEDS: Baclofen 10 MG Tablet PO ×3 (06:24→20:33)
[2021-07-26] MEDS: Loperamide 2 MG Capsule 4 MG PO (06:24)
[2021-07-26] MEDS: Nystatin Powder 15gm Bottle 1 APPLIC TOPICAL ×2 (06:26→17:31)
[2021-07-26] MEDS: Menthol/Lanolin/Calamine/Znox 113 GM Tube 1 APPLIC TOPICAL ×2 (06:26→17:31)
[2021-07-26] MEDS: Potassium Chloride Oral Tablet 10 MEQ 20 MEQ PO ×3 (08:03→18:50)
--- NOTE | 2021-07-26 08:12 | MDS.RN ---
Information for the mds was obtained from review of the clinical record, interview of resident, staff, and direct observation of resident's care.
[2021-07-26 14:29] VITALS: BP 136/77; PULSE 66; RESP 18; TEMP 36.1; O2SAT 98
[2021-07-26] MEDS: diazePAM 5 MG Tablet PO (15:55)
[2021-07-26] MEDS: Primidone 250 MG Tablet PO (20:34)
[2021-07-26] MEDS: Pravastatin 40 MG Tablet PO (20:35)
[2021-07-26] MEDS: Primidone 50 MG Tablet PO (20:44)
[2021-07-26] MEDS: traZODone 100 MG Tablet 300 MG PO (22:04)
[2021-07-27 05:13] VITALS: BP 138/61; PULSE 64; RESP 18; TEMP 35.9; O2SAT 95
[2021-07-27] MEDS: Loperamide 2 MG Capsule 4 MG PO (05:17)
[2021-07-27] MEDS: amLODIPine 5 MG Tablet PO (05:17)
[2021-07-27] MEDS: Baclofen 10 MG Tablet PO ×3 (05:17→21:17)
[2021-07-27] MEDS: Acetaminophen 500 MG Tablet 1000 MG PO ×3 (05:17→21:17)
[2021-07-27] MEDS: Escitalopram Oxalate 20 MG Tablet PO (05:17)
[2021-07-27] MEDS: hydroCHLOROthiazide 12.5mg 12.5 MG PO (05:17)
[2021-07-27] MEDS: Tamsulosin HCl 0.4 MG Capsule PO ×2 (05:17→17:03)
[2021-07-27] MEDS: Enoxaparin 40 MG/0.4 ML Syringe SC (05:18)
[2021-07-27] MEDS: Nystatin Powder 15gm Bottle 1 APPLIC TOPICAL ×2 (05:18→17:04)
[2021-07-27] MEDS: Menthol/Lanolin/Calamine/Znox 113 GM Tube 1 APPLIC TOPICAL ×2 (05:23→17:04)
[2021-07-27] MEDS: Potassium Chloride Oral Tablet 10 MEQ 20 MEQ PO ×3 (08:22→17:02)
--- NOTE | 2021-07-27 11:09 | NURSING ---
This nurse asked how she slept last night since staff switched out her mattress per her request, pt stated I slept wonderfully, the mattress is much better thank you.
[2021-07-27 14:22] VITALS: BP 133/69; PULSE 78; RESP 16; TEMP 36.3; O2SAT 97
[2021-07-27] MEDS: Pravastatin 40 MG Tablet PO (21:17)
[2021-07-27] MEDS: traZODone 100 MG Tablet 300 MG PO (21:17)
[2021-07-27] MEDS: Primidone 250 MG Tablet PO (21:17)
[2021-07-27] MEDS: Primidone 50 MG Tablet PO (21:17)
[2021-07-28] MEDS: Tamsulosin HCl 0.4 MG Capsule PO ×2 (07:08→17:31)
[2021-07-28] MEDS: amLODIPine 5 MG Tablet PO (07:08)
[2021-07-28] MEDS: Acetaminophen 500 MG Tablet 1000 MG PO ×3 (07:08→21:17)
[2021-07-28] MEDS: hydroCHLOROthiazide 12.5mg 12.5 MG PO (07:09)
[2021-07-28] MEDS: Baclofen 10 MG Tablet PO ×3 (07:09→21:17)
[2021-07-28] MEDS: Enoxaparin 40 MG/0.4 ML Syringe SC (07:09)
[2021-07-28] MEDS: Loperamide 2 MG Capsule 4 MG PO (07:09)
[2021-07-28] MEDS: Escitalopram Oxalate 20 MG Tablet PO (07:09)
[2021-07-28] MEDS: Menthol/Lanolin/Calamine/Znox 113 GM Tube 1 APPLIC TOPICAL ×2 (07:13→21:20)
[2021-07-28 07:15] VITALS: BP 134/59; PULSE 61
[2021-07-28] MEDS: Potassium Chloride Oral Tablet 10 MEQ 20 MEQ PO ×3 (08:15→17:31)
[2021-07-28 10:50] VITALS: PULSE 68; RESP 18; O2SAT 98
[2021-07-28] MEDS: Nystatin Powder 15gm Bottle 1 APPLIC TOPICAL ×2 (10:54→21:16)
[2021-07-28 15:48] VITALS: BP 119/51; PULSE 65; RESP 16; TEMP 36; O2SAT 97
[2021-07-28] MEDS: Primidone 50 MG Tablet PO (21:18)
[2021-07-28] MEDS: Pravastatin 40 MG Tablet PO (21:18)
[2021-07-28] MEDS: Primidone 250 MG Tablet PO (21:18)
[2021-07-28] MEDS: traZODone 100 MG Tablet 300 MG PO (22:22)
[2021-07-29] MEDS: Baclofen 10 MG Tablet PO ×3 (06:17→20:30)
[2021-07-29] MEDS: hydroCHLOROthiazide 12.5mg 12.5 MG PO (06:17)
[2021-07-29] MEDS: Loperamide 2 MG Capsule 4 MG PO (06:17)
[2021-07-29] MEDS: Tamsulosin HCl 0.4 MG Capsule PO ×2 (06:17→17:16)
[2021-07-29] MEDS: Acetaminophen 500 MG Tablet 1000 MG PO ×3 (06:17→20:30)
[2021-07-29] MEDS: Enoxaparin 40 MG/0.4 ML Syringe SC (06:17)
[2021-07-29] MEDS: amLODIPine 5 MG Tablet PO (06:17)
[2021-07-29] MEDS: Escitalopram Oxalate 20 MG Tablet PO (06:17)
[2021-07-29] MEDS: Nystatin Powder 15gm Bottle 1 APPLIC TOPICAL ×2 (06:20→17:16)
[2021-07-29] MEDS: Menthol/Lanolin/Calamine/Znox 113 GM Tube 1 APPLIC TOPICAL ×2 (06:21→20:33)
[2021-07-29 06:22] VITALS: BP 135/68; PULSE 64
[2021-07-29] MEDS: Potassium Chloride Oral Tablet 10 MEQ 20 MEQ PO ×3 (08:37→17:15)
[2021-07-29] MEDS: oxyCODONE 5 MG Tablet PO ×2 (15:35→20:28)
[2021-07-29 16:41] VITALS: BP 126/52; PULSE 70; RESP 17; TEMP 36.2; O2SAT 95
[2021-07-29] MEDS: Primidone 250 MG Tablet PO (20:31)
[2021-07-29] MEDS: Primidone 50 MG Tablet PO (20:32)
[2021-07-29] MEDS: Pravastatin 40 MG Tablet PO (20:32)
[2021-07-29] MEDS: traZODone 100 MG Tablet 300 MG PO (22:04)
[2021-07-30 06:03] LABS: Absolute Lymphocyte Count 1.91 X10^3/uL (0.83-4.51); Absolute Neutrophil Count 2.5 X10^3/uL (2.0-7.7); Basophil# 0.05 X10^3/uL; Eosinophil# 0.23 X10^3/uL; Eosinophils% 4.4 % (0-5); Hemoglobin 12.2 g/dL (12.0-15.0); Lymphocyte # 1.91 X10^3/ul (0.83-4.51); Lymphocyte % 36.8 % (19-41); Mean Corp Hgb Conc 32.1 g/dL (32-36); Mean Corpuscular Hgb 30.7 pg (27.0-32.0); Mean Corpuscular Volume 95.7 fL (81-99); Mean Platelet Vol. 9.9 fl (6.2-12.0); Monocyte% 9.6 % (0-10); NRBC Flagged by Analyzer 0 % (0-5); Neutrophil # 2.47 X10^3/uL (2.7-7.7); Neutrophil % 47.6 % (47-70); Platelet Count 204 K/mm3 (150-450); RBC Distribution Width CV 13.6 % (11.6-14.6); RBC Distribution Width SD 48.4 fl (35.1-43.9); Red Blood Count 3.97 M/mm3 (4.2-5.4); White Blood Count 5.2 K/mm3 (4.4-11.0)
[2021-07-30 06:13] VITALS: BP 112/55; PULSE 58
[2021-07-30] MEDS: Enoxaparin 40 MG/0.4 ML Syringe SC (06:14)
[2021-07-30] MEDS: amLODIPine 5 MG Tablet PO (06:15)
[2021-07-30] MEDS: Baclofen 10 MG Tablet PO ×3 (06:15→21:17)
[2021-07-30] MEDS: Tamsulosin HCl 0.4 MG Capsule PO ×2 (06:15→16:52)
[2021-07-30] MEDS: Escitalopram Oxalate 20 MG Tablet PO (06:15)
[2021-07-30] MEDS: Acetaminophen 500 MG Tablet 1000 MG PO ×3 (06:15→21:17)
[2021-07-30] MEDS: hydroCHLOROthiazide 12.5mg 12.5 MG PO (06:16)
[2021-07-30] MEDS: Loperamide 2 MG Capsule 4 MG PO (06:18)
[2021-07-30 06:45] LABS: Anion Gap 4 (5-15); BUN 7 mg/dL (7-18); Calcium,Total 8.7 mg/dL (8.5-10.1); Chloride 109 mmol/L (98-107); Creatinine, Serum 0.44 mg/dL (0.55-1.02); EST Glomerular Filtration Rate 149 mL/min (>60); Est Glom Filt Rate - Afr Amer 180 mL/min (>60); Estimated Creatinine Clearance 37.24 ml/min; Glucose 85 mg/dL (74-106); Potassium 4.2 mmol/L (3.5-5.1); Sodium Level 141 mmol/L (136-145)
[2021-07-30] MEDS: Menthol/Lanolin/Calamine/Znox 113 GM Tube 1 APPLIC TOPICAL ×2 (08:07→16:55)
[2021-07-30] MEDS: Potassium Chloride Oral Tablet 10 MEQ 20 MEQ PO ×3 (08:07→16:52)
[2021-07-30] MEDS: Nystatin Powder 15gm Bottle 1 APPLIC TOPICAL ×2 (08:08→16:55)
[2021-07-30 14:18] VITALS: BP 138/53; PULSE 67; RESP 18; TEMP 36.3; O2SAT 97
[2021-07-30] MEDS: oxyCODONE 5 MG Tablet PO ×2 (15:08→21:17)
[2021-07-30] MEDS: Primidone 250 MG Tablet PO (21:17)
[2021-07-30] MEDS: Pravastatin 40 MG Tablet PO (21:17)
[2021-07-30] MEDS: Primidone 50 MG Tablet PO (21:17)
[2021-07-30] MEDS: traZODone 100 MG Tablet 300 MG PO (22:13)
[2021-07-31] MEDS: hydroCHLOROthiazide 12.5mg 12.5 MG PO (06:32)
[2021-07-31] MEDS: amLODIPine 5 MG Tablet PO (06:32)
[2021-07-31] MEDS: Baclofen 10 MG Tablet PO ×3 (06:33→20:43)
[2021-07-31] MEDS: Tamsulosin HCl 0.4 MG Capsule PO ×2 (06:33→17:24)
[2021-07-31] MEDS: Enoxaparin 40 MG/0.4 ML Syringe SC (06:33)
[2021-07-31] MEDS: Escitalopram Oxalate 20 MG Tablet PO (06:33)
[2021-07-31] MEDS: Acetaminophen 500 MG Tablet 1000 MG PO ×3 (06:33→20:44)
[2021-07-31] MEDS: Loperamide 2 MG Capsule 4 MG PO (06:33)
[2021-07-31] MEDS: Nystatin Powder 15gm Bottle 1 APPLIC TOPICAL ×2 (06:38→20:41)
[2021-07-31] MEDS: Menthol/Lanolin/Calamine/Znox 113 GM Tube 1 APPLIC TOPICAL ×2 (06:38→20:41)
[2021-07-31 06:39] VITALS: BP 144/57; PULSE 57; RESP 16; TEMP 36.1; O2SAT 95
[2021-07-31] MEDS: Potassium Chloride Oral Tablet 10 MEQ 20 MEQ PO ×3 (08:20→17:24)
[2021-07-31] MEDS: oxyCODONE 5 MG Tablet PO (12:46)
[2021-07-31] MEDS: COVID-19 VACC, MRNA(PFIZER)/PF 30 MCG/0.3 ML SYRINGE IM (12:49)
--- NOTE | 2021-07-31 13:12 | NURSING ---
PT RECEIVED PFIZER BOOSTER TODAY FROM THIS NURSE. GIVEN IN LEFT DELT,PT TOLERATED WELL. VACCINEE CARD GIVE TO PT. RN AWARE.
[2021-07-31] MEDS: Primidone 50 MG Tablet PO (20:43)
[2021-07-31] MEDS: Primidone 250 MG Tablet PO (20:43)
[2021-07-31] MEDS: Pravastatin 40 MG Tablet PO (20:44)
[2021-07-31] MEDS: traZODone 100 MG Tablet 300 MG PO (22:03)
[2021-07-31 23:31] VITALS: PULSE 67; RESP 12; O2SAT 97
[2021-08-01] MEDS: hydroCHLOROthiazide 12.5mg 12.5 MG PO (05:41)
[2021-08-01] MEDS: Escitalopram Oxalate 20 MG Tablet PO (05:41)
[2021-08-01] MEDS: amLODIPine 5 MG Tablet PO (05:41)
[2021-08-01] MEDS: Acetaminophen 500 MG Tablet 1000 MG PO ×3 (05:42→20:25)
[2021-08-01] MEDS: Baclofen 10 MG Tablet PO ×3 (05:43→20:24)
[2021-08-01] MEDS: Menthol/Lanolin/Calamine/Znox 113 GM Tube 1 APPLIC TOPICAL ×2 (05:43→17:13)
[2021-08-01] MEDS: Tamsulosin HCl 0.4 MG Capsule PO ×2 (05:43→17:14)
[2021-08-01] MEDS: Nystatin Powder 15gm Bottle 1 APPLIC TOPICAL ×2 (05:43→17:13)
[2021-08-01] MEDS: Loperamide 2 MG Capsule 4 MG PO (05:43)
[2021-08-01] MEDS: Enoxaparin 40 MG/0.4 ML Syringe SC (05:44)
[2021-08-01] MEDS: Potassium Chloride Oral Tablet 10 MEQ 20 MEQ PO ×3 (07:51→17:14)
[2021-08-01 10:00] VITALS: PULSE 92; O2SAT 95
[2021-08-01 16:00] VITALS: BP 125/55; PULSE 71; RESP 14; TEMP 36.3; O2SAT 95
[2021-08-01] MEDS: Pravastatin 40 MG Tablet PO (20:24)
[2021-08-01] MEDS: Primidone 50 MG Tablet PO (20:25)
[2021-08-01] MEDS: Primidone 250 MG Tablet PO (20:25)
[2021-08-01] MEDS: traZODone 100 MG Tablet 300 MG PO (22:02)
[2021-08-02] MEDS: Escitalopram Oxalate 20 MG Tablet PO (06:32)
[2021-08-02] MEDS: Enoxaparin 40 MG/0.4 ML Syringe SC (06:32)
[2021-08-02] MEDS: Acetaminophen 500 MG Tablet 1000 MG PO ×3 (06:32→21:02)
[2021-08-02] MEDS: Loperamide 2 MG Capsule 4 MG PO (06:32)
[2021-08-02] MEDS: Baclofen 10 MG Tablet PO ×3 (06:33→21:01)
[2021-08-02] MEDS: amLODIPine 5 MG Tablet PO (06:33)
[2021-08-02] MEDS: Tamsulosin HCl 0.4 MG Capsule PO ×2 (06:33→17:29)
[2021-08-02] MEDS: hydroCHLOROthiazide 12.5mg 12.5 MG PO (06:33)
[2021-08-02] MEDS: Menthol/Lanolin/Calamine/Znox 113 GM Tube 1 APPLIC TOPICAL ×2 (06:36→17:30)
[2021-08-02] MEDS: Nystatin Powder 15gm Bottle 1 APPLIC TOPICAL ×2 (06:36→17:31)
[2021-08-02] MEDS: Potassium Chloride Oral Tablet 10 MEQ 20 MEQ PO ×3 (07:45→17:29)
[2021-08-02] MEDS: oxyCODONE 5 MG Tablet PO ×2 (09:29→21:02)
[2021-08-02 13:02] VITALS: BP 131/66; PULSE 66; RESP 18; TEMP 36.4; O2SAT 94
[2021-08-02] MEDS: Primidone 250 MG Tablet PO (21:01)
[2021-08-02] MEDS: Primidone 50 MG Tablet PO (21:01)
[2021-08-02] MEDS: Pravastatin 40 MG Tablet PO (21:01)
[2021-08-02] MEDS: traZODone 100 MG Tablet 300 MG PO (22:05)
[2021-08-03] MEDS: Tamsulosin HCl 0.4 MG Capsule PO ×2 (06:34→17:58)
[2021-08-03] MEDS: amLODIPine 5 MG Tablet PO (06:34)
[2021-08-03] MEDS: hydroCHLOROthiazide 12.5mg 12.5 MG PO (06:34)
[2021-08-03] MEDS: Baclofen 10 MG Tablet PO ×3 (06:34→20:53)
[2021-08-03] MEDS: Loperamide 2 MG Capsule 4 MG PO (06:34)
[2021-08-03] MEDS: Acetaminophen 500 MG Tablet 1000 MG PO ×3 (06:34→20:53)
[2021-08-03] MEDS: Menthol/Lanolin/Calamine/Znox 113 GM Tube 1 APPLIC TOPICAL ×2 (06:35→18:00)
[2021-08-03] MEDS: Escitalopram Oxalate 20 MG Tablet PO (06:35)
[2021-08-03] MEDS: Nystatin Powder 15gm Bottle 1 APPLIC TOPICAL ×2 (06:35→17:58)
[2021-08-03] MEDS: Enoxaparin 40 MG/0.4 ML Syringe SC (06:36)
[2021-08-03] MEDS: Potassium Chloride Oral Tablet 10 MEQ 20 MEQ PO ×3 (08:08→17:57)
[2021-08-03] MEDS: diazePAM 5 MG Tablet PO (11:49)
--- NOTE | 2021-08-03 14:31 | NURSING ---
pt returned from appt. Cam boot to L leg at all times. ok to remove to bathe. Partial WB to LLE x 3 weeks, can progress to full WB in boot in 3 weeks as tolerated. Formal PT. Continue lovenox x 3 weeks or until full WB. F/U in 6 weeks. Keep incision clean and dry.
[2021-08-03 14:43] VITALS: RESP 16; O2SAT 96
[2021-08-03 15:58] VITALS: BP 122/61; PULSE 75; RESP 16; TEMP 36.5; O2SAT 99
[2021-08-03] MEDS: Primidone 50 MG Tablet PO (20:53)
[2021-08-03] MEDS: Primidone 250 MG Tablet PO (20:53)
[2021-08-03] MEDS: Pravastatin 40 MG Tablet PO (20:53)
[2021-08-03] MEDS: traZODone 100 MG Tablet 300 MG PO (22:23)
[2021-08-04 06:33] VITALS: BP 116/61; PULSE 60; RESP 16; TEMP 37.1; O2SAT 93
[2021-08-04] MEDS: amLODIPine 5 MG Tablet PO (06:35)
[2021-08-04] MEDS: Loperamide 2 MG Capsule 4 MG PO (06:35)
[2021-08-04] MEDS: Escitalopram Oxalate 20 MG Tablet PO (06:35)
[2021-08-04] MEDS: Acetaminophen 500 MG Tablet 1000 MG PO ×3 (06:36→20:10)
[2021-08-04] MEDS: Enoxaparin 40 MG/0.4 ML Syringe SC (06:36)
[2021-08-04] MEDS: Baclofen 10 MG Tablet PO ×3 (06:36→20:11)
[2021-08-04] MEDS: hydroCHLOROthiazide 12.5mg 12.5 MG PO (06:36)
[2021-08-04] MEDS: Tamsulosin HCl 0.4 MG Capsule PO ×2 (06:36→17:40)
[2021-08-04] MEDS: Menthol/Lanolin/Calamine/Znox 113 GM Tube 1 APPLIC TOPICAL ×2 (06:44→17:40)
[2021-08-04] MEDS: Nystatin Powder 15gm Bottle 1 APPLIC TOPICAL ×2 (06:44→17:41)
[2021-08-04] MEDS: Potassium Chloride Oral Tablet 10 MEQ 20 MEQ PO ×3 (07:39→17:39)
[2021-08-04] MEDS: diazePAM 5 MG Tablet PO (11:14)
[2021-08-04 12:54] VITALS: BP 107/76; PULSE 72; RESP 14; TEMP 36; O2SAT 95
[2021-08-04] MEDS: oxyCODONE 5 MG Tablet PO ×2 (14:11→20:09)
[2021-08-04] MEDS: Pravastatin 40 MG Tablet PO (20:10)
[2021-08-04] MEDS: Primidone 50 MG Tablet PO (20:11)
[2021-08-04] MEDS: Primidone 250 MG Tablet PO (20:13)
[2021-08-04] MEDS: traZODone 100 MG Tablet 300 MG PO (22:02)
[2021-08-05 06:45] VITALS: BP 129/59; PULSE 58
[2021-08-05] MEDS: amLODIPine 5 MG Tablet PO (06:47)
[2021-08-05] MEDS: oxyCODONE 5 MG Tablet 10 MG PO ×3 (06:47→16:09)
[2021-08-05] MEDS: Loperamide 2 MG Capsule 4 MG PO (06:47)
[2021-08-05] MEDS: Escitalopram Oxalate 20 MG Tablet PO (06:47)
[2021-08-05] MEDS: hydroCHLOROthiazide 12.5mg 12.5 MG PO (06:48)
[2021-08-05] MEDS: Acetaminophen 500 MG Tablet 1000 MG PO ×3 (06:48→20:41)
[2021-08-05] MEDS: Tamsulosin HCl 0.4 MG Capsule PO ×2 (06:49→17:17)
[2021-08-05] MEDS: Menthol/Lanolin/Calamine/Znox 113 GM Tube 1 APPLIC TOPICAL ×2 (06:49→17:17)
[2021-08-05] MEDS: Nystatin Powder 15gm Bottle 1 APPLIC TOPICAL ×2 (06:50→17:18)
[2021-08-05] MEDS: Enoxaparin 40 MG/0.4 ML Syringe SC (06:50)
[2021-08-05] MEDS: Baclofen 10 MG Tablet PO ×3 (06:53→20:40)
[2021-08-05] MEDS: Potassium Chloride Oral Tablet 10 MEQ 20 MEQ PO ×3 (07:34→17:16)
[2021-08-05 13:29] VITALS: BP 111/70; PULSE 58; RESP 18; TEMP 36.8; O2SAT 95
[2021-08-05] MEDS: traZODone 100 MG Tablet 300 MG PO (20:39)
[2021-08-05] MEDS: Primidone 250 MG Tablet PO (20:40)
[2021-08-05] MEDS: Primidone 50 MG Tablet PO (20:40)
[2021-08-05] MEDS: Pravastatin 40 MG Tablet PO (20:41)
[2021-08-06 06:15] LABS: Absolute Lymphocyte Count 1.97 X10^3/uL (0.83-4.51); Basophil# 0.03 X10^3/uL; Basophil% 0.5 % (0-1); Eosinophil# 0.23 X10^3/uL; Hemoglobin 11.8 g/dL (12.0-15.0); Lymphocyte # 1.97 X10^3/ul (0.83-4.51); Lymphocyte % 34.3 % (19-41); Mean Corp Hgb Conc 32.8 g/dL (32-36); Mean Corpuscular Hgb 31.1 pg (27.0-32.0); Mean Corpuscular Volume 94.7 fL (81-99); Monocyte# 0.48 X10^3/uL; Monocyte% 8.4 % (0-10); NRBC Flagged by Analyzer 0 % (0-5); Neutrophil # 3.01 X10^3/uL (2.7-7.7); Neutrophil % 52.5 % (47-70); Platelet Count 193 K/mm3 (150-450); RBC Distribution Width CV 13.7 % (11.6-14.6); RBC Distribution Width SD 47.9 fl (35.1-43.9); White Blood Count 5.7 K/mm3 (4.4-11.0)
[2021-08-06 06:45] LABS: Anion Gap 5 (5-15); BUN 8 mg/dL (7-18); BUN/Creat Ratio 17.8 RATIO (10-20); Calcium,Total 8.5 mg/dL (8.5-10.1); Chloride 109 mmol/L (98-107); Creatinine, Serum 0.45 mg/dL (0.55-1.02); EST Glomerular Filtration Rate 145 mL/min (>60); Est Glom Filt Rate - Afr Amer 175 mL/min (>60); Estimated Creatinine Clearance 37.24 ml/min; Glucose 85 mg/dL (74-106); Potassium 4.1 mmol/L (3.5-5.1); Sodium Level 141 mmol/L (136-145)
[2021-08-06 06:48] VITALS: BP 132/58; PULSE 58
[2021-08-06] MEDS: oxyCODONE 5 MG Tablet 10 MG PO ×4 (06:48→21:22)
[2021-08-06] MEDS: Acetaminophen 500 MG Tablet 1000 MG PO ×3 (06:49→20:03)
[2021-08-06] MEDS: Loperamide 2 MG Capsule 4 MG PO (06:49)
[2021-08-06] MEDS: Tamsulosin HCl 0.4 MG Capsule PO ×2 (06:49→17:12)
[2021-08-06] MEDS: Nystatin Powder 15gm Bottle 1 APPLIC TOPICAL ×2 (06:50→17:14)
[2021-08-06] MEDS: hydroCHLOROthiazide 12.5mg 12.5 MG PO (06:50)
[2021-08-06] MEDS: amLODIPine 5 MG Tablet PO (06:50)
[2021-08-06] MEDS: Baclofen 10 MG Tablet PO ×3 (06:50→20:04)
[2021-08-06] MEDS: Escitalopram Oxalate 20 MG Tablet PO (06:50)
[2021-08-06] MEDS: Enoxaparin 40 MG/0.4 ML Syringe SC (06:50)
[2021-08-06] MEDS: Menthol/Lanolin/Calamine/Znox 113 GM Tube 1 APPLIC TOPICAL ×2 (06:51→17:13)
[2021-08-06] MEDS: Potassium Chloride Oral Tablet 10 MEQ 20 MEQ PO ×3 (07:57→17:12)
[2021-08-06 16:00] VITALS: BP 112/68; PULSE 57; RESP 17; TEMP 36.6; O2SAT 94
[2021-08-06] MEDS: Primidone 250 MG Tablet PO (20:04)
[2021-08-06] MEDS: Primidone 50 MG Tablet PO (20:04)
[2021-08-06] MEDS: Pravastatin 40 MG Tablet PO (20:05)
[2021-08-06] MEDS: traZODone 100 MG Tablet 300 MG PO (21:22)
[2021-08-07] MEDS: Loperamide 2 MG Capsule 4 MG PO (06:22)
[2021-08-07] MEDS: Enoxaparin 40 MG/0.4 ML Syringe SC (06:22)
[2021-08-07] MEDS: Acetaminophen 500 MG Tablet 1000 MG PO ×3 (06:22→20:51)
[2021-08-07] MEDS: Baclofen 10 MG Tablet PO ×3 (06:23→20:52)
[2021-08-07] MEDS: hydroCHLOROthiazide 12.5mg 12.5 MG PO (06:23)
[2021-08-07] MEDS: Tamsulosin HCl 0.4 MG Capsule PO ×2 (06:23→17:33)
[2021-08-07] MEDS: Menthol/Lanolin/Calamine/Znox 113 GM Tube 1 APPLIC TOPICAL ×2 (06:24→17:32)
[2021-08-07] MEDS: Escitalopram Oxalate 20 MG Tablet PO (06:25)
[2021-08-07] MEDS: amLODIPine 5 MG Tablet PO (06:25)
[2021-08-07] MEDS: Nystatin Powder 15gm Bottle 1 APPLIC TOPICAL ×2 (06:27→17:33)
--- NOTE | 2021-08-07 06:27 | NURSING ---
Gave pt teaching for Lovenox injection, she was able to self administer well. Will continue with teaching to prep for returning home.
[2021-08-07] MEDS: oxyCODONE 5 MG Tablet 10 MG PO ×4 (08:20→22:05)
[2021-08-07] MEDS: Potassium Chloride Oral Tablet 10 MEQ 20 MEQ PO ×3 (08:20→17:29)
--- NOTE | 2021-08-07 11:18 | CASEMGMT ---
Addendum entered by Edith Lynn 08/07/21 16:31: Pt signed NOMNC, pt given copy, copy placed on chart. CUATE Torres Addendum entered by Edith Lynn 08/07/21 12:24: Social Work SW spoke again w/[facility] in Home Health, they can start care on , home care will include nursing, PT, OT. SW let pt know that home care will start and that nursing, PT and OT ordered. Pt agreeable. Pt states her can come pick her up tomorrow, she would like to go home before lunch, we decided together 11am would work. No further needs, pt home with [facility] tomorrow, 08/08. CUATE Torres Original Note: Social Work As per therapy, pt would like to go home tomorrow and would like home health. Pt has all needed DME at home, and family has been in also to work with therapy. SW met w/pt, confirmed she would like home health. Pt would like [facility] as this is the agency with which she had home health prior to surgery and TCU stay. SW called [facility], made referral, they are to call SW back. CUATE Torres
[2021-08-07 12:59] VITALS: BP 117/79; PULSE 84; RESP 17; TEMP 36.1; O2SAT 95
--- NOTE | 2021-08-07 19:14 | PCM.DC.SUM ---
Providers Date of Admission: 07/15/21 Primary Care Physician: Dr. Ld Gan MD Reason For Visit: DEBILTY Diagnosis Discharge Diagnosis (1) Debility: Status: Acute Code(s): R53.81 - Other malaise (2) Closed trimalleolar fracture of left ankle: Status: Acute Code(s): S82.852A - Displaced trimalleolar fracture of left lower leg, initial encounter for closed fracture Qualifiers: Encounter type: initial encounter Qualified Code(s): S82.852A - Displaced trimalleolar fracture of left lower leg, initial encounter for closed fracture (3) Diastolic dysfunction: Status: Acute Code(s): I51.89 - Other ill-defined heart diseases (4) Pulmonary hypertension: Status: Acute Code(s): I27.20 - Pulmonary hypertension, unspecified (5) Anxiety: Status: Acute Code(s): F41.9 - Anxiety disorder, unspecified (6) Hypertension: Status: Chronic Code(s): I10 - Essential (primary) hypertension (7) Fibromyalgia: Status: Acute Code(s): M79.7 - Fibromyalgia (8) Hyperlipidemia: Status: Acute Code(s): E78.5 - Hyperlipidemia, unspecified (9) Depression: Status: Acute Code(s): F32.9 - Major depressive disorder, single episode, unspecified (10) Migraine: Status: Acute Code(s): G43.909 - Migraine, unspecified, not intractable, without status migrainosus (11) Tremor: Status: Acute Code(s): R25.1 - Tremor, unspecified (12) Insomnia: Status: Acute Code(s): G47.00 - Insomnia, unspecified (13) Muscle spasm: Status: Acute Code(s): M62.838 - Other muscle spasm (14) Essential hypertension: Status: Chronic Code(s): I10 - Essential (primary) hypertension Medications at Discharge Home Medications pravastatin 40 mg tablet 40 mg PO DAILY 02/09/19 escitalopram oxalate 20 mg tablet 20 mg PO DAILY tab 07/20/19 baclofen 10 mg tablet 10 mg PO TID tab 07/28/19 diazepam 5 mg tablet 5 mg PO TID PRN tab 07/28/19 loperamide 2 mg tablet 4 mg PO DAILY tab 07/28/19 amlodipine 5 mg PO DAILY 05/11/21 hydrochlorothiazide 12.5 mg PO DAILY 05/11/21 tamsulosin 0.4 mg PO BID 05/11/21 acetaminophen 1,000 mg PO Q8 07/15/21 acidophilus-pectin, citrus 1 tab PO BID 07/15/21 menthol-zinc oxide [Calmoseptine] 1 applic TOPICAL BID 07/15/21 nystatin [Nyamyc] 1 applic TOPICAL BID 07/15/21 primidone 50 mg PO QHS 07/15/21 primidone 250 mg PO QHS 07/15/21 trazodone 300 mg PO QHS 07/15/21 enoxaparin 40 mg SUBCUT 0600 30 Days #12 ml 08/07/21 oxycodone 10 mg PO Q4H PRN PRN 7 Days #84 tab 08/07/21 potassium chloride 20 meq PO TIDCM 30 Days #180 tab 08/07/21 Hospital Course Operations None Procedures None Summary of Care Provided Minutes Spent on Discharge: 35 Hospital Course: 76 year old female with below past medical history significant for left ankle fracture, underwent ORIF left ankle 05/24/2021, discharged home from TCU 06/29/2021, failed home discharge, admit to TCU with debility, here for rehabilitation, strengthening, prior to discharge home with . Discharge home with 08/08/2021, [facility] PT/OT. Physical Exam Const alert and oriented x3 General Appearance: cooperative HEENT normocephalic Eyes PERRL and EOMs intact bilaterally Neck supple, no JVD and no carotid bruits Resp normal respiratory effort, normal air movement and clear to auscultation bilaterally Cardio regular rate and regular rhythm GI normal to inspection, nondistended, normoactive bowel sounds, non-tender and non-distended Extremity normal capillary refill General Extremity: Negative for edema Skin no rashes or lesions noted General Skin Exam: no breakdown Psych affect normal Appearance: appropriate Weight / BMI Weight Weight: 92.278 kg Body Mass Index (BMI) 39.0 ABG / Lab / Microbiology Data Result Diagrams: 08/06/21 05:30 08/06/21 05:30 Microbiology: Microbiology 07/15/21 16:57 Nasal Secretion SARS-CoV-2 Antigen (Rapid) - Final D/C Instructions Discharge Diet: No restrictions Discharge Activity: Return to Normal Activity, May Shower and Use Walker May resume sexual activity in: 6-8 weeks Weight Bearing Status: Partial weight bearing (Left lower extremity.) Call your doctor if you observe: Fever of 101 or Higher, Inability to urinate, Inability to have a bowel movement, Shortness of breath, Dizziness, Fainting spells, Swelling in the ankles, Chest pain, Increased palpitations (irregular heartbeat) and Uncontrolled pain Additional Instructions: Discharge home with 08/08/2021, [facility] PT/OT. Please Follow Up With: [facility] When: As scheduled. Meaningful Use Info Meaningful Use Diagnoses (Choose all that apply): None applicable Discharge Plan Admission Admit Date/Time: 07/15/21 15:45 Primary Reason for Your Visit: Debility. Attending Provider: Ld Gan Chi Primary Care Provider: Ld Gan Chi Instructions Additional Instructions / Restrictions: Discharge home with 08/08/2021, [facility] PT/OT. Discharge Orders/Prescriptions Prescriptions: New oxycodone 5 mg Tablet 10 mg PO Q4H PRN PRN (Reason: Pain Score 6-10) 7 Days Qty: 84 RF: 0 enoxaparin 40 mg/0.4 mL Syringe 40 mg subcut 0600 30 Days Qty: 12 RF: 0 potassium chloride 10 mEq Tablet,Er Particles/Crystals 20 meq PO TIDCM 30 Days Qty: 180 RF: 0 Continued pravastatin 40 mg tablet 40 mg PO DAILY RF: 0 escitalopram oxalate [Lexapro] 20 mg tablet 20 mg PO DAILY RF: 0 baclofen 10 mg tablet 10 mg PO TID RF: 0 loperamide [Imodium A-D] 2 mg tablet 4 mg PO DAILY RF: 0 amlodipine 5 mg tablet 5 mg PO DAILY RF: 0 tamsulosin 0.4 mg capsule 0.4 mg PO BID RF: 0 hydrochlorothiazide 12.5 mg tablet 12.5 mg PO DAILY RF: 0 primidone 50 mg tablet 50 mg PO QHS RF: 0 acetaminophen 500 mg tablet 1,000 mg PO Q8 RF: 0 primidone 250 mg tablet 250 mg PO QHS RF: 0 trazodone 100 mg tablet 300 mg PO QHS RF: 0 nystatin [Nyamyc] 100,000 unit/gram powder 1 applic topical BID RF: 0 acidophilus-pectin, citrus 25 million cell -100 mg tablet 1 tab PO BID RF: 0 menthol-zinc oxide [Calmoseptine] 0.44-20.6 % ointment 1 applic topical BID RF: 0 Discontinued ondansetron HCl 4 mg tablet 4 mg PO TID PRN (Reason: Nausea) RF: 0 potassium chloride 10 mEq tablet,ER particles/crystals 40 meq PO DAILYCM RF: 0 No Action diazepam [Valium] 5 mg tablet 5 mg PO TID PRN (Reason: Anxiety) RF: 0 Referrals / Follow Up: Ld Gan Chi, MD [Primary Care Provider] - Disposition Disposition (needs filled in before D/C Order can be placed): Home Health Service
[2021-08-07] MEDS: Primidone 250 MG Tablet PO (20:53)
[2021-08-07] MEDS: Pravastatin 40 MG Tablet PO (20:53)
[2021-08-07] MEDS: Primidone 50 MG Tablet PO (20:53)
[2021-08-07] MEDS: traZODone 100 MG Tablet 300 MG PO (22:05)
[2021-08-08] MEDS: Acetaminophen 500 MG Tablet 1000 MG PO (06:38)
[2021-08-08] MEDS: Loperamide 2 MG Capsule 4 MG PO (06:38)
[2021-08-08] MEDS: Tamsulosin HCl 0.4 MG Capsule PO (06:38)
[2021-08-08] MEDS: Enoxaparin 40 MG/0.4 ML Syringe SC (06:38)
[2021-08-08] MEDS: Baclofen 10 MG Tablet PO (06:39)
[2021-08-08] MEDS: Escitalopram Oxalate 20 MG Tablet PO (06:39)
[2021-08-08] MEDS: hydroCHLOROthiazide 12.5mg 12.5 MG PO (06:39)
[2021-08-08] MEDS: amLODIPine 5 MG Tablet PO (06:39)
[2021-08-08] MEDS: Nystatin Powder 15gm Bottle 1 APPLIC TOPICAL (06:45)
[2021-08-08] MEDS: Menthol/Lanolin/Calamine/Znox 113 GM Tube 1 APPLIC TOPICAL (06:45)
[2021-08-08] MEDS: Potassium Chloride Oral Tablet 10 MEQ 20 MEQ PO (07:56)
[2021-08-08] MEDS: oxyCODONE 5 MG Tablet 10 MG PO (10:34)
[2021-08-08 10:41] VITALS: BP 133/61; PULSE 67; RESP 14; TEMP 36.3; O2SAT 90
== END 2021-08-08 11:00 | disposition home health service (06) | DRG 561 ==
PROVIDERS: Admitting Provider Family Medicine Geriatric Medicine; PCP Family Medicine Geriatric Medicine; Visit Provider Family Medicine Geriatric Medicine
DX: S82.852D Displaced trimalleolar fracture of left lower leg, subsequent encounter for closed fracture with routine healing (principal); X50.1XXD Overexertion from prolonged static or awkward postures, subsequent encounter; Z23 Encounter for immunization; F41.9 Anxiety disorder, unspecified; I27.20 Pulmonary hypertension, unspecified; I10 Essential (primary) hypertension; G25.0 Essential tremor; M79.7 Fibromyalgia; E78.5 Hyperlipidemia, unspecified; F32.9 Major depressive disorder, single episode, unspecified; M62.838 Other muscle spasm; E87.6 Hypokalemia; R33.9 Retention of urine, unspecified; B35.4 Tinea corporis; Z87.891 Personal history of nicotine dependence; Z79.899 Other long term (current) drug therapy
CPT/HCPCS: 0003A; 36415; 80048; 85025; 87426; 91300; 97110; 97116; 97162; 97166; 97530; 97535; 97542; 97802

== ENCOUNTER → 2021-08-31 14:25 | Outpatient (CLI) | payer MEDICARE, OTHER, SELFPAY ==
[2021-08-31 17:20] LABS: M R Staph aureus DNA By PCR Negative (Negative); Probe Check PASS; Specimen Processing Control PASS; Staph aureus DNA By PCR NEGATIVE (Negative)
== END ==
PROVIDERS: PCP Family Medicine Geriatric Medicine; Visit Provider Family Medicine Geriatric Medicine
DX: N39.0 Urinary tract infection, site not specified (principal); B95.62 Methicillin resistant Staphylococcus aureus infection as the cause of diseases classified elsewhere
CPT/HCPCS: 87070; 87075; 87077; 87086; 87088; 87186; 87205; 87640

== ENCOUNTER 2021-09-05 10:20 | Outpatient (RCR) | payer MEDICARE, OTHER, SELFPAY ==
--- NOTE | 2021-09-05 12:39 | HP.PTEVAL_ITS ---
Patient's Visit Information TINA GARCIA is a 76 year old F referred to Physical Therapy by Dr. Ld Gan MD with a diagnosis of LEFT ANKLE FRACTURE OF LEFT LOWER LEG. Date of Evaluation: 09/05/21 Physical Therapist: Terry River, PT, Cert MDT, OCS - Visit Plan Duration: 8WEEKS Plan: s/p ORIF LEFT ANKLE 05/24/21 ,WBAT [facility] WITH CAM BOOT AND FWW. PLAN TO SEE WOUND CENTER TODAY TO ASSESS SMALL SORE MEDIAL ANKLE. PT INTERVETIONS ROM/FLEXABLITY ANKLE ,STRENGTHNEING ANKLE/KNEE /HIP,GAIT,BALALNCE TRAINING WITH PROGRESSION TO BRACE AND FUNCTIONAL STRENGTHNEING - Subjective This 76 y/o female presents to physical therapy with left ankle fracture. Patient fell May 10 taken to ER at [facility] waited 2 weeks to have surgery on 05/24/[address] Constantin thacker. Patient was NWB and cast [address] in CAM Boot PWB 4weeks ,and currently WBAT with CAM boot. Patient was transferred to TCU for for several weeks then D/C to home 08/07/21. Although, prior patient was home for 1 week then return to TCU. Patient developed infection right ankle seen family found stap infection but will see DR Felix at wound center today. Patient had home PT ~ 1 month working on walking and ex's. Patient able to dress ,tub/shower with chair need some assist . Patient able to bath self. Patient spouse does the cooking. From surgery patient has osteoporosis bones soft. Patient has 2 story with ramp . DME : fww/. bedside commode. Seen TRAINING AND DEVELOPMENT PROFESSIONAL at [facility] 2weeks with one more week able to ankle brace. Patient denies paresthesia/tingling. Patient sleeping okay at night. Patient condition affects function ,fait and ADLS. SOCIAL: . VOCATION: retired - Pain Left Ankle Pain Intensity (Out of 10): 5 Pain Intensity Range: 10 - Objective POSTURE: frontal plan mechanics pes planus, ER foot with calcaneal valgus. TRI- MALLEOR: 56 CM. SKIN: well approximate small sore medial malleoli. SENSTION: intact, denies paresthesia. AROM ANKLE: dorsiflexion 15 degrees from 0 ,plantarflexion 45 degrees, inversion 10 degrees ,eversion 5 degrees. MMT: anterior tibials 3+/5,posteriortibials 3/5,peroneous 4-/5,G-S 2+/5. BALANCE: FWW FAIR. GAIT: ambulate with WBAT fww 20 ft with SBA - Balance/Special Test Scores Lower Extremity Functional Score: 13 - Goals Goal 1:: I with HEP for ankle Goal Time Frame: 6-8 Weeks Goal 2:: Ambulate with FWW with brace with improve stance time at community distances to go to store and DR Goal Time Frame: 6-8 Weeks Goal 3:: Dynamic balance fair + with fww Goal Time Frame: 6-8 Weeks Goal 4:: Patient increase AROM ankle by 5 degrees all planes to improve function Goal Time Frame: 6-8 Weeks Goal 5:: Patient to increase ankle strength 4/5 except G-S 3+/5 to improve gait Goal Time Frame: 6-8 Weeks Goal 6:: Patient to improve LFES SCORE by 10 points to improve QOL and gait/function. - Rehabilitation Potential Physical Therapy Diagnosis: This patient underwent s/p ORIF left ankle with edema, weakness ,decrease gait ,ROM of ankle along with decrease endurance thus will benefit from skilled PT to address these impairments Rehabilitation Potential: Good - Anticipated Interventions Patient/Client Instruction: Educate patient on: Condition, Plan of Care For the Purpose of:: To decrease pain, To increase ROM, To improve muscle performance and motor function, To improve ability to perform ADL's, To increase tolerance to activity/condition/position, To improve performance and independence with ADL's, To improve ability of physical actions for home/community/work/leisure, To improve gait and locomotor functions, To improve health of tissue, To decrease soft tissue restriction, To increase flexibility/ROM, To improve endurance, To improve balance, To improve safety with gait, To assume or resume ADL's Therapeutic Exercise to Include: Strength training, Endurance training, Balance training, Flexibilty training, Gait and locomotor training, Passive ROM, Active ROM Comment: ANKLE/HIP/KNEE For the Purpose of:: To decrease pain, To increase ROM, To improve muscle performance and motor function, To improve ability to perform ADL's, To increase tolerance to activity/condition/position, To improve performance and independence with ADL's, To decrease level of supervision to perform tasks, To improve ability of physical actions for home/community/work/leisure, To improve gait and locomotor functions, To improve health of tissue, To decrease soft tissue restriction, To improve endurance Thank you for the opportunity to evaluate your patient. For Medicare and Medicare HMO plans, please review the plan of care and approve it. It will need to be FAXED BACK to us at [phone] for Medicare purposes. For Medicare only, by signing this I certify the plan of care. Please let me know if there are questions or concerns regarding this plan of car e. Physician Signature: Date:
--- NOTE | 2021-11-13 13:00 | HP.PTDCNRP_ITS ---
TINA GARCIA was seen in my office for initial evaluation on 09/05/21. The following Plan of Care was established for this patient: Initial Duration: 8WEEKS Patient/Client Instruction: Educate patient on: Condition, Plan of Care For the Purpose of:: To decrease pain, To increase ROM, To improve muscle pe rformance and motor function, To improve ability to perform ADL's, To increase tolerance to activity/condition/position, To improve performance and independence with ADL's, To improve ability of physical actions for home/community/work/leisure, To improve gait and locomotor functions, To improve health of tissue, To decrease soft tissue restriction, To increase flexibility/ROM, To improve endurance, To improve balance, To improve safety with gait, To assume or resume ADL's Therapeutic Exercise to Include: Strength training, Endurance training, Balance training, Flexibilty training, Gait and locomotor training, Passive ROM, Active ROM For the Purpose of:: To decrease pain, To increase ROM, To improve muscle performance and motor function, To improve ability to perform ADL's, To increase tolerance to activity/condition/position, To improve performance and independence with ADL's, To decrease level of supervision to perform tasks, To improve ability of physical actions for home/community/work/leisure, To improve gait and locomotor functions, To improve health of tissue, To decrease soft tissue restriction, To improve endurance This patient was last seen in our office . Pertinent comments regarding their Physical therapy will appear below: Patient seen for PT [facility] thus is d/c At this point I will be discontinuing this patient from physical therapy. I would be happy to see this patient again in the future if found appropriate by the physician. Thank you! Terry River, PT, Cert MDT, OCS Balance/Gait/Functional tests - Balance/Special Test Scores Lower Extremity Functional Score: 13
== END 2021-09-05 19:00 | disposition home or self-care (01) ==
LOC: PT 10:20
PROVIDERS: PCP Family Medicine Geriatric Medicine; Referring Provider Family Medicine Geriatric Medicine; Visit Provider Family Medicine Geriatric Medicine
DX: S82.892S Other fracture of left lower leg, sequela (principal); X58.XXXS Exposure to other specified factors, sequela
CPT/HCPCS: 97110; 97162

== ENCOUNTER 2021-09-12 13:45 | Outpatient (RCR) | payer MEDICARE, OTHER, SELFPAY ==
[2021-09-05 14:16] VITALS: BP 172/70; PULSE 63; RESP 16; TEMP 36.2; BMI 37.8
[2021-09-05 14:40] VITALS: BP 137/64; PULSE 63; BMI 37.8
--- NOTE | 2021-09-05 16:15 | PCM.WC.PN ---
History of Present Illness Date of Service: 09/05/21 Chief Complaint: Left ankle ulcer History of Wound: This 76-year-old female patient with neuropathy was referred to the wound healing center for a medial left ankle ulcer. She had a prior try malleolus ankle fracture in which she had open reduction internal fixation with Shaylee VuPMary on May 24, 2021. She has continued aching and pain and has a delayed healing wound site to the medial limb. She has been applying Neosporin at home and was denying any known history of infection. She has been recently followed with physician assistant professor nurse education was orthopedics and is now transferring her care to the foot and ankle Center for her ankle fracture. She has been starting to bear weight on her ankle with a cam walker boot and physical therapy and relates this is painful where the boot is rubbing and just in general with weightbearing activity. Progress of Wound: Stable Objective Data Objective Data Vital Signs: Vital Signs Temp Pulse Resp BP 97.1 F L 63 16 137/64 H 09/05/21 14:16 09/05/21 14:40 09/05/21 14:16 09/05/21 14:40 Oxygen Delivery Method Room Air Weight: 90.718 kg Body Mass Index (BMI) 37.8 Physical Exam Const alert and oriented x3 General Appearance: cooperative HEENT normocephalic Extremity Extremity Narrative: No calf tenderness Diminished pulses Muscle wasting noted Pain to palpate over medial malleolus fracture and ulcer site Passive range of motion of the ankle smooth and gliding with pain apprehension and no crepitus or instability Pain to palpate over distal fibula fracture site also No fluctuance or bogginess on palpation General Extremity: edema and no tenderness to palpation of joints or extremities; Negative for cyanosis Skin Skin Narrative: no purulence, no streaking, no odor, no infection. Small medial malleolus ulcer along the central aspect of the incision without probe to bone or hardware. No erythema. Her skin is hairless and atrophic. General Skin Exam: Negative for erythema Neuro Neuro Narrative: lack of normal epicritic sensation via light touch is consistent with neuropathy status Psych cooperative and affect normal Debridement Note Debridement Note Wound debrided: left medial ankle Wound Grade/Stage: Type of Debridement: Excisional debridement Anesthesia Used: 4% Lidocaine Solution Depth: in the subcutaneous layer Percentage of wound debrided: 100 Instrument Used: - (1 mm curette) Tissue Removed: fibrous, devitalized subcutaneous, biofilm, slough Severity: Fat Layer Exposed Amount of bleeding with debridement: Mild Bleeding Controlled with: Pressure Patient tolerated procedure: Patient tolerated procedure well Post-Debridement Measurements and Additional Note: Post-Debridement Measurements/Treatment - Nurse 1 - General Ulcer Assessment Start: 09/05/21 14:03 Freq: Status: Active Protocol: [email or web address] Activity Type Activity Date Activity User E-Sign Co-Sign Detail Recorded Client Recorded Date Recorded By Document 09/05/21 14:16 [facility] [id number] 09/05/21 14:29 [facility] Document 09/05/21 14:40 [facility] [id number] 09/05/21 14:41 [facility] 09/05/21 09/05/21 14:16 14:40 - Today's Visit Information Type of service Initial Visit Arrival Mode Wheelchair Transfer Assistance Other Transfer Assist (Other) stand by Accompanied by in lobby Patient Identification Verified (Name & Yes ) Patient Requires Transmission-Based No Precautions Height and Weight Height 5 ft 1 in Weight 90.718 kg Weight in Pounds 200.0 lbs Weight Measurement Method Estimated by Patient Body Mass Index (BMI) 37.8 37.8 BMI Classification Obese Obese BSA - Tyesha 1.89 Vital Signs Temperature (97.8 F-99.1 F) 97.1 F L Temperature Source Temporal Pulse Rate (60-100) 63 63 Pulse Location Monitor Monitor Respiratory Rate (12-18) 16 Respiratory rate source Observation Oxygen Delivery Method Room Air Blood Pressure (90/60-120/80) 172/70 H 137/64 H Blood Pressure Mean (mm Hg) 104 88 Source Monitor Monitor Position Sitting Sitting Blood Pressure Location Right Arm Right Arm History Since Last Visit- (Skip if this is Patient's initial visit) Left Footwear Removable Cast Walker/Walking Boot Right Footwear Regular Shoe Lower Extremity Assessment/ Foot Assessment/ Toe Nail Assessment Right -Posterior Tibial Palpable No -Dorsalis Pedis Palpable Yes -Extremity Color Pale -Hair Growth on Legs No -Hair Growth on Toes No -Temperature of Extremity Cool -Other Deformity No -Prior Foot Ulcer No -Charcot Joint No -Prior Amputation No -Thick No -Discolored No -Deformed No -Improper Length & Hygeine No Left -Dorsalis Pedis Palpable Yes -Extremity Color Pale -Hair Growth on Legs No -Hair Growth on Toes No -Temperature of Extremity Cool -Other Deformity No -Prior Foot Ulcer No -Charcot Joint No -Prior Amputation No -Thick No -Discolored No -Deformed No -Improper Length & Hygeine No Neuropathy Assessment Feet - Top Side and Bottom <Entered> (a) Communication Assessment Preferred language 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 No Able to Read Yes Able to Write Yes Communication Tools None Right Hearing Abillity Normal Left Hearing Abillity Normal Visual Assistive Devices Glasses Teaching Assessment Preferences Verbal,Written, Audio/Visual, Demonstration Barriers to Learning None Readiness To Learn Excellent Willingness to Engage in Self Management High Activies Readiness to Engage in Self Management High Activities Anxiety Level Calm Cooperation Cooperative Perception Coherent Interest in Health Problem Asks Questions Education Importance Acknowledges Need Does Patient Smoke tobacco or other No substances Smoking Status Former smoker Is Patient Diabetic No Functional Assessment Recent Decline in Ability to Perform Ambulation, Transferring Culture/Episcopal/Business Systems Advisor Cultural/Episcopal Needs that may affect No Treatment Plan Teaching: Wound Center *Welcome to the Wound Center -Person Taught Patient -Teaching Method Discussion -Response to teaching Verbalize understanding Welcome to the Wound Care Center [place] (a) 1 - + WC - Nurse 1 - General Ulcer Measurement Start: 09/05/21 14:03 Freq: Status: Active Protocol: Activity Type Activity Date Activity User E-Sign Co-Sign Detail Recorded Client Recorded Date Recorded By Document 09/05/21 14:16 [facility] [id number] 09/05/21 14:29 [facility] 09/05/21 14:16 Wound Center Nurse 1 #1- L MEDIAL ANKLE -Combined with other wound No -Current Size (cm) - Length 0.1 -Current Size (cm) - Width 0.1 -Current Size (cm) - Depth 0.1 -Total Square Cm 0.01 -Date of Last Picture (Recall this 09/05/21 field) -Photo Taken Yes -Tunneling No -Undermining/Tunneling No -Circular Undermining No -Exudate Amt None Present -Wound Margin Flat & Intact -Texture (Nimisha-wound Skin Appearance) Assessed, Localized Edema ,Scarring -Moisture (Nimisha-wound Skin Appearance) Assessed -Color (Nimisha-wound Skin Appearance) Assessed, Erythema -Temperature (Nimisha-wound Skin No Abnormality Appearance) (Pt Warm) -Tenderness on Palpation (Nimisha-wound Yes Skin Appearance) -Ulcer Cleansing Rinsed/ Irrigated with Saline -Foul Odor after Cleansing No -Anesthetic Used 5% Lidocaine Gel Lower Limb Edema Present Yes Right Calf (cm) 37.1 Right Ankle (cm) 22.2 Left Calf (cm) 35.4 Left Ankle (cm) 22.8 NARCISA - Nurse 2 - General Ulcer CM Notes Start: 09/05/21 14:03 Freq: Status: Active Protocol: Activity Type Activity Date Activity User E-Sign Co-Sign Detail Recorded Client Recorded Date Recorded By Document 09/05/21 14:50 [id number] 09/05/21 14:57 09/05/21 14:50 Wound Center Nurse 2 #1- L MEDIAL ANKLE -Time 14:55 -Correct Patient Yes -Correct Side, Site, Position Yes -Correct Procedure Yes -Procedure Performed Yes -Type of Procedure Debridement -Clinical Debridement Subcutaneous -Tissue Removed Subcutaneous -Post Debridement (cm) - Length 0.1 -Post Debridement (cm) - Width 0.1 -Post Debridement (cm) - Depth 0.1 -Total Square (Post) (cm) 0.01 -Area of Debridement (cm) - Length 0.1 -Area of Debridement (cm) - Width 0.1 -Total Square (Area) (cm) 0.01 -Tunneling No -Undermining/Tunneling No -Circular Undermining No -Wound/Ulcer Outcome Not Healed -Ulcer Cleansing Rinsed/ Irrigated with Saline -Foul Odor after Cleansing No -Bioengineered Tissue No -Bleeding Controlled with Pressure -Offloading Yes -Type of Offloading Camwalker -Treatment Response Procedure Tolerated Well -Debridement - Subq, 1st 20sq cm Yes Pain Scale: 0-10 Numeric Is Patient Pain Free? Yes - Nurse 3 - General Ulcer D/C NN Start: 09/05/21 14:03 Freq: Status: Active Protocol: Activity Type Activity Date Activity User E-Sign Co-Sign Detail Recorded Client Recorded Date Recorded By Document 09/05/21 15:12 [facility] [id number] 09/05/21 15:13 [facility] 09/05/21 15:12 Wound Care Nurse 3 #1- L MEDIAL ANKLE -Ulcer Cleansing Rinsed/ Irrigated with Saline -Foul Odor after Cleansing No -Primary Dressing Applied Other -Other Dressing HYDROGEL, APPERTURE PAD -Primary Dressing Covered/Secured with Dry Gauze & Roll Gauze, Secured with Tape BLE -Tubular Bandage Single Layer -Size of Tubigrip Used Size D -Size D ($) 2 Treatment Response Procedure Tolerated Well Pain Scale: 0-10 Numeric Is Patient Pain Free? 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: CODE(S): L97.922 - Non-pressure chronic ulcer of unspecified part of left lower leg with fat layer exposed (3) Malnutrition: CODE(S): E46 - Unspecified protein-calorie malnutrition (4) Bilateral edema of lower extremity: CODE(S): R60.0 - Localized edema (5) 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 Debridement was performed today as noted in the clinical panel to the ulcer site. The following work up and care recommendations were made: Dressing: Hydrogel and gauze daily Wash: Antibacterial soap and water. Avoid soaking. Offload: Aperture pad was applied. To avoid direct pressure on the wound. Vascular: Noninvasive vascular studies were ordered to screen for any vascular impairments that may be contributing to her delays in healing. Edema: Recommend Tubigrip application, salt reduction in diet, routine elevation Infection: This is not noted today. To monitor Pain: This is controlled currently Host factors: I recommend nutritional supplementation with Anish. Surgical recent history: It is noted she did have open reduction internal fixation with Dr. Arrington on 05-24-21. I have requested CD images of her most recent ankle x-rays from [facility]. These were obtained and reviewed after clinic with the following findings: Three nonweightbearing x-rays of the ankle demonstrate open reduction internal fixation of ankle fracture with fibular margret and two screws across the medial malleolus fracture site. There is not radiographic evidence of healing. There is a slight valgus tilt of the ankle as well. There is less than 1 cm gapping. I recommend advanced imaging now that she is almost 4 months postoperative did confirm if there is any osseous bridging noted. I do not recommend that she places weight on this at this time due to concern of lack of healing and potential instability. I also recommend a bone stimulator to optimize healing. Prior authorization will be initiated. I also recommend vit D screening to assess for deviciency. Supplementation may be needed to optimize healing. I answered all the patient's questions. To return to the wound healing center in 1 week or call sooner if the patient has any questions or concerns. 22 minutes was spent on this encounter. This included face to face and non face to face care including preparing for the visit, reviewing the history, performing the exam, counseling and providing education to the patient, family, or caregiver, ordering medications/test/ procedures if indicated as documented, communicating with other healthcare providers, documenting information in the medical record, interpreting / sharing this information when indicated as documented, and care coordination. The medical decision making level is limited based on data including the review of prior external notes, review of a prior test, or ordering a test.
[2021-09-12 13:54] VITALS: BP 142/62; PULSE 42; TEMP 35.6; BMI 37.8
--- NOTE | 2021-09-12 15:15 | PCM.WC.PN ---
History of Present Illness Date of Service: 09/12/21 Chief Complaint: Left ankle ulcer History of Wound: This 76-year-old female patient with neuropathy was referred to the wound healing center for a medial left ankle ulcer. She had a prior trimalleolus ankle fracture in which she had open reduction internal fixation with Shaylee VuPMary on May 24, 2021. She has continued aching and pain and has a delayed healing wound site to the medial limb. She is now transferring her care to the foot and ankle Center for her ankle fracture. She has been starting to bear weight on her ankle with a cam walker boot and physical therapy and relates this is painful where the boot is rubbing and just in general with weightbearing activity. Her plan was updated this weekend verbally over the phone and she has remained nonweightbearing since that time. She is also in the process of getting scheduled for an updated CT scan of the ankle and bone stimulator. She will go to get her vitamin D level tested after clinic visit today as well. She denies drainage for the past week. She denies fever, chill, nausea, vomiting. Progress of Wound: Healed Objective Data Objective Data Vital Signs: Vital Signs Temp Pulse Resp BP 96.0 F L 42 L 16 142/62 H 09/12/21 13:54 09/12/21 13:54 09/05/21 14:16 09/12/21 13:54 Oxygen Delivery Method Room Air Weight: 90.718 kg Body Mass Index (BMI) 37.8 Physical Exam Const alert and oriented x3 General Appearance: cooperative HEENT normocephalic Extremity Extremity Narrative: No calf tenderness Diminished pulses Muscle wasting noted Pain to palpate over medial malleolus fracture and prior ulcer site Passive range of motion of the ankle smooth and gliding with pain apprehension and no crepitus or instability Pain to palpate over distal fibula fracture site also No fluctuance or bogginess on palpation General Extremity: edema and no tenderness to palpation of joints or extremities; Negative for cyanosis Skin Skin Narrative: no purulence, no streaking, no odor, no infection. No erythema. Her skin is hairless and atrophic. No drainage noted. Full epithelialization to previous heel ankle ulcer site however the skin remains very fragile General Skin Exam: Negative for erythema Neuro Neuro Narrative: lack of normal epicritic sensation via light touch is consistent with neuropathy status Psych cooperative and affect normal Debridement Note Debridement Note Post-Debridement Measurements and Additional Note: Post-Debridement Measurements/Treatment WC - Nurse 1 - General Ulcer Assessment Start: 09/05/21 14:03 Freq: Status: Active Protocol: CLEESTE Activity Type Activity Date Activity User E-Sign Co-Sign Detail Recorded Client Recorded Date Recorded By Document 09/05/21 14:16 [facility] [id number] 09/05/21 14:29 [facility] Document 09/05/21 14:40 [facility] [id number] 09/05/21 14:41 [facility] Document 09/12/21 13:54 KR [id number] 09/12/21 13:55 KR 09/05/21 09/05/21 09/12/21 14:16 14:40 13:54 WC - Today's Visit Information Type of service Initial Visit Follow-up Visit (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 [employer] ) Arrival Mode Wheelchair Wheelchair Transfer Assistance Other Transfer Assist (Other) stand by Accompanied by in lobby Patient Identification Verified (Name & Yes Yes ) Patient Requires Transmission-Based No Precautions Height and Weight Height 5 ft 1 in Weight 90.718 kg Weight in Pounds 200.0 lbs Weight Measurement Method Estimated by Patient Body Mass Index (BMI) 37.8 37.8 37.8 BMI Classification Obese Obese Obese BSA - Tyesha 1.89 Vital Signs Temperature (97.8 F-99.1 F) 97.1 F L 96.0 F L Temperature Source Temporal Temporal Pulse Rate (60-100) 63 63 42 L Pulse Location Monitor Monitor Monitor Respiratory Rate (12-18) 16 Respiratory rate source Observation Oxygen Delivery Method Room Air Blood Pressure (90/60-120/80) 172/70 H 137/64 H 142/62 H Blood Pressure Mean (mm Hg) 104 88 88 Source Monitor Monitor Monitor Position Sitting Sitting Semi-Fowlers Blood Pressure Location Right Arm Right Arm Right Arm Have you changed medications since your No last visit? Any new allergies or adverse reactions No Had a fall/change in ADL's that may No increase risk of falls Signs or symptoms of abuse and/or No neglect since last visit Have you been in the hospital since your No last visit? Has dressing in place as prescribed Yes Has compression in place as prescribed N/A Has offloadiing in place as prescribed N/A Experienced any changes in pain level or No management History Since Last Visit- (Skip if this is Patient's initial visit) Left Footwear Removable Cast Regular Shoe Walker/Walking Boot Right Footwear Regular Shoe Regular Shoe Pain Scale: 0-10 Numeric Is Patient Pain Free? Yes Lower Extremity Assessment/ Foot Assessment/ Toe Nail Assessment Right -Posterior Tibial Palpable No -Dorsalis Pedis Palpable Yes -Extremity Color Pale -Hair Growth on Legs No -Hair Growth on Toes No -Temperature of Extremity Cool -Other Deformity No -Prior Foot Ulcer No -Charcot Joint No -Prior Amputation No -Thick No -Discolored No -Deformed No -Improper Length & Hygeine No Left -Dorsalis Pedis Palpable Yes -Extremity Color Pale -Hair Growth on Legs No -Hair Growth on Toes No -Temperature of Extremity Cool -Other Deformity No -Prior Foot Ulcer No -Charcot Joint No -Prior Amputation No -Thick No -Discolored No -Deformed No -Improper Length & Hygeine No Neuropathy Assessment Feet - Top Side and Bottom <Entered> (a) Communication Assessment Preferred language 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 No Able to Read Yes Able to Write Yes Communication Tools None Right Hearing Abillity Normal Left Hearing Abillity Normal Visual Assistive Devices Glasses Teaching Assessment Preferences Verbal,Written, Audio/Visual, Demonstration Barriers to Learning None Readiness To Learn Excellent Willingness to Engage in Self Management High Activies Readiness to Engage in Self Management High Activities Anxiety Level Calm Cooperation Cooperative Perception Coherent Interest in Health Problem Asks Questions Education Importance Acknowledges Need Does Patient Smoke tobacco or other No substances Smoking Status Former smoker Is Patient Diabetic No Functional Assessment Recent Decline in Ability to Perform Ambulation, Transferring 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 Cultural/Zoroastrian Needs that may affect No Treatment Plan Teaching: Wound Center *Welcome to the Wound Center -Person Taught Patient -Teaching Method Discussion -Response to teaching Verbalize understanding Welcome to the Wound Care Center Citizen Of [place] (a) 1 - + WC - Nurse 1 - General Ulcer Measurement Start: 09/05/21 14:03 Freq: Status: Active Protocol: Activity Type Activity Date Activity User E-Sign Co-Sign Detail Recorded Client Recorded Date Recorded By Document 09/05/21 14:16 [facility] [id number] 09/05/21 14:29 [facility] Document 09/12/21 13:54 KR [id number] 09/12/21 13:55 KR 09/05/21 09/12/21 14:16 13:54 Wound Center Nurse 1 #1- L MEDIAL ANKLE -Combined with other wound No -Current Size (cm) - Length 0.1 0.6 -Current Size (cm) - Width 0.1 0.4 -Current Size (cm) - Depth 0.1 0.2 -Total Square Cm 0.01 0.24 -Date of Last Picture (Recall this 09/05/21 field) -Photo Taken Yes -Tunneling No -Undermining/Tunneling No -Circular Undermining No -Exudate Amt None Present Small -Exudate Type Serosanguineous -Wound Margin Flat & Intact Distinct, Outline Attached -Granulation Amt Small (1-33%) -Granulation Quality Red -Necrosis Amt Small (1-33%) -Necrotic Tissue Type Adherent Slough -Texture (Nimisha-wound Skin Appearance) Assessed, Assessed, Localized Edema Scarring ,Scarring -Moisture (Nimisha-wound Skin Appearance) Assessed No Abnormality, Assessed -Color (Nimisha-wound Skin Appearance) Assessed, No Abnormality, Erythema Assessed -Temperature (Nimisha-wound Skin No Abnormality No Abnormality Appearance) (Pt Warm) (Pt Warm) -Tenderness on Palpation (Nimisha-wound Yes No Skin Appearance) -Ulcer Cleansing Rinsed/ Rinsed/ Irrigated with Irrigated with Saline Saline -Foul Odor after Cleansing No No -Anesthetic Used 5% Lidocaine 4% Lidocaine Gel Solution Lower Limb Edema Present Yes Right Calf (cm) 37.1 Right Ankle (cm) 22.2 Left Calf (cm) 35.4 Left Ankle (cm) 22.8 WC - Nurse 2 - General Ulcer CM Notes Start: 09/05/21 14:03 Freq: Status: Active Protocol: Activity Type Activity Date Activity User E-Sign Co-Sign Detail Recorded Client Recorded Date Recorded By Document 09/05/21 14:50 [facility] [id number] 09/05/21 14:57 Document 09/12/21 14:00 [facility] [id number] 09/12/21 14:02 09/05/21 09/12/21 14:50 14:00 Wound Center Nurse 2 #1- L MEDIAL ANKLE -Time 14:55 14:00 -Correct Patient Yes No -Correct Side, Site, Position Yes No -Correct Procedure Yes No -Procedure Performed Yes No -Type of Procedure Debridement -Clinical Debridement Subcutaneous -Tissue Removed Subcutaneous -Post Debridement (cm) - Length 0.1 -Post Debridement (cm) - Width 0.1 -Post Debridement (cm) - Depth 0.1 -Total Square (Post) (cm) 0.01 -Area of Debridement (cm) - Length 0.1 -Area of Debridement (cm) - Width 0.1 -Total Square (Area) (cm) 0.01 -Tunneling No No -Undermining/Tunneling No No -Circular Undermining No No -Wound/Ulcer Outcome Not Healed Not Healed -Ulcer Cleansing Rinsed/ Rinsed/ Irrigated with Irrigated with Saline Saline -Foul Odor after Cleansing No No -Bioengineered Tissue No No -Bleeding Controlled with Pressure Pressure -Offloading Yes Yes -Type of Offloading Camwalker Camwalker -Treatment Response Procedure Procedure Tolerated Well Tolerated Well -Debridement - Subq, 1st 20sq cm Yes No Pain Scale: 0-10 Numeric Is Patient Pain Free? Yes - Nurse 3 - General Ulcer D/C NN Start: 09/05/21 14:03 Freq: Status: Active Protocol: Activity Type Activity Date Activity User E-Sign Co-Sign Detail Recorded Client Recorded Date Recorded By Document 09/05/21 15:12 [facility] [id number] 09/05/21 15:13 [facility] Document 09/12/21 14:16 [id number] 09/12/21 14:17 09/05/21 09/12/21 15:12 14:16 Wound Care Nurse 3 #1- L MEDIAL ANKLE -Ulcer Cleansing Rinsed/ Rinsed/ Irrigated with Irrigated with Saline Saline -Foul Odor after Cleansing No -Primary Dressing Applied Other -Other Dressing HYDROGEL, APPERTURE PAD -Primary Dressing Covered/Secured with Dry Gauze & Roll Gauze, Secured with Tape BLE -Tubular Bandage Single Layer -Size of Tubigrip Used Size D Size D -Size D ($) 2 Treatment Response Procedure Tolerated Well Pain Scale: 0-10 Numeric Is Patient Pain Free? 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: CODE(S): L97.922 - Non-pressure chronic ulcer of unspecified part of left lower leg with fat layer exposed (3) Malnutrition: CODE(S): E46 - Unspecified protein-calorie malnutrition (4) Bilateral edema of lower extremity: CODE(S): R60.0 - Localized edema (5) 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 The ulcer appears healed and there is no debridement performed today. Her skin is still very fragile. The following work up and care recommendations were made: Dressing: Dry gauze to protect this fragile site while remodeling of the skin occurs Wash: Antibacterial soap and water. Avoid soaking. Offload: Aperture pad was reapplied. To avoid direct pressure on the wound. Vascular: Noninvasive vascular studies were ordered to screen for any vascular impairments that may be contributing to her delays in healing. Pending Edema: Recommend Tubigrip application, salt reduction in diet, routine elevation Infection: This is not noted today. To monitor Pain: This is controlled currently Host factors: I recommend nutritional supplementation with Anish. Surgical recent history: It is noted she did have open reduction internal fixation with Dr. Arrington on 05-24-21. I have requested CD images of her most recent ankle x-rays from [facility]. These were obtained and reviewed after clinic with the following findings: Three nonweightbearing x-rays of the ankle demonstrate open reduction internal fixation of ankle fracture with fibular margret and two screws across the medial malleolus fracture site. There is not radiographic evidence of healing. There is a slight valgus tilt of the ankle as well. There is less than 1 cm gapping. I recommend advanced imaging now that she is almost 4 months postoperative did confirm if there is any osseous bridging noted. I do not recommend that she places weight on this at this time due to concern of lack of healing and potential instability. I also recommend a bone stimulator to optimize healing. I also recommend vit D screening to assess for deficiency; will follow. Supplementation may be needed to optimize healing. I answered all the patient's questions. To return to the wound healing center in 1 week or call sooner if the patient has any questions or concerns. The medical decision making level is moderate. There is noted moderate risk of morbidity after considering this treatment plan and diagnostic data. Considerations were given to prescription management, decisions regarding surgical options, or social determinants of health. The problems addressed require a moderate decision making level which includes one or more chronic illnesses (w/ exacerbation, progression, or side effects), two or more stable chronic illnesses, one undiagnosed new problem w/ uncertain prognosis, one acute illness with systemic symptoms, or one acute complicated injury. The medical decision making level is moderate based on data including at least three of the following: review of prior external notes, review of a test, ordering a test, assessment requiring an independent historian.
== END 2021-09-25 23:59 ==
LOC: WC 13:45
PROVIDERS: PCP Family Medicine Geriatric Medicine; Visit Provider Podiatrist
DX: L97.922 Non-pressure chronic ulcer of unspecified part of left lower leg with fat layer exposed (principal); S82.899K Other fracture of unspecified lower leg, subsequent encounter for closed fracture with nonunion; S92.909K Unspecified fracture of unspecified foot, subsequent encounter for fracture with nonunion; S82.892D Other fracture of left lower leg, subsequent encounter for closed fracture with routine healing; E46 Unspecified protein-calorie malnutrition; R60.0 Localized edema; R26.2 Difficulty in walking, not elsewhere classified; M81.0 Age-related osteoporosis without current pathological fracture
CPT/HCPCS: 11042; 99213; G0463

== ENCOUNTER → 2021-09-12 15:27 | Outpatient (CLI) | payer MEDICARE, OTHER, SELFPAY ==
[2021-09-12 16:57] LABS: Vitamin D,25 Hydroxy 31.9 ng/mL
== END ==
PROVIDERS: PCP Family Medicine Geriatric Medicine; Referring Provider Podiatrist; Visit Provider Podiatrist
DX: E55.9 Vitamin D deficiency, unspecified (principal); S82.852K Displaced trimalleolar fracture of left lower leg, subsequent encounter for closed fracture with nonunion
CPT/HCPCS: 36415; 82306

== ENCOUNTER → 2021-09-21 13:16 | Outpatient (CLI) | payer MEDICARE, OTHER, SELFPAY ==
--- NOTE | 2021-09-21 13:21 | CT_ITS ---
STUDY: CT LEFT ANKLE WITHOUT CONTRAST REASON FOR EXAM: Left ankle pain, protrusion and medial ankle. TECHNIQUE: Thin section transaxial imaging of the ankle was obtained, with sagittal and coronal reconstructed images. Individualized dose optimization techniques were used for this CT. COMPARISON: Radiographs 05/24/2021, CT images 05/10/2021. FINDINGS: There are 2 intact orthopedic screws transfixing a fracture of the medial malleolus in anatomic alignment and position with osseous bridging of approximately 20% of the fracture (coronal reconstructions 57-64; sagittal reconstructions 6-8). There is an intramedullary pin transfixing a distal fibular fracture with osseous bridging of approximately 50% (sagittal reconstructions 23-26; coronal reconstructions 61-64). There is osseous bridging of the posterior malleolar fracture (axial images 54-56). There is a small tibiotalar joint effusion and an intra-articular body in the posterior aspect of the tibiotalar articulation (sagittal reconstructions 17-19) measuring approximately 0.7 cm in transverse dimension. Normal talus, calcaneus, navicular and cuboid tarsal bones. Normal subtalar, talonavicular and calcaneocuboid articulations. Normal navicular-cuneiform, cuneiform tarsal bones and intercuneiform articulations. Normal tarsometatarsal articulations and visualized metatarsi. There is soft tissue swelling especially at the medial aspect of the ankle. CT/Extremity Lower without Contra IMPRESSION: ORIF with healing fractures of the medial malleolus and distal fibula, and healed fracture of the posterior malleolus. Small tibiotalar joint effusion with posterior intra-articular body. Soft tissue swelling, especially at the medial aspect of the ankle. Electronically Signed: Joseph Mendenhall MD at 14:59 EST Tel , Service support ,
== END ==
PROVIDERS: PCP Family Medicine Geriatric Medicine; Referring Provider Podiatrist; Visit Provider Podiatrist
DX: S82.852K Displaced trimalleolar fracture of left lower leg, subsequent encounter for closed fracture with nonunion (principal); M25.572 Pain in left ankle and joints of left foot
CPT/HCPCS: 73700

== ENCOUNTER → 2021-10-05 11:24 | Outpatient (CLI) | payer MEDICARE, OTHER, SELFPAY | LOC: POLAB3 11:26 → LABSPEC 11:28 | PROVIDERS: PCP Family Medicine Geriatric Medicine; Visit Provider Family Medicine Geriatric Medicine | DX: N39.0 Urinary tract infection, site not specified (principal) | CPT/HCPCS: 87086; 87088 ==

== ENCOUNTER 2021-11-01 20:44 | Outpatient (CLI) | payer MEDICARE, OTHER, SELFPAY ==
[2021-11-01 15:49] LABS: Absolute Lymphocyte Count 1.98 X10^3/uL (0.83-4.51); Basophil# 0.05 X10^3/uL; Basophil% 0.7 % (0-1); Eosinophil# 0.25 X10^3/uL; Eosinophils% 3.6 % (0-5); Hematocrit 40.2 % (37-47); Hemoglobin 13.1 g/dL (12.0-15.0); Lymphocyte # 1.98 X10^3/ul (0.83-4.51); Lymphocyte % 28.8 % (19-41); Mean Corp Hgb Conc 32.6 g/dL (32-36); Mean Corpuscular Hgb 30.9 pg (27.0-32.0); Mean Corpuscular Volume 94.8 fL (81-99); Mean Platelet Vol. 10.5 fl (6.2-12.0); Monocyte# 0.57 X10^3/uL; Monocyte% 8.3 % (0-10); NRBC Flagged by Analyzer 0 % (0-5); Neutrophil % 58.2 % (47-70); Platelet Count 207 K/mm3 (150-450); RBC Distribution Width CV 14.9 % (11.6-14.6); RBC Distribution Width SD 51.5 fl (35.1-43.9); Red Blood Count 4.24 M/mm3 (4.2-5.4); White Blood Count 6.9 K/mm3 (4.4-11.0)
[2021-11-01 16:06] LABS: Erythrocyte Sedimentation Rate 7 mm/hr (0-30)
[2021-11-01 16:12] LABS: CRP 7.79 mg/L (0.0-3.0)
[2021-11-01 16:28] LABS: Procalcitonin < 0.04 ng/mL (0.00-0.09)
== END 2021-11-01 23:59 | disposition home or self-care (01) ==
LOC: LAB 01-23 20:44
PROVIDERS: PCP Family Medicine Geriatric Medicine
DX: S82.842K Displaced bimalleolar fracture of left lower leg, subsequent encounter for closed fracture with nonunion (principal)
CPT/HCPCS: 36415; 84145; 85025; 85652; 86140

== ENCOUNTER 2021-11-06 14:25 | Outpatient (CLI) | payer MEDICARE, OTHER, SELFPAY ==
[2021-11-06 16:05] LABS: Absolute Lymphocyte Count 1.49 X10^3/uL (0.83-4.51); Basophil# 0.06 X10^3/uL; Basophil% 0.7 % (0-1); Eosinophil# 0.24 X10^3/uL; Eosinophils% 2.9 % (0-5); Hematocrit 41.5 % (37-47); Hemoglobin 13.1 g/dL (12.0-15.0); Lymphocyte # 1.49 X10^3/ul (0.83-4.51); Lymphocyte % 17.8 % (19-41); Mean Corp Hgb Conc 31.6 g/dL (32-36); Mean Corpuscular Hgb 30.1 pg (27.0-32.0); Mean Corpuscular Volume 95.4 fL (81-99); Mean Platelet Vol. 11.2 fl (6.2-12.0); Monocyte# 0.52 X10^3/uL; Monocyte% 6.2 % (0-10); NRBC Flagged by Analyzer 0 % (0-5); Neutrophil % 71.8 % (47-70); Platelet Count 183 K/mm3 (150-450); RBC Distribution Width CV 14.6 % (11.6-14.6); RBC Distribution Width SD 51.7 fl (35.1-43.9); Red Blood Count 4.35 M/mm3 (4.2-5.4); White Blood Count 8.4 K/mm3 (4.4-11.0)
[2021-11-06 16:23] LABS: Vitamin D,25 Hydroxy 57.9 ng/mL
[2021-11-06 16:42] LABS: ALB/GLOB Ratio 0.9 RATIO (0.9-2.4); AST(SGOT) 13 U/L (15-37); Alanine Aminotransfer ALT/SGPT 25 U/L (13-56); Albumin, Serum 3.2 g/dL (3.2-5.0); Alkaline Phosphatase 90 U/L (45-117); Anion Gap 6 (5-15); BUN 14 mg/dL (7-18); BUN/Creat Ratio 23.8 RATIO (10-20); Calcium,Total 9.1 mg/dL (8.5-10.1); Chloride 102 mmol/L (98-107); Creatinine, Serum 0.59 mg/dL (0.55-1.02); EST Glomerular Filtration Rate 106 mL/min (>60); Est Glom Filt Rate - Afr Amer 128 mL/min (>60); Globulin 3.6 g/dL (2.2-4.2); Glucose 81 mg/dL (74-106); Potassium 4.8 mmol/L (3.5-5.1); Protein, Total 6.8 g/dL (6.4-8.2); Sodium Level 140 mmol/L (136-145); Thyroid Stim Hormone (TSH) 1.45 uIU/mL (0.358-3.74)
== END 2021-11-06 23:59 | disposition short-term general hospital (02) ==
LOC: POLAB3 14:27
PROVIDERS: PCP Family Medicine Geriatric Medicine; Visit Provider Family Medicine Geriatric Medicine
DX: I10 Essential (primary) hypertension (principal); E55.9 Vitamin D deficiency, unspecified
CPT/HCPCS: 36415; 80053; 82306; 84443; 85025

== ENCOUNTER 2022-02-20 15:52 | Inpatient (IN) | payer MEDICARE, OTHER, SELFPAY ==
[2022-02-20 15:55] VITALS: BP 155/59; PULSE 82; RESP 16; TEMP 36.9; O2SAT 95; BMI 39.0
[2022-02-20] MEDS: oxyCODONE 5 MG Tablet PO (18:07)
[2022-02-20] MEDS: diazePAM 5 MG Tablet PO (18:11)
[2022-02-20] MEDS: Aspirin E.C. 81 MG Tablet PO (18:13)
[2022-02-20] MEDS: Carvedilol 12.5 MG Tablet PO (18:13)
--- NOTE | 2022-02-20 19:07 | HP.PCM_ITS ---
HPI - General General Date of Admission: 02/20/22 HPI Narrative TINA GARCIA, is a 77 Female who presents to [facility] 02/19/2022 for left ankle surgery. She underwent left ankle and subtalar joint open fusion tibia-calcaneus nailing, hardware removal left medial malleolus with Dr. Hamilton. Postoperative course uncomplicated. Non weight bearing left lower extremity. PT/OT. 24 hour post op antibiotics. Aspirin 81mg twice daily, sequential compression devices for DVT prophylaxis. Healing time 6 to 12 weeks. 02/20/2022 Admit to TCU with debility, here for rehabilitation, strengthening, prior to discharge home with . [facility] Medical History Ambulates with cane Anxiety Back pain Closed trimalleolar fracture of left ankle Diastolic dysfunction Essential and other specified forms of tremor Essential hypertension Essential tremor Fibromyalgia Former smoker High cholesterol History of chronic diarrhea History of echocardiogram History of GI bleed History of revision of total replacement of right knee joint (~2014) History of stress test Lactose intolerance Osteoporosis Pulmonary hypertension Shortness of breath on exertion Uses wheelchair Walker as ambulation aid Wears glasses Home Medications pravastatin 40 mg tablet 40 mg PO DAILY 02/09/19 [History Last Taken 05/09/21] escitalopram oxalate 20 mg tablet 20 mg PO DAILY tab 07/20/19 [History Last Taken 05/09/21] baclofen 10 mg tablet 20 mg PO TID tab 07/28/19 [History Last Taken 05/09/21] diazepam 5 mg tablet 5 mg PO BID PRN tab 07/28/19 [History Last Taken Unknown] loperamide 2 mg tablet 2 mg PO DAILY tab 07/28/19 [History Last Taken 05/09/21] hydrochlorothiazide 12.5 mg PO DAILY 05/11/21 [History Last Taken Unknown] acetaminophen 1,000 mg PO Q8 07/15/21 [History Last Taken Unknown] acidophilus-pectin, citrus 1 tab PO BID 07/15/21 [History Last Taken Unknown] menthol-zinc oxide [Calmoseptine] 1 applic TOPICAL BID 07/15/21 [History Last Taken Unknown] nystatin [Nyamyc] 1 applic TOPICAL BID 07/15/21 [History Last Taken Unknown] primidone 50 mg PO QHS 07/15/21 [History Last Taken Unknown] primidone 250 mg PO QHS 07/15/21 [History Last Taken Unknown] trazodone 300 mg PO QHS 07/15/21 [History Last Taken Unknown] carvedilol 12.5 mg PO BID 09/05/21 [History Last Taken Unknown] aspirin 81 mg PO BID 02/20/22 [History Last Taken Unknown] hxrkeqkfon-ygtscqqhwfmgb-ftni 1 cap PO Q4H PRN 02/20/22 [History Last Taken Unknown] cholecalciferol (vitamin D3) [Vitamin D3] 125 mcg PO DAILY 02/20/22 [History Last Taken Unknown] lisinopril 40 mg PO DAILY 02/20/22 [History Last Taken Unknown] meclizine 25 mg PO DAILY PRN 02/20/22 [History Last Taken Unknown] minocycline 75 mg PO DAILY 02/20/22 [History Last Taken Unknown] ondansetron HCl [Zofran] 4 mg PO Q8H PRN 02/20/22 [History Last Taken Unknown] oxycodone-acetaminophen [Percocet] 1 tab PO Q6H PRN 02/20/22 [History Last Taken Unknown] pantoprazole 40 mg PO DAILY 02/20/22 [History Last Taken Unknown] potassium chloride 10 meq PO TIDCM 02/20/22 [History Last Taken Unknown] sennosides [senna] 8.6 mg PO BID PRN 02/20/22 [History Last Taken Unknown] Allergy/AdvReac Type Severity Reaction Status Date / Time azithromycin Allergy Upset Verified 02/20/22 16:44 Stomach Family History Mother Dementia Father Colon cancer age 70, unclear specific onset date. Surgical History History of cholecystectomy History of open reduction and internal fixation (ORIF) procedure History of tonsillectomy History of total right knee replacement (~2010) Social History household members: spouse Smoking Status: Former smoker how long ago did patient quit smoking: Quit 15 years ago, 1/2 ppd starting in high school. alcohol intake: never substance use type: does not use caffeine: No ROS Constitutional Constitutional: Denies chills, fever(s) or weight gain ENT HEENT: Denies headache(s), nasal congestion or nasal discharge Cardiovascular Cardiovascular: Denies chest pain or palpitations Respiratory/Chest Respiratory/Chest: Denies cough, excessive phlegm production or shortness of breath with exertion Gastrointestinal Gastrointestinal: Denies abdominal pain, nausea or vomiting Genitourinary Genitourinary: Denies dysuria Musculoskeletal Musculoskeletal: Denies joint pain or joint swelling Integumentary Integumentary: Denies rash or wounds Neurologic Neurologic: Denies focal weakness, numbness or tingling Psychiatric Psychiatric: Denies anxiety, auditory hallucinations, depression, homicidal ideation or suicidal ideation Vital Signs Vital Signs Vital Signs: 02/20/22 15:55 Temperature 98.5 F Temperature Source Temporal Pulse Rate 82 Respiratory Rate 16 Blood Pressure 155/59 H Blood Pressure Mean 91 Blood Pressure Source Monitor Blood Pressure Position Semi-Fowlers Blood Pressure Location Right Arm Pulse Ox 95 Oxygen Delivery Method Room Air Weight Weight: 90.718 kg Body Mass Index (BMI) 39.0 Physical Exam Const alert General Appearance: cooperative HEENT normocephalic Eyes PERRL and EOMs intact bilaterally Neck supple, no JVD and no carotid bruits Resp normal respiratory effort, normal air movement and clear to auscultation bilaterally Cardio regular rate and regular rhythm GI normal to inspection, nondistended, normoactive bowel sounds, non-tender and non-distended Extremity normal capillary refill Extremity Narrative: Left lower extremity dressing. 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 Hamilton 02/19/2022, postoperative course uncomplicated, admitted to TCU with debility, here for rehabilitation, strengthening, prior to discharge home with . * Debility - PT/OT. * Pain - Tylenol 1000mg q6h prn pain (1-5), Oxycodone 5mg q4h prn pain (6-10). * Bowel - Senokot 1 tablet bid prn, Loperamide 2mg daily. * Adult immunization - Administer pneumonia vaccine, flu vaccine, covid19 vaccine as appropriate. * DVT prophylaxis - Aspirin 81mg bidcm per Orthopedics. * Headache - Fioricet 1 tablet q4h prn. * Muscle spasm - Baclofen 20mg tid. * Hypertension - Coreg 12.5mg bid, Lisinopril 40mg daily, HCTZ 12.5mg daily. * Anxiety - Diazepam 5mg bid prn, stable chronic group home use, GDR not recommended. * Depression - Lexapro 20mg daily, stable chronic group home use, GDR not recommended. * Dizziness - Meclizine 25mg daily prn. * Nausea - Zofran 4mg q8h prn. * GERD - Pantoprazole 40mg daily. * Hypokalemia - KCL 10meq tidcm. * Hyperlipidemia - Pravastatin 40mg qhs. * Tremor - Primidone 250mg qhs. * Insomnia - Trazodone 300mg qhs, stable chronic group home use, GDR not recommended. * Vitamin D deficiency - D3 125mcg daily.
[2022-02-20] MEDS: traZODone 100 MG Tablet 300 MG PO (19:50)
[2022-02-20] MEDS: Baclofen 10 MG Tablet 20 MG PO (19:50)
[2022-02-20] MEDS: Pravastatin 40 MG Tablet PO (19:50)
[2022-02-20] MEDS: Potassium Chloride Oral Tablet 10 MEQ PO (21:40)
[2022-02-20] MEDS: Acetaminophen 500 MG Tablet 1000 MG PO (21:40)
[2022-02-20] MEDS: Primidone 250 MG Tablet PO (21:40)
[2022-02-21] MEDS: oxyCODONE 5 MG Tablet PO ×5 (00:28→21:02)
[2022-02-21 05:00] VITALS: BP 147/60; PULSE 95; RESP 16; TEMP 37.5; O2SAT 95
[2022-02-21 05:24] LABS: Absolute Lymphocyte Count 1.41 X10^3/uL (0.83-4.51); Absolute Neutrophil Count 5.2 X10^3/uL (2.0-7.7); Basophil# 0.05 X10^3/uL; Basophil% 0.6 % (0-1); Eosinophil# 0.11 X10^3/uL; Eosinophils% 1.4 % (0-5); Hematocrit 30.1 % (37-47); Hemoglobin 10.5 g/dL (12.0-15.0); Lymphocyte # 1.41 X10^3/ul (0.83-4.51); Lymphocyte % 18.1 % (19-41); Mean Corp Hgb Conc 34.9 g/dL (32-36); Mean Corpuscular Hgb 32.4 pg (27.0-32.0); Mean Corpuscular Volume 92.9 fL (81-99); Mean Platelet Vol. 9.8 fl (6.2-12.0); Monocyte# 0.91 X10^3/uL; Monocyte% 11.7 % (0-10); NRBC Flagged by Analyzer 0 % (0-5); Neutrophil # 5.23 X10^3/uL (2.7-7.7); Neutrophil % 67.3 % (47-70); Platelet Count 139 K/mm3 (150-450); RBC Distribution Width CV 13.4 % (11.6-14.6); RBC Distribution Width SD 46.1 fl (35.1-43.9); Red Blood Count 3.24 M/mm3 (4.2-5.4); White Blood Count 7.8 K/mm3 (4.4-11.0)
[2022-02-21 05:49] LABS: Anion Gap 5 (5-15); BUN 4 mg/dL (7-18); Calcium,Total 8.3 mg/dL (8.5-10.1); Chloride 106 mmol/L (98-107); EST Glomerular Filtration Rate 165 mL/min (>60); Est Glom Filt Rate - Afr Amer 200 mL/min (>60); Estimated Creatinine Clearance 34.91 ml/min; Glucose 96 mg/dL (74-106); Potassium 2.9 mmol/L (3.5-5.1); Sodium Level 141 mmol/L (136-145)
[2022-02-21] MEDS: Baclofen 10 MG Tablet 20 MG PO ×3 (06:27→21:01)
[2022-02-21] MEDS: Escitalopram Oxalate 20 MG Tablet PO (06:28)
[2022-02-21] MEDS: hydroCHLOROthiazide 12.5mg 12.5 MG PO (06:28)
[2022-02-21] MEDS: Carvedilol 12.5 MG Tablet PO ×2 (06:28→17:24)
[2022-02-21] MEDS: Pantoprazole Sodium 40 MG Tablet PO (06:28)
[2022-02-21] MEDS: Loperamide 2 MG Capsule PO ×3 (06:28→21:01)
[2022-02-21] MEDS: Lisinopril 40 MG Tablet PO (06:28)
[2022-02-21] MEDS: Cholecalciferol (Vit D3) 125 MCG CAPSULE (5,000 UNITS) PO (06:28)
[2022-02-21] MEDS: Potassium Chloride Oral Tablet 10 MEQ PO (07:45)
[2022-02-21] MEDS: Aspirin E.C. 81 MG Tablet PO ×2 (07:45→17:24)
[2022-02-21] MEDS: Potassium Chloride Oral Tablet 20 MEQ 40 MEQ PO (08:06)
[2022-02-21] MEDS: Tuberculin,Purif.prot.deriv. 50 TU/ML Vial 0.1 ML ID (10:55)
[2022-02-21] MEDS: Potassium Chloride Oral Tablet 20 MEQ PO ×2 (12:43→17:24)
--- NOTE | 2022-02-21 14:49 | PHA.CONS1_ITS ---
Progress Note - Pharmacy Subjective: TCU Admission Objective: Allergies azithromycin Allergy (Verified 02/20/22 16:44) Upset Stomach Current Medications Generic Name Dose Route Start Last Admin Trade Name Genesis PRN Reason Stop Dose Admin Acetaminophen 1,000 mg 02/20/22 19:38 02/20/22 21:40 Acetaminophen 500 Mg Tablet PO 1,000 mg Q6H PRN PRN Administration Pain Score 1-5 Acetaminophen/Butalbital/Caffeine 1 tablet 02/20/22 17:03 Acetaminophen/Butalbital/Caffe 1 Tablet PO Q4H PRN PRN Headache Aspirin 81 mg 02/20/22 18:00 02/21/22 07:45 Aspirin E.C. 81 Mg Tablet PO 81 mg BIDCM DILCIA Administration Baclofen 20 mg 02/20/22 22:00 02/21/22 12:46 Baclofen 10 Mg Tablet PO 20 mg TID DILCIA Administration Carvedilol 12.5 mg 02/20/22 18:00 02/21/22 06:28 Carvedilol 12.5 Mg Tablet PO 12.5 mg BID DILCIA Administration Cholecalciferol 125 mcg 02/21/22 06:00 02/21/22 06:28 Cholecalciferol (Vit D3) 125 Mcg Capsule (5,000 Units) PO 125 mcg DAILY DILCIA Administration Diazepam 5 mg 02/20/22 16:43 02/20/22 18:11 Diazepam 5 Mg Tablet PO 5 mg BID PRN Administration ANXIETY Escitalopram Oxalate 20 mg 02/21/22 06:00 02/21/22 06:28 Escitalopram Oxalate 20 Mg Tablet PO 20 mg DAILY DILCIA Administration Hydrochlorothiazide 12.5 mg 02/21/22 06:00 02/21/22 06:28 Hydrochlorothiazide 12.5mg PO 12.5 mg DAILY DILCIA Administration Lisinopril 40 mg 02/21/22 06:00 02/21/22 06:28 Lisinopril 40 Mg Tablet PO 40 mg DAILY DILCIA Administration Loperamide HCl 2 mg 02/21/22 06:00 02/21/22 06:28 Loperamide 2 Mg Capsule PO 2 mg DAILY DILCIA Administration Meclizine HCl 25 mg 02/20/22 16:43 Meclizine Hcl 25 Mg Tablet PO DAILY PRN PRN Nausea Ondansetron HCl 4 mg 02/20/22 16:58 Ondansetron Odt 4 Mg Tablet PO Q8H PRN PRN NAUSEA/VOMITING Oxycodone HCl 5 mg 02/20/22 19:39 02/21/22 10:55 Oxycodone 5 Mg Tablet PO 5 mg Q4H PRN PRN Administration Pain Score 6-10 Pantoprazole Sodium 40 mg 02/21/22 06:00 02/21/22 06:28 Pantoprazole Sodium 40 Mg Tablet PO 40 mg DAILY DILCIA Administration Potassium Chloride 20 meq 02/21/22 12:45 02/21/22 12:43 Potassium Chloride Oral Tablet 20 Meq PO 20 meq TIDCM DILCIA Administration Pravastatin Sodium 40 mg 02/20/22 22:00 02/20/22 19:50 Pravastatin 40 Mg Tablet PO 40 mg QHS DILCIA Administration Primidone 250 mg 02/20/22 22:00 02/20/22 21:40 Primidone 250 Mg Tablet PO 250 mg QHS DILCIA Administration Senna 1 tablet 02/20/22 16:43 Senna Tablet PO BID PRN PRN Constipation Trazodone HCl 300 mg 02/20/22 22:00 02/20/22 19:50 Trazodone 100 Mg Tablet PO 300 mg QHS DILCIA Administration Problem List (Last Reviewed 02/20/22 @ 19:[address] 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 (Acute) Closed trimalleolar fracture of left ankle (Acute) Diastolic dysfunction (Acute) Pulmonary hypertension (Acute) Anxiety (Acute) Hypertension (Chronic) Fibromyalgia (Acute) Hyperlipidemia (Acute) Depression (Acute) Migraine (Acute) Tremor (Acute) Insomnia (Acute) Vital Signs Temp Pulse Resp BP Pulse Ox 99.5 F H 95 16 147/60 H 95 02/21/22 05:00 02/21/22 05:00 02/21/22 05:00 02/21/22 05:00 02/21/22 05:00 Oxygen Delivery Method Room Air Weight: 90.718 kg Body Mass Index (BMI) 39.0 Sodium 141 mmol/L (136-145) 02/21/22 05:15 Potassium 2.9 mmol/L (3.5-5.1) L 02/21/22 05:15 Chloride 106 mmol/L (98-107) 02/21/22 05:15 Carbon Dioxide 30.0 mmol/L (21.0-32.0) 02/21/22 05:15 Anion Gap 5 (5-15) 02/21/22 05:15 BUN 4 mg/dL (7-18) L 02/21/22 05:15 Creatinine 0.40 mg/dL (0.55-1.02) L 02/21/22 05:15 Est GFR (MDRD) Af Amer 200 mL/min (>60) 02/21/22 05:15 Est GFR (MDRD) Non-Af 165 mL/min (>60) 02/21/22 05:15 BUN/Creatinine Ratio 10.0 RATIO (10-20) 02/21/22 05:15 Glucose 96 mg/dL (74-106) 02/21/22 05:15 Assessment/Plan: 1. Pain/headache: acetaminophen 1000mg PO Q6H PRN pain 1-5, oxycodone 5mg PO Q6H PRN pain 6-10 and Fioricet 1T PO Q4H PRN headache. Please continue to monitor for S/S of increased pain and PRN usage. 2. DVT prophylaxis: aspirin 81mg PO BIDCM. Please continue to monitor for S/S of bleeding and hemoglobin (last 10.5g/dL). 3. Hypertension: carvedilol 12.5mg PO BID, lisinopril 40mg PO daily and hydroch lorothiazide 12.5mg PO daily. Please continue to monitor BP (last 147/60), HR (last 95), potassium (last 2.9mmol/L), sodium (last 141mmol/L), cough and renal function. 4. Tremor: primidone 250mg PO QHS. Please continue to monitor for tremor and falls. This is a BEERs list medication. *5. Hyperlipidemia: pravastatin 40mg PO QHS. Please consider ordering a lipid panel (none in chart) if clinically appropriate. Thanks. 6. GERD: pantoprazole 40mg PO daily. Please continue to monitor for S/S of GERD and diarrhea. 7. Hypokalemia: potassium chloride 20mEq PO TIDCM. Please continue to monitor potassium levels. 8. Muscle spasm: baclofen 20mg PO TID. Please continue to monitor for drowsiness. *9. Dizziness/nausea: ondansetron 4mg PO Q8H PRN nausea/vomiting and meclizine 25mg PO daily PRN nausea. Meclizine is written for PRN nausea. Please consider changing PRN reason if it is being used for dizziness. If not, there is a duplicate order for nausea with the ondansetron and meclizine. Please edit orders to add directions as to which should be first line for nausea and which should be used second line. Thanks. 10. Vitamin D deficiency: cholecalciferol 125mcg PO daily. Please continue to monitor vitamin D levels (last 11/06/21). Psychotropic Medications: 1. Anxiety: diazepam 5mg PO BID PRN anxiety. Please see physician note regarding GDR. 2. Depression: escitalopram 20mg PO daily. Please see physician note regarding GDR. 3. Insomnia: trazodone 300mg PO QHS. Please see physician note regarding GDR. Unnecessary Medications: None Bowel Regimen: senna 1T PO BID PRN constipation and loperamide 2mg PO daily. Please continue to monitor for S/S of constipation/diarrhea and PRN usage. Date of Note:: 02/21/22
[2022-02-21 14:50] VITALS: BP 109/41; PULSE 87; RESP 16; TEMP 36.3; O2SAT 96
[2022-02-21] MEDS: Acetaminophen 500 MG Tablet 1000 MG PO ×2 (15:10→21:17)
--- NOTE | 2022-02-21 16:07 | CASEMGMT ---
Social Work Met with patient for initial assessment. at bedside. Pt granted SW permission to complete assessment with him present. Pt was admitted to TCU prior. Confirmed code status and no changes to MOLST. Pt confirmed - DNR-CCA, no intubation. Explained Medicare benefit and contacting secondary insurance. Inquired about timeframe for NWBS. Pt reports 6-12 weeks. Pt stated her goal is to remain in TCU throughout NWB and until she can return home at [facility]. Explained pt has to continue meeting Medicare guidelines of making progress and with NWBS pt will eventually plateau, thus, issuing a DC date. Pt expressed understanding. Encouraged to brainstorm with what her plan is once that time arrives. Pt agrees. SW to continue to follow to assist with DC planning. Roslyn Walden, SECOND OPERATOR COORDINATOR OF PLACEMENT
[2022-02-21 17:25] VITALS: BP 146/51; PULSE 87
[2022-02-21] MEDS: traZODone 100 MG Tablet 300 MG PO (21:01)
[2022-02-21] MEDS: Primidone 250 MG Tablet PO (21:01)
[2022-02-21] MEDS: Pravastatin 40 MG Tablet PO (21:01)
[2022-02-21 22:36] VITALS: PULSE 90; RESP 16; O2SAT 96
--- NOTE | 2022-02-21 23:25 | NURSING ---
Dressings changed to LLE post surgical sites. Sutures intact, edges well approximated. Patient tolerated procedure well. Will continue to monitor.
[2022-02-22] MEDS: Cholecalciferol (Vit D3) 125 MCG CAPSULE (5,000 UNITS) PO (06:09)
[2022-02-22] MEDS: Pantoprazole Sodium 40 MG Tablet PO (06:09)
[2022-02-22] MEDS: Escitalopram Oxalate 20 MG Tablet PO (06:09)
[2022-02-22] MEDS: Carvedilol 12.5 MG Tablet PO ×2 (06:09→17:12)
[2022-02-22] MEDS: hydroCHLOROthiazide 12.5mg 12.5 MG PO (06:09)
[2022-02-22] MEDS: Baclofen 10 MG Tablet 20 MG PO ×3 (06:09→22:29)
[2022-02-22] MEDS: Loperamide 2 MG Capsule PO ×3 (06:09→22:32)
[2022-02-22] MEDS: oxyCODONE 5 MG Tablet PO ×5 (06:10→22:30)
[2022-02-22] MEDS: Menthol/Lanolin/Calamine/Znox 113 GM Tube 1 APPLIC TOPICAL ×2 (06:14→17:12)
[2022-02-22] MEDS: Lisinopril 40 MG Tablet PO (06:15)
[2022-02-22 06:18] VITALS: BP 119/54; PULSE 86
[2022-02-22] MEDS: Potassium Chloride Oral Tablet 20 MEQ PO ×3 (07:48→17:12)
[2022-02-22] MEDS: Aspirin E.C. 81 MG Tablet PO ×2 (07:48→17:12)
[2022-02-22] MEDS: Acetaminophen 500 MG Tablet 1000 MG PO ×3 (10:12→23:02)
[2022-02-22 14:00] VITALS: BP 130/52; PULSE 93; RESP 18; TEMP 36.1; O2SAT 93
[2022-02-22] MEDS: traZODone 100 MG Tablet 300 MG PO (22:29)
[2022-02-22] MEDS: Primidone 250 MG Tablet PO (22:35)
[2022-02-22] MEDS: Pravastatin 40 MG Tablet PO (22:35)
[2022-02-23 05:58] LABS: Anion Gap 3 (5-15); BUN 3 mg/dL (7-18); BUN/Creat Ratio 8.5 RATIO (10-20); Calcium,Total 8.4 mg/dL (8.5-10.1); Chloride 110 mmol/L (98-107); Creatinine, Serum 0.35 mg/dL (0.55-1.02); EST Glomerular Filtration Rate 190 mL/min (>60); Est Glom Filt Rate - Afr Amer 230 mL/min (>60); Estimated Creatinine Clearance 34.91 ml/min; Glucose 88 mg/dL (74-106); Sodium Level 142 mmol/L (136-145)
[2022-02-23] MEDS: Loperamide 2 MG Capsule PO ×3 (06:01→20:25)
[2022-02-23] MEDS: Lisinopril 40 MG Tablet PO (06:01)
[2022-02-23] MEDS: hydroCHLOROthiazide 12.5mg 12.5 MG PO (06:01)
[2022-02-23] MEDS: Carvedilol 12.5 MG Tablet PO ×2 (06:01→17:59)
[2022-02-23] MEDS: Baclofen 10 MG Tablet 20 MG PO ×3 (06:01→20:26)
[2022-02-23] MEDS: Escitalopram Oxalate 20 MG Tablet PO (06:01)
[2022-02-23] MEDS: Pantoprazole Sodium 40 MG Tablet PO (06:03)
[2022-02-23] MEDS: Cholecalciferol (Vit D3) 125 MCG CAPSULE (5,000 UNITS) PO (06:04)
[2022-02-23] MEDS: Menthol/Lanolin/Calamine/Znox 113 GM Tube 1 APPLIC TOPICAL ×2 (06:04→18:01)
--- NOTE | 2022-02-23 06:52 | NURSING ---
Pt did not urinate all night stated she felt a lot of pressure and is miserable. Blabbered scanned her she has 792ml. Asked to be put on bed side commode to see if that will help. Passing on to day shift nurse.
[2022-02-23] MEDS: oxyCODONE 5 MG Tablet PO ×4 (07:51→20:40)
[2022-02-23] MEDS: Potassium Chloride Oral Tablet 20 MEQ PO (07:53)
[2022-02-23] MEDS: Aspirin E.C. 81 MG Tablet PO ×2 (07:54→17:59)
[2022-02-23] MEDS: Acetaminophen 500 MG Tablet 1000 MG PO ×3 (07:56→20:46)
--- NOTE | 2022-02-23 09:52 | NURSING ---
PER PT AND NIGHT NURSE,PT HAD PUREWICK IN FROM 9PM TILL 6AM AND DIDNT VOID. BLADDER SCAN DONE AND WAS OVER 700. AID AND THIS NURSE PT TO BED SIDE X2 AND VOIDED. BLADDER SCANNED AGAIN AND WAS 286. RN AWARE
[2022-02-23 10:00] VITALS: RESP 18
[2022-02-23] MEDS: diazePAM 5 MG Tablet PO ×2 (11:48→22:55)
[2022-02-23] MEDS: Potassium Chloride Oral Tablet 10 MEQ 20 MEQ PO ×2 (11:48→17:58)
[2022-02-23 16:10] VITALS: BP 148/70; PULSE 74; RESP 18; TEMP 36.4; O2SAT 94
[2022-02-23] MEDS: Pravastatin 40 MG Tablet PO (20:27)
[2022-02-23] MEDS: Primidone 250 MG Tablet PO (22:50)
[2022-02-23] MEDS: traZODone 100 MG Tablet 300 MG PO (22:50)
[2022-02-24] MEDS: oxyCODONE 5 MG Tablet PO ×5 (05:06→22:50)
[2022-02-24] MEDS: Acetaminophen 500 MG Tablet 1000 MG PO ×4 (05:07→23:40)
[2022-02-24] MEDS: Cholecalciferol (Vit D3) 125 MCG CAPSULE (5,000 UNITS) PO (05:08)
[2022-02-24] MEDS: Lisinopril 40 MG Tablet PO (05:08)
[2022-02-24] MEDS: Pantoprazole Sodium 40 MG Tablet PO (05:08)
[2022-02-24] MEDS: Carvedilol 12.5 MG Tablet PO ×2 (05:09→17:34)
[2022-02-24] MEDS: hydroCHLOROthiazide 12.5mg 12.5 MG PO (05:09)
[2022-02-24] MEDS: Escitalopram Oxalate 20 MG Tablet PO (05:09)
[2022-02-24] MEDS: Baclofen 10 MG Tablet 20 MG PO ×3 (05:09→22:42)
[2022-02-24] MEDS: Loperamide 2 MG Capsule PO ×3 (05:10→22:42)
[2022-02-24] MEDS: Menthol/Lanolin/Calamine/Znox 113 GM Tube 1 APPLIC TOPICAL ×2 (05:11→22:45)
[2022-02-24] MEDS: Potassium Chloride Oral Tablet 10 MEQ 20 MEQ PO ×3 (08:05→17:33)
[2022-02-24] MEDS: Aspirin E.C. 81 MG Tablet PO ×2 (08:05→17:33)
[2022-02-24 10:15] VITALS: PULSE 70; RESP 18; O2SAT 94
[2022-02-24] MEDS: Nystatin Powder 15gm Bottle 1 APPLIC TOPICAL ×2 (11:10→22:45)
[2022-02-24 14:00] VITALS: BP 152/55; PULSE 77; RESP 15; TEMP 36.1; O2SAT 94
[2022-02-24] MEDS: diazePAM 5 MG Tablet PO (22:39)
[2022-02-24] MEDS: Primidone 250 MG Tablet PO (22:40)
[2022-02-24] MEDS: traZODone 100 MG Tablet 300 MG PO (22:41)
[2022-02-24] MEDS: Primidone 50 MG Tablet PO (22:41)
[2022-02-24] MEDS: Pravastatin 40 MG Tablet PO (22:46)
[2022-02-25] MEDS: Menthol/Lanolin/Calamine/Znox 113 GM Tube 1 APPLIC TOPICAL ×2 (06:33→17:04)
[2022-02-25] MEDS: hydroCHLOROthiazide 12.5mg 12.5 MG PO (06:34)
[2022-02-25] MEDS: Carvedilol 12.5 MG Tablet PO ×2 (06:34→17:00)
[2022-02-25] MEDS: Cholecalciferol (Vit D3) 125 MCG CAPSULE (5,000 UNITS) PO (06:34)
[2022-02-25] MEDS: Escitalopram Oxalate 20 MG Tablet PO (06:35)
[2022-02-25] MEDS: Baclofen 10 MG Tablet 20 MG PO ×3 (06:35→20:17)
[2022-02-25] MEDS: Pantoprazole Sodium 40 MG Tablet PO (06:35)
[2022-02-25] MEDS: Loperamide 2 MG Capsule PO ×3 (06:36→20:16)
[2022-02-25] MEDS: Nystatin Powder 15gm Bottle 1 APPLIC TOPICAL ×2 (06:39→20:24)
[2022-02-25] MEDS: Acetaminophen 500 MG Tablet 1000 MG PO ×3 (06:43→20:05)
[2022-02-25] MEDS: oxyCODONE 5 MG Tablet PO ×4 (06:43→20:05)
[2022-02-25 06:49] VITALS: BP 133/59; PULSE 75
--- NOTE | 2022-02-25 06:49 | NURSING ---
Pt refusing Lisinopril this am reporting medication was dc'ed prior to this hospitalization. Left note for Dr. Gan to review and will report to oncoming nurse.
[2022-02-25] MEDS: Potassium Chloride Oral Tablet 10 MEQ 20 MEQ PO ×3 (08:09→17:00)
[2022-02-25] MEDS: Aspirin E.C. 81 MG Tablet PO ×2 (08:09→17:00)
[2022-02-25] MEDS: diazePAM 5 MG Tablet PO (11:25)
[2022-02-25 14:00] VITALS: BP 123/59; PULSE 73; RESP 18; TEMP 36.7; O2SAT 91
[2022-02-25] MEDS: Primidone 50 MG Tablet PO (20:16)
[2022-02-25] MEDS: traZODone 100 MG Tablet 300 MG PO (20:16)
[2022-02-25] MEDS: Primidone 250 MG Tablet PO (20:16)
[2022-02-25] MEDS: Pravastatin 40 MG Tablet PO (20:16)
[2022-02-25 21:33] VITALS: PULSE 75; RESP 18; O2SAT 93
[2022-02-26] MEDS: oxyCODONE 5 MG Tablet PO ×5 (05:16→22:06)
[2022-02-26] MEDS: Baclofen 10 MG Tablet 20 MG PO ×3 (05:17→21:52)
[2022-02-26] MEDS: hydroCHLOROthiazide 12.5mg 12.5 MG PO (05:18)
[2022-02-26] MEDS: Carvedilol 12.5 MG Tablet PO ×2 (05:18→17:07)
[2022-02-26] MEDS: Escitalopram Oxalate 20 MG Tablet PO (05:18)
[2022-02-26] MEDS: Cholecalciferol (Vit D3) 125 MCG CAPSULE (5,000 UNITS) PO (05:19)
[2022-02-26] MEDS: Loperamide 2 MG Capsule PO ×3 (05:19→21:52)
[2022-02-26] MEDS: Pantoprazole Sodium 40 MG Tablet PO (05:19)
[2022-02-26] MEDS: Nystatin Powder 15gm Bottle 1 APPLIC TOPICAL ×2 (05:24→21:54)
[2022-02-26] MEDS: Menthol/Lanolin/Calamine/Znox 113 GM Tube 1 APPLIC TOPICAL ×2 (05:24→21:54)
[2022-02-26] MEDS: Aspirin E.C. 81 MG Tablet PO ×2 (08:30→17:08)
[2022-02-26] MEDS: Acetaminophen 500 MG Tablet 1000 MG PO ×2 (08:30→18:07)
[2022-02-26] MEDS: Potassium Chloride Oral Tablet 10 MEQ 20 MEQ PO ×3 (08:30→17:07)
[2022-02-26 10:11] VITALS: PULSE 71
--- NOTE | 2022-02-26 11:53 | CASEMGMT ---
Social Work BIMS and PHQ-9 completed for MDS assessment. Roslyn Walden, INSTRUCTIONAL COACH GARNETT MECHANIC
[2022-02-26 14:00] VITALS: BP 123/51; PULSE 83; RESP 14; TEMP 36.6; O2SAT 94
[2022-02-26 17:12] VITALS: BP 145/49; PULSE 70
[2022-02-26] MEDS: traZODone 100 MG Tablet 300 MG PO (21:51)
[2022-02-26] MEDS: Primidone 250 MG Tablet PO (21:53)
[2022-02-26] MEDS: Primidone 50 MG Tablet PO (21:53)
[2022-02-26] MEDS: Pravastatin 40 MG Tablet PO (21:53)
[2022-02-27 05:14] VITALS: BP 123/63; PULSE 65
[2022-02-27] MEDS: oxyCODONE 5 MG Tablet PO ×4 (05:14→21:00)
[2022-02-27] MEDS: Acetaminophen 500 MG Tablet 1000 MG PO ×4 (05:15→23:41)
[2022-02-27] MEDS: hydroCHLOROthiazide 12.5mg 12.5 MG PO (05:15)
[2022-02-27] MEDS: Baclofen 10 MG Tablet 20 MG PO ×3 (05:15→23:41)
[2022-02-27] MEDS: Pantoprazole Sodium 40 MG Tablet PO (05:15)
[2022-02-27] MEDS: Cholecalciferol (Vit D3) 125 MCG CAPSULE (5,000 UNITS) PO (05:15)
[2022-02-27] MEDS: Escitalopram Oxalate 20 MG Tablet PO (05:16)
[2022-02-27] MEDS: Carvedilol 12.5 MG Tablet PO ×2 (05:16→17:19)
[2022-02-27 05:46] LABS: Absolute Lymphocyte Count 1.82 X10^3/uL (0.83-4.51); Basophil# 0.03 X10^3/uL; Basophil% 0.6 % (0-1); Eosinophil# 0.35 X10^3/uL; Eosinophils% 7.3 % (0-5); Hematocrit 30.3 % (37-47); Hemoglobin 9.8 g/dL (12.0-15.0); Lymphocyte # 1.82 X10^3/ul (0.83-4.51); Lymphocyte % 37.8 % (19-41); Mean Corp Hgb Conc 32.3 g/dL (32-36); Mean Corpuscular Hgb 31.8 pg (27.0-32.0); Mean Corpuscular Volume 98.4 fL (81-99); Mean Platelet Vol. 9.3 fl (6.2-12.0); Monocyte# 0.51 X10^3/uL; Monocyte% 10.6 % (0-10); NRBC Flagged by Analyzer 0 % (0-5); Neutrophil # 2.04 X10^3/uL (2.7-7.7); Neutrophil % 42.2 % (47-70); Platelet Count 242 K/mm3 (150-450); RBC Distribution Width CV 14.6 % (11.6-14.6); RBC Distribution Width SD 51.9 fl (35.1-43.9); Red Blood Count 3.08 M/mm3 (4.2-5.4); White Blood Count 4.8 K/mm3 (4.4-11.0)
[2022-02-27 06:20] LABS: Anion Gap 2 (5-15); BUN 8 mg/dL (7-18); BUN/Creat Ratio 20.3 RATIO (10-20); Chloride 108 mmol/L (98-107); EST Glomerular Filtration Rate 168 mL/min (>60); Est Glom Filt Rate - Afr Amer 203 mL/min (>60); Estimated Creatinine Clearance 34.91 ml/min; Glucose 92 mg/dL (74-106); Sodium Level 140 mmol/L (136-145)
[2022-02-27] MEDS: Aspirin E.C. 81 MG Tablet PO ×2 (07:56→17:19)
[2022-02-27] MEDS: Potassium Chloride Oral Tablet 10 MEQ 20 MEQ PO ×3 (07:56→17:19)
[2022-02-27] MEDS: Menthol/Lanolin/Calamine/Znox 113 GM Tube 1 APPLIC TOPICAL ×2 (07:57→17:19)
[2022-02-27] MEDS: Nystatin Powder 15gm Bottle 1 APPLIC TOPICAL ×2 (07:57→23:41)
--- NOTE | 2022-02-27 10:01 | MDS.RN ---
Pain interview for jem 02/27/22 completed.
--- NOTE | 2022-02-27 10:02 | CASEMGMT ---
Social Work IDT met with patient and for care plan meeting. Discussed patient's progress in PT/OT and nursing. Pt making progress. Explained Medicare benefit. Pt is NWB and has f/u appt on 03/08. From that appt, will provide timeframe for NWBS. Explained pt has to continue making progress to remain skilled under Medicare and pt will not remain skilled for duration of possible 12 week NWB. Explained to use Medicare days appropriately; using them once WBS is increased. Pt and expressed understanding and will discuss alternative plan. SW to continue to follow. Roslyn Walden, SAFETY INSTRUCTOR SILVER LAP MACHINE TENDER
[2022-02-27] MEDS: Loperamide 2 MG Capsule PO ×2 (13:25→23:40)
[2022-02-27 14:00] VITALS: BP 113/45; PULSE 71; RESP 16; TEMP 37; O2SAT 93
[2022-02-27 17:21] VITALS: BP 129/51; PULSE 69
[2022-02-27] MEDS: Primidone 50 MG Tablet PO (23:40)
[2022-02-27] MEDS: Pravastatin 40 MG Tablet PO (23:40)
[2022-02-27] MEDS: Primidone 250 MG Tablet PO (23:40)
[2022-02-27] MEDS: traZODone 100 MG Tablet 300 MG PO (23:41)
[2022-02-28] MEDS: Menthol/Lanolin/Calamine/Znox 113 GM Tube 1 APPLIC TOPICAL ×2 (05:07→20:19)
[2022-02-28] MEDS: Cholecalciferol (Vit D3) 125 MCG CAPSULE (5,000 UNITS) PO (05:08)
[2022-02-28] MEDS: Escitalopram Oxalate 20 MG Tablet PO (05:08)
[2022-02-28] MEDS: Baclofen 10 MG Tablet 20 MG PO ×3 (05:08→22:25)
[2022-02-28] MEDS: oxyCODONE 5 MG Tablet PO ×4 (05:08→20:19)
[2022-02-28] MEDS: Pantoprazole Sodium 40 MG Tablet PO (05:09)
[2022-02-28] MEDS: Carvedilol 12.5 MG Tablet PO ×2 (05:09→18:20)
[2022-02-28] MEDS: hydroCHLOROthiazide 12.5mg 12.5 MG PO (05:09)
[2022-02-28] MEDS: Nystatin Powder 15gm Bottle 1 APPLIC TOPICAL ×2 (05:09→22:29)
[2022-02-28 05:15] VITALS: BP 122/69; PULSE 74; RESP 15; TEMP 36.9; O2SAT 95
[2022-02-28] MEDS: Potassium Chloride Oral Tablet 10 MEQ 20 MEQ PO ×3 (08:33→18:18)
[2022-02-28] MEDS: Aspirin E.C. 81 MG Tablet PO ×2 (08:33→18:19)
[2022-02-28] MEDS: Acetaminophen 500 MG Tablet 1000 MG PO ×3 (08:37→22:23)
[2022-02-28 10:45] VITALS: PULSE 69; RESP 18; O2SAT 95
--- NOTE | 2022-02-28 11:37 | NURSING ---
Senior Database Programmer Note: Interview and Section F of MDS complete.
[2022-02-28] MEDS: Loperamide 2 MG Capsule PO ×2 (13:51→22:25)
[2022-02-28 14:00] VITALS: BP 105/57; PULSE 70; RESP 18; TEMP 36.3; O2SAT 96
[2022-02-28] MEDS: Pravastatin 40 MG Tablet PO (22:25)
[2022-02-28] MEDS: traZODone 100 MG Tablet 300 MG PO (22:26)
[2022-02-28] MEDS: Primidone 50 MG Tablet PO (22:26)
[2022-02-28] MEDS: Primidone 250 MG Tablet PO (22:26)
[2022-03-01 06:16] VITALS: BP 132/70; PULSE 63
[2022-03-01] MEDS: Escitalopram Oxalate 20 MG Tablet PO (06:17)
[2022-03-01] MEDS: Loperamide 2 MG Capsule PO ×2 (06:17→13:02)
[2022-03-01] MEDS: Baclofen 10 MG Tablet 20 MG PO ×3 (06:17→22:26)
[2022-03-01] MEDS: hydroCHLOROthiazide 12.5mg 12.5 MG PO (06:17)
[2022-03-01] MEDS: Carvedilol 12.5 MG Tablet PO ×2 (06:17→18:14)
[2022-03-01] MEDS: Pantoprazole Sodium 40 MG Tablet PO (06:17)
[2022-03-01] MEDS: Cholecalciferol (Vit D3) 125 MCG CAPSULE (5,000 UNITS) PO (06:17)
[2022-03-01] MEDS: Menthol/Lanolin/Calamine/Znox 113 GM Tube 1 APPLIC TOPICAL ×2 (06:19→18:20)
[2022-03-01] MEDS: Nystatin Powder 15gm Bottle 1 APPLIC TOPICAL ×2 (06:19→22:30)
[2022-03-01] MEDS: Potassium Chloride Oral Tablet 10 MEQ 20 MEQ PO ×3 (08:07→18:14)
[2022-03-01] MEDS: Aspirin E.C. 81 MG Tablet PO ×2 (08:07→18:14)
[2022-03-01] MEDS: oxyCODONE 5 MG Tablet PO ×3 (08:54→19:58)
[2022-03-01 09:55] VITALS: PULSE 60; RESP 16; O2SAT 98
[2022-03-01] MEDS: Acetaminophen 500 MG Tablet 1000 MG PO ×2 (10:40→18:17)
[2022-03-01] MEDS: diazePAM 5 MG Tablet PO (13:07)
[2022-03-01 14:00] VITALS: BP 113/51; PULSE 68; RESP 16; TEMP 36.2; O2SAT 94
[2022-03-01] MEDS: Primidone 250 MG Tablet PO (22:26)
[2022-03-01] MEDS: traZODone 100 MG Tablet 300 MG PO (22:26)
[2022-03-01] MEDS: Primidone 50 MG Tablet PO (22:26)
[2022-03-01] MEDS: Pravastatin 40 MG Tablet PO (22:26)
--- NOTE | 2022-03-01 22:51 | NURSING ---
Patient's dressing to LLE changed. Sutures dry, intact, edges well approximated. No drainage noted. No s/sx infection. Leg is yellow-greenish in color from bruising from surgery. Some edema continues on top of foot. Patient states that sutures are starting to itch. Incisions cleaned with NS, patted dry. Covered with DSD, secured with kerlex and then wrapped with ТАТЬЯНА wrap. Patient tolerated well. Has follow-up with Dr. Hamilton next week. Will continue to follow.
[2022-03-02] MEDS: Acetaminophen 500 MG Tablet 1000 MG PO ×2 (06:54→13:40)
[2022-03-02] MEDS: hydroCHLOROthiazide 12.5mg 12.5 MG PO (06:55)
[2022-03-02] MEDS: Carvedilol 12.5 MG Tablet PO ×2 (06:55→16:59)
[2022-03-02] MEDS: Escitalopram Oxalate 20 MG Tablet PO (06:55)
[2022-03-02] MEDS: Cholecalciferol (Vit D3) 125 MCG CAPSULE (5,000 UNITS) PO (06:55)
[2022-03-02] MEDS: Pantoprazole Sodium 40 MG Tablet PO (06:56)
[2022-03-02] MEDS: Nystatin Powder 15gm Bottle 1 APPLIC TOPICAL ×2 (07:00→22:47)
[2022-03-02] MEDS: Menthol/Lanolin/Calamine/Znox 113 GM Tube 1 APPLIC TOPICAL ×2 (07:01→16:59)
[2022-03-02] MEDS: Potassium Chloride Oral Tablet 10 MEQ 20 MEQ PO ×3 (07:55→16:59)
[2022-03-02] MEDS: Aspirin E.C. 81 MG Tablet PO ×2 (07:55→16:59)
[2022-03-02] MEDS: oxyCODONE 5 MG Tablet PO ×3 (09:52→20:09)
[2022-03-02] MEDS: Baclofen 10 MG Tablet 20 MG PO ×2 (13:41→22:26)
[2022-03-02] MEDS: Loperamide 2 MG Capsule PO ×2 (13:41→22:26)
[2022-03-02 14:00] VITALS: BP 130/56; PULSE 65; RESP 16; TEMP 36.4; O2SAT 93
[2022-03-02 17:10] VITALS: BP 149/48; PULSE 64
[2022-03-02] MEDS: diazePAM 5 MG Tablet PO (20:10)
[2022-03-02] MEDS: Pravastatin 40 MG Tablet PO (22:26)
[2022-03-02] MEDS: Primidone 50 MG Tablet PO (22:26)
[2022-03-02] MEDS: Primidone 250 MG Tablet PO (22:26)
[2022-03-02] MEDS: traZODone 100 MG Tablet 300 MG PO (22:27)
[2022-03-02 22:54] VITALS: PULSE 65; RESP 16; O2SAT 93
[2022-03-03] MEDS: Acetaminophen 500 MG Tablet 1000 MG PO ×3 (06:39→20:58)
[2022-03-03] MEDS: Baclofen 10 MG Tablet 20 MG PO ×3 (06:39→22:19)
[2022-03-03] MEDS: Escitalopram Oxalate 20 MG Tablet PO (06:39)
[2022-03-03] MEDS: Pantoprazole Sodium 40 MG Tablet PO (06:39)
[2022-03-03] MEDS: Carvedilol 12.5 MG Tablet PO ×2 (06:40→17:04)
[2022-03-03] MEDS: hydroCHLOROthiazide 12.5mg 12.5 MG PO (06:40)
[2022-03-03] MEDS: Loperamide 2 MG Capsule PO ×3 (06:40→22:19)
[2022-03-03] MEDS: Cholecalciferol (Vit D3) 125 MCG CAPSULE (5,000 UNITS) PO (06:42)
[2022-03-03] MEDS: Menthol/Lanolin/Calamine/Znox 113 GM Tube 1 APPLIC TOPICAL ×2 (06:47→22:21)
[2022-03-03] MEDS: Nystatin Powder 15gm Bottle 1 APPLIC TOPICAL ×2 (06:48→22:21)
[2022-03-03] MEDS: Aspirin E.C. 81 MG Tablet PO ×2 (07:53→17:04)
[2022-03-03] MEDS: Potassium Chloride Oral Tablet 10 MEQ 20 MEQ PO ×3 (07:53→17:04)
[2022-03-03] MEDS: oxyCODONE 5 MG Tablet PO ×3 (09:37→20:59)
[2022-03-03 14:00] VITALS: BP 116/57; PULSE 69; RESP 16; TEMP 36.7; O2SAT 93
[2022-03-03 17:06] VITALS: BP 126/54; PULSE 62
[2022-03-03] MEDS: traZODone 100 MG Tablet 300 MG PO (22:17)
[2022-03-03] MEDS: Pravastatin 40 MG Tablet PO (22:18)
[2022-03-03] MEDS: Primidone 50 MG Tablet PO (22:18)
[2022-03-03] MEDS: Primidone 250 MG Tablet PO (22:18)
[2022-03-04] MEDS: Acetaminophen 500 MG Tablet 1000 MG PO ×3 (06:52→20:57)
[2022-03-04] MEDS: Baclofen 10 MG Tablet 20 MG PO ×3 (06:53→20:58)
[2022-03-04] MEDS: Carvedilol 12.5 MG Tablet PO ×2 (06:53→17:24)
[2022-03-04] MEDS: hydroCHLOROthiazide 12.5mg 12.5 MG PO (06:54)
[2022-03-04] MEDS: Escitalopram Oxalate 20 MG Tablet PO (06:54)
[2022-03-04] MEDS: Pantoprazole Sodium 40 MG Tablet PO (06:54)
[2022-03-04] MEDS: Cholecalciferol (Vit D3) 125 MCG CAPSULE (5,000 UNITS) PO (06:54)
[2022-03-04] MEDS: Loperamide 2 MG Capsule PO ×2 (06:54→14:42)
[2022-03-04 07:34] VITALS: BP 124/56; PULSE 57
[2022-03-04] MEDS: Aspirin E.C. 81 MG Tablet PO ×2 (08:32→17:24)
[2022-03-04] MEDS: Potassium Chloride Oral Tablet 10 MEQ 20 MEQ PO ×3 (08:32→17:24)
[2022-03-04] MEDS: oxyCODONE 5 MG Tablet PO ×4 (08:37→22:41)
[2022-03-04] MEDS: Menthol/Lanolin/Calamine/Znox 113 GM Tube 1 APPLIC TOPICAL ×2 (10:55→21:03)
--- NOTE | 2022-03-04 10:55 | MDS.RN ---
Information for the mds was obtained from review of the clinical record, interview of resident, staff, and direct observation of resident's care.
[2022-03-04] MEDS: Nystatin Powder 15gm Bottle 1 APPLIC TOPICAL ×2 (10:56→21:03)
[2022-03-04 11:00] VITALS: PULSE 64; RESP 18; O2SAT 94
[2022-03-04 14:00] VITALS: BP 139/65; PULSE 71; RESP 16; TEMP 36.6; O2SAT 93
[2022-03-04] MEDS: traZODone 100 MG Tablet 300 MG PO (22:42)
[2022-03-04] MEDS: Primidone 250 MG Tablet PO (22:43)
[2022-03-04] MEDS: Primidone 50 MG Tablet PO (22:43)
[2022-03-04] MEDS: Pravastatin 40 MG Tablet PO (22:43)
[2022-03-05] MEDS: Carvedilol 12.5 MG Tablet PO ×2 (06:57→17:12)
[2022-03-05] MEDS: hydroCHLOROthiazide 12.5mg 12.5 MG PO (06:57)
[2022-03-05] MEDS: Acetaminophen 500 MG Tablet 1000 MG PO ×3 (06:57→22:07)
[2022-03-05] MEDS: Cholecalciferol (Vit D3) 125 MCG CAPSULE (5,000 UNITS) PO (06:57)
[2022-03-05] MEDS: Escitalopram Oxalate 20 MG Tablet PO (06:57)
[2022-03-05] MEDS: Pantoprazole Sodium 40 MG Tablet PO (06:57)
[2022-03-05] MEDS: Nystatin Powder 15gm Bottle 1 APPLIC TOPICAL ×2 (06:58→22:33)
[2022-03-05] MEDS: Menthol/Lanolin/Calamine/Znox 113 GM Tube 1 APPLIC TOPICAL ×2 (06:58→17:11)
[2022-03-05] MEDS: oxyCODONE 5 MG Tablet PO ×3 (06:58→20:11)
[2022-03-05] MEDS: Baclofen 10 MG Tablet 20 MG PO ×3 (06:59→22:08)
[2022-03-05] MEDS: Potassium Chloride Oral Tablet 10 MEQ 20 MEQ PO ×3 (08:26→17:11)
[2022-03-05] MEDS: Aspirin E.C. 81 MG Tablet PO ×2 (08:27→17:11)
[2022-03-05 10:00] VITALS: RESP 18
[2022-03-05 14:00] VITALS: BP 111/61; PULSE 62; RESP 18; TEMP 36.3; O2SAT 92
[2022-03-05] MEDS: Loperamide 2 MG Capsule PO (22:09)
[2022-03-05] MEDS: Pravastatin 40 MG Tablet PO (22:09)
[2022-03-05] MEDS: Primidone 50 MG Tablet PO (23:21)
[2022-03-05] MEDS: Primidone 250 MG Tablet PO (23:21)
[2022-03-05] MEDS: traZODone 100 MG Tablet 300 MG PO (23:21)
[2022-03-06 05:33] LABS: Absolute Lymphocyte Count 1.78 X10^3/uL (0.83-4.51); Absolute Neutrophil Count 2.8 X10^3/uL (2.0-7.7); Basophil# 0.05 X10^3/uL; Basophil% 0.9 % (0-1); Eosinophil# 0.29 X10^3/uL; Eosinophils% 5.4 % (0-5); Hematocrit 32.3 % (37-47); Hemoglobin 10.5 g/dL (12.0-15.0); Lymphocyte # 1.78 X10^3/ul (0.83-4.51); Lymphocyte % 33.1 % (19-41); Mean Corp Hgb Conc 32.5 g/dL (32-36); Mean Corpuscular Hgb 31.6 pg (27.0-32.0); Mean Corpuscular Volume 97.3 fL (81-99); Monocyte# 0.45 X10^3/uL; Monocyte% 8.4 % (0-10); NRBC Flagged by Analyzer 0 % (0-5); Neutrophil # 2.77 X10^3/uL (2.7-7.7); Neutrophil % 51.5 % (47-70); Platelet Count 250 K/mm3 (150-450); RBC Distribution Width CV 14.1 % (11.6-14.6); RBC Distribution Width SD 50.5 fl (35.1-43.9); Red Blood Count 3.32 M/mm3 (4.2-5.4); White Blood Count 5.4 K/mm3 (4.4-11.0)
[2022-03-06 06:20] LABS: Anion Gap 4 (5-15); BUN 13 mg/dL (7-18); BUN/Creat Ratio 29.3 RATIO (10-20); Calcium,Total 9.1 mg/dL (8.5-10.1); Chloride 107 mmol/L (98-107); Creatinine, Serum 0.44 mg/dL (0.55-1.02); EST Glomerular Filtration Rate 147 mL/min (>60); Est Glom Filt Rate - Afr Amer 177 mL/min (>60); Estimated Creatinine Clearance 34.91 ml/min; Glucose 93 mg/dL (74-106); Potassium 4.1 mmol/L (3.5-5.1); Sodium Level 141 mmol/L (136-145)
[2022-03-06] MEDS: Carvedilol 12.5 MG Tablet PO ×2 (06:22→17:13)
[2022-03-06] MEDS: Escitalopram Oxalate 20 MG Tablet PO (06:23)
[2022-03-06] MEDS: hydroCHLOROthiazide 12.5mg 12.5 MG PO (06:23)
[2022-03-06] MEDS: Baclofen 10 MG Tablet 20 MG PO ×3 (06:23→22:07)
[2022-03-06] MEDS: Loperamide 2 MG Capsule PO ×2 (06:23→22:07)
[2022-03-06] MEDS: Cholecalciferol (Vit D3) 125 MCG CAPSULE (5,000 UNITS) PO (06:24)
[2022-03-06] MEDS: Pantoprazole Sodium 40 MG Tablet PO (06:24)
[2022-03-06] MEDS: Nystatin Powder 15gm Bottle 1 APPLIC TOPICAL ×2 (06:31→22:08)
[2022-03-06] MEDS: Menthol/Lanolin/Calamine/Znox 113 GM Tube 1 APPLIC TOPICAL ×2 (06:31→17:13)
[2022-03-06] MEDS: Potassium Chloride Oral Tablet 10 MEQ 20 MEQ PO ×3 (08:26→17:12)
[2022-03-06] MEDS: Aspirin E.C. 81 MG Tablet PO ×2 (08:26→17:12)
[2022-03-06] MEDS: oxyCODONE 5 MG Tablet PO ×4 (08:29→22:05)
[2022-03-06] MEDS: Acetaminophen 500 MG Tablet 1000 MG PO ×3 (08:29→23:13)
[2022-03-06] MEDS: Neomycin/Polymyxin/Dexameth 5ML OPTH.BTL 4 DRP OTIC ×2 (13:10→22:08)
[2022-03-06] MEDS: Meclizine HCl 25 MG Tablet PO (13:30)
[2022-03-06 14:00] VITALS: BP 125/51; PULSE 64; RESP 16; TEMP 36.8; O2SAT 93
[2022-03-06] MEDS: traZODone 100 MG Tablet 300 MG PO (22:06)
[2022-03-06] MEDS: Primidone 50 MG Tablet PO (22:08)
[2022-03-06] MEDS: Primidone 250 MG Tablet PO (22:08)
[2022-03-06] MEDS: Pravastatin 40 MG Tablet PO (22:09)
[2022-03-07] MEDS: Carvedilol 12.5 MG Tablet PO ×2 (06:50→17:17)
[2022-03-07] MEDS: Baclofen 10 MG Tablet 20 MG PO ×3 (06:50→20:14)
[2022-03-07] MEDS: hydroCHLOROthiazide 12.5mg 12.5 MG PO (06:50)
[2022-03-07] MEDS: Neomycin/Polymyxin/Dexameth 5ML OPTH.BTL 4 DRP OTIC ×3 (06:50→22:27)
[2022-03-07] MEDS: Cholecalciferol (Vit D3) 125 MCG CAPSULE (5,000 UNITS) PO (06:50)
[2022-03-07] MEDS: Pantoprazole Sodium 40 MG Tablet PO (06:50)
[2022-03-07] MEDS: Escitalopram Oxalate 20 MG Tablet PO (06:50)
[2022-03-07] MEDS: Menthol/Lanolin/Calamine/Znox 113 GM Tube 1 APPLIC TOPICAL ×2 (06:51→17:16)
[2022-03-07] MEDS: Nystatin Powder 15gm Bottle 1 APPLIC TOPICAL ×2 (06:53→20:23)
[2022-03-07] MEDS: Potassium Chloride Oral Tablet 10 MEQ 20 MEQ PO ×3 (08:10→17:15)
[2022-03-07] MEDS: Aspirin E.C. 81 MG Tablet PO ×2 (08:10→17:16)
[2022-03-07] MEDS: oxyCODONE 5 MG Tablet PO ×3 (10:02→20:12)
[2022-03-07] MEDS: Acetaminophen 500 MG Tablet 1000 MG PO ×2 (10:07→17:21)
[2022-03-07 14:00] VITALS: BP 128/64; PULSE 62; RESP 17; TEMP 36.2; O2SAT 95
[2022-03-07] MEDS: Loperamide 2 MG Capsule PO (20:14)
[2022-03-07] MEDS: Pravastatin 40 MG Tablet PO (20:16)
[2022-03-07] MEDS: traZODone 100 MG Tablet 300 MG PO (22:28)
[2022-03-07] MEDS: Primidone 50 MG Tablet PO (22:28)
[2022-03-07] MEDS: Primidone 250 MG Tablet PO (22:29)
[2022-03-08] MEDS: Acetaminophen 500 MG Tablet 1000 MG PO ×3 (06:28→21:07)
[2022-03-08] MEDS: Cholecalciferol (Vit D3) 125 MCG CAPSULE (5,000 UNITS) PO (06:29)
[2022-03-08] MEDS: Loperamide 2 MG Capsule PO ×3 (06:29→23:16)
[2022-03-08] MEDS: Carvedilol 12.5 MG Tablet PO ×2 (06:29→17:25)
[2022-03-08] MEDS: Pantoprazole Sodium 40 MG Tablet PO (06:29)
[2022-03-08] MEDS: Baclofen 10 MG Tablet 20 MG PO ×3 (06:29→23:16)
[2022-03-08] MEDS: Neomycin/Polymyxin/Dexameth 5ML OPTH.BTL 4 DRP OTIC ×3 (06:30→23:17)
[2022-03-08] MEDS: hydroCHLOROthiazide 12.5mg 12.5 MG PO (06:30)
[2022-03-08] MEDS: Escitalopram Oxalate 20 MG Tablet PO (06:30)
[2022-03-08] MEDS: Nystatin Powder 15gm Bottle 1 APPLIC TOPICAL ×2 (06:34→23:18)
[2022-03-08] MEDS: Menthol/Lanolin/Calamine/Znox 113 GM Tube 1 APPLIC TOPICAL ×2 (06:34→17:27)
[2022-03-08] MEDS: Potassium Chloride Oral Tablet 10 MEQ 20 MEQ PO ×3 (09:00→17:25)
[2022-03-08] MEDS: oxyCODONE 5 MG Tablet PO ×3 (09:05→21:07)
[2022-03-08] MEDS: Aspirin E.C. 81 MG Tablet PO ×2 (09:08→17:25)
[2022-03-08 09:15] VITALS: PULSE 59; RESP 18; O2SAT 95
--- NOTE | 2022-03-08 12:33 | NURSING ---
transport team here to take pt to Dr Hamilton office at this time.
--- NOTE | 2022-03-08 13:05 | NURSING ---
pt left by transport/cot at [address] phillip.
[2022-03-08 14:00] VITALS: BP 134/57; PULSE 65; RESP 15; TEMP 36.2; O2SAT 95
--- NOTE | 2022-03-08 15:11 | NURSING ---
PT returned from DR Hamilton's office, remains NWB. f/u on April 12 at 1330 for xray then appt at 1430. sutures removed at this appt.
[2022-03-08] MEDS: traZODone 100 MG Tablet 300 MG PO (23:17)
[2022-03-08] MEDS: Pravastatin 40 MG Tablet PO (23:19)
[2022-03-08] MEDS: Primidone 50 MG Tablet PO (23:20)
[2022-03-08] MEDS: Primidone 250 MG Tablet PO (23:20)
[2022-03-09] MEDS: Menthol/Lanolin/Calamine/Znox 113 GM Tube 1 APPLIC TOPICAL ×2 (06:38→17:00)
[2022-03-09] MEDS: Acetaminophen 500 MG Tablet 1000 MG PO ×2 (06:40→14:55)
[2022-03-09] MEDS: Carvedilol 12.5 MG Tablet PO ×2 (06:41→17:00)
[2022-03-09] MEDS: Baclofen 10 MG Tablet 20 MG PO ×3 (06:42→20:23)
[2022-03-09] MEDS: Escitalopram Oxalate 20 MG Tablet PO (06:42)
[2022-03-09] MEDS: hydroCHLOROthiazide 12.5mg 12.5 MG PO (06:42)
[2022-03-09] MEDS: Pantoprazole Sodium 40 MG Tablet PO (06:44)
[2022-03-09] MEDS: Nystatin Powder 15gm Bottle 1 APPLIC TOPICAL ×2 (06:45→20:24)
[2022-03-09] MEDS: Cholecalciferol (Vit D3) 125 MCG CAPSULE (5,000 UNITS) PO (08:17)
[2022-03-09] MEDS: Aspirin E.C. 81 MG Tablet PO ×2 (08:17→16:59)
[2022-03-09] MEDS: Potassium Chloride Oral Tablet 10 MEQ 20 MEQ PO ×3 (08:17→16:59)
[2022-03-09] MEDS: oxyCODONE 5 MG Tablet PO ×3 (11:06→23:04)
[2022-03-09 14:00] VITALS: BP 131/62; PULSE 64; RESP 14; TEMP 36.4; O2SAT 93
[2022-03-09] MEDS: Pravastatin 40 MG Tablet PO (20:23)
[2022-03-09] MEDS: Primidone 250 MG Tablet PO (23:05)
[2022-03-09] MEDS: traZODone 100 MG Tablet 300 MG PO (23:05)
[2022-03-09] MEDS: Primidone 50 MG Tablet PO (23:05)
[2022-03-10] MEDS: Escitalopram Oxalate 20 MG Tablet PO (05:27)
[2022-03-10] MEDS: Pantoprazole Sodium 40 MG Tablet PO (05:27)
[2022-03-10] MEDS: Carvedilol 12.5 MG Tablet PO ×2 (05:27→17:03)
[2022-03-10] MEDS: Cholecalciferol (Vit D3) 125 MCG CAPSULE (5,000 UNITS) PO (05:27)
[2022-03-10] MEDS: Baclofen 10 MG Tablet 20 MG PO ×3 (05:27→21:37)
[2022-03-10] MEDS: hydroCHLOROthiazide 12.5mg 12.5 MG PO (05:27)
[2022-03-10] MEDS: Menthol/Lanolin/Calamine/Znox 113 GM Tube 1 APPLIC TOPICAL ×2 (05:32→17:05)
[2022-03-10] MEDS: Nystatin Powder 15gm Bottle 1 APPLIC TOPICAL ×2 (05:32→21:38)
[2022-03-10] MEDS: Potassium Chloride Oral Tablet 10 MEQ 20 MEQ PO ×3 (08:45→17:03)
[2022-03-10] MEDS: Aspirin E.C. 81 MG Tablet PO ×2 (08:45→17:03)
[2022-03-10] MEDS: Acetaminophen 500 MG Tablet 1000 MG PO ×2 (08:45→16:06)
[2022-03-10] MEDS: oxyCODONE 5 MG Tablet PO ×3 (10:34→21:43)
[2022-03-10 14:00] VITALS: BP 137/59; PULSE 62; RESP 16; TEMP 36.2; O2SAT 93
[2022-03-10] MEDS: traZODone 100 MG Tablet 300 MG PO (21:37)
[2022-03-10] MEDS: Primidone 50 MG Tablet PO (21:39)
[2022-03-10] MEDS: Primidone 250 MG Tablet PO (21:39)
[2022-03-10] MEDS: Pravastatin 40 MG Tablet PO (21:40)
[2022-03-10 22:35] VITALS: PULSE 60; RESP 18; O2SAT 95
[2022-03-11] MEDS: Carvedilol 12.5 MG Tablet PO ×2 (06:10→17:24)
[2022-03-11] MEDS: Escitalopram Oxalate 20 MG Tablet PO (06:10)
[2022-03-11] MEDS: Menthol/Lanolin/Calamine/Znox 113 GM Tube 1 APPLIC TOPICAL ×2 (06:10→17:25)
[2022-03-11] MEDS: hydroCHLOROthiazide 12.5mg 12.5 MG PO (06:10)
[2022-03-11] MEDS: Baclofen 10 MG Tablet 20 MG PO ×3 (06:10→19:50)
[2022-03-11] MEDS: Pantoprazole Sodium 40 MG Tablet PO (06:11)
[2022-03-11] MEDS: Nystatin Powder 15gm Bottle 1 APPLIC TOPICAL ×2 (06:11→22:50)
[2022-03-11] MEDS: Cholecalciferol (Vit D3) 125 MCG CAPSULE (5,000 UNITS) PO (06:11)
[2022-03-11] MEDS: Potassium Chloride Oral Tablet 10 MEQ 20 MEQ PO ×3 (07:44→17:23)
[2022-03-11] MEDS: Aspirin E.C. 81 MG Tablet PO ×2 (07:44→17:23)
[2022-03-11] MEDS: Acetaminophen 500 MG Tablet 1000 MG PO ×2 (10:19→17:23)
[2022-03-11] MEDS: oxyCODONE 5 MG Tablet PO ×3 (10:20→19:49)
[2022-03-11 13:19] VITALS: BP 121/45; PULSE 65; RESP 18; TEMP 36.6; O2SAT 93
[2022-03-11 13:21] VITALS: PULSE 65; RESP 16; O2SAT 96
[2022-03-11] MEDS: Pravastatin 40 MG Tablet PO (19:52)
[2022-03-11] MEDS: traZODone 100 MG Tablet 300 MG PO (22:48)
[2022-03-11] MEDS: Primidone 50 MG Tablet PO (22:49)
[2022-03-11] MEDS: Primidone 250 MG Tablet PO (22:49)
[2022-03-12] MEDS: Acetaminophen 500 MG Tablet 1000 MG PO ×3 (06:19→22:40)
[2022-03-12] MEDS: Baclofen 10 MG Tablet 20 MG PO ×3 (06:21→20:08)
[2022-03-12] MEDS: Cholecalciferol (Vit D3) 125 MCG CAPSULE (5,000 UNITS) PO (06:21)
[2022-03-12] MEDS: Carvedilol 12.5 MG Tablet PO ×2 (06:21→17:17)
[2022-03-12] MEDS: Escitalopram Oxalate 20 MG Tablet PO (06:21)
[2022-03-12] MEDS: Pantoprazole Sodium 40 MG Tablet PO (06:22)
[2022-03-12] MEDS: hydroCHLOROthiazide 12.5mg 12.5 MG PO (06:22)
[2022-03-12] MEDS: Nystatin Powder 15gm Bottle 1 APPLIC TOPICAL ×2 (06:23→22:36)
[2022-03-12] MEDS: Menthol/Lanolin/Calamine/Znox 113 GM Tube 1 APPLIC TOPICAL ×2 (06:23→17:18)
[2022-03-12] MEDS: Aspirin E.C. 81 MG Tablet PO ×2 (08:29→17:16)
[2022-03-12] MEDS: Potassium Chloride Oral Tablet 10 MEQ 20 MEQ PO ×3 (08:29→17:16)
[2022-03-12] MEDS: oxyCODONE 5 MG Tablet PO ×3 (09:45→20:07)
[2022-03-12 14:00] VITALS: BP 108/59; PULSE 63; RESP 16; TEMP 36.4; O2SAT 93
--- NOTE | 2022-03-12 15:57 | CASEMGMT ---
Social Work Spoke with pt about planning for DC. Pt has f/u appt again in 4 weeks. Explained IDT discussed setting DC date for 1-2 weeks as pt is still NWBS and beginning to plateau. Encouraged to save Medicare days to be skilled when pt gets WBS. Offered to provide DC planning assistance. Pt to discuss with and SW to f/u on decision of paying privately to remain in TCU, DC home or DC to SNF private pay. Pt expressed understanding, however, stated well, I'm shocked. Kindly reminded pt on conversation SW had with pt and together upon admission. Again offered assistance with DC plans. Will continue to follow. Roslyn Walden, AZIZA NUNOW
[2022-03-12] MEDS: Pravastatin 40 MG Tablet PO (20:09)
[2022-03-12] MEDS: traZODone 100 MG Tablet 300 MG PO (22:34)
[2022-03-12] MEDS: Primidone 50 MG Tablet PO (22:35)
[2022-03-12] MEDS: Primidone 250 MG Tablet PO (22:35)
[2022-03-13 05:41] LABS: Absolute Lymphocyte Count 1.65 X10^3/uL (0.83-4.51); Absolute Neutrophil Count 2.2 X10^3/uL (2.0-7.7); Basophil# 0.05 X10^3/uL; Basophil% 1.1 % (0-1); Eosinophil# 0.24 X10^3/uL; Eosinophils% 5.1 % (0-5); Hematocrit 33.5 % (37-47); Lymphocyte # 1.65 X10^3/ul (0.83-4.51); Lymphocyte % 35.3 % (19-41); Mean Corp Hgb Conc 32.8 g/dL (32-36); Mean Corpuscular Hgb 31.6 pg (27.0-32.0); Mean Corpuscular Volume 96.3 fL (81-99); Mean Platelet Vol. 9.7 fl (6.2-12.0); Monocyte% 10.7 % (0-10); NRBC Flagged by Analyzer 0 % (0-5); Neutrophil # 2.21 X10^3/uL (2.7-7.7); Neutrophil % 47.4 % (47-70); Platelet Count 209 K/mm3 (150-450); RBC Distribution Width CV 13.6 % (11.6-14.6); RBC Distribution Width SD 48.5 fl (35.1-43.9); Red Blood Count 3.48 M/mm3 (4.2-5.4); White Blood Count 4.7 K/mm3 (4.4-11.0)
[2022-03-13 06:04] LABS: Anion Gap 5 (5-15); BUN 13 mg/dL (7-18); BUN/Creat Ratio 27.9 RATIO (10-20); Calcium,Total 8.9 mg/dL (8.5-10.1); Chloride 108 mmol/L (98-107); Creatinine, Serum 0.47 mg/dL (0.55-1.02); EST Glomerular Filtration Rate 139 mL/min (>60); Est Glom Filt Rate - Afr Amer 168 mL/min (>60); Estimated Creatinine Clearance 34.91 ml/min; Glucose 92 mg/dL (74-106); Potassium 3.9 mmol/L (3.5-5.1); Sodium Level 141 mmol/L (136-145)
[2022-03-13] MEDS: Escitalopram Oxalate 20 MG Tablet PO (06:27)
[2022-03-13] MEDS: Pantoprazole Sodium 40 MG Tablet PO (06:27)
[2022-03-13] MEDS: hydroCHLOROthiazide 12.5mg 12.5 MG PO (06:27)
[2022-03-13] MEDS: Baclofen 10 MG Tablet 20 MG PO ×3 (06:27→23:09)
[2022-03-13] MEDS: Cholecalciferol (Vit D3) 125 MCG CAPSULE (5,000 UNITS) PO (06:27)
[2022-03-13] MEDS: Acetaminophen 500 MG Tablet 1000 MG PO ×2 (06:29→17:51)
[2022-03-13] MEDS: Nystatin Powder 15gm Bottle 1 APPLIC TOPICAL ×2 (06:30→23:11)
[2022-03-13] MEDS: Menthol/Lanolin/Calamine/Znox 113 GM Tube 1 APPLIC TOPICAL ×2 (06:30→18:04)
[2022-03-13] MEDS: oxyCODONE 5 MG Tablet PO ×3 (08:54→21:12)
[2022-03-13] MEDS: Carvedilol 12.5 MG Tablet PO ×2 (08:54→17:52)
[2022-03-13] MEDS: Potassium Chloride Oral Tablet 10 MEQ 20 MEQ PO ×3 (08:54→17:53)
[2022-03-13] MEDS: Aspirin E.C. 81 MG Tablet PO ×2 (08:54→17:53)
[2022-03-13 08:56] VITALS: BP 107/71; PULSE 81
[2022-03-13 14:00] VITALS: BP 126/55; PULSE 57; RESP 16; TEMP 36.2; O2SAT 94
[2022-03-13] MEDS: Primidone 250 MG Tablet PO (23:08)
[2022-03-13] MEDS: Primidone 50 MG Tablet PO (23:09)
[2022-03-13] MEDS: Loperamide 2 MG Capsule PO (23:09)
[2022-03-13] MEDS: traZODone 100 MG Tablet 300 MG PO (23:09)
[2022-03-13] MEDS: Pravastatin 40 MG Tablet PO (23:09)
[2022-03-13 23:12] VITALS: PULSE 60; RESP 16; O2SAT 96
[2022-03-14] MEDS: Cholecalciferol (Vit D3) 125 MCG CAPSULE (5,000 UNITS) PO (06:08)
[2022-03-14] MEDS: Baclofen 10 MG Tablet 20 MG PO ×3 (06:08→22:23)
[2022-03-14] MEDS: Pantoprazole Sodium 40 MG Tablet PO (06:08)
[2022-03-14] MEDS: Escitalopram Oxalate 20 MG Tablet PO (06:08)
[2022-03-14] MEDS: Loperamide 2 MG Capsule PO (06:08)
[2022-03-14] MEDS: hydroCHLOROthiazide 12.5mg 12.5 MG PO (06:08)
[2022-03-14] MEDS: Menthol/Lanolin/Calamine/Znox 113 GM Tube 1 APPLIC TOPICAL ×2 (06:09→16:00)
[2022-03-14] MEDS: Nystatin Powder 15gm Bottle 1 APPLIC TOPICAL ×2 (06:09→22:24)
[2022-03-14 06:12] VITALS: BP 130/45; PULSE 60
[2022-03-14] MEDS: Acetaminophen 500 MG Tablet 1000 MG PO ×3 (06:21→22:22)
[2022-03-14] MEDS: Potassium Chloride Oral Tablet 10 MEQ 20 MEQ PO ×3 (08:20→17:05)
[2022-03-14] MEDS: Aspirin E.C. 81 MG Tablet PO ×2 (08:21→16:00)
[2022-03-14] MEDS: oxyCODONE 5 MG Tablet PO ×3 (08:27→20:11)
[2022-03-14] MEDS: Carvedilol 12.5 MG Tablet PO ×2 (08:29→16:00)
[2022-03-14 11:24] VITALS: BP 138/76; PULSE 59
[2022-03-14] MEDS: Meclizine HCl 25 MG Tablet PO (11:29)
[2022-03-14 14:00] VITALS: BP 133/73; PULSE 82; RESP 16; TEMP 36.5; O2SAT 91
[2022-03-14] MEDS: traZODone 100 MG Tablet 300 MG PO (22:23)
[2022-03-14] MEDS: Primidone 50 MG Tablet PO (22:24)
[2022-03-14] MEDS: Primidone 250 MG Tablet PO (22:24)
[2022-03-14] MEDS: Pravastatin 40 MG Tablet PO (22:25)
[2022-03-15] MEDS: hydroCHLOROthiazide 12.5mg 12.5 MG PO (07:04)
[2022-03-15] MEDS: Escitalopram Oxalate 20 MG Tablet PO (07:04)
[2022-03-15] MEDS: Baclofen 10 MG Tablet 20 MG PO ×3 (07:04→22:19)
[2022-03-15] MEDS: Cholecalciferol (Vit D3) 125 MCG CAPSULE (5,000 UNITS) PO (07:04)
[2022-03-15] MEDS: Pantoprazole Sodium 40 MG Tablet PO (07:04)
[2022-03-15] MEDS: Nystatin Powder 15gm Bottle 1 APPLIC TOPICAL ×2 (07:05→22:19)
[2022-03-15] MEDS: Acetaminophen 500 MG Tablet 1000 MG PO ×3 (07:06→22:27)
[2022-03-15] MEDS: Menthol/Lanolin/Calamine/Znox 113 GM Tube 1 APPLIC TOPICAL ×2 (07:07→17:04)
[2022-03-15] MEDS: Potassium Chloride Oral Tablet 10 MEQ 20 MEQ PO ×3 (08:02→17:03)
[2022-03-15] MEDS: Aspirin E.C. 81 MG Tablet PO ×2 (08:03→17:03)
[2022-03-15] MEDS: Carvedilol 12.5 MG Tablet PO ×2 (08:05→17:03)
[2022-03-15 08:06] VITALS: BP 116/50; PULSE 56
[2022-03-15] MEDS: oxyCODONE 5 MG Tablet PO ×3 (09:59→20:18)
[2022-03-15] MEDS: Loperamide 2 MG Capsule PO ×2 (13:22→22:18)
[2022-03-15 14:00] VITALS: BP 113/57; PULSE 65; RESP 14; TEMP 36.3; O2SAT 93
[2022-03-15 17:24] VITALS: BP 113/57; PULSE 65; RESP 14; TEMP 36.3; O2SAT 93
--- NOTE | 2022-03-15 17:51 | NURSING ---
Pt and family notified of staff member and another pt testing positive for covid.
[2022-03-15 22:00] VITALS: RESP 16
[2022-03-15] MEDS: Primidone 250 MG Tablet PO (22:18)
[2022-03-15] MEDS: traZODone 100 MG Tablet 300 MG PO (22:18)
[2022-03-15] MEDS: Primidone 50 MG Tablet PO (22:18)
[2022-03-15] MEDS: Pravastatin 40 MG Tablet PO (22:20)
[2022-03-16] MEDS: Menthol/Lanolin/Calamine/Znox 113 GM Tube 1 APPLIC TOPICAL ×2 (05:20→17:07)
[2022-03-16] MEDS: Baclofen 10 MG Tablet 20 MG PO ×3 (05:20→20:17)
[2022-03-16] MEDS: Loperamide 2 MG Capsule PO ×2 (05:21→13:31)
[2022-03-16] MEDS: Escitalopram Oxalate 20 MG Tablet PO (05:21)
[2022-03-16] MEDS: Nystatin Powder 15gm Bottle 1 APPLIC TOPICAL ×2 (05:21→20:18)
[2022-03-16] MEDS: Pantoprazole Sodium 40 MG Tablet PO (05:21)
[2022-03-16] MEDS: hydroCHLOROthiazide 12.5mg 12.5 MG PO (05:21)
[2022-03-16] MEDS: Cholecalciferol (Vit D3) 125 MCG CAPSULE (5,000 UNITS) PO (05:21)
[2022-03-16] MEDS: Acetaminophen 500 MG Tablet 1000 MG PO ×3 (05:21→20:12)
[2022-03-16 05:25] VITALS: BP 112/48; PULSE 61; RESP 16; TEMP 36.3; O2SAT 95
[2022-03-16] MEDS: Aspirin E.C. 81 MG Tablet PO ×2 (08:24→17:06)
[2022-03-16] MEDS: Carvedilol 12.5 MG Tablet PO ×2 (08:24→17:06)
[2022-03-16] MEDS: Potassium Chloride Oral Tablet 10 MEQ 20 MEQ PO ×3 (08:24→17:06)
[2022-03-16 08:26] VITALS: BP 129/81; PULSE 60
[2022-03-16] MEDS: oxyCODONE 5 MG Tablet PO ×3 (11:26→20:14)
[2022-03-16 14:00] VITALS: BP 125/51; PULSE 61; RESP 16; TEMP 36.6; O2SAT 94
[2022-03-16] MEDS: Pravastatin 40 MG Tablet PO (20:17)
[2022-03-16 20:21] VITALS: PULSE 63; RESP 14; O2SAT 96
[2022-03-16] MEDS: Primidone 250 MG Tablet PO (22:27)
[2022-03-16] MEDS: Primidone 50 MG Tablet PO (22:27)
[2022-03-16] MEDS: traZODone 100 MG Tablet 300 MG PO (22:27)
[2022-03-17] MEDS: Cholecalciferol (Vit D3) 125 MCG CAPSULE (5,000 UNITS) PO (06:50)
[2022-03-17] MEDS: Escitalopram Oxalate 20 MG Tablet PO (06:50)
[2022-03-17] MEDS: hydroCHLOROthiazide 12.5mg 12.5 MG PO (06:50)
[2022-03-17] MEDS: Pantoprazole Sodium 40 MG Tablet PO (06:50)
[2022-03-17] MEDS: Nystatin Powder 15gm Bottle 1 APPLIC TOPICAL ×2 (06:50→23:31)
[2022-03-17] MEDS: Baclofen 10 MG Tablet 20 MG PO ×3 (06:52→20:42)
[2022-03-17] MEDS: Menthol/Lanolin/Calamine/Znox 113 GM Tube 1 APPLIC TOPICAL ×2 (06:54→23:31)
[2022-03-17] MEDS: Carvedilol 12.5 MG Tablet PO ×2 (08:25→18:17)
[2022-03-17] MEDS: Potassium Chloride Oral Tablet 10 MEQ 20 MEQ PO ×3 (08:25→18:18)
[2022-03-17] MEDS: Aspirin E.C. 81 MG Tablet PO ×2 (08:25→18:17)
[2022-03-17] MEDS: oxyCODONE 5 MG Tablet PO ×4 (08:29→23:29)
[2022-03-17] MEDS: Acetaminophen 500 MG Tablet 1000 MG PO ×2 (08:29→15:32)
[2022-03-17 08:34] VITALS: BP 118/55; PULSE 62
[2022-03-17 15:29] VITALS: BP 100/75; PULSE 58; RESP 18; TEMP 36.8; O2SAT 94
[2022-03-17] MEDS: Primidone 250 MG Tablet PO (23:30)
[2022-03-17] MEDS: traZODone 100 MG Tablet 300 MG PO (23:30)
[2022-03-17] MEDS: Primidone 50 MG Tablet PO (23:30)
[2022-03-17] MEDS: Pravastatin 40 MG Tablet PO (23:30)
[2022-03-18] MEDS: Pantoprazole Sodium 40 MG Tablet PO (06:25)
[2022-03-18] MEDS: hydroCHLOROthiazide 12.5mg 12.5 MG PO (06:25)
[2022-03-18] MEDS: Baclofen 10 MG Tablet 20 MG PO ×3 (06:25→20:42)
[2022-03-18] MEDS: Cholecalciferol (Vit D3) 125 MCG CAPSULE (5,000 UNITS) PO (06:25)
[2022-03-18] MEDS: Escitalopram Oxalate 20 MG Tablet PO (06:25)
[2022-03-18] MEDS: Acetaminophen 500 MG Tablet 1000 MG PO ×3 (06:27→19:03)
[2022-03-18] MEDS: Menthol/Lanolin/Calamine/Znox 113 GM Tube 1 APPLIC TOPICAL ×2 (06:28→17:07)
[2022-03-18] MEDS: Nystatin Powder 15gm Bottle 1 APPLIC TOPICAL ×2 (06:28→22:07)
[2022-03-18] MEDS: Carvedilol 12.5 MG Tablet PO ×2 (08:11→17:04)
[2022-03-18] MEDS: Aspirin E.C. 81 MG Tablet PO ×2 (08:11→17:06)
[2022-03-18] MEDS: Potassium Chloride Oral Tablet 10 MEQ 20 MEQ PO ×3 (08:12→17:07)
[2022-03-18] MEDS: oxyCODONE 5 MG Tablet PO ×3 (10:59→20:40)
[2022-03-18 14:00] VITALS: BP 106/59; PULSE 60; RESP 16; TEMP 36.4; O2SAT 94
--- NOTE | 2022-03-18 19:08 | PN.TCU_ITS ---
Subjective Subjective Resident seen, examined for regulatory visit. She has no new problems, concerns, issues, complaints. Awaiting advancement weight bearing from Dr. Hamilton. Objective Data Objective Data Vital Signs: Vital Signs Temp Pulse Resp BP Pulse Ox 97.6 F L 60 16 106/59 L 94 03/18/22 14:00 03/18/22 14:00 03/18/22 14:00 03/18/22 14:00 03/18/22 14:00 Oxygen Delivery Method Room Air Weight: 87.453 kg Body Mass Index (BMI) 39.0 Intake & Output: Intake and Output for Last 24 Hours 03/16/22 03/17/22 03/18/22 23:59 23:59 23:59 Intake Total 480 / 480 480 / 480 480 / 480 Output Total 200 / 200 1250 / 1250 1150 / 1150 Balance 280 / 280 -770 / -770 -670 / -670 Lab / Micro Data Result Diagrams: 03/13/22 05:13 03/13/22 05:13 Micro: Microbiology 03/18/22 11:08 Nasal Secretion SARS-CoV-2 Antigen (Rapid) - Final 03/15/22 13:28 Nasal Secretion SARS-CoV-2 Antigen (Rapid) - Final 02/27/22 11:30 Nasal Secretion SARS-CoV-2 Antigen (Rapid) - Final 02/20/22 16:48 Nasal Secretion SARS-CoV-2 Antigen (Rapid) - Final Physical Exam Const alert General Appearance: cooperative HEENT normocephalic Eyes PERRL and EOMs intact bilaterally Neck supple, no JVD and no carotid bruits Resp normal respiratory effort, normal air movement and clear to auscultation bilaterally Cardio regular rate and regular rhythm GI normal to inspection, nondistended, normoactive bowel sounds, non-tender and non-distended Extremity normal capillary refill Extremity Narrative: Left lower extremity dressing. 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 Hamilton 02/19/2022, postoperative course uncomplicated, admitted to TCU with debility, here for rehabilitation, strengthening, prior to discharge home with . * Debility - PT/OT. * Pain - Tylenol 1000mg q6h prn pain (1-5), Oxycodone 5mg q4h prn pain (6-10). * Bowel - Senokot 1 tablet bid prn, Loperamide 2mg tid. * Adult immunization - Administer pneumonia vaccine, flu vaccine, covid19 vaccine as appropriate. * DVT prophylaxis - Aspirin 81mg bidcm per Orthopedics. * Headache - Fioricet 1 tablet q4h prn. * Muscle spasm - Baclofen 20mg tid. * Hypertension - Coreg 12.5mg bid, HCTZ 12.5mg daily. * Anxiety - Diazepam 5mg bid prn, stable chronic alf use, GDR not recommended. * Depression - Lexapro 20mg daily, stable chronic alf use, GDR not recom mended. * Dizziness - Meclizine 25mg daily prn. * Nausea - Zofran 4mg q8h prn. * GERD - Pantoprazole 40mg daily. * Hypokalemia - KCL 20meq tidcm. * Hyperlipidemia - Pravastatin 40mg qhs. * Tremor - Primidone 300mg qhs. 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 * Vitamin D deficiency - D3 125mcg daily. * Skin irritation - Calmoseptine topical bid. * Tinea Corporis - Nystatin powder topical bid. * Vitamin D deficiency - D3 125mcg daily. Capacity Capacity Assessment Tool Can the patient make a choice & communicate that choice?: Yes Can the patient understand benefits, risks and alternatives?: Yes Can the patient make a logical, rational choice?: Yes Is the choice the patient makes consistent w/ their values?: Yes Is there an impending, emergent risk to the patient?: No Does the patient have an Advance Directive?: Yes Is there a Surrogate Available?: Yes i.e. HCPOA: Yes i.e. close relative (spouse, child, parent, sibling)?: Yes
[2022-03-18] MEDS: Loperamide 2 MG Capsule PO (20:41)
[2022-03-18] MEDS: Pravastatin 40 MG Tablet PO (20:42)
[2022-03-18] MEDS: traZODone 100 MG Tablet 300 MG PO (22:05)
[2022-03-18] MEDS: Primidone 250 MG Tablet PO (22:06)
[2022-03-18] MEDS: Primidone 50 MG Tablet PO (22:06)
[2022-03-19] MEDS: Escitalopram Oxalate 20 MG Tablet PO (06:33)
[2022-03-19] MEDS: Cholecalciferol (Vit D3) 125 MCG CAPSULE (5,000 UNITS) PO (06:33)
[2022-03-19] MEDS: Pantoprazole Sodium 40 MG Tablet PO (06:33)
[2022-03-19] MEDS: Loperamide 2 MG Capsule PO (06:33)
[2022-03-19] MEDS: Baclofen 10 MG Tablet 20 MG PO ×3 (06:34→20:02)
[2022-03-19] MEDS: hydroCHLOROthiazide 12.5mg 12.5 MG PO (06:34)
[2022-03-19] MEDS: Menthol/Lanolin/Calamine/Znox 113 GM Tube 1 APPLIC TOPICAL ×2 (06:35→17:10)
[2022-03-19] MEDS: Nystatin Powder 15gm Bottle 1 APPLIC TOPICAL ×2 (06:35→20:02)
[2022-03-19] MEDS: Potassium Chloride Oral Tablet 10 MEQ 20 MEQ PO ×3 (07:58→17:08)
[2022-03-19] MEDS: Aspirin E.C. 81 MG Tablet PO ×2 (07:58→17:08)
[2022-03-19] MEDS: Acetaminophen 500 MG Tablet 1000 MG PO ×2 (08:03→20:05)
[2022-03-19] MEDS: oxyCODONE 5 MG Tablet PO ×3 (10:42→20:04)
[2022-03-19 13:46] VITALS: BP 144/59; PULSE 71; RESP 20; TEMP 36.1; O2SAT 92
--- NOTE | 2022-03-19 14:00 | CASEMGMT ---
Social Work Spoke with pt about issuing DC 03/27. Explained appeal rights and DC options: stay and remain private pay getting therapy 5x/wk, private pay at SNF with part B therapies, home with skilled HHC. Pt does not want to go to a SNF, thus she would go home, but still feels her upper body is weak and needs 5x/wk therapy, and her cannot take care of her at home. Pt will speak with and notify SW of decision. SW to continue to follow to assist with DC plans. Roslyn Walden, GARMENT ALTERATION EXAMINER TRANSFER OPERATOR
[2022-03-19] MEDS: Carvedilol 12.5 MG Tablet PO (17:09)
[2022-03-19] MEDS: traZODone 100 MG Tablet 300 MG PO (20:01)
[2022-03-19] MEDS: Primidone 50 MG Tablet PO (20:03)
[2022-03-19] MEDS: Primidone 250 MG Tablet PO (20:04)
[2022-03-19] MEDS: Pravastatin 40 MG Tablet PO (20:04)
[2022-03-19 23:15] VITALS: PULSE 67; RESP 16
[2022-03-20] MEDS: Baclofen 10 MG Tablet 20 MG PO ×3 (05:06→22:34)
[2022-03-20] MEDS: Cholecalciferol (Vit D3) 125 MCG CAPSULE (5,000 UNITS) PO (05:06)
[2022-03-20] MEDS: hydroCHLOROthiazide 12.5mg 12.5 MG PO (05:06)
[2022-03-20] MEDS: Nystatin Powder 15gm Bottle 1 APPLIC TOPICAL ×2 (05:07→22:36)
[2022-03-20] MEDS: Escitalopram Oxalate 20 MG Tablet PO (05:07)
[2022-03-20] MEDS: Menthol/Lanolin/Calamine/Znox 113 GM Tube 1 APPLIC TOPICAL ×2 (05:07→22:33)
[2022-03-20] MEDS: Pantoprazole Sodium 40 MG Tablet PO (05:07)
[2022-03-20 05:43] LABS: Absolute Lymphocyte Count 1.93 X10^3/uL (0.83-4.51); Absolute Neutrophil Count 2.2 X10^3/uL (2.0-7.7); Basophil# 0.04 X10^3/uL; Basophil% 0.8 % (0-1); Eosinophil# 0.25 X10^3/uL; Eosinophils% 5.1 % (0-5); Hematocrit 34.5 % (37-47); Lymphocyte # 1.93 X10^3/ul (0.83-4.51); Lymphocyte % 39.7 % (19-41); Mean Corp Hgb Conc 31.9 g/dL (32-36); Mean Corpuscular Hgb 31.1 pg (27.0-32.0); Mean Corpuscular Volume 97.5 fL (81-99); Mean Platelet Vol. 10.1 fl (6.2-12.0); Monocyte# 0.44 X10^3/uL; Monocyte% 9.1 % (0-10); NRBC Flagged by Analyzer 0 % (0-5); Neutrophil # 2.17 X10^3/uL (2.7-7.7); Neutrophil % 44.7 % (47-70); Platelet Count 165 K/mm3 (150-450); RBC Distribution Width CV 13.4 % (11.6-14.6); RBC Distribution Width SD 48.1 fl (35.1-43.9); Red Blood Count 3.54 M/mm3 (4.2-5.4); White Blood Count 4.9 K/mm3 (4.4-11.0)
[2022-03-20 06:04] LABS: Anion Gap 4 (5-15); BUN 12 mg/dL (7-18); BUN/Creat Ratio 25.1 RATIO (10-20); Calcium,Total 9.1 mg/dL (8.5-10.1); Chloride 108 mmol/L (98-107); Creatinine, Serum 0.48 mg/dL (0.55-1.02); EST Glomerular Filtration Rate 134 mL/min (>60); Est Glom Filt Rate - Afr Amer 162 mL/min (>60); Estimated Creatinine Clearance 34.91 ml/min; Glucose 88 mg/dL (74-106); Potassium 3.9 mmol/L (3.5-5.1); Sodium Level 142 mmol/L (136-145)
[2022-03-20] MEDS: Acetaminophen 500 MG Tablet 1000 MG PO ×3 (06:31→20:26)
[2022-03-20] MEDS: Potassium Chloride Oral Tablet 10 MEQ 20 MEQ PO ×3 (08:34→17:58)
[2022-03-20] MEDS: Aspirin E.C. 81 MG Tablet PO ×2 (08:34→17:57)
[2022-03-20 08:38] VITALS: BP 114/41; PULSE 62
[2022-03-20] MEDS: oxyCODONE 5 MG Tablet PO ×4 (09:59→22:34)
[2022-03-20 13:40] VITALS: PULSE 65; RESP 18; O2SAT 95
[2022-03-20 14:00] VITALS: BP 138/74; PULSE 60; RESP 16; TEMP 36.7; O2SAT 94
--- NOTE | 2022-03-20 16:23 | CASEMGMT ---
Addendum entered by Roslyn Walden 04/01/22 12:59: Received call from [facility] and they are unable to transport pt's from home to Drs appts - thus they canceled the 04/12 transport for pt. Contacted pt and updated her. Provided her with 3 other w/c transport companies. Pt appreciative. Original Note: Social Work Followed up with pt on DC plans. Pt wishes to go home but requesting w/c transport as she cannot transfer in and out of car and keep leg elevated. [facility] scheduled for 11 am tile picker. No DME needs. Pt requesting [facility]. Referral made for PT/OT. Pt has f/u appt with Dr. Hamilton 04/12 and requested w/c transport for that appt as well. SW scheduled with [facility]. Plan: DC home with 03/26, [facility] PT/OT Roslyn Walden, AZIZA SEC ACCOUNTANT
[2022-03-20] MEDS: Carvedilol 12.5 MG Tablet PO (17:58)
--- NOTE | 2022-03-20 21:59 | PCM.DC.SUM ---
Providers Date of Admission: 02/20/22 Primary Care Physician: Dr. 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: Status: Acute Code(s): S82.899K - Other fracture of unspecified lower leg, subsequent encounter for closed fracture with nonunion; S92.909K - Unspecified fracture of unspecified foot, subsequent encounter for fracture with nonunion (4) Diastolic dysfunction: Status: Acute Code(s): I51.89 - Other ill-defined heart diseases (5) Pulmonary hypertension: Status: Acute Code(s): I27.20 - Pulmonary hypertension, unspecified (6) Anxiety: Status: Acute Code(s): F41.9 - Anxiety disorder, unspecified (7) Hypertension: Status: Chronic Code(s): I10 - Essential (primary) hypertension (8) Fibromyalgia: Status: Acute Code(s): M79.7 - Fibromyalgia (9) Hyperlipidemia: Status: Acute Code(s): E78.5 - Hyperlipidemia, unspecified (10) Depression: Status: Acute Code(s): F32.9 - Major depressive disorder, single episode, unspecified (11) Migraine: Status: Acute Code(s): G43.909 - Migraine, unspecified, not intractable, without status migrainosus (12) Tremor: Status: Acute Code(s): R25.1 - Tremor, unspecified (13) Insomnia: Status: Acute Code(s): G47.00 - Insomnia, unspecified Medications at Discharge Home Medications pravastatin 40 mg tablet 40 mg PO DAILY 02/09/19 escitalopram oxalate 20 mg tablet 20 mg PO DAILY tab 07/20/19 baclofen 10 mg tablet 20 mg PO TID tab 07/28/19 diazepam 5 mg tablet 5 mg PO BID PRN tab 07/28/19 loperamide 2 mg tablet 2 mg PO DAILY tab 07/28/19 hydrochlorothiazide 12.5 mg PO DAILY 05/11/21 primidone 250 mg PO QHS 07/15/21 trazodone 300 mg PO QHS 07/15/21 carvedilol 12.5 mg PO BID 09/05/21 aspirin 81 mg PO BID 02/20/22 ndlyksongn-cfisczlyhfztj-vrhg 1 cap PO Q4H PRN 02/20/22 cholecalciferol (vitamin D3) [Vitamin D3] 125 mcg PO DAILY 02/20/22 meclizine 25 mg PO DAILY PRN 02/20/22 ondansetron HCl 4 mg PO Q8H PRN 02/20/22 pantoprazole 40 mg PO DAILY 02/20/22 sennosides [senna] 8.6 mg PO BID PRN 02/20/22 acetaminophen 1,000 mg PO Q6H PRN PRN #0 tab 03/20/22 oxycodone 5 mg PO Q4H PRN PRN #0 tab 03/20/22 potassium chloride 20 meq PO TIDCM 30 Days #180 tab 03/20/22 primidone 250 mg PO QHS #0 tab 03/20/22 Hospital Course Operations - (Left ankle surgery.) Procedures None Summary of Care Provided Minutes Spent on Discharge: 35 Hospital Course: 77 year old female with below past medical history non healing left ankle fracture, underwent left ankle and subtalar joint open fusion tibia-calcaneus nailing, hardware removal left medial malleolus with Dr. Hamilton 02/19/2022, postoperative course uncomplicated, admitted to TCU with debility, here for rehabilitation, strengthening, prior to discharge home with . Discharge home with 03/26/2022, [facility] PT/OT. Physical Exam Const alert General Appearance: cooperative HEENT normocephalic Eyes PERRL and EOMs intact bilaterally Neck supple, no JVD and no carotid bruits Resp normal respiratory effort, normal air movement and clear to auscultation bilaterally Cardio regular rate and regular rhythm GI normal to inspection, nondistended, normoactive bowel sounds, non-tender and non-distended Extremity normal capillary refill Extremity Narrative: Left lower extremity splint. General Extremity: Negative for edema Skin no rashes or lesions noted General Skin Exam: no breakdown Psych affect normal Appearance: appropriate Weight / BMI Weight Weight: 86.818 kg Body Mass Index (BMI) 39.0 ABG / Lab / Microbiology Data Result Diagrams: 03/20/22 05:15 03/20/22 05:15 Laboratory: Laboratory Results - last 24 hr 03/20/22 05:15: WBC 4.9, RBC 3.54 L, Hgb 11.0 L, Hct 34.5 L, MCV 97.5, MCH 31.1, MCHC 31.9 L, RDW Std Deviation 48.1 H, RDW Coeff of Rishi 13.4, Plt Count 165, MPV 10.1, Immature Gran % (Auto) 0.600, Neut % (Auto) 44.7 L, Lymph % (Auto) 39.7, Faulkner % (Auto) 9.1, Eos % (Auto) 5.1 H, Baso % (Auto) 0.8, Absolute Neuts (auto) 2.2, Absolute Lymphs (auto) 1.93, Nucleated RBC % 0 03/20/22 05:15: Sodium 142, Potassium 3.9, Chloride 108 H, Carbon Dioxide 30.0, Anion Gap 4 L, BUN 12, Creatinine 0.48 L, Estim Creat Clear Calc 34.91, Est GFR (MDRD) Af Amer 162, Est GFR (MDRD) Non-Af 134, BUN/Creatinine Ratio 25.1 H, Glucose 88, Calcium 9.1 Microbiology: Microbiology 03/18/22 11:08 Nasal Secretion SARS-CoV-2 Antigen (Rapid) - Final 03/15/22 13:28 Nasal Secretion SARS-CoV-2 Antigen (Rapid) - Final 02/27/22 11:30 Nasal Secretion SARS-CoV-2 Antigen (Rapid) - Final 02/20/22 16:48 Nasal Secretion SARS-CoV-2 Antigen (Rapid) - Final D/C Instructions Discharge Diet: No restrictions Discharge Activity: Return to Normal Activity, May Shower and Use Walker Weight Bearing Status: No weight bearing (Left lower extremity.) Call your doctor if you observe: Fever of 101 or Higher, Inability to urinate, Inability to have a bowel movement, Shortness of breath, Dizziness, Fainting spells, Swelling in the ankles, Chest pain and Uncontrolled pain Additional Instructions: Discharge home with 03/26/2022, [facility] PT/OT. Please Follow Up With: Dr Hamilton When: As scheduled. Meaningful Use Info Meaningful Use Diagnoses (Choose all that apply): None applicable Discharge Plan Admission Admit Date/Time: 02/20/22 15:52 Primary Reason for Your Visit: Debility. Attending Provider: Ld Gan Chi Primary Care Provider: Ld Gan Chi Instructions Additional Instructions / Restrictions: Discharge home with 03/26/2022, [facility] PT/OT. Discharge Orders/Prescriptions Prescriptions: New acetaminophen 500 mg Tablet 1,000 mg PO Q6H PRN PRN (Reason: Pain Score 1-5) Qty: 0 RF: 0 primidone 250 mg Tablet 250 mg PO QHS Qty: 0 RF: 0 oxycodone 5 mg Tablet 5 mg PO Q4H PRN PRN (Reason: Pain Score 6-10) Qty: 0 RF: 0 potassium chloride 10 mEq Tablet,Er Particles/Crystals 20 meq PO TIDCM 30 Days Qty: 180 RF: 0 Continued pravastatin 40 mg tablet 40 mg PO DAILY RF: 0 escitalopram oxalate [Lexapro] 20 mg tablet 20 mg PO DAILY RF: 0 diazepam [Valium] 5 mg tablet 5 mg PO BID PRN (Reason: Anxiety) RF: 0 baclofen 10 mg tablet 20 mg PO TID RF: 0 loperamide [Imodium A-D] 2 mg tablet 2 mg PO DAILY RF: 0 hydrochlorothiazide 12.5 mg tablet 12.5 mg PO DAILY RF: 0 primidone 250 mg tablet 250 mg PO QHS RF: 0 trazodone 100 mg tablet 300 mg PO QHS RF: 0 carvedilol 12.5 mg Tablet 12.5 mg PO BID RF: 0 yiburqpdzy-abrtnvmdpmftl-lgci 50-325-40 mg Capsule 1 cap PO Q4H PRN (Reason: Headache) RF: 0 pantoprazole 20 mg Tablet,Delayed Release (Dr/Ec) 40 mg PO DAILY RF: 0 meclizine 25 mg Tablet 25 mg PO DAILY PRN (Reason: Nausea) RF: 0 cholecalciferol (vitamin D3) [Vitamin D3] 125 mcg (5,000 unit) Tablet 125 mcg PO DAILY RF: 0 sennosides [senna] 8.6 mg Tablet 8.6 mg PO BID PRN (Reason: Constipation) RF: 0 ondansetron HCl 4 mg Tablet 4 mg PO Q8H PRN (Reason: Nausea/Vomiting) RF: 0 aspirin 81 mg Tablet,Delayed Release (Dr/Ec) 81 mg PO BID RF: 0 Discontinued primidone 50 mg tablet 50 mg PO QHS RF: 0 acetaminophen 500 mg tablet 1,000 mg PO Q8 RF: 0 nystatin [Nyamyc] 100,000 unit/gram powder 1 applic topical BID RF: 0 acidophilus-pectin, citrus 25 million cell -100 mg tablet 1 tab PO BID RF: 0 menthol-zinc oxide [Calmoseptine] 0.44-20.6 % ointment 1 applic topical BID RF: 0 minocycline 75 mg Tablet 75 mg PO DAILY RF: 0 potassium chloride 10 mEq tablet,ER particles/crystals 10 meq PO TIDCM RF: 0 oxycodone-acetaminophen [Percocet] 5-325 mg Tablet 1 tab PO Q6H PRN (Reason: Pain) RF: 0 lisinopril 40 mg Tablet 40 mg PO DAILY RF: 0 Referrals / Follow Up: Arturo Hamilton MD [NON-STAFF] - 04/12/22 1:30 pm (xray @ 1:30 & appt at 2:30 [facility] [address], [place] [address] Enter at main door of the hospital (Door 2) go to registration and they will take you to radiology [facility] scheduled for wheelchair transport to appointment and return home - [phone]) Ld Gan Chi, MD [Primary Care Provider] - Disposition Disposition (needs filled in before D/C Order can be placed): Home Health Service
[2022-03-20] MEDS: Primidone 250 MG Tablet PO (22:35)
[2022-03-20] MEDS: Pravastatin 40 MG Tablet PO (22:35)
[2022-03-20] MEDS: Primidone 50 MG Tablet PO (22:36)
[2022-03-20] MEDS: traZODone 100 MG Tablet 300 MG PO (22:36)
[2022-03-21] MEDS: Menthol/Lanolin/Calamine/Znox 113 GM Tube 1 APPLIC TOPICAL ×2 (06:31→22:34)
[2022-03-21] MEDS: Escitalopram Oxalate 20 MG Tablet PO (06:32)
[2022-03-21] MEDS: Cholecalciferol (Vit D3) 125 MCG CAPSULE (5,000 UNITS) PO (06:32)
[2022-03-21] MEDS: hydroCHLOROthiazide 12.5mg 12.5 MG PO (06:32)
[2022-03-21] MEDS: Baclofen 10 MG Tablet 20 MG PO ×3 (06:32→22:29)
[2022-03-21] MEDS: Pantoprazole Sodium 40 MG Tablet PO (06:32)
[2022-03-21] MEDS: Nystatin Powder 15gm Bottle 1 APPLIC TOPICAL ×2 (06:33→22:35)
[2022-03-21] MEDS: Potassium Chloride Oral Tablet 10 MEQ 20 MEQ PO ×3 (08:55→18:14)
[2022-03-21] MEDS: Carvedilol 12.5 MG Tablet PO ×2 (08:56→18:14)
[2022-03-21] MEDS: Aspirin E.C. 81 MG Tablet PO ×2 (08:57→18:14)
[2022-03-21] MEDS: oxyCODONE 5 MG Tablet PO ×3 (09:02→22:27)
[2022-03-21] MEDS: Ondansetron ODT 4 MG Tablet PO (09:02)
[2022-03-21] MEDS: Acetaminophen 500 MG Tablet 1000 MG PO ×2 (09:02→18:17)
[2022-03-21 09:06] VITALS: BP 120/47; PULSE 64
[2022-03-21 13:42] VITALS: BP 109/56; PULSE 68; RESP 16; TEMP 36.1; O2SAT 96
[2022-03-21] MEDS: Acetaminophen/Butalbital/Caffe 1 Tablet PO (13:50)
[2022-03-21] MEDS: traZODone 100 MG Tablet 300 MG PO (22:28)
[2022-03-21] MEDS: Primidone 250 MG Tablet PO (22:30)
[2022-03-21] MEDS: Pravastatin 40 MG Tablet PO (22:30)
[2022-03-21] MEDS: Primidone 50 MG Tablet PO (22:30)
[2022-03-21 23:00] VITALS: PULSE 62; RESP 16; O2SAT 95
[2022-03-22] MEDS: hydroCHLOROthiazide 12.5mg 12.5 MG PO (06:15)
[2022-03-22] MEDS: Pantoprazole Sodium 40 MG Tablet PO (06:15)
[2022-03-22] MEDS: Cholecalciferol (Vit D3) 125 MCG CAPSULE (5,000 UNITS) PO (06:15)
[2022-03-22] MEDS: Escitalopram Oxalate 20 MG Tablet PO (06:15)
[2022-03-22] MEDS: Baclofen 10 MG Tablet 20 MG PO ×3 (06:16→20:36)
[2022-03-22] MEDS: Menthol/Lanolin/Calamine/Znox 113 GM Tube 1 APPLIC TOPICAL ×2 (06:19→17:08)
[2022-03-22] MEDS: Nystatin Powder 15gm Bottle 1 APPLIC TOPICAL ×2 (06:20→20:37)
[2022-03-22] MEDS: oxyCODONE 5 MG Tablet PO ×3 (08:33→23:10)
[2022-03-22] MEDS: Acetaminophen 500 MG Tablet 1000 MG PO ×3 (08:35→23:09)
[2022-03-22] MEDS: Aspirin E.C. 81 MG Tablet PO ×2 (08:35→17:08)
[2022-03-22] MEDS: Potassium Chloride Oral Tablet 10 MEQ 20 MEQ PO ×3 (08:35→17:08)
[2022-03-22] MEDS: Carvedilol 12.5 MG Tablet PO ×2 (08:54→17:08)
[2022-03-22 10:00] VITALS: PULSE 82; RESP 16; O2SAT 97
[2022-03-22] MEDS: diazePAM 5 MG Tablet PO (10:31)
[2022-03-22 11:29] VITALS: BP 115/81; PULSE 82
[2022-03-22 14:00] VITALS: BP 129/53; PULSE 62; RESP 17; TEMP 36.6; O2SAT 93
[2022-03-22] MEDS: Meclizine HCl 25 MG Tablet PO (20:36)
[2022-03-22] MEDS: Pravastatin 40 MG Tablet PO (20:39)
[2022-03-22] MEDS: traZODone 100 MG Tablet 300 MG PO (23:12)
[2022-03-22] MEDS: Primidone 250 MG Tablet PO (23:12)
[2022-03-22] MEDS: Primidone 50 MG Tablet PO (23:12)
[2022-03-23] MEDS: Pantoprazole Sodium 40 MG Tablet PO (06:17)
[2022-03-23] MEDS: hydroCHLOROthiazide 12.5mg 12.5 MG PO (06:17)
[2022-03-23] MEDS: Baclofen 10 MG Tablet 20 MG PO ×3 (06:17→19:44)
[2022-03-23] MEDS: Escitalopram Oxalate 20 MG Tablet PO (06:17)
[2022-03-23] MEDS: Cholecalciferol (Vit D3) 125 MCG CAPSULE (5,000 UNITS) PO (06:17)
[2022-03-23] MEDS: Carvedilol 12.5 MG Tablet PO ×2 (07:57→18:09)
[2022-03-23] MEDS: Potassium Chloride Oral Tablet 10 MEQ 20 MEQ PO ×3 (07:57→16:42)
[2022-03-23] MEDS: Aspirin E.C. 81 MG Tablet PO ×2 (07:57→16:42)
[2022-03-23 07:59] VITALS: BP 138/59; PULSE 54
[2022-03-23] MEDS: oxyCODONE 5 MG Tablet PO ×2 (11:03→18:49)
[2022-03-23] MEDS: Acetaminophen 500 MG Tablet 1000 MG PO ×2 (11:05→19:43)
[2022-03-23 14:00] VITALS: BP 105/49; PULSE 58; RESP 16; TEMP 36.2; O2SAT 93
[2022-03-23] MEDS: Meclizine HCl 25 MG Tablet PO (16:42)
[2022-03-23] MEDS: Menthol/Lanolin/Calamine/Znox 113 GM Tube 1 APPLIC TOPICAL (16:46)
[2022-03-23 18:10] VITALS: BP 137/70; PULSE 58
[2022-03-23] MEDS: Pravastatin 40 MG Tablet PO (19:45)
[2022-03-23] MEDS: Nystatin Powder 15gm Bottle 1 APPLIC TOPICAL (19:49)
[2022-03-23 20:45] VITALS: RESP 16; O2SAT 98
[2022-03-23] MEDS: traZODone 100 MG Tablet 300 MG PO (22:06)
[2022-03-23] MEDS: Primidone 250 MG Tablet PO (22:07)
[2022-03-23] MEDS: Primidone 50 MG Tablet PO (22:07)
[2022-03-24] MEDS: Acetaminophen 500 MG Tablet 1000 MG PO ×2 (06:33→22:51)
[2022-03-24] MEDS: Baclofen 10 MG Tablet 20 MG PO ×3 (06:34→20:49)
[2022-03-24] MEDS: Pantoprazole Sodium 40 MG Tablet PO (06:34)
[2022-03-24] MEDS: Escitalopram Oxalate 20 MG Tablet PO (06:34)
[2022-03-24] MEDS: Cholecalciferol (Vit D3) 125 MCG CAPSULE (5,000 UNITS) PO (06:34)
[2022-03-24] MEDS: Nystatin Powder 15gm Bottle 1 APPLIC TOPICAL ×2 (06:35→20:49)
[2022-03-24] MEDS: hydroCHLOROthiazide 12.5mg 12.5 MG PO (06:35)
[2022-03-24] MEDS: Menthol/Lanolin/Calamine/Znox 113 GM Tube 1 APPLIC TOPICAL ×2 (06:36→18:06)
[2022-03-24 08:10] VITALS: BP 122/61; PULSE 54
[2022-03-24] MEDS: Carvedilol 12.5 MG Tablet PO ×2 (08:12→18:05)
[2022-03-24] MEDS: Aspirin E.C. 81 MG Tablet PO ×2 (08:12→18:04)
[2022-03-24] MEDS: Potassium Chloride Oral Tablet 10 MEQ 20 MEQ PO ×3 (08:12→18:04)
[2022-03-24] MEDS: oxyCODONE 5 MG Tablet PO ×2 (10:55→20:48)
[2022-03-24 14:00] VITALS: BP 118/49; PULSE 58; RESP 16; TEMP 36.5; O2SAT 94
[2022-03-24] MEDS: Acetaminophen/Butalbital/Caffe 1 Tablet PO (15:03)
[2022-03-24 18:09] VITALS: BP 145/59; PULSE 56
[2022-03-24] MEDS: Pravastatin 40 MG Tablet PO (20:51)
[2022-03-24] MEDS: traZODone 100 MG Tablet 300 MG PO (22:51)
[2022-03-24] MEDS: Primidone 250 MG Tablet PO (22:51)
[2022-03-24] MEDS: Primidone 50 MG Tablet PO (22:52)
[2022-03-25] MEDS: Menthol/Lanolin/Calamine/Znox 113 GM Tube 1 APPLIC TOPICAL ×2 (06:21→17:49)
[2022-03-25] MEDS: hydroCHLOROthiazide 12.5mg 12.5 MG PO (06:21)
[2022-03-25] MEDS: Cholecalciferol (Vit D3) 125 MCG CAPSULE (5,000 UNITS) PO (06:21)
[2022-03-25] MEDS: Baclofen 10 MG Tablet 20 MG PO ×3 (06:21→19:56)
[2022-03-25] MEDS: Pantoprazole Sodium 40 MG Tablet PO (06:21)
[2022-03-25] MEDS: Escitalopram Oxalate 20 MG Tablet PO (06:21)
[2022-03-25] MEDS: Nystatin Powder 15gm Bottle 1 APPLIC TOPICAL ×2 (06:21→19:56)
[2022-03-25] MEDS: Potassium Chloride Oral Tablet 10 MEQ 20 MEQ PO ×3 (08:04→17:48)
[2022-03-25] MEDS: Aspirin E.C. 81 MG Tablet PO ×2 (08:04→17:49)
[2022-03-25] MEDS: Carvedilol 12.5 MG Tablet PO ×2 (08:05→17:48)
[2022-03-25] MEDS: Acetaminophen 500 MG Tablet 1000 MG PO ×2 (08:10→19:59)
[2022-03-25] MEDS: oxyCODONE 5 MG Tablet PO ×2 (10:50→19:59)
[2022-03-25 13:44] VITALS: BP 110/59; PULSE 60; RESP 16; TEMP 36.3; O2SAT 95
[2022-03-25] MEDS: Meclizine HCl 25 MG Tablet PO (17:48)
[2022-03-25] MEDS: Pravastatin 40 MG Tablet PO (19:56)
[2022-03-25 20:01] VITALS: PULSE 55; O2SAT 98
[2022-03-25] MEDS: Primidone 250 MG Tablet PO (22:27)
[2022-03-25] MEDS: traZODone 100 MG Tablet 300 MG PO (22:28)
[2022-03-25] MEDS: Primidone 50 MG Tablet PO (22:28)
[2022-03-26] MEDS: Baclofen 10 MG Tablet 20 MG PO (06:44)
[2022-03-26] MEDS: Cholecalciferol (Vit D3) 125 MCG CAPSULE (5,000 UNITS) PO (06:44)
[2022-03-26] MEDS: oxyCODONE 5 MG Tablet PO (06:44)
[2022-03-26] MEDS: Pantoprazole Sodium 40 MG Tablet PO (06:44)
[2022-03-26] MEDS: hydroCHLOROthiazide 12.5mg 12.5 MG PO (06:44)
[2022-03-26] MEDS: Escitalopram Oxalate 20 MG Tablet PO (06:44)
[2022-03-26] MEDS: Nystatin Powder 15gm Bottle 1 APPLIC TOPICAL (06:45)
[2022-03-26] MEDS: Acetaminophen 500 MG Tablet 1000 MG PO (06:45)
[2022-03-26] MEDS: Menthol/Lanolin/Calamine/Znox 113 GM Tube 1 APPLIC TOPICAL (06:45)
[2022-03-26] MEDS: Carvedilol 12.5 MG Tablet PO (07:55)
[2022-03-26] MEDS: Potassium Chloride Oral Tablet 10 MEQ 20 MEQ PO (07:56)
[2022-03-26] MEDS: Aspirin E.C. 81 MG Tablet PO (07:57)
[2022-03-26] MEDS: diazePAM 5 MG Tablet PO (10:27)
[2022-03-26 10:58] VITALS: PULSE 53; RESP 20; TEMP 36.3; O2SAT 95
[2022-03-26 11:39] VITALS: BP 153/63; PULSE 58; RESP 18; TEMP 36.7; O2SAT 95
--- NOTE | 2022-03-26 12:21 | CASEMGMT ---
Social Work BIMS and PHQ-9 completed for MDS assessment. Pt inquired about SNF transfer from home. Explained direct admit from PCP. Provided SNF list with quality and resource data. Pt would like to return to TCU once receives WBS. Explained for pt to contact admissions at that time for review. Pt expressed understanding. Roslyn Walden, TELEMARKETING REPRESENTATIVE FOLDED TOWEL MACHINE OPERATOR
== END 2022-03-26 11:35 | disposition home health service (06) | DRG 566 ==
PROVIDERS: Admitting Provider Family Medicine Geriatric Medicine; PCP Family Medicine Geriatric Medicine; Visit Provider Family Medicine Geriatric Medicine
DX: S82.852K Displaced trimalleolar fracture of left lower leg, subsequent encounter for closed fracture with nonunion (principal); I27.20 Pulmonary hypertension, unspecified; B35.4 Tinea corporis; G25.0 Essential tremor; E78.5 Hyperlipidemia, unspecified; E55.9 Vitamin D deficiency, unspecified; I10 Essential (primary) hypertension; M79.7 Fibromyalgia; F41.9 Anxiety disorder, unspecified; K21.9 Gastro-esophageal reflux disease without esophagitis; G43.909 Migraine, unspecified, not intractable, without status migrainosus; F32.9 Major depressive disorder, single episode, unspecified; R25.1 Tremor, unspecified; Z87.891 Personal history of nicotine dependence; Z79.899 Other long term (current) drug therapy; Z79.82 Long term (current) use of aspirin
CPT/HCPCS: 36415; 80048; 85025; 87426; 87811; 97110; 97150; 97162; 97166; 97530; 97535; 97542; 97802

== ENCOUNTER 2022-05-20 02:26 | Observation (INO) | payer MEDICARE, OTHER, SELFPAY ==
[2022-05-20] VITALS (14 sets, daily range): BP systolic 145–183; BP diastolic 58–86; PULSE 50–72; RESP 12–22; TEMP 36.1–37.1; O2SAT 92–97; BMI 35.2; BMI 35.7
--- NOTE | 2022-05-20 02:31 | CT_ITS ---
We are attempting to reach an attending provider to discuss findings. An addendum with communication details will be sent when the communication is complete. STUDY: CTA HEAD AND NECK WITH CONTRAST REASON FOR EXAM: Female, 77 years old. Confusion RADIATION DOSAGE (If Supplied By Facility): CTDIvol = ( 28.25 ) mGy, DLP = ( 1614.20 ) mGycm TECHNIQUE: CT angiography was performed with a multi-detector CT scanner. Data acquisition was obtained from the skull base through the vertex following intravenous administration of IV 100mL Isovue-370. MIP images were reconstructed from the axial data set. Post-processing of the angiographic images was performed, with multiplanar reformation and 3D reconstruction. Individualized dose optimization techniques were used for this CT. COMPARISON: MR brain July 27, 2020 FINDINGS: Normal bilateral petrous carotid arteries. Normal right cavernous carotid artery with a normal supraclinoid bifurcation. There is a slight fusiform distended appearance of the left side supraclinoid carotid also suggested on the prior study July 27, 2020. Normal right A1 segments of the anterior cerebral artery. Normal left A1 segments of the anterior cerebral artery. Normal intact anterior communicating artery (ACOM). Normal bilateral A2 segments of the anterior cerebral arteries. There is a fairly symmetric mildly narrowed appearance of the bilateral M2 segments with good visualization of the superior and inferior branches of the M2 segment with patency. Normal left M1 and M2 segments of the middle cerebral arteries, with a normal M1 bifurcation. Normal right posterior communicating artery (PCOM). Normal left posterior communicating artery (PCOM). Normal bilateral vertebral arteries. Normal basilar artery with a normal basilar bifurcation. The visualized bilateral superior cerebellar (SCA) arteries are normal. Symmetric bilateral P1, P2 and visualized P3 segments of the posterior cerebral arteries. The P1 segments shares a common takeoff with the bilateral superior cerebellar arteries. There is no demonstrated aneurysm of the [place]. Noncontrasted images. There is mild atrophy without evidence of visualized acute edema or hemorrhage. AORTIC ARCH: Normal visualized aortic arch. There is a tortuous origin of the right innominate and the parallel takeoff of the right subclavian and carotid arteries. RIGHT CAROTID ARTERIES: There is atherosclerotic tortuous elongation of the right common carotid artery. Normal right common carotid bulb. Normal origin of the right internal carotid (ICA) artery without a hemodynamically significant stenosis. Normal visualized cervical portion of the right internal carotid artery. Normal origin of the right external carotid artery (ECA). LEFT CAROTID ARTERIES: There is atherosclerotic tortuous elongation of the left common carotid artery. Normal left common carotid bulb. Normal origin of the left internal carotid (ICA) artery without a hemodynamically significant stenosis. Normal visualized cervical portion of the left internal carotid artery. Normal origin of the left external carotid artery (ECA). VERTEBRAL ARTERIES: Tortuous normal caliber bilateral vertebral arteries. There is a AP window calcification measuring 1.5 cm. Allowing for artifact within 2 small branch pulmonary arteries there is a suggestion of subtle filling defects suggesting age indeterminant pulmonary embolism. Image 31 series 4. There is mild multilevel degenerative change within the cervical spine. There is a asymmetric mildly enlarged appearance of the right-sided thyroid compared to the left within homogeneity with the least 3 4 to [address]/CTA Head AND Neck W/ Contrast IMPRESSION: Normal CTA Head and neck with contrast. Mild cerebral atrophy no visualize large vessel occlusion. Normal caliber internal carotid arteries without stenosis. Asymmetric mildly enlarged right-sided thyroid compared to the left with mild inhomogeneity with at least 3 4 to 5 mm small nodules which could be evaluated with ultrasound and thyroid laboratory values when appropriate. Incidental visualization of subtle tiny filling defects within at least 2 of the small vessel left upper lobe pulmonary artery branches consider age indeterminate pulmonary emboli. Image 30 series 4. Recommend correlation with clinical history and laboratory values. Could consider follow-up CT angiogram of the chest if clinically appropriate if laboratory values allow. Calcified granuloma within the mediastinum. Electronically Signed: Courtney Quiles MD at 3:31 EDT ,
--- NOTE | 2022-05-20 02:31 | RAD_ITS ---
STUDY: X-RAY CHEST REASON FOR EXAM: Female, 77 years old. Sob TECHNIQUE: Single AP portable view of the chest. COMPARISON: May 21, 2021 chest x-ray FINDINGS: There is persistent slight elevation of the left hemidiaphragm and mild gastric distention. There is no demonstrated pleural abnormality. There is mild cardiac enlargement. There are calcified mediastinal lymph nodes. Normal visualized pulmonary arteries. Normal visualized aortic arch and descending thoracic aorta. There is dextroscoliosis of the thoracic spine at the thoracolumbar junction. Normal visualized ribs, clavicles, and shoulders. There is no demonstrated abnormality of the visualized soft tissue structures of the upper abdomen. RAD/Chest 1 View (Portable) IMPRESSION: Stable chest. No visualized acute focal infiltrate. Electronically Signed: Courtney Quiles MD at 3:08 EDT ,
--- NOTE | 2022-05-20 02:32 | EKG12_ITS ---
Test Reason : confusion Blood Pressure : / mmHG Vent. Rate : 059 BPM Atrial Rate : 059 BPM P-R Int : 162 ms QRS Dur : 082 ms QT Int : 440 ms P-R-T Axes : 056 -15 053 degrees QTc Int : 435 ms Sinus bradycardia Minimal voltage criteria for LVH, may be normal variant ( R in aVL ) Nonspecific ST abnormality Abnormal ECG Confirmed by ERAN WYMAN, JORDAN ([id number]), web content editor AMPARO OWEN ([id number]) on 05/21/2022 11:33:06 AM Referred By: Confirmed By:JORDAN BARILLAS MD
--- NOTE | 2022-05-20 02:33 | EDS_ITS ---
HPI History of Present Illness Chief Complaint: Fall Detail of Chief Complaint: Confusion Informant: patient, spouse/S.O. and EMS Narrative Narrative: Patient presents via EMS secondary to confusion and fall. states that last evening around dinner, 6PM, she started having some confusion. Earlier this morning she got up to go the bedside commode and lost her balance and fell. He states that she slid to the ground. He noted at that time she is having increased confusion. EMS notes that she was repeating questions. [facility] Medical History Ambulates with cane Anxiety Back pain Closed trimalleolar fracture of left ankle Diastolic dysfunction Essential and other specified forms of tremor Essential hypertension Essential tremor Fibromyalgia Former smoker High cholesterol History of chronic diarrhea History of echocardiogram History of GI bleed History of revision of total replacement of right knee joint (~2014) History of stress test Lactose intolerance Osteoporosis Pulmonary hypertension Shortness of breath on exertion Uses wheelchair Walker as ambulation aid Wears glasses Home Medications pravastatin 40 mg tablet 40 mg PO DAILY Cholestrol 02/09/19 [History Last Taken 05/09/21] escitalopram oxalate 20 mg tablet (Lexapro) 20 mg PO DAILY Mood 07/20/19 [History Last Taken 05/09/21] baclofen 10 mg tablet 20 mg PO TID Muscle spasms 07/28/19 [History Last Taken 05/09/21] diazepam 5 mg tablet (Valium) 5 mg PO BID PRN Anxiety 07/28/19 [History Last Taken Unknown] loperamide 2 mg tablet (Imodium A-D) 2 mg PO DAILY Diarrhea 07/28/19 [History Last Taken 05/09/21] hydrochlorothiazide 12.5 mg tablet 12.5 mg PO DAILY Water retention 05/11/21 [History Last Taken Unknown] primidone 250 mg tablet 250 mg PO QHS Tremors 07/15/21 [History Last Taken Unknown] trazodone 100 mg tablet 300 mg PO QHS Anxiety 07/15/21 [History Last Taken Un known] carvedilol 12.5 mg tablet 12.5 mg PO BID bp 09/05/21 [History Last Taken Unknown] aspirin 81 mg tablet,delayed release 81 mg PO BID Heart 02/20/22 [History Last Taken Unknown] coemkuexbf-gvgnarkxzhyjw-qxyyecxs 50 mg-325 mg-40 mg capsule 1 cap PO Q4H PRN Headache 02/20/22 [History Last Taken Unknown] cholecalciferol (vitamin D3) 125 mcg (5,000 unit) tablet (Vitamin D3) 125 mcg PO DAILY Supplement 02/20/22 [History Last Taken Unknown] meclizine 25 mg tablet 25 mg PO DAILY PRN Nausea 02/20/22 [History Last Taken Unknown] ondansetron HCl 4 mg tablet 4 mg PO Q8H PRN Nausea/Vomiting 02/20/22 [History Last Taken Unknown] pantoprazole 20 mg tablet,delayed release 40 mg PO DAILY GERD 02/20/22 [History Last Taken Unknown] sennosides 8.6 mg tablet (senna) 8.6 mg PO BID PRN Constipation 02/20/22 [History Last Taken Unknown] acetaminophen 500 mg tablet 1,000 mg PO Q6H PRN PRN Pain Score 1-5 #0 tabs 03/20/22 [Rx Last Taken Unknown] oxycodone 5 mg tablet 5 mg PO Q4H PRN PRN Pain Score 6-10 #0 tabs 03/20/22 [Rx Last Taken Unknown] potassium chloride 10 mEq tablet,extended release(part/cryst) 20 meq PO TIDCM 30 days #180 tabs 03/20/22 [Rx Last Taken Unknown] primidone 250 mg tablet 250 mg PO QHS #0 tabs 03/20/22 [Rx Last Taken Unknown] Allergy/AdvReac Type Severity Reaction Status Date / Time azithromycin Allergy Upset Verified 05/20/22 02:31 Stomach Family History Mother Dementia Father Colon cancer age 70, unclear specific onset date. Surgical History History of cholecystectomy History of open reduction and internal fixation (ORIF) procedure History of tonsillectomy History of total right knee replacement (~2010) Social History household members: spouse Smoking Status: Former smoker how long ago did patient quit smoking: Quit 15 years ago, 1/2 ppd starting in high school. alcohol intake: never substance use type: does not use caffeine: No ROS ROS ED Review of Systems ROS Unobtainable: due to mental condition EXAM Physical Exam Narrative Exam Narrative: Patient sitting upright in bed no acute distress. She will follow commands. Const Vital Signs: 05/20/22 02:27 05/20/22 02:34 05/20/22 03:34 Temperature 97.4 F L Temperature Source Temporal Pulse Rate 58 L 61 Respiratory Rate 16 Respiratory Effort Normal Non-Labored Respiratory Pattern Normal Blood Pressure 162/64 H Blood Pressure Mean 96 Pulse Ox 94 Oxygen Delivery Method Room Air Room Air 05/20/22 03:44 05/20/22 04:17 Temperature 98.7 F Temperature Source Temporal Pulse Rate 51 L 51 L Respiratory Rate 18 22 H Respiratory Effort Respiratory Pattern Blood Pressure 155/86 H 146/74 H Blood Pressure Mean 109 98 Pulse Ox 94 95 Oxygen Delivery Method Room Air Room Air Positive well nourished and well developed General Appearance ED: well developed HEENT Reports moist mucous membranes Eyes EOMs intact bilaterally Resp normal respiratory effort and clear to auscultation bilaterally Cardio regular rate and regular rhythm GI normal to inspection, nondistended, normoactive bowel sounds and non-tender Palpation: soft Extremity normal to inspection Neuro Neuro Narrative: Patient alert and looks about the room. She will tell me her 's name, but not answer other questions. EMS states that she was speaking in the squad and kept repeating questions. She will lift arms and legs off the bed to command. She will close her eyes and smile to command. Skin no rashes or lesions noted MDM MDM MDM Narrative Medical decision making narrative: Patient was sent immediately for CTA of the head and neck. Chest x-ray obtained. Blood work and urinalysis obtained. Lab Data Attestation: I reviewed the patient's lab results. Labs: Laboratory Results - last 24 hr 05/20/22 05/20/22 05/20/22 02:39 02:39 03:40 WBC 7.9 RBC 4.40 Hgb 13.5 Hct 40.9 MCV 93.0 MCH 30.7 MCHC 33.0 RDW Std Deviation 46.5 H RDW Coeff of Rishi 13.6 Plt Count 171 MPV 10.3 Immature Gran % (Auto) 0.300 Neut % (Auto) 69.9 Lymph % (Auto) 19.9 [place] % (Auto) 6.6 Eos % (Auto) 2.8 Baso % (Auto) 0.5 Absolute Neuts (auto) 5.5 Absolute Lymphs (auto) 1.56 Nucleated RBC % 0 Sodium 140 Potassium 3.6 Chloride 107 Carbon Dioxide 25.0 Anion Gap 8 BUN 15 Creatinine 0.56 Estim Creat Clear Calc 38.44 Est GFR (MDRD) Af Amer 137 Est GFR (MDRD) Non-Af 113 BUN/Creatinine Ratio 27.0 H Glucose 136 H Calcium 9.0 Total Bilirubin 0.20 Direct Bilirubin 0.10 AST 21 ALT 16 Alkaline Phosphatase 97 Troponin I High Sens 4 Total Protein 6.9 Albumin 3.4 Globulin 3.5 Urine Color Yellow Urine Clarity Clear Urine pH 6.0 Ur Specific [place] 1.015 Urine Protein Negative Urine Glucose (UA) Normal Urine Ketones 5 H Urine Occult Blood 25 H Urine Nitrite Negative Urine Bilirubin Negative Urine Urobilinogen Normal Ur Leukocyte Esterase 25 H Urine RBC 0-5 SEEN Urine WBC 0-5 SEEN Ur Squamous Epith Cells 0-5 SEEN Urine Bacteria RARE Urine Mucus 0 SEEN Radiography Chest X-Ray - ED: 1 View, Read by ED Physician and Chronic Changes Diagnostic Testing: Clinical Impression(s) from Imaging Studies Chest X-Ray 05/20/22 02:31 IMPRESSION: Stable chest. No visualized acute focal infiltrate. Electronically Signed: Courtney Quiles MD at 3:08 EDT , Head/Neck CTA 05/20/22 02:31 IMPRESSION: Normal CTA Head and neck with contrast. Mild cerebral atrophy no visualize large vessel occlusion. Normal caliber internal carotid arteries without stenosis. Asymmetric mildly enlarged right-sided thyroid compared to the left with mild inhomogeneity with at least 3 4 to 5 mm small nodules which could be evaluated with ultrasound and thyroid laboratory values when appropriate. Incidental visualization of subtle tiny filling defects within at least 2 of the small vessel left upper lobe pulmonary artery branches consider age indeterminate pulmonary emboli. Image 30 series 4. Recommend correlation with clinical history and laboratory values. Could consider follow-up CT angiogram of the chest if clinically appropriate if laboratory values allow. Calcified granuloma within the mediastinum. Electronically Signed: Courtney Quiles MD at 3:31 EDT , ADDENDUM: 05/20/22 0340 IMPRESSION: Normal CTA Head and neck with contrast. Mild cerebral atrophy no visualize large vessel occlusion. Normal caliber internal carotid arteries without stenosis. Asymmetric mildly enlarged right-sided thyroid compared to the left with mild inhomogeneity with at least 3 4 to 5 mm small nodules which could be evaluated with ultrasound and thyroid laboratory values when appropriate. Incidental visualization of subtle tiny filling defects within at least 2 of the small vessel left upper lobe pulmonary artery branches consider age indeterminate pulmonary emboli. Image 30 series 4. Recommend correlation with clinical history and laboratory values. Could consider follow-up CT angiogram of the chest if clinically appropriate if laboratory values allow. Calcified granuloma within the mediastinum. N.B. : The above Results were Read Back by Courtney Quiles MD to Dr. Alexandre MD, and understanding confirmed on 05/20/2022 03:33:19 (ET). Electronically Signed: Courtney Quiles MD at 3:31 EDT , EKG Initial EKG: Attestation: I personally reviewed and interpreted this EKG as follows: Interpretation: Sinus Bradycardia (Sinus bradycardia 59 bpm. No acute ischemia.) Treatment and Re-Evaluation Narrative: CBC, chemistries, LFTs, troponin all unremarkable. Urinalysis reveals no obvious infection. CTA of the head and neck reveals no hemorrhage and no LVO. Carotids are clean. Radiologist did call me and stated that she saw some small peripheral pulmonary emboli in the small distal branches. Because patient just received IV contrast for CTA of the head and neck I am not able to perform a CTA of the chest at this time. I will give her a dose of Lovenox. Oxygen saturations are stable on room air. On repeat examination she still remains quite restless. Test results are discussed with at bedside. She will require admission for further work- up and testing. Discharge Plan Triage Chief Complaint: Fall ED Provider: Giovanna Schroeder Dx/Rx/DC Orders Clinical Impression: Confusion, Fall Prescriptions: No Action pravastatin 40 mg tablet 40 mg PO DAILY escitalopram oxalate [Lexapro] 20 mg tablet 20 mg PO DAILY diazepam [Valium] 5 mg tablet 5 mg PO BID PRN (Reason: Anxiety) baclofen 10 mg tablet 20 mg PO TID loperamide [Imodium A-D] 2 mg tablet 2 mg PO DAILY hydrochlorothiazide 12.5 mg tablet 12.5 mg PO DAILY primidone 250 mg tablet 250 mg PO QHS trazodone 100 mg tablet 300 mg PO QHS carvedilol 12.5 mg Tablet 12.5 mg PO BID [id number]-llnwdtjofruqs-fvmj 50-325-40 mg Capsule 1 cap PO Q4H PRN (Reason: Headache) pantoprazole 20 mg Tablet,Delayed Release (Dr/Ec) 40 mg PO DAILY meclizine 25 mg Tablet 25 mg PO DAILY PRN (Reason: Nausea) cholecalciferol (vitamin D3) [Vitamin D3] 125 mcg (5,000 unit) Tablet 125 mcg PO DAILY sennosides [senna] 8.6 mg Tablet 8.6 mg PO BID PRN (Reason: Constipation) ondansetron HCl 4 mg Tablet 4 mg PO Q8H PRN (Reason: Nausea/Vomiting) aspirin 81 mg Tablet,Delayed Release (Dr/Ec) 81 mg PO BID acetaminophen 500 mg Tablet 1,000 mg PO Q6H PRN PRN (Reason: Pain Score 1-5) Qty: 0 0RF primidone 250 mg Tablet 250 mg PO QHS Qty: 0 0RF oxycodone 5 mg Tablet 5 mg PO Q4H PRN PRN (Reason: Pain Score 6-10) Qty: 0 0RF potassium chloride 10 mEq Tablet,Er Particles/Crystals 20 meq PO TIDCM 30 Days Qty: 180 0RF Primary Care Provider: Ld Gan Chi Referrals: Ld Gan Chi, MD [Primary Care Provider] - Disposition Disposition: Acute Care Hospital [facility]
[2022-05-20 02:43] LABS: Absolute Lymphocyte Count 1.56 X10^3/uL (0.83-4.51); Absolute Neutrophil Count 5.5 X10^3/uL (2.0-7.7); Basophil# 0.04 X10^3/uL; Basophil% 0.5 % (0-1); Eosinophil# 0.22 X10^3/uL; Eosinophils% 2.8 % (0-5); Hematocrit 40.9 % (37-47); Hemoglobin 13.5 g/dL (12.0-15.0); Lymphocyte # 1.56 X10^3/ul (0.83-4.51); Lymphocyte % 19.9 % (19-41); Mean Corpuscular Hgb 30.7 pg (27.0-32.0); Mean Platelet Vol. 10.3 fl (6.2-12.0); Monocyte# 0.52 X10^3/uL; Monocyte% 6.6 % (0-10); NRBC Flagged by Analyzer 0 % (0-5); Neutrophil # 5.49 X10^3/uL (2.7-7.7); Neutrophil % 69.9 % (47-70); Platelet Count 171 K/mm3 (150-450); RBC Distribution Width CV 13.6 % (11.6-14.6); RBC Distribution Width SD 46.5 fl (35.1-43.9); White Blood Count 7.9 K/mm3 (4.4-11.0)
[2022-05-20 03:01] LABS: AST(SGOT) 21 U/L (15-37); Alanine Aminotransfer ALT/SGPT 16 U/L (13-56); Albumin, Serum 3.4 g/dL (3.2-5.0); Alkaline Phosphatase 97 U/L (45-117); Anion Gap 8 (5-15); BUN 15 mg/dL (7-18); Chloride 107 mmol/L (98-107); Creatinine, Serum 0.56 mg/dL (0.55-1.02); EST Glomerular Filtration Rate 113 mL/min (>60); Est Glom Filt Rate - Afr Amer 137 mL/min (>60); Estimated Creatinine Clearance 38.44 ml/min; Globulin 3.5 g/dL (2.2-4.2); Glucose 136 mg/dL (74-106); Potassium 3.6 mmol/L (3.5-5.1); Protein, Total 6.9 g/dL (6.4-8.2); Sodium Level 140 mmol/L (136-145); Troponin-I HS (w/2H Reflex) 4 pg/mL (3.0-54.0)
[2022-05-20 03:44] LABS: Mucous, Urine 0 SEEN /hpf (<or=2+)
[2022-05-20 03:46] LABS: Color, Urine Yellow (Yellow); Glucose, Dipstick Normal (Normal); Ketone-Dipstick 5 mg/dl (Negative); Leukocyte Esterase-Dipstick 25 /ul (Negative); Nitrite-Dipstick Negative (Negative); Occult Blood-Urine 25 /ul (Negative); Protein-Dipstick Negative (Negative); Specific Gravity, Urine 1.015 (1.002-1.030); Urine Bilirubin Dipstick Negative (Negative); Urine Clarity Clear (Clear); Urine Urobilinogen Normal (Normal)
[2022-05-20 03:54] LABS: Red Blood Cells-Urine 0-5 SEEN /hpf (0-5); Squamous Epithelial Cells - UA 0-5 SEEN /hpf (5-10); White Blood Cells 0-5 SEEN /hpf (0-5)
[2022-05-20 03:55] LABS: Bacteria RARE /hpf (None Seen)
[2022-05-20 04:40] LABS: Reflex Troponin-HS? (from REC) Y
[2022-05-20] MEDS: Enoxaparin 100 MG/ML Syringe 90 MG SC (04:58)
[2022-05-20 05:19] LABS: Troponin-I HS 14 pg/mL (3.0-54.0)
--- NOTE | 2022-05-20 05:49 | HP.PCM.HOS_ITS ---
HPI - General General Date of Admission: 05/20/22 Date of Service: 05/20/22 Chief Complaint: Confusion and fall HPI Narrative TINA GARCIA, is a 77 F with a significant history of Hypertension who presents to the emergency department with confusion and a fall. Before the fall patient was confused. And as the day progressed patient became more confused. And then after the fall her confusion worsened. Her symptoms started a day before presentation and she presented to the emergency department very early in the morning. Patient had patient's crying while on the floor. Her walker was lying by patient with things patient typically keep in the walk spread over. Her thinks patient might have hit her head as patient's right frontal scalp was bruised. Of note patient has a previous fracture in left lower extremity and she uses boots and walker for ambulation. [facility] Medical History Ambulates with cane Anxiety Back pain Closed trimalleolar fracture of left ankle Diastolic dysfunction Essential and other specified forms of tremor Essential hypertension Essential tremor Fibromyalgia Former smoker High cholesterol History of chronic diarrhea History of echocardiogram History of GI bleed History of revision of total replacement of right knee joint (~2014) History of stress test Lactose intolerance Osteoporosis Pulmonary hypertension Shortness of breath on exertion Uses wheelchair Walker as ambulation aid Wears glasses Home Medications pravastatin 40 mg tablet 40 mg PO QHS Cholestrol 02/09/19 [History Last Taken 05/09/21] escitalopram oxalate 20 mg tablet (Lexapro) 20 mg PO DAILY Mood 07/20/19 [History Last Taken 05/09/21] baclofen 10 mg tablet 20 mg PO TID Muscle spasms 07/28/19 [History Last Taken 05/09/21] diazepam 5 mg tablet (Valium) 5 mg PO BID PRN Anxiety 07/28/19 [History Last Taken Unknown] loperamide 2 mg tablet (Imodium A-D) 2 mg PO DAILY Diarrhea 07/28/19 [History Last Taken 05/09/21] hydrochlorothiazide 12.5 mg tablet 12.5 mg PO DAILY Water retention 05/11/21 [History Last Taken Unknown] primidone 250 mg tablet 250 mg PO QHS Tremors 07/15/21 [History Last Taken Unknown] trazodone 100 mg tablet 300 mg PO QHS Anxiety 07/15/21 [History Last Taken Unknown] carvedilol 12.5 mg tablet 12.5 mg PO BID bp 09/05/21 [History Last Taken Unknown] aspirin 81 mg tablet,delayed release 81 mg PO BID Heart 02/20/22 [History Last Taken Unknown] cholecalciferol (vitamin D3) 125 mcg (5,000 unit) tablet (Vitamin D3) 125 mcg PO DAILY Supplement 02/20/22 [History Last Taken Unknown] meclizine 25 mg tablet 25 mg PO DAILY PRN Nausea 02/20/22 [History Last Taken Unknown] ondansetron HCl 4 mg tablet 4 mg PO Q8H PRN Nausea/Vomiting 02/20/22 [History Last Taken Unknown] pantoprazole 20 mg tablet,delayed release 40 mg PO DAILY GERD 02/20/22 [History Last Taken Unknown] sennosides 8.6 mg tablet (senna) 8.6 mg PO BID PRN Constipation 02/20/22 [History Last Taken Unknown] acetaminophen 500 mg tablet 1,000 mg PO Q6H PRN PRN Pain Score 1-5 #0 tabs 03/20/22 [Rx Last Taken Unknown] oxycodone 5 mg tablet 5 mg PO Q4H PRN PRN Pain Score 6-10 #0 tabs 03/20/22 [Rx Last Taken Unknown] potassium chloride 10 mEq tablet,extended release(part/cryst) 20 meq PO TIDCM 30 days #180 tabs 03/20/22 [Rx Last Taken Unknown] lisinopril 40 mg tablet 1 tab PO DAILY 05/20/22 [History Last Taken Unknown] Allergy/AdvReac Type Severity Reaction Status Date / Time azithromycin Allergy Upset Verified 05/20/22 02:31 Stomach Family History Mother Dementia Father Colon cancer age 70, unclear specific onset date. Surgical History History of cholecystectomy History of open reduction and internal fixation (ORIF) procedure History of tonsillectomy History of total right knee replacement (~2010) Social History household members: spouse Smoking Status: Former smoker how long ago did patient quit smoking: Quit 15 years ago, 1/2 ppd starting in high school. alcohol intake: never substance use type: does not use caffeine: No ROS ROS Narrative Pertinent positives and pertinent negatives as noted in HPI. All other systems were reviewed and are negative. Vital Signs Vital Signs Vital Signs: 05/20/22 02:27 05/20/22 02:34 05/20/22 03:34 Temperature 97.4 F L Temperature Source Temporal Pulse Rate 58 L 61 Respiratory Rate 16 Respiratory Effort Normal Non-Labored Respiratory Pattern Normal Blood Pressure 162/64 H Blood Pressure Mean 96 Pulse Ox 94 Oxygen Delivery Method Room Air Room Air 05/20/22 03:44 05/20/22 04:17 05/20/22 05:02 Temperature 98.7 F 97.0 F L Temperature Source Temporal Temporal Pulse Rate 51 L 51 L 56 L Respiratory Rate 18 22 H 17 Respiratory Effort Respiratory Pattern Blood Pressure 155/86 H 146/74 H 183/66 H Blood Pressure Mean 109 98 105 Pulse Ox 94 95 96 Oxygen Delivery Method Room Air Room Air Room Air 05/20/22 05:02 Temperature Temperature Source Pulse Rate 56 L Respiratory Rate 15 Respiratory Effort Respiratory Pattern Blood Pressure 183/66 H Blood Pressure Mean 105 Pulse Ox 96 Oxygen Delivery Method Room Air Weight Weight: 87.2 kg Body Mass Index (BMI) 35.2 Physical Exam Narrative Physical exam: General: Well-nourished, well-developed. Head: Ecchymosis and swelling on right frontal scalp, normocephalic Eyes: Vision is grossly intact. EOMI ENT, no trauma, , no rhinorrhea CVS: Regular rate and rhythm. S1-S2 present. No murmur, gallop or rub. Respiratory : clear to auscultation bilaterally, chest wall nontender, no wheezing Abdomen: Soft, nontender, nondistended, normal bowel sounds, no masses : Deferred Back: Nontender, no CVA tenderness. Extremities: Nontender full range of motion, no trauma Skin: Normal color, no trauma Neuro: Alert, confused and does not follow commands. Psychiatry: Normal mood. Normal affect. Not depressed. Not anxious. Results Medical Records Data Attestation: I reviewed the patient's medical records Lab / Micro Data Attestation: I reviewed the patient's lab results. Result Diagrams: 05/20/22 02:39 05/20/22 02:39 Labs: Laboratory Results - last 24 hr 05/20/22 02:39: WBC 7.9, RBC 4.40, Hgb 13.5, Hct 40.9, MCV 93.0, MCH 30.7, MCHC 33.0, RDW Std Deviation 46.5 H, RDW Coeff of Rishi 13.6, Plt Count 171, MPV 10.3, Immature Gran % (Auto) 0.300, Neut % (Auto) 69.9, Lymph % (Auto) 19.9, [place] % (Auto) 6.6, Eos % (Auto) 2.8, Baso % (Auto) 0.5, Absolute Neuts (auto) 5.5, Absolute Lymphs (auto) 1.56, Nucleated RBC % 0 05/20/22 02:39: Sodium 140, Potassium 3.6, Chloride 107, Carbon Dioxide 25.0, Anion Gap 8, BUN 15, Creatinine 0.56, Estim Creat Clear Calc 38.44, Est GFR (MDRD) Af Amer 137, Est GFR (MDRD) Non-Af 113, BUN/Creatinine Ratio 27.0 H, Glucose 136 H, Calcium 9.0, Total Bilirubin 0.20, Direct Bilirubin 0.10, AST 21, ALT 16, Alkaline Phosphatase 97, Troponin I High Sens 4, Total Protein 6.9, Albumin 3.4, Globulin 3.5 05/20/22 03:40: Urine Color Yellow, Urine Clarity Clear, Urine pH 6.0, Ur Specific [place] 1.015, Urine Protein Negative, Urine Glucose (UA) Normal, Urine Ketones 5 H, Urine Occult Blood 25 H, Urine Nitrite Negative, Urine Bilirubin Negative, Urine Urobilinogen Normal, Ur Leukocyte Esterase 25 H, Urine RBC 0-5 SEEN, Urine WBC 0-5 SEEN, Ur Squamous Epith Cells 0-5 SEEN, Urine Bacteria RARE, Urine Mucus 0 SEEN 05/20/22 04:55: Troponin I High Sens 14 Micro: Microbiology 05/20/22 02:37 Nasal Secretion SARS-CoV-2 Antigen (Rapid) - Final Radiology Impression Chest X-Ray 05/20/22 02:31 IMPRESSION: Stable chest. No visualized acute focal infiltrate. Electronically Signed: Courtney Quiles MD at 3:08 EDT Reading Location ID and State: [facility] / [place] Tel , Service support , Head/Neck CTA 05/20/22 02:31 IMPRESSION: Normal CTA Head and neck with contrast. Mild cerebral atrophy no visualize large vessel occlusion. Normal caliber internal carotid arteries without stenosis. Asymmetric mildly enlarged right-sided thyroid compared to the left with mild inhomogeneity with at least 3 4 to 5 mm small nodules which could be evaluated with ultrasound and thyroid laboratory values when appropriate. Incidental visualization of subtle tiny filling defects within at least 2 of the small vessel left upper lobe pulmonary artery branches consider age indeterminate pulmonary emboli. Image 30 series 4. Recommend correlation with clinical history and laboratory values. Could consider follow-up CT angiogram of the chest if clinically appropriate if laboratory values allow. Calcified granuloma within the mediastinum. Electronically Signed: Courtney Quiles MD at 3:31 EDT , ADDENDUM: 05/20/22 0340 IMPRESSION: Normal CTA Head and neck with contrast. Mild cerebral atrophy no visualize large vessel occlusion. Normal caliber internal carotid arteries without stenosis. Asymmetric mildly enlarged right-sided thyroid compared to the left with mild inhomogeneity with at least 3 4 to 5 mm small nodules which could be evaluated with ultrasound and thyroid laboratory values when appropriate. Incidental visualization of subtle tiny filling defects within at least 2 of the small vessel left upper lobe pulmonary artery branches consider age indeterminate pulmonary emboli. Image 30 series 4. Recommend correlation with clinical history and laboratory values. Could consider follow-up CT angiogram of the chest if clinically appropriate if laboratory values allow. Calcified granuloma within the mediastinum. N.B. : The above Results were Read Back by Courtney Quiles MD to Dr. Alexandre MD, and understanding confirmed on 05/20/2022 03:33:19 (ET). Electronically Signed: Courtney Quiles MD at 3:31 EDT , Assessment & Plan Assessment/Plan (1) Acute encephalopathy: PLAN: Plan Acute encephalopathy Etiology unclear Head and neck CTA without any acute brain or neck pathologies. We will check a TSH; ammonia level and ABG. CBC is unremarkable. Urinalysis is unimpressive. Chest x-ray was visualized and independently interpreted. I agree with their interpretation of no acute pathology. Serial NIH is ordered. We will get MRI brain. We will get echocardiogram. Continue home aspirin and statin. Hold off on home blood pressure medications any distinct permissive hypertension Hold of all sedating and psychotropic drugs. PT and OT to work with patient. Thyroid nodules Per radiologist head and neck CTA with asymmetric mildly enlarged right-sided thyroid compared to left with nodules. Ultrasound thyroid ordered. Peripheral PEs Per radiologist radiologist head and neck CTA Age indeterminate peripheral PEs. Patient does not have tachycardia indeed she has bradycardia. She is not short of breath. She is not on oxygen. Patient already had CT contrast same day. We will hydrate patient and obtain a CTA chest PE protocol for next day. Received therapeutic dose of Lovenox in the emergency department for peripheral PE. We will hold off further therapeutic anticoagulation at this time. Of note if patient has brain infarcts there is risk of hemorrhagic conversion with therapeutic anticoagulation. Hypertension Blood pressure is not within goal With a TIA/CVA being on differential for acute encephalopathy hold of home blood pressure medication. As needed hydralazine and labetalol for systolic of 120 orthostatic of more than 110. Trend blood pressure. DVT prophylaxis SCD and Lovenox given at the ED for a peripheral PEs. Charges/Coding Visit Charges OBSV E&M: 36336 Initial observation care L3
--- NOTE | 2022-05-20 06:53 | US_ITS ---
STUDY: THYROID ULTRASOUND REASON FOR EXAM: Female, 77 years old. Follow-up examination. Thyroid nodules visualized on a recent CT scan of the thorax. TECHNIQUE: Ultrasound evaluation of the thyroid was performed with real-time and static mckee-scale imaging. COMPARISON: None. FINDINGS: RIGHT LOBE: The right lobe of the thyroid gland measures 4.6 cm x 2.2 cm x 2 cm. There is a homogeneous echotexture. 3 hypoechoic solid nodules are seen. The largest measures 1.6 cm by 1.3 cm x 0.9 cm. Intramural nodular and perinodular vascularity is seen. LEFT LOBE: The left lobe of the thyroid gland measures 4.3 cm x 1.8 cm x 1.5 cm. There is a homogeneous echotexture. 2 hypoechoic solid nodules are seen in the lower pole. The larger measures 8 mm x 7 mm x 6 mm. ISTHMUS: The isthmus measures 3 mm. The regional lymph nodes are normal. US/Thyroid IMPRESSION: Bilateral thyroid nodules as described. The largest nodule in the right lobe of the thyroid measures 1.6 x 1.3 cm x 0.9 cm. Biopsy recommended. Electronically Signed: Fer Helms MD at 14:21 EDT ,
--- NOTE | 2022-05-20 06:53 | ECHOD_ITS ---
Procedure This was a 2D Doppler, Color Flow transthoracic echocardiogram. The study was technically difficult. PT was confused, and slightly agitated. Refused general ultrasound exam and was combative prior to my arrival. Exam performed portable in patient room. Left Ventricle Normal LV size. Left ventricular systolic function is normal. The estimated ejection fraction is 60 %. Stage 1 diastolic dysfunction. No regional wall motion abnormalities noted. Right Ventricle Normal RV size. Normal systolic function. Atria Normal left atrium. Normal right atrium. Intact atrial septum. Mitral Valve Normal mitral valve. Tricuspid Valve Normal tricuspid valve. Aortic Valve Normal aortic valve. Trisinus/trileaflet aortic valve. Pulmonic Valve Normal pulmonic valve. Great Vessels Normal aortic root. The pulmonary artery is normal size. Normal inferior vena cava. Pericardium/Pleural No pericardial effusion. Medication Bubble Study was attempted. MMode/2D Measurements & Calculations LVIDd: 4.4 cm IVSd: 0.83 cm Ao root diam: 2.9 cm LVIDs: 3.1 cm LVPWd: 1.0 cm LA dimension: 3.1 cm RVDd: 2.3 cm FS: 29.7 % LAV(MOD-bp): 35.1 ml LA A4 area: 14.0 cm2 RA A4 area: 11.2 cm2 LAV(MOD-bp) Indexed: 19.5 ml/m2 LAV(MOD-sp2): 35.0 ml LAV(MOD-sp4): 29.6 ml Time Measurements MV dec time: 0.19 sec Doppler Measurements & Calculations MV E max jose alejandro: 77.9 cm/sec Lat Peak E' Jose Alejandro: 14.2 cm/sec Med Peak E' Jose Alejandro: 11.1 cm/sec MV A max jose alejandro: 89.1 cm/sec E/E' lat: 5.5 E/E' med: 7.0 MV E/A: 0.87 Ao V2 max: 127.8 cm/sec LV V1 max: 103.9 cm/sec Ao max P.5 mmHg LV V1 max P.3 mmHg ECHO/Echo Complete Interpretation Summary Normal LV size. Left ventricular systolic function is normal. The estimated ejection fraction is 60 %. Intact atrial septum Stage 1 diastolic dysfunction. Ordering Physician: Martin Crystal Referring Physician: Ld Gan Chi Performed By: Rosie Gerber, NICACS, RVT
--- NOTE | 2022-05-20 06:53 | MRI_ITS ---
HISTORY: CVA. TECHNIQUE: Multiplanar and multisequence MR images of the brain were obtained without contrast. 280 images. COMPARISON: CT/CTA same day. FINDINGS: BRAIN PARENCHYMA: Mild chronic small vessel ischemic gliosis. No abnormal focus of restricted diffusion. No acute intracranial hemorrhage identified. CSF SPACES: Mild generalized volume loss. No significant midline shift or other mass effect.No extra-axial fluid collection. VASCULAR SYSTEM: Major intracranial flow voids are maintained. PARANASAL SINUSES AND MASTOID AIR CELLS: Trace fluid in the left mastoid air cells. ORBITS: Symmetric contents. MRI/Brain without Contrast IMPRESSION: No evidence for acute infarct. Chronic small vessel ischemic gliosis. Electronically Signed: Agatha Gr MD at 13:19 EDT ,
[2022-05-20] MEDS: 0.9% Normal Saline 1,000 ML 75 ML IV ×2 (07:12→21:35)
[2022-05-20] MEDS: 0.9% Saline Lock 10 ML Syringe IV (07:12)
[2022-05-20] MEDS: Ondansetron 4 MG/2 ML Vial IV (07:30)
[2022-05-20 07:49] LABS: Ammonia < 10.0 umol/L (11-32)
[2022-05-20 08:11] LABS: Allen Test Positive; Base Excess 1 mmol/L (-2 to +2); Bicarbonate 26.7 mmol/L (22-26); Blood Gas Specimen Type ART; FI02 21; O2 Delivery Device Room Air; PO2 79 mmHG (75-100); SITE R Radial; SO2 95 % (95-99); Total Carbon Dioxide 28 mmol/L; pCO2 46.4 mmHg (35-45); pH 7.37 (7.35-7.45)
[2022-05-20 08:24] LABS: Thyroid Stim Hormone (TSH) 0.48 uIU/mL (0.358-3.74)
--- NOTE | 2022-05-20 08:54 | PN.HOSP_ITS ---
Subjective Subjective Patient is a 77-year-old lady admitted with confusion. Patient admitted to a monitored bed currently undergoing work-up for suspected CVA Objective Data Objective Data Vital Signs: Vital Signs Temp Pulse Resp BP Pulse Ox O2 Del Method 97.6 F L 54 L 14 178/77 H 96 Room Air 05/20/22 07:00 05/20/22 07:36 05/20/22 07:00 05/20/22 07:00 05/20/22 07:50 05/20/22 07:50 Oxygen Delivery Method Room Air Weight: 85.9 kg Body Mass Index (BMI) 35.7 Lab / Micro Data Result Diagrams: 05/20/22 02:39 05/20/22 02:39 Labs: Laboratory Results - last 24 hr 05/20/22 02:39: WBC 7.9, RBC 4.40, Hgb 13.5, Hct 40.9, MCV 93.0, MCH 30.7, MCHC 33.0, RDW Std Deviation 46.5 H, RDW Coeff of Rishi 13.6, Plt Count 171, MPV 10.3, Immature Gran % (Auto) 0.300, Neut % (Auto) 69.9, Lymph % (Auto) 19.9, [place] % (Auto) 6.6, Eos % (Auto) 2.8, Baso % (Auto) 0.5, Absolute Neuts (auto) 5.5, Absolute Lymphs (auto) 1.56, Nucleated RBC % 0 05/20/22 02:39: Sodium 140, Potassium 3.6, Chloride 107, Carbon Dioxide 25.0, Anion Gap 8, BUN 15, Creatinine 0.56, Estim Creat Clear Calc 38.44, Est GFR (MDRD) Af Amer 137, Est GFR (MDRD) Non-Af 113, BUN/Creatinine Ratio 27.0 H, Glucose 136 H, Calcium 9.0, Total Bilirubin 0.20, Direct Bilirubin 0.10, AST 21, ALT 16, Alkaline Phosphatase 97, Troponin I High Sens 4, Total Protein 6.9, Albumin 3.4, Globulin 3.5 05/20/22 03:40: Urine Color Yellow, Urine Clarity Clear, Urine pH 6.0, Ur Specific [place] 1.015, Urine Protein Negative, Urine Glucose (UA) Normal, Urine Ketones 5 H, Urine Occult Blood 25 H, Urine Nitrite Negative, Urine Bilirubin Negative, Urine Urobilinogen Normal, Ur Leukocyte Esterase 25 H, Urine RBC 0-5 SEEN, Urine WBC 0-5 SEEN, Ur Squamous Epith Cells 0-5 SEEN, Urine Bacteria RARE, Urine Mucus 0 SEEN 05/20/22 04:55: Troponin I High Sens 14 05/20/22 07:17: Ammonia < 10.0 L 05/20/22 07:17: TSH 0.48 Micro: Microbiology 05/20/22 02:37 Nasal Secretion SARS-CoV-2 Antigen (Rapid) - Final ABG Data ABG results: ABG 05/20/22 08:08 Specimen Type ART Sample Site R Radial pH 7.37 Bicarbonate Actual 26.7 H Total CO2 28 Base Excess 1 O2 Saturation 95 O2 % 21 ABG pCO2 46.4 H ABG pO2 79 José Miguel Test Positive O2 Delivery Device Room Air Radiography Diagnostic Testing: Radiology Impression Chest X-Ray 05/20/22 02:31 IMPRESSION: Stable chest. No visualized acute focal infiltrate. Electronically Signed: Courtney Quiles MD at 3:08 EDT , Head/Neck CTA 05/20/22 02:31 IMPRESSION: Normal CTA Head and neck with contrast. Mild cerebral atrophy no visualize large vessel occlusion. Normal caliber internal carotid arteries without stenosis. Asymmetric mildly enlarged right-sided thyroid compared to the left with mild inhomogeneity with at least 3 4 to 5 mm small nodules which could be evaluated with ultrasound and thyroid laboratory values when appropriate. Incidental visualization of subtle tiny filling defects within at least 2 of the small vessel left upper lobe pulmonary artery branches consider age indeterminate pulmonary emboli. Image 30 series 4. Recommend correlation with clinical history and laboratory values. Could consider follow-up CT angiogram of the chest if clinically appropriate if laboratory values allow. Calcified granuloma within the mediastinum. Electronically Signed: Courtney Quiles MD at 3:31 EDT , ADDENDUM: 05/20/22 0340 IMPRESSION: Normal CTA Head and neck with contrast. Mild cerebral atrophy no visualize large vessel occlusion. Normal caliber internal carotid arteries without stenosis. Asymmetric mildly enlarged right-sided thyroid compared to the left with mild inhomogeneity with at least 3 4 to 5 mm small nodules which could be evaluated with ultrasound and thyroid laboratory values when appropriate. Incidental visualization of subtle tiny filling defects within at least 2 of the small vessel left upper lobe pulmonary artery branches consider age indeterminate pulmonary emboli. Image 30 series 4. Recommend correlation with clinical history and laboratory values. Could consider follow-up CT angiogram of the chest if clinically appropriate if laboratory values allow. Calcified granuloma within the mediastinum. N.B. : The above Results were Read Back by Courtney Quiles MD to Dr. Alexandre MD, and understanding confirmed on 05/20/2022 03:33:19 (ET). Electronically Signed: Courtney Quiles MD at 3:31 EDT Reading Location ID and State: [facility], [facility] / [place] Tel , Service support , ADDENDUM: 05/20/22 0850 IMPRESSION: undefined Physical Exam Narrative GENERAL: cooperative HEENT: Right frontal scalp swelling EYES; Anicteric, Normal Conjunctiva NECK; supple, normal thyroid, RESPIRATORY: Diminished to auscultation CARDIOVASCULAR: Regular S1 S2, GI: soft, normoactive bowel sounds, : No Renal angle tenderness; EXTREMITIES: No edema, no clubbing, MUSCULOSKELETAL: no muscle wasting NEURO: Awake; no lateralizing signs. SKIN: No Rash PSYCH; Flat affect Assessment & Plan Assessment/Plan (1) Acute encephalopathy: PLAN: Plan Patient is a 77-year-old lady admitted with confusion. Patient admitted to a monitored bed currently undergoing work-up for suspected CVA 1. Acute encephalopathy ? Metabolic versus infectious. Patient infectious Unremarkable except for positive leukocyte esterase. Patient has been admitted to monitored bed plan is for patient to undergo MRI of the brain to rule out acute CVA. Could also be side effect of patient psychotropic medications. Patient is on oxycodone, baclofen diazepam Lexapro primidone and meclizine. The suspected offending medications held on admission 2. Abnormal urinalysis ? Patient had positive leukocyte esterase but no pyuria. Given her encephalopathy patient was started on Rocephin. Urine culture sent 3. Thyroid nodules ? Found on CT a of the head and neck obtained as part of patient's evaluation for possible CVA ultrasound of the thyroid ordered for subsequent eval 4. For the peripheral PE ? Found on patient CTA plans for patient to undergo CTA of the chest on 05/21/2022 to either rule in or rule out pulmonary embolism 5. Dyslipidemia -Patient is on statin therapy, continued at home dose 6. Hypertension - Blood pressure controlled, home medications continued with dose adjustment as needed 6. DVT prophylaxis ? [place] Lovenox Advance planning; did discuss with the patient's family ( and son) regarding advanced directives as well as CODE STATUS. Did explain the various scenarios involved ( FULL CODE, DNR CCA, DNR CCA with no intubation, and DNR CC and what each meant) patient's opted for patient to remain full code w ith CPR and intubation if needed. Order was placed. Time spent on discussion 18 minutes. Total time spent evaluating patient, review of her initial diagnostic work-up, management orders, adjustment of initial management and discussion with other providers and family; 50- minute Charges/Coding Procedures Hospitalists Procedures: 76880 Advncd Care Plan 30 Min Multi Select Codes Hospitalists' Procedures Procedures: 52382 Prolonged InPt Service; first hour
--- NOTE | 2022-05-20 14:26 | CASEMGMT ---
SW did not complete PHQ9 as per physician patient did not have a Stroke or TIA. Physician feels the confusion may be a result of medications. Yennifer RED
[2022-05-20] MEDS: Cholecalciferol (Vit D3) 125 MCG CAPSULE (5,000 UNITS) PO (15:24)
[2022-05-20] MEDS: Loperamide 2 MG Capsule PO (15:24)
[2022-05-20] MEDS: Aspirin E.C. 81 MG Tablet PO (15:24)
[2022-05-20] MEDS: Carvedilol 12.5 MG Tablet PO ×2 (15:24→21:36)
[2022-05-20] MEDS: Lisinopril 40 MG Tablet PO (15:24)
[2022-05-20] MEDS: Ceftriaxone 1 GM/50 ML BAG IV (15:24)
[2022-05-20] MEDS: Pantoprazole Sodium 40 MG Tablet PO (15:24)
[2022-05-20] MEDS: Potassium Chloride Oral Tablet 20 MEQ PO ×2 (15:25)
[2022-05-20] MEDS: hydroCHLOROthiazide 12.5mg 12.5 MG PO (15:26)
--- NOTE | 2022-05-20 16:22 | NURSING ---
pt picking and pulling at covers and iv. saying pee purewick out for now and pt up to bsc but pt still saying pee please, please. attempting to help but pt seemingly more aggitated. pt unable to void despite prompts. unable to calm. dr. dennis texted per request to start valium.
[2022-05-20] MEDS: diazePAM 5 MG Tablet PO ×2 (16:34→21:39)
[2022-05-20] MEDS: Acetaminophen 325 MG Tablet 650 MG PO ×2 (16:34→23:39)
[2022-05-20] MEDS: Pravastatin 40 MG Tablet PO (21:36)
[2022-05-20] MEDS: Primidone 250 MG Tablet PO (21:36)
[2022-05-21] VITALS (8 sets, daily range): BP systolic 131–162; BP diastolic 58–80; PULSE 61–86; RESP 16–18; TEMP 36.9–37.1; O2SAT 95–96
[2022-05-21 05:40] LABS: Absolute Lymphocyte Count 1.85 X10^3/uL (0.83-4.51); Basophil# 0.04 X10^3/uL; Basophil% 0.5 % (0-1); Eosinophil# 0.04 X10^3/uL; Eosinophils% 0.5 % (0-5); Hematocrit 38.2 % (37-47); Hemoglobin 12.5 g/dL (12.0-15.0); Lymphocyte # 1.85 X10^3/ul (0.83-4.51); Lymphocyte % 20.9 % (19-41); Mean Corp Hgb Conc 32.7 g/dL (32-36); Mean Corpuscular Hgb 30.3 pg (27.0-32.0); Mean Corpuscular Volume 92.5 fL (81-99); Mean Platelet Vol. 10.7 fl (6.2-12.0); Monocyte# 0.89 X10^3/uL; Monocyte% 10.1 % (0-10); NRBC Flagged by Analyzer 0 % (0-5); Neutrophil # 5.97 X10^3/uL (2.7-7.7); Neutrophil % 67.4 % (47-70); Platelet Count 202 K/mm3 (150-450); RBC Distribution Width CV 13.9 % (11.6-14.6); Red Blood Count 4.13 M/mm3 (4.2-5.4); White Blood Count 8.8 K/mm3 (4.4-11.0)
--- NOTE | 2022-05-21 05:55 | CT_ITS ---
EXAM: CT pulmonary angiogram. HISTORY: PE TECHNIQUE: CTA Chest WO/W Contrast Injection A radiation dose optimization technique was used for this scan. COMPARISON: None. LIMITATIONS: Motion artifact. LUNGS: Mild atelectasis bilaterally. No confluent airspace disease. PULMONARY VESSELS: No pulmonary emboli identified. PLEURA: Normal. MEDIASTINUM: Calcified mediastinal and left hilar lymph nodes are evidence of prior granulomatous disease. HEART: Mildly enlarged. AORTA: No thoracic aortic aneurysm or dissection. UPPER ABDOMEN: Cholecystectomy. BONES/SOFT TISSUES: No acute fracture. Scoliosis. OTHER: Thyroid nodules measure up to 8 mm. CONCLUSION: Motion artifact. No pulmonary emboli identified. Electronically Signed: Dustin Peña MD at 6:37 EDT , CT/CTA Chest W/WO Contrast IMPRESSION: undefined
--- NOTE | 2022-05-21 08:12 | PCM.PN.HOSP ---
Subjective Subjective Patient seen her delirium appears to have completely resolved. She is awake alert oriented and interactive. Case was discussed with patient's . Patient be assessed for possible discharge. Objective Data Objective Data Vital Signs: Vital Signs Temp Pulse Resp BP Pulse Ox O2 Del Method 98.8 F 86 18 161/66 H 95 Room Air 05/21/22 06:13 05/21/22 07:30 05/21/22 06:13 05/21/22 06:13 05/21/22 07:11 05/21/22 07:11 Oxygen Delivery Method Room Air Weight: 85.9 kg Body Mass Index (BMI) 35.7 Intake & Output: Intake and Output for Last 24 Hours 05/19/22 05/20/22 05/21/22 23:59 23:59 23:59 Intake Total 1150 / 1630 660 / 660 Output Total 700 / 700 500 / 500 Balance 450 / 930 160 / 160 Lab / Micro Data Result Diagrams: 05/21/22 05:29 05/21/22 07:48 Labs: Laboratory Results - last 24 hr 05/20/22 07:17: TSH 0.48 05/21/22 05:29: Sodium Cancelled, Potassium Cancelled, Chloride Cancelled, Carbon Dioxide Cancelled, Anion Gap Cancelled, BUN Cancelled, Creatinine Cancelled, Estim Creat Clear Calc Cancelled, Est GFR (MDRD) Af Amer Cancelled, Est GFR (MDRD) Non-Af Cancelled, BUN/Creatinine Ratio Cancelled, Glucose Cancelled, Calcium Cancelled, Triglycerides Cancelled, Cholesterol Cancelled, LDL Cholesterol Cancelled, VLDL Cholesterol Cancelled, HDL Cholesterol Cancelled 05/21/22 05:29: WBC 8.8, RBC 4.13 L, Hgb 12.5, Hct 38.2, MCV 92.5, MCH 30.3, MCHC 32.7, RDW Std Deviation 47.0 H, RDW Coeff of Rishi 13.9, Plt Count 202, MPV 10.7, Immature Gran % (Auto) 0.600, Neut % (Auto) 67.4, Lymph % (Auto) 20.9, [place] % (Auto) 10.1 H, Eos % (Auto) 0.5, Baso % (Auto) 0.5, Absolute Neuts (auto) 6.0, Absolute Lymphs (auto) 1.85, Nucleated RBC % 0 Micro: Microbiology 07/25/22 02:37 Nasal Secretion SARS-CoV-2 Antigen (Rapid) - Final Radiography Diagnostic Testing: Radiology Impression Head/Neck CTA 05/20/22 02:31 IMPRESSION: Normal CTA Head and neck with contrast. Mild cerebral atrophy no visualize large vessel occlusion. Normal caliber internal carotid arteries without stenosis. Asymmetric mildly enlarged right-sided thyroid compared to the left with mild inhomogeneity with at least 3 4 to 5 mm small nodules which could be evaluated with ultrasound and thyroid laboratory values when appropriate. Incidental visualization of subtle tiny filling defects within at least 2 of the small vessel left upper lobe pulmonary artery branches consider age indeterminate pulmonary emboli. Image 30 series 4. Recommend correlation with clinical history and laboratory values. Could consider follow-up CT angiogram of the chest if clinically appropriate if laboratory values allow. Calcified granuloma within the mediastinum. Electronically Signed: Courtney Quiles MD at 3:31 EDT , ADDENDUM: 05/20/22 0340 IMPRESSION: Normal CTA Head and neck with contrast. Mild cerebral atrophy no visualize large vessel occlusion. Normal caliber internal carotid arteries without stenosis. Asymmetric mildly enlarged right-sided thyroid compared to the left with mild inhomogeneity with at least 3 4 to 5 mm small nodules which could be evaluated with ultrasound and thyroid laboratory values when appropriate. Incidental visualization of subtle tiny filling defects within at least 2 of the small vessel left upper lobe pulmonary artery branches consider age indeterminate pulmonary emboli. Image 30 series 4. Recommend correlation with clinical history and laboratory values. Could consider follow-up CT angiogram of the chest if clinically appropriate if laboratory values allow. Calcified granuloma within the mediastinum. N.B. : The above Results were Read Back by Courtney Quiles MD to Dr. Alexandre MD, and understanding confirmed on 05/20/2022 03:33:19 (ET). Electronically Signed: Courtney Quiles MD at 3:31 EDT , ADDENDUM: 05/20/22 0850 IMPRESSION: undefined Brain MRI 05/20/22 06:53 IMPRESSION: No evidence for acute infarct. Chronic small vessel ischemic gliosis. Electronically Signed: Agatha Gr MD at 13:19 EDT , Echocardiogram 05/20/22 06:53 Interpretation Summary Normal LV size. Left ventricular systolic function is normal. The estimated ejection fraction is 60 %. Intact atrial septum Stage 1 diastolic dysfunction. Ordering Physician: Martin Crystal Referring Physician: Ld Gan Chi Performed By: Rosie Gerber, OLIVER, RVT Chest CTA 05/21/22 05:55 IMPRESSION: undefined Physical Exam Narrative GENERAL: cooperative HEENT: Right frontal scalp swelling EYES; Anicteric, Normal Conjunctiva NECK; supple, normal thyroid, RESPIRATORY: Diminished to auscultation CARDIOVASCULAR: Regular S1 S2, GI: soft, normoactive bowel sounds, : No Renal angle tenderness; EXTREMITIES: No edema, no clubbing, MUSCULOSKELETAL: no muscle wasting NEURO: Awake; no lateralizing signs. SKIN: No Rash PSYCH; Flat affect Assessment & Plan Assessment/Plan (1) Acute encephalopathy: PLAN: Plan Patient is a 77-year-old lady admitted with confusion. Patient admitted to a monitored bed currently undergoing work-up for suspected CVA 1. Acute encephalopathy ? Metabolic versus infectious. Patient infectious Unremarkable except for positive leukocyte esterase. Patient has been admitted to monitored bed plan is for patient to undergo MRI of the brain to rule out acute CVA. Could also be side effect of patient psychotropic medications. Patient is on oxycodone, baclofen diazepam Lexapro primidone and meclizine. The suspected offending medications held on admission ? 05/21/2022; acute delirium resolved 2. Abnormal urinalysis ? Patient had positive leukocyte esterase but no pyuria. Given her encephalopathy patient was started on Rocephin. Urine culture sent 3. Thyroid nodules ? Found on CT a of the head and neck obtained as part of patient's evaluation for possible CVA ultrasound of the thyroid ordered for subsequent eval 4. For the peripheral PE ? Found on patient CTA plans for patient to undergo CTA of the chest on 05/21/2022 to either rule in or rule out pulmonary embolism 5. Dyslipidemia -Patient is on statin therapy, continued at home dose 6. Hypertension - Blood pressure controlled, home medications continued with dose adjustment as needed 6. DVT prophylaxis ? LUCIANO Vieira Charges/Coding Visit Charges OBSV E&M: 01523 Subsequent observation care L2
[2022-05-21] MEDS: Acetaminophen 325 MG Tablet 650 MG PO (09:03)
[2022-05-21] MEDS: Pantoprazole Sodium 40 MG Tablet PO (09:04)
[2022-05-21] MEDS: Aspirin E.C. 81 MG Tablet PO (09:04)
[2022-05-21] MEDS: Cholecalciferol (Vit D3) 125 MCG CAPSULE (5,000 UNITS) PO (09:04)
[2022-05-21] MEDS: Carvedilol 12.5 MG Tablet PO (09:04)
[2022-05-21] MEDS: Loperamide 2 MG Capsule PO (09:04)
[2022-05-21] MEDS: Potassium Chloride Oral Tablet 20 MEQ PO ×2 (09:04→12:16)
[2022-05-21] MEDS: Lisinopril 40 MG Tablet PO (09:04)
[2022-05-21] MEDS: hydroCHLOROthiazide 12.5mg 12.5 MG PO (09:12)
[2022-05-21] MEDS: Enoxaparin 40 MG/0.4 ML Syringe SC (09:13)
[2022-05-21] MEDS: Ceftriaxone 1 GM/50 ML BAG IV (09:16)
[2022-05-21 09:43] LABS: Anion Gap 7 (5-15); BUN 6 mg/dL (7-18); BUN/Creat Ratio 13.3 RATIO (10-20); Calcium,Total 8.8 mg/dL (8.5-10.1); Chloride 110 mmol/L (98-107); Cholesterol 201 mg/dL (200); Creatinine, Serum 0.45 mg/dL (0.55-1.02); EST Glomerular Filtration Rate 144 mL/min (>60); Est Glom Filt Rate - Afr Amer 174 mL/min (>60); Estimated Creatinine Clearance 36.68 ml/min; Glucose 112 mg/dL (74-106); High Density Lipoprotein 84 mg/dL; Potassium 3.2 mmol/L (3.5-5.1); Sodium Level 143 mmol/L (136-145); Triglycerides 103 mg/dL; Very Low Density Lipoprotein 21 mg/dL (5-40)
[2022-05-21] MEDS: Potassium Chloride 10mEq/100mL 10 MEQ/100 ML IV.SOLN. 100 MEQ IV BOLUS ×4 (10:14→14:18)
[2022-05-21] MEDS: 0.9% Normal Saline 1,000 ML 75 ML IV (10:15)
--- NOTE | 2022-05-21 11:41 | PCM.DC.SUM ---
Providers Date of Admission: 05/20/22 Date of Discharge: 05/21/22 Primary Care Physician: Dr. Ld Gan MD Reason For Visit: ACUTE ENCEPHALOPATHY Diagnosis Discharge Diagnosis (1) Acute encephalopathy: Status: Acute Code(s): G93.40 - Encephalopathy, unspecified Medications at Discharge Home Medications pravastatin 40 mg tablet 40 mg PO QHS Cholestrol 02/09/19 escitalopram oxalate 20 mg tablet (Lexapro) 20 mg PO DAILY Mood 07/20/19 diazepam 5 mg tablet (Valium) 5 mg PO BID PRN Anxiety 07/28/19 loperamide 2 mg tablet (Imodium A-D) 2 mg PO DAILY Diarrhea 07/28/19 hydrochlorothiazide 12.5 mg tablet 12.5 mg PO DAILY Water retention 05/11/21 primidone 250 mg tablet 250 mg PO QHS Tremors 07/15/21 carvedilol 12.5 mg tablet 12.5 mg PO BID bp 09/05/21 aspirin 81 mg tablet,delayed release 81 mg PO BID Heart 02/20/22 cholecalciferol (vitamin D3) 125 mcg (5,000 unit) tablet (Vitamin D3) 125 mcg PO DAILY Supplement 02/20/22 ondansetron HCl 4 mg tablet 4 mg PO Q8H PRN Nausea/Vomiting 02/20/22 pantoprazole 20 mg tablet,delayed release 40 mg PO DAILY GERD 02/20/22 sennosides 8.6 mg tablet (senna) 8.6 mg PO BID PRN Constipation 02/20/22 acetaminophen 500 mg tablet 1,000 mg PO Q6H PRN PRN Pain Score 1-5 #0 tabs 03/20/22 oxycodone 5 mg tablet 5 mg PO Q4H PRN PRN Pain Score 6-10 #0 tabs 03/20/22 potassium chloride 10 mEq tablet,extended release(part/cryst) 20 meq PO TIDCM 30 days #180 tabs 03/20/22 lisinopril 40 mg tablet 1 tab PO DAILY 05/20/22 cefdinir 300 mg capsule 300 mg PO BID #10 caps 05/21/22 Hospital Course Summary of Care Provided Minutes Spent on Discharge: 35 Hospital Course: Patient is a 77-year-old lady admitted with confusion. Patient admitted to a monitored bed currently undergoing work-up for suspected CVA 1. Acute encephalopathy ? Metabolic versus infectious. Patient infectious Unremarkable except for positive leukocyte esterase. Patient has been admitted to monitored bed plan is for patient to undergo MRI of the brain to rule out acute CVA. Could also be side effect of patient psychotropic medications. Patient is on oxycodone, baclofen diazepam Lexapro primidone and meclizine. The suspected offending medications held on admission ? 05/21/2022; acute delirium resolved 2. Abnormal urinalysis ? Patient had positive leukocyte esterase but no pyuria. Given her encephalopathy patient was started on Rocephin. Urine culture sent ?patient was discharged on cefdinir 300 mg p.o. twice daily for 5 days 3. Thyroid nodules ? Found on CT a of the head and neck obtained as part of patient's evaluation for possible CVA ultrasound of the thyroid ordered for subsequent eval 4. For the peripheral PE ? Found on patient CTA plans for patient to undergo CTA of the chest on 05/21/2022 to either rule in or rule out pulmonary embolism 5. Dyslipidemia -Patient is on statin therapy, continued at home dose 6. Hypertension - Blood pressure controlled, home medications continued with dose adjustment as needed 6. DVT prophylaxis ? SC Lovenox Physical Exam Narrative GENERAL: cooperative HEENT: Right frontal scalp swelling EYES; Anicteric, Normal Conjunctiva NECK; supple, normal thyroid, RESPIRATORY: Diminished to auscultation CARDIOVASCULAR: Regular S1 S2, GI: soft, normoactive bowel sounds, : No Renal angle tenderness; EXTREMITIES: No edema, no clubbing, MUSCULOSKELETAL: no muscle wasting NEURO: Awake; no lateralizing signs. SKIN: No Rash PSYCH; Flat affect Weight / BMI Weight Weight: 85.9 kg Body Mass Index (BMI) 35.7 ABG / Lab / Microbiology Data Result Diagrams: 05/21/22 05:29 05/21/22 07:48 Laboratory: Laboratory Results - last 24 hr 05/21/22 05:29: Sodium Cancelled, Potassium Cancelled, Chloride Cancelled, Carbon Dioxide Cancelled, Anion Gap Cancelled, BUN Cancelled, Creatinine Cancelled, Estim Creat Clear Calc Cancelled, Est GFR (MDRD) Af Amer Cancelled, Est GFR (MDRD) Non-Af Cancelled, BUN/Creatinine Ratio Cancelled, Glucose Cancelled, Calcium Cancelled, Triglycerides Cancelled, Cholesterol Cancelled, LDL Cholesterol Cancelled, VLDL Cholesterol Cancelled, HDL Cholesterol Cancelled 05/21/22 05:29: WBC 8.8, RBC 4.13 L, Hgb 12.5, Hct 38.2, MCV 92.5, MCH 30.3, MCHC 32.7, RDW Std Deviation 47.0 H, RDW Coeff of Rishi 13.9, Plt Count 202, MPV 10.7, Immature Gran % (Auto) 0.600, Neut % (Auto) 67.4, Lymph % (Auto) 20.9, [place] % (Auto) 10.1 H, Eos % (Auto) 0.5, Baso % (Auto) 0.5, Absolute Neuts (auto) 6.0, Absolute Lymphs (auto) 1.85, Nucleated RBC % 0 05/21/22 07:48: Sodium 143, Potassium 3.2 L, Chloride 110 H, Carbon Dioxide 26.0, Anion Gap 7, BUN 6 L, Creatinine 0.45 L, Estim Creat Clear Calc 36.68, Est GFR (MDRD) Af Amer 174, Est GFR (MDRD) Non-Af 144, BUN/Creatinine Ratio 13.3, Glucose 112 H, Calcium 8.8, Triglycerides 103, Cholesterol 201 H, LDL Cholesterol 96, VLDL Cholesterol 21, HDL Cholesterol 84 Microbiology: Microbiology 05/20/22 02:37 Nasal Secretion SARS-CoV-2 Antigen (Rapid) - Final Radiography Diagnostic Testing: Radiology Impression Brain MRI 05/20/22 06:53 IMPRESSION: No evidence for acute infarct. Chronic small vessel ischemic gliosis. Electronically Signed: Agatha Gr MD at 13:19 EDT , Echocardiogram 05/20/22 06:53 Interpretation Summary Normal LV size. Left ventricular systolic function is normal. The estimated ejection fraction is 60 %. Intact atrial septum Stage 1 diastolic dysfunction. Ordering Physician: Martin Crystal Referring Physician: Ld Gan Chi Performed By: Rosie Gerber RDCS, RVT Chest CTA 05/21/22 05:55 IMPRESSION: undefined D/C Instructions Discharge Diet: No restrictions Discharge Activity: Return to Normal Activity Call your doctor if you observe: Fever of 101 or Higher, Shortness of breath, Fainting spells and Chest pain Meaningful Use Info Meaningful Use Diagnoses (Choose all that apply): None applicable Discharge Plan Admission Admit Date/Time: 05/20/22 05:33 Attending Provider: Wan Cox Primary Care Provider: Ld Gan Chi Consulting Providers: Martin Crystal Discharge Orders/Prescriptions Prescriptions: New cefdinir 300 mg capsule 300 mg PO BID Qty: 10 0RF Continued pravastatin 40 mg tablet 40 mg PO QHS escitalopram oxalate [Lexapro] 20 mg tablet 20 mg PO DAILY diazepam [Valium] 5 mg tablet 5 mg PO BID PRN (Reason: Anxiety) loperamide [Imodium A-D] 2 mg tablet 2 mg PO DAILY hydrochlorothiazide 12.5 mg tablet 12.5 mg PO DAILY primidone 250 mg tablet 250 mg PO QHS carvedilol 12.5 mg Tablet 12.5 mg PO BID pantoprazole 20 mg Tablet,Delayed Release (Dr/Ec) 40 mg PO DAILY cholecalciferol (vitamin D3) [Vitamin D3] 125 mcg (5,000 unit) Tablet 125 mcg PO DAILY sennosides [senna] 8.6 mg Tablet 8.6 mg PO BID PRN (Reason: Constipation) ondansetron HCl 4 mg Tablet 4 mg PO Q8H PRN (Reason: Nausea/Vomiting) aspirin 81 mg Tablet,Delayed Release (Dr/Ec) 81 mg PO BID acetaminophen 500 mg Tablet 1,000 mg PO Q6H PRN PRN (Reason: Pain Score 1-5) Qty: 0 0RF oxycodone 5 mg Tablet 5 mg PO Q4H PRN PRN (Reason: Pain Score 6-10) Qty: 0 0RF potassium chloride 10 mEq Tablet,Er Particles/Crystals 20 meq PO TIDCM 30 Days Qty: 180 0RF lisinopril 40 mg tablet 1 tab PO DAILY Label Comments: TAKE 1 TABLET BY MOUTH EVERY DAY Discontinued baclofen 10 mg tablet 20 mg PO TID trazodone 100 mg tablet 300 mg PO QHS meclizine 25 mg Tablet 25 mg PO DAILY PRN (Reason: Nausea) Referrals / Follow Up: Ld Gan Chi, MD [Primary Care Provider] - Disposition Disposition (needs filled in before D/C Order can be placed): Home Health Service Charges/Coding Visit Charges OBSV E&M: 10336 Observation care discharge
--- NOTE | 2022-05-21 13:13 | CASEMGMT ---
Addendum entered by Quiana Varghese 05/21/22 14:00: RN ARTHUR to room with BARNES form with at bedside, explanation done-pt/ voice understanding, and signs BARNES form. Original to chart and copy to pt. TCU has bed available and are able to accept pt. Pt/ aware, voice understanding. Pt/ voice no further questions/concerns/needs. Leo MELO CM Addendum entered by Quiana Varghese 05/21/22 13:32: at bedside and pt/ state interest in TCU at discharge. Roxanna SW aware. CM to follow. Leo MELO CM Original Note: Per therapy, pt would benefit from additional therapy at discharge. This RN CM to room and pt states she would like to go home at discharge. is not at bedside. Pt is A/O at this time and answers questions appropriately but does forget certain words at times. This RN CM to check back when arrives. Pt was recently in TCU s/p ankle fusion. CM to follow. Leo MELO CM
--- NOTE | 2022-05-21 13:48 | PCM.TXEXTCAR ---
Diet Diet Order/Speech Therapy: 05/20/22 06:54 Diet: Cardiac - Heart Healthy Food consistency:: Regular Liquid Consistency:: Regular/Thin Diet Comments: Gluten free, total feed, 1:1 sup, d/c PO intake if not alert Routine Orders/Code Status Code Status: Full Code Therapies Physical Therapy: Eval and Treat Occupational Therapy: Eval and Treat Problem/Diagnosis (1) Acute encephalopathy: Status: Acute Code(s): G93.40 - Encephalopathy, unspecified Plan Patient is a 77-year-old lady admitted with confusion. Patient admitted to a monitored bed currently undergoing work-up for suspected CVA 1. Acute encephalopathy ? Metabolic versus infectious. Patient infectious Unremarkable except for positive leukocyte esterase. Patient has been admitted to monitored bed plan is for patient to undergo MRI of the brain to rule out acute CVA. Could also be side effect of patient psychotropic medications. Patient is on oxycodone, baclofen diazepam Lexapro primidone and meclizine. The suspected offending medications held on admission ? 05/21/2022; acute delirium resolved 2. Abnormal urinalysis ? Patient had positive leukocyte esterase but no pyuria. Given her encephalopathy patient was started on Rocephin. Urine culture sent 3. Thyroid nodules ? Found on CT a of the head and neck obtained as part of patient's evaluation for possible CVA ultrasound of the thyroid ordered for subsequent eval 4. For the peripheral PE ? Found on patient CTA plans for patient to undergo CTA of the chest on 05/21/2022 to either rule in or rule out pulmonary embolism 5. Dyslipidemia -Patient is on statin therapy, continued at home dose 6. Hypertension - Blood pressure controlled, home medications continued with dose adjustment as needed 6. DVT prophylaxis ? SC Lovenox Allergies/Procedures Done in Hospital Allergies azithromycin Allergy (Verified 05/20/22 02:31) Upset Stomach Type of Care/Length of Stay Estimated LOS: Convalescent Care Less Than 30 days Type of Care Needed: Skilled Rehab Potential: Good Prognosis: Good Additional Orders/Day of Discharge Day of Discharge: 05/21/22 Dietary and Speech Recommendations Speech Linguistic Eval Summary: Patient oriented x0, perseverating on name re: Kaila, Kaila, Kaila. Unable to answer orientation questions or Y/N. Unable to follow simple commands. and son present for informal cognitive evaluation - states mild confusion began 2-3 days ago and significant confusion and disorientation began this morning 1-2am at the time of fall. Will continue to assess cognition in subsequent sessions. Discharge Plan Admission Admit Date/Time: 05/20/22 05:33 Attending Provider: Wan Cox Primary Care Provider: Ld Gan Chi Consulting Providers: Martin Crystal Discharge Orders/Prescriptions Prescriptions: New cefdinir 300 mg capsule 300 mg PO BID Qty: 10 0RF Continued pravastatin 40 mg tablet 40 mg PO QHS escitalopram oxalate [Lexapro] 20 mg tablet 20 mg PO DAILY loperamide [Imodium A-D] 2 mg tablet 2 mg PO DAILY hydrochlorothiazide 12.5 mg tablet 12.5 mg PO DAILY primidone 250 mg tablet 250 mg PO QHS carvedilol 12.5 mg Tablet 12.5 mg PO BID pantoprazole 20 mg Tablet,Delayed Release (Dr/Ec) 40 mg PO DAILY cholecalciferol (vitamin D3) [Vitamin D3] 125 mcg (5,000 unit) Tablet 125 mcg PO DAILY sennosides [senna] 8.6 mg Tablet 8.6 mg PO BID PRN (Reason: Constipation) ondansetron HCl 4 mg Tablet 4 mg PO Q8H PRN (Reason: Nausea/Vomiting) aspirin 81 mg Tablet,Delayed Release (Dr/Ec) 81 mg PO BID acetaminophen 500 mg Tablet 1,000 mg PO Q6H PRN PRN (Reason: Pain Score 1-5) Qty: 0 0RF oxycodone 5 mg Tablet 5 mg PO Q4H PRN PRN (Reason: Pain Score 6-10) Qty: 0 0RF potassium chloride 10 mEq Tablet,Er Particles/Crystals 20 meq PO TIDCM 30 Days Qty: 180 0RF lisinopril 40 mg tablet 1 tab PO DAILY Label Comments: TAKE 1 TABLET BY MOUTH EVERY DAY diazepam [Valium] 5 mg tablet 5 mg PO BID PRN (Reason: Anxiety) 2 Days Qty: 4 0RF Discontinued baclofen 10 mg tablet 20 mg PO TID trazodone 100 mg tablet 300 mg PO QHS meclizine 25 mg Tablet 25 mg PO DAILY PRN (Reason: Nausea) Referrals / Follow Up: Ld Gan Chi, MD [Primary Care Provider] - Disposition Disposition (needs filled in before D/C Order can be placed): [facility] Facility
--- NOTE | 2022-05-21 13:51 | CASEMGMT ---
RN ARTHUR spoke with patient and her . They would like [facility]. HUMERA called [facility] and they can take patient today. HUMERA notified physician and RN. RN ARTHUR notified patient and her . Await orders. Plan: d/c to [facility]CU under skilled level of care. Yennifer RED
--- NOTE | 2022-05-21 14:03 | CASEMGMT ---
Orders completed and placed in patient's packet for TCU. Plan: d/c to [facility] TCU under skilled level of care. Yennifer RED
--- NOTE | 2022-05-21 14:47 | NURSING ---
report called to Remberto López RN on TCU for discharge
== END 2022-05-21 11:46 | disposition skilled nursing facility (03) ==
LOC: ED 04:46 → PCU 06:00
PROVIDERS: Admitting Provider Hospitalist; Emergency Provider Emergency Medicine; PCP Family Medicine Geriatric Medicine; Visit Provider Internal Medicine
DX: G93.40 Encephalopathy, unspecified (principal); M79.7 Fibromyalgia; Z87.891 Personal history of nicotine dependence; E78.00 Pure hypercholesterolemia, unspecified; E04.2 Nontoxic multinodular goiter; I10 Essential (primary) hypertension; Z79.899 Other long term (current) drug therapy; Z79.82 Long term (current) use of aspirin; F41.9 Anxiety disorder, unspecified; R82.90 Unspecified abnormal findings in urine; F09 Unspecified mental disorder due to known physiological condition; S00.03XA Contusion of scalp, initial encounter; Y93.89 Activity, other specified; W19.XXXA Unspecified fall, initial encounter; Y92.9 Unspecified place or not applicable
CPT/HCPCS: 36415; 36600; 70496; 70498; 70551; 71045; 71275; 76536; 80048; 80061; 80076; 81001; 82140; 82803; 84443; 84484; 85025; 87086; 87811; 92523; 92610; 93005; 93306; 94762; 96361; 96365; 96366; 96372; 96375; 97162; 97166; 99218; 99285; J7030; P9612; Q9967; A4216; G0378; J2405

== ENCOUNTER 2022-05-21 15:46 | Inpatient (IN) | payer MEDICARE, OTHER, SELFPAY ==
[2022-05-21 15:50] VITALS: BP 177/75; PULSE 70; RESP 22; TEMP 36.5; O2SAT 96; BMI 35.7
[2022-05-21 16:00] VITALS: BP 170/61; PULSE 70
[2022-05-21] MEDS: Acetaminophen 500 MG Tablet 1000 MG PO (16:24)
[2022-05-21] MEDS: Potassium Chloride Oral Tablet 20 MEQ PO (16:25)
[2022-05-21] MEDS: Aspirin E.C. 81 MG Tablet PO (16:25)
[2022-05-21] MEDS: Carvedilol 12.5 MG Tablet PO (16:25)
[2022-05-21 18:05] VITALS: BP 167/75
--- NOTE | 2022-05-21 19:30 | NURSING ---
Pt c/o headache tylenol ineffective, BP rechecked 192/[address] Gan updated and N.O. lisinopril 40mg x1 dose and fiorecet 50-325-40mg PO Q4h PRN
--- NOTE | 2022-05-21 19:36 | HP.PCM_ITS ---
HPI - General General Date of Admission: 05/21/22 Date of Service: 05/21/22 Chief Complaint: Here for rehab. HPI Narrative 05/20/2022 TINA GARCIA, is a 77 Female who presents to [facility] Emergency Department with fall, confusion. 05/20/2022 EKG sinus bradycardia, minimal voltage criteria for LVH. Nonspecific ST abnormality. Confusion after dinner, got up to go to bedside commode, lost balance, fell, slid to ground. Worsening confusion, repeating questions. CBC okay, BMP okay, LFT's okay, Troponin negative, UA okay. CTA head, neck negative. Pulmonary emboli noted, Lovenox given. 05/20/2022 Admit to Hospital. Evaluate encephalopathy, psychotropic medications held. Order thyroid ultrasound for thyroid nodules. Lovenox for pulmonary embolism. Treat blood pressure. 05/20/2022 Echo normal LV size. LVSF normal. EF 60%. Stage 1 diastolic dysfunction. 05/20/2022 MRI brain negative stroke. 05/20/2022 Thyroid ultrasound right thyroid nodule, biopsy recommended. 05/21/2022 Encephalopathy resolved. Rocephin for urinary tract infection, urine culture sent. Cefdinir 300mg bid x 5 days for urinary tract infection. 05/21/2022 CTA chest negative pulmonary embolism. 05/21/2022 Admit to TCU with debility, here for rehabilitation, strengthening, prior to discharge home with . I asked resident if it would be okay for me to trim, taper, or stop high risk medications, she was willing. [facility] Medical History Ambulates with cane Anxiety Back pain Closed trimalleolar fracture of left ankle Diastolic dysfunction Essential and other specified forms of tremor Essential hypertension Essential tremor Fibromyalgia Former smoker High cholesterol History of chronic diarrhea History of echocardiogram History of GI bleed History of revision of total replacement of right knee joint (~2014) History of stress test Lactose intolerance Osteoporosis Pulmonary hypertension Shortness of breath on exertion Uses wheelchair Walker as ambulation aid Wears glasses Home Medications pravastatin 40 mg tablet 40 mg PO QHS Cholestrol 02/09/19 [History Last Taken 0 05/20/22 21:39] escitalopram oxalate 20 mg tablet (Lexapro) 20 mg PO DAILY Mood 07/20/19 [History Last Taken 05/09/21] loperamide 2 mg tablet (Imodium A-D) 2 mg PO DAILY Diarrhea 07/28/19 [History Last Taken 05/21/22 09:04] hydrochlorothiazide 12.5 mg tablet 12.5 mg PO DAILY Water retention 05/11/21 [History Last Taken 05/21/22 09:12] primidone 250 mg tablet 250 mg PO QHS Tremors 07/15/21 [History Last Taken 05/20/22 21:36] carvedilol 12.5 mg tablet 12.5 mg PO BID bp 09/05/21 [History Last Taken 05/21/22 09:04] aspirin 81 mg tablet,delayed release 81 mg PO BID Heart 02/20/22 [History Last Taken 05/21/22 09:04] cholecalciferol (vitamin D3) 125 mcg (5,000 unit) tablet (Vitamin D3) 125 mcg PO DAILY Supplement 02/20/22 [History Last Taken 05/21/22 09:04] ondansetron HCl 4 mg tablet 4 mg PO Q8H PRN Nausea/Vomiting 02/20/22 [History Last Taken Unknown] pantoprazole 20 mg tablet,delayed release 40 mg PO DAILY GERD 02/20/22 [History Last Taken 05/21/22 09:04] sennosides 8.6 mg tablet (senna) 8.6 mg PO BID PRN Constipation 02/20/22 [History Last Taken Unknown] acetaminophen 500 mg tablet 1,000 mg PO Q6H PRN PRN Pain Score 1-5 #0 tabs 03/20/22 [Rx Last Taken Unknown] oxycodone 5 mg tablet 5 mg PO Q4H PRN PRN Pain Score 6-10 #0 tabs 03/20/22 [Rx Last Taken Unknown] lisinopril 40 mg tablet 1 tab PO DAILY BP 05/20/22 [History Last Taken 05/21/22 09:04] cefdinir 300 mg capsule 300 mg PO BID Antibiotic 05/21/22 [History Last Taken Unknown] diazepam 5 mg tablet (Valium) 5 mg PO BID PRN Anxiety 2 days #4 tabs 05/21/22 [Rx Last Taken Unknown] potassium chloride 10 mEq tablet,extended release(part/cryst) 20 meq PO TIDCM Supplement 05/21/22 [History Last Taken 05/21/22 12:16] Allergy/AdvReac Type Severity Reaction Status Date / Time azithromycin Allergy Upset Verified 05/20/22 02:31 Stomach Family History Mother Dementia Father Colon cancer age 70, unclear specific onset date. Surgical History History of cholecystectomy History of open reduction and internal fixation (ORIF) procedure History of tonsillectomy History of total right knee replacement (~2010) Social History household members: spouse Smoking Status: Former smoker how long ago did patient quit smoking: Quit 15 years ago, 1/2 ppd starting in high school. alcohol intake: never substance use type: does not use caffeine: No ROS Constitutional Constitutional: Denies chills, fever(s) or weight gain ENT HEENT: Denies headache(s), nasal congestion or nasal discharge Cardiovascular Cardiovascular: Denies chest pain or palpitations Respiratory/Chest Respiratory/Chest: Denies cough, excessive phlegm production or shortness of breath with exertion Gastrointestinal Gastrointestinal: Denies abdominal pain, nausea or vomiting Genitourinary Genitourinary: Denies dysuria Musculoskeletal Musculoskeletal: Denies joint pain or joint swelling Integumentary Integumentary: Denies rash or wounds Neurologic Neurologic: Denies focal weakness, numbness or tingling Psychiatric Psychiatric: Denies anxiety, auditory hallucinations, depression, homicidal ideation or suicidal ideation Vital Signs Vital Signs Vital Signs: 05/21/22 15:50 05/21/22 15:50 05/21/22 16:00 Temperature 97.7 F L Temperature Source Temporal Pulse Rate 70 70 Pulse Rhythm Regular Pulse Strength Normal (2+) Respiratory Rate 22 H Respiratory Effort Normal Non-Labored Respiratory Depth Normal Respiratory Pattern Normal Blood Pressure 177/75 H 170/61 H Blood Pressure Mean 109 97 Blood Pressure Source Monitor Blood Pressure Position Semi-Fowlers Blood Pressure Location Left Arm Pulse Ox 96 Oxygen Delivery Method Room Air Room Air 05/21/22 18:05 Temperature Temperature Source Pulse Rate Pulse Rhythm Pulse Strength Respiratory Rate Respiratory Effort Respiratory Depth Respiratory Pattern Blood Pressure 167/75 H Blood Pressure Mean 105 Blood Pressure Source Monitor Blood Pressure Position Sitting Blood Pressure Location Right Arm Pulse Ox Oxygen Delivery Method Weight Weight: 85.899 kg Body Mass Index (BMI) 35.7 Physical Exam Const alert General Appearance: cooperative HEENT normocephalic Eyes PERRL and EOMs intact bilaterally Neck supple, no JVD and no carotid bruits Resp normal respiratory effort, normal air movement and clear to auscultation bilaterally Cardio regular rate and regular rhythm GI normal to inspection, nondistended, normoactive bowel sounds, non-tender and non-distended Extremity normal capillary refill General Extremity: Negative for edema Skin no rashes or lesions noted General Skin Exam: no breakdown Psych affect normal Appearance: appropriate Results Lab / Micro Data Micro: Microbiology 05/21/22 16:14 Nasal Secretion SARS-CoV-2 Antigen (Rapid) - Final Assessment & Plan Assessment/Plan (1) Debility: (2) Fall: (3) Acute encephalopathy: (4) Thyroid nodule: (5) Urinary tract infection: (6) Hyperlipidemia: (7) Depression: (8) Muscle spasm: (9) Anxiety: (10) Hypertension: (11) Insomnia: (12) Essential tremor: (13) Gastroesophageal reflux disease: (14) Hypokalemia: PLAN: Plan 77 year old female with below past medical history hospitalized for acute encephalopathy secondary to urinary tract infection, polypharmacy, stroke ruled out, pulmonary embolism ruled out, complicated by thyroid nodule, admitted to TCU with debility, here for rehabilitation, strengthening, prior to discharge home with . * Debility - PT/OT. * Cognition - ST. * Pain - Tylenol 1000mg q6h prn pain (1-10). * Bowel - Loperamide 2mg daily, Sennokot 1 tablet bid prn. * Adult immunization - Administer pneumonia vaccine, covid19 vaccine, flu vaccine. * DVT prophylaxis - Aspirin 81mg bid. * Headache - Fioricet 1 tablet q4h prn. * Hypertension - Coreg 12.5mg bid, Lisinopril 40mg daily, HCTZ 12.5mg daily. * Urinary tract infection - Cefdinir 300mg bid thru 05/26/2022. * Depression - Lexapro 20mg daily, stable chronic fpc use, GDR not recommended. * GERD - Pantoprazole 40mg daily. * Hypokalemia - KCL ER 20meq tidcm. * Hyperlipidemia - Pravastatin 40mg qhs. * Tremor - Primidone 250mg qhs. * Vitamin D deficiency - D3 125mcg daily. * Thyroid nodule - Schedule appt with Dr. Segal for thyroid nodule biopsy.
[2022-05-21] MEDS: Lisinopril 40 MG Tablet PO (20:29)
[2022-05-21] MEDS: Pravastatin 40 MG Tablet PO (22:13)
[2022-05-21] MEDS: Primidone 50 MG Tablet PO (22:13)
[2022-05-21] MEDS: Primidone 250 MG Tablet PO (22:13)
[2022-05-21] MEDS: traZODone 100 MG Tablet PO (22:13)
[2022-05-21] MEDS: Acetaminophen/Butalbital/Caffe 1 Tablet PO (22:19)
[2022-05-21 22:38] VITALS: BP 178/75; PULSE 61
[2022-05-22] VITALS (7 sets, daily range): BP systolic 150–173; BP diastolic 60–83; PULSE 63–88; RESP 16; TEMP 36.7; O2SAT 95–96
--- NOTE | 2022-05-22 01:47 | NURSING ---
Dr. Gan paged earlier this shift per patient request. Patient requesting Trazodone 300 mg QHS and Valium 5 mg bid PRN as patient has always had these orders. Per Dr. Gan, patient okay dc'ing some of these medications. New order for Trazodone 100 mg QHS and change Primidone 250mg to 300mg QHS.
[2022-05-22] MEDS: Cefdinir 300 MG Capsule PO ×2 (05:12→18:05)
[2022-05-22] MEDS: hydroCHLOROthiazide 12.5mg 12.5 MG PO (05:12)
[2022-05-22] MEDS: Escitalopram Oxalate 20 MG Tablet PO (05:12)
[2022-05-22] MEDS: Lisinopril 40 MG Tablet PO (05:12)
[2022-05-22] MEDS: Loperamide 2 MG Capsule PO (05:12)
[2022-05-22] MEDS: Pantoprazole Sodium 40 MG Tablet PO (05:12)
[2022-05-22] MEDS: Carvedilol 12.5 MG Tablet PO ×2 (05:14→18:04)
--- NOTE | 2022-05-22 05:24 | NURSING ---
Patient has not slept much this shift. Patient would like to speak to Dr. Gan. Note left for Dr. Gan.
[2022-05-22 05:36] LABS: Absolute Lymphocyte Count 1.91 X10^3/uL (0.83-4.51); Absolute Neutrophil Count 4.6 X10^3/uL (2.0-7.7); Basophil# 0.06 X10^3/uL; Basophil% 0.8 % (0-1); Eosinophil# 0.11 X10^3/uL; Eosinophils% 1.4 % (0-5); Hematocrit 38.3 % (37-47); Hemoglobin 12.5 g/dL (12.0-15.0); Lymphocyte # 1.91 X10^3/ul (0.83-4.51); Lymphocyte % 25.2 % (19-41); Mean Corp Hgb Conc 32.6 g/dL (32-36); Mean Corpuscular Hgb 29.9 pg (27.0-32.0); Mean Corpuscular Volume 91.6 fL (81-99); Mean Platelet Vol. 10.6 fl (6.2-12.0); Monocyte# 0.82 X10^3/uL; Monocyte% 10.8 % (0-10); NRBC Flagged by Analyzer 0 % (0-5); Neutrophil # 4.63 X10^3/uL (2.7-7.7); Platelet Count 169 K/mm3 (150-450); RBC Distribution Width CV 13.6 % (11.6-14.6); RBC Distribution Width SD 46.1 fl (35.1-43.9); Red Blood Count 4.18 M/mm3 (4.2-5.4); White Blood Count 7.6 K/mm3 (4.4-11.0)
[2022-05-22 06:10] LABS: Anion Gap 5 (5-15); BUN 3 mg/dL (7-18); Calcium,Total 9.2 mg/dL (8.5-10.1); Chloride 107 mmol/L (98-107); Creatinine, Serum 0.43 mg/dL (0.55-1.02); EST Glomerular Filtration Rate 154 mL/min (>60); Est Glom Filt Rate - Afr Amer 186 mL/min (>60); Estimated Creatinine Clearance 36.68 ml/min; Glucose 106 mg/dL (74-106); Potassium 3.5 mmol/L (3.5-5.1); Sodium Level 139 mmol/L (136-145)
[2022-05-22] MEDS: Potassium Chloride Oral Tablet 20 MEQ PO ×3 (08:56→18:04)
[2022-05-22] MEDS: Cholecalciferol (Vit D3) 125 MCG CAPSULE (5,000 UNITS) PO (08:57)
[2022-05-22] MEDS: hydrALAZINE 25 MG Tablet PO ×3 (08:57→21:42)
[2022-05-22] MEDS: Aspirin E.C. 81 MG Tablet PO ×2 (08:57→18:04)
[2022-05-22] MEDS: Tuberculin,Purif.prot.deriv. 50 TU/ML Vial 0.1 ML ID (09:20)
--- NOTE | 2022-05-22 09:48 | NURSING ---
diet changed to Regular, pt not gluten free. alert & oriented.
--- NOTE | 2022-05-22 12:13 | NURSING ---
Called [facility] for Dr. Hamilton. Dr in TCU would prefer to not send pt to appt friday due to confusion and condition. Asked for boot to be d/c and possible orders due to pt family insisting she goes to appt. Also waiting to change appt for less than 3 weeks out.
--- NOTE | 2022-05-22 15:38 | CASEMGMT ---
Social Work Met with patient to complete initial assessment. Pt is known to this worker from previous stay. Verified contacts. Discussed code status. Pt confirms DNR-CCA with intubation. New MOLST form completed. Communicated to , placed in chart. Explained Medicare benefit. The goal is for pt to return home with . Pt is still confused and difficult to be redirected to present. SW to continue to follow for DC planning. Roslyn Walden, ROAD [employer]PECT[employer]
[2022-05-22] MEDS: Primidone 50 MG Tablet PO (21:41)
[2022-05-22] MEDS: Pravastatin 40 MG Tablet PO (21:41)
[2022-05-22] MEDS: Primidone 250 MG Tablet PO (21:41)
[2022-05-22] MEDS: traZODone 100 MG Tablet 200 MG PO (21:42)
[2022-05-23 06:40] VITALS: BP 151/66; PULSE 74
[2022-05-23] MEDS: Lisinopril 40 MG Tablet PO (06:40)
[2022-05-23] MEDS: hydroCHLOROthiazide 12.5mg 12.5 MG PO (06:40)
[2022-05-23] MEDS: hydrALAZINE 25 MG Tablet PO ×3 (06:40→21:46)
[2022-05-23] MEDS: Cefdinir 300 MG Capsule PO ×2 (06:40→18:03)
[2022-05-23] MEDS: Escitalopram Oxalate 20 MG Tablet PO (06:40)
[2022-05-23] MEDS: Pantoprazole Sodium 40 MG Tablet PO (06:40)
[2022-05-23] MEDS: Carvedilol 12.5 MG Tablet PO ×2 (06:41→18:02)
[2022-05-23] MEDS: Potassium Chloride Oral Tablet 20 MEQ PO ×3 (09:06→18:02)
[2022-05-23] MEDS: Aspirin E.C. 81 MG Tablet PO ×2 (09:06→18:03)
[2022-05-23] MEDS: Cholecalciferol (Vit D3) 125 MCG CAPSULE (5,000 UNITS) PO (09:07)
--- NOTE | 2022-05-23 09:47 | PHA.CONS_ITS ---
TCU RX Drug Regimen Review Subjective: [77yof admitted to [facility] 05/20-05/21 for acute encephalopathy, attributed to UTI and polypharmacy. Several recent medication adjustments including d/c of diazepam, baclofen, oxycodone, meclizine and decrease in trazodone dose. Also found to have thyroid nodule awaiting further work-up.] Objective: Allergies azithromycin Allergy (Verified 05/20/22 02:31) Upset Stomach Current Medications Generic Name Dose Route Start Last Admin Trade Name Freq PRN Reason Stop Dose Admin Acetaminophen 1,000 mg 05/21/22 16:04 05/21/22 16:24 Acetaminophen 500 Mg Tablet PO 1,000 mg Q6H PRN PRN Administration Pain Score 1-10 Acetaminophen/Butalbital/Caffeine 1 tablet 05/21/22 19:32 05/21/22 22:19 Acetaminophen/Butalbital/Caffe 1 Tablet PO 1 tablet Q4H PRN PRN Administration headache Aspirin 81 mg 05/21/22 17:00 05/23/22 09:06 Aspirin E.C. 81 Mg Tablet PO 81 mg BIDCM DILCIA Administration Carvedilol 12.5 mg 05/21/22 18:00 05/23/22 06:41 Carvedilol 12.5 Mg Tablet PO 12.5 mg BID DILCIA Administration Cefdinir 300 mg 05/22/22 06:00 05/23/22 06:40 Cefdinir 300 Mg Capsule PO 05/26/22 18:01 300 mg BID DILCIA Administration Cholecalciferol 125 mcg 05/22/22 08:00 05/23/22 09:07 Cholecalciferol (Vit D3) 125 Mcg Capsule (5,000 Units) PO 125 mcg DAILYCM DILCIA Administration Escitalopram Oxalate 20 mg 05/22/22 06:00 05/23/22 06:40 Escitalopram Oxalate 20 Mg Tablet PO 20 mg DAILY DILCIA Administration Hydralazine HCl 25 mg 05/22/22 08:00 05/23/22 06:40 Hydralazine 25 Mg Tablet PO 25 mg TID DILCIA Administration Hydrochlorothiazide 12.5 mg 05/22/22 06:00 05/23/22 06:40 Hydrochlorothiazide 12.5mg PO 12.5 mg DAILY DILCIA Administration Lisinopril 40 mg 05/22/22 06:00 05/23/22 06:40 Lisinopril 40 Mg Tablet PO 40 mg DAILY DILCIA Administration Loperamide HCl 2 mg 05/22/22 06:00 05/23/22 06:40 Loperamide 2 Mg Capsule PO Not Given DAILY DILCIA Pantoprazole Sodium 40 mg 05/22/22 06:00 05/23/22 06:40 Pantoprazole Sodium 40 Mg Tablet PO 40 mg DAILY DILCIA Administration Potassium Chloride 20 meq 05/21/22 17:45 05/23/22 09:06 Potassium Chloride Oral Tablet 20 Meq PO 20 meq TIDCM DILCIA Administration Pravastatin Sodium 40 mg 05/21/22 22:00 05/22/22 21:41 Pravastatin 40 Mg Tablet PO 40 mg QHS DILCIA Administration Primidone 250 mg 05/21/22 22:00 05/22/22 21:41 Primidone 250 Mg Tablet PO 250 mg QHS DILCIA Administration Primidone 50 mg 05/21/22 22:00 05/22/22 21:41 Primidone 50 Mg Tablet PO 50 mg QHS DILCIA Administration Senna 1 tablet 05/21/22 16:04 Senna Tablet PO BID PRN Constipation Trazodone HCl 200 mg 05/22/22 22:00 05/22/22 21:42 Trazodone 100 Mg Tablet PO 200 mg QHS DILCIA Administration Tuberculin PPD 0.1 ml 05/29/22 10:00 Tuberculin,Purif.Prot.Deriv. 50 Tu/Ml Vial ID 05/29/22 10:01 X1 ONE Problem List (Last Reviewed 05/21/22 @ 19:[address] Ld Gan MD) Hypokalemia (Acute) Gastroesophageal reflux disease (Acute) Essential tremor (Acute) Insomnia (Acute) Hypertension (Chronic) Anxiety (Acute) Muscle spasm (Acute) Depression (Acute) Hyperlipidemia (Acute) Urinary tract infection (Acute) Thyroid nodule (Acute) Debility (Acute) Acute encephalopathy (Acute) Fall (Acute) Vital Signs Temp Pulse Resp BP Pulse Ox O2 Del Method 98.1 F 74 16 151/66 H 96 Room Air 05/22/22 16:00 05/23/22 06:40 05/22/22 20:18 05/23/22 06:40 05/22/22 20:18 05/22/22 20:18 Oxygen Delivery Method Room Air Weight: 85.899 kg Body Mass Index (BMI) 35.7 Sodium 139 mmol/L (136-145) 05/22/22 05:09 Potassium 3.5 mmol/L (3.5-5.1) 05/22/22 05:09 Chloride 107 mmol/L (98-107) 05/22/22 05:09 Carbon Dioxide 27.0 mmol/L (21.0-32.0) 05/22/22 05:09 Anion Gap 5 (5-15) 05/22/22 05:09 BUN 3 mg/dL (7-18) L 05/22/22 05:09 Creatinine 0.43 mg/dL (0.55-1.02) L 05/22/22 05:09 Est GFR (MDRD) Af Amer 186 mL/min (>60) 05/22/22 05:09 Est GFR (MDRD) Non-Af 154 mL/min (>60) 05/22/22 05:09 BUN/Creatinine Ratio 7.0 RATIO (10-20) L 05/22/22 05:09 Glucose 106 mg/dL (74-106) 05/22/22 05:09 Assessment/Plan: 1. Headache/pain: currently on acetaminophen 1gm po q6h prn pain score 1-10 and acetaminophen/butalbital/caffeine 1 tab po q4h prn headache. Received 1 dose of each for POST on 05/21/22 (pain scores ~6 pre-med administration). AST/AST 21/16 on 05/20/22. Note that oxycodone was recently stopped d/t encephalopathy. Continue to monitor pain scores, headache, patient function, mental status, prn usage of medications. Note that patient has 2 orders containing prn acetaminophen - ensure no more than total of 4gm/day given of acetaminophen. 2. UTI: was on ceftriaxone then transitioned to cefdinir 300mg po bid until 05/26/22 (7 total days of therapy). Urine culture did not have growth. Scr 0.43 on 05/22/22. Resident afebrile. WBC 7.6 on 05/22/22. Continue to monitor for urinary symptoms, mental status, WBC, temperatures, renal function. 3. Hypertension: currently on carvedilol 12.5mg po bid, HCTZ 12.5mg po daily, lisinopril 40mg po daily plus hydralazine 25mg po TID just added on 05/22/22. BP has been elevated - 151/66-173/60, HR 61-88. Scr 0.43 on 05/22/22, K 3.5 on 05/22/22, Na 139 on 05/22/22. Continue medication adjustment based on blood pressures - carvedilol and hydralazine can be increased if needed. Continue to monitor BP, HR, Scr, electrolytes. 4. Hypokalemia (on HCTZ for BP): on potassium chloride 20 mEq po TID. K was 3.2 on 05/21 but 3.5 on 05/22. Continue to monitor K, Scr and for GI upset. 5. Hyperlipidemia/CV risk reduction: pt is on ASA 81mg po daily and pravastatin 40mg po qhs. Hgb 12.5 on 05/22, AST/ALT 21/16 on 05/20/22, LDL 96, HDL 84 on 05/21/22. Monitor for symptoms of GI bleeding, muscle pain, AST/ALT if clinically indicated. 6. Essential tremor: on primidone 300mg po qhs, dose increased from 200mg on 05/21. Nursing notes indicate that pt was having difficulty sleeping (and trazodone also recently decreased d/t encephalopathy). Monitor for control of tremor and sleep pattern, mental status (drowsiness, sedation), ataxia. 7. GERD: on pantoprazole 40mg po daily. Monitor for symptom control of reflux, diarrhea. 9. Bowels: on loperamide 2mg po daily scheduled for noted history of chronic diarrhea. Also on senna po bid prn constipation if needed (no doses given since admission). Per nursing notes, pt having loose stools on 05/22, pt refused dose of loperamide on 05/23. Monitor for bowel pattern. Consider stopping Senna prn given history of chronic diarrhea and loose stools noted by nursing. 10. Vitamin D deficiency: on cholecalciferol 5000 units po daily. Serum 25- hydroxy Vit D level 57.9 on 11/06/21. Assessment/Plan for indications treated with psychotropic medications: 11. History of depression/anxiety: pt currently on escitalopram 20mg po daily and trazodone 200mg po qhs. Note that diazepam prn stopped and dose of trazodone decreased from 300mg po qhs. Per attending, GDR for escitalopram not indicated at this time due to chronic, stable use. Continue to monitor mood, sleep pattern, sedation or agitation/anxiety, symptoms of orthostasis or serotonin syndrome, electrolytes periodically. Medical chart and medication regimen reviewed. The following medication irregularities or issues were identified: - Note that patient has 2 orders containing prn acetaminophen - ensure no more than total of 4gm/day given of acetaminophen - Noted that BP is elevated and patient undergoing medication adjustment - carvedilol and hydralazine can be increased if needed - Consider stopping Senna prn given history of chronic diarrhea and loose stools noted by nursing Date of Note:: 05/23/22
[2022-05-23 11:30] VITALS: PULSE 74; RESP 18; O2SAT 96
--- NOTE | 2022-05-23 12:27 | CASEMGMT ---
Social Work SW received referral from Speech Therapist that pt has concerns about her code status. SW met with pt and introduced self (pt knows this SW from previous visit). SW explained code status options and living will at length and answered all pts questions. Pt stating at this time she would like to remain DNRCCA with intubation but will also talk it over with her . SW informed pt she can change her mind at any time. Pt expressing appreciation of conversation. SW will remain avialable for further discussions. SANAZ Moody
--- NOTE | 2022-05-23 13:09 | NS ---
Notified by nursing that res is refusing gluten free restricted diet. Talked to res and she reports that she has been watching fiber intake at home and not gluten free diet. States that has been helpful. Suggested that GRADUAL inclusion of fiber in diet may be helpful in forming more solid stool. Res states that she will continue to be careful with overall fiber content in diet, but does not want gluten free as spouse had wanted and encouraged res to have while on TCU. Will change diet to reflect this decision. If res spouse tries to get diet changed again, res does not want it changed back to gluten free.
[2022-05-23 13:37] VITALS: BP 155/63; PULSE 93
[2022-05-23] MEDS: Acetaminophen 500 MG Tablet 1000 MG PO (14:27)
[2022-05-23 14:30] VITALS: BP 155/63; PULSE 93; RESP 18; TEMP 36.9; O2SAT 94
[2022-05-23] MEDS: Primidone 250 MG Tablet PO (21:44)
[2022-05-23] MEDS: NYSTATIN 500,000 UNIT/5 ML UDC 500000 UNIT PO (21:44)
[2022-05-23] MEDS: traZODone 100 MG Tablet 200 MG PO (21:45)
[2022-05-23] MEDS: Primidone 50 MG Tablet PO (21:45)
[2022-05-23 21:46] VITALS: BP 151/76; PULSE 72
[2022-05-23] MEDS: Pravastatin 40 MG Tablet PO (21:46)
[2022-05-24] MEDS: Acetaminophen 500 MG Tablet 1000 MG PO ×3 (06:43→22:39)
[2022-05-24 06:44] VITALS: BP 179/79; PULSE 77
[2022-05-24] MEDS: hydrALAZINE 25 MG Tablet PO ×3 (06:44→22:39)
[2022-05-24] MEDS: Carvedilol 12.5 MG Tablet PO ×2 (06:44→17:14)
[2022-05-24] MEDS: hydroCHLOROthiazide 12.5mg 12.5 MG PO (06:44)
[2022-05-24] MEDS: Cefdinir 300 MG Capsule PO ×2 (06:45→17:14)
[2022-05-24] MEDS: Lisinopril 40 MG Tablet PO (06:45)
[2022-05-24] MEDS: Pantoprazole Sodium 40 MG Tablet PO (06:45)
[2022-05-24] MEDS: Escitalopram Oxalate 20 MG Tablet PO (06:46)
[2022-05-24] MEDS: NYSTATIN 500,000 UNIT/5 ML UDC 500000 UNIT PO ×4 (06:46→22:41)
[2022-05-24] MEDS: Potassium Chloride Oral Tablet 20 MEQ PO ×3 (08:46→17:13)
[2022-05-24] MEDS: Aspirin E.C. 81 MG Tablet PO ×2 (08:46→16:17)
[2022-05-24] MEDS: Cholecalciferol (Vit D3) 125 MCG CAPSULE (5,000 UNITS) PO (08:47)
[2022-05-24 14:26] VITALS: BP 131/56; PULSE 84
[2022-05-24 14:30] VITALS: BP 131/56; PULSE 84; RESP 18; TEMP 37.2; O2SAT 95
--- NOTE | 2022-05-24 16:14 | NURSING ---
PT AND FAMILY UPDATED ON POSITIVE STAFF MEMBER WITH COVID.
[2022-05-24 22:00] VITALS: PULSE 76; O2SAT 96
[2022-05-24 22:39] VITALS: BP 149/74; PULSE 76
[2022-05-24] MEDS: traZODone 100 MG Tablet 200 MG PO (22:40)
[2022-05-24] MEDS: Pravastatin 40 MG Tablet PO (22:41)
[2022-05-24] MEDS: Primidone 50 MG Tablet PO (22:41)
[2022-05-24] MEDS: Primidone 250 MG Tablet PO (22:41)
[2022-05-25 05:29] VITALS: BP 134/59; PULSE 80
[2022-05-25] MEDS: hydrALAZINE 25 MG Tablet PO ×3 (05:29→22:38)
[2022-05-25] MEDS: Pantoprazole Sodium 40 MG Tablet PO (05:30)
[2022-05-25] MEDS: Lisinopril 40 MG Tablet PO (05:30)
[2022-05-25] MEDS: Loperamide 2 MG Capsule PO (05:30)
[2022-05-25] MEDS: Escitalopram Oxalate 20 MG Tablet PO (05:30)
[2022-05-25] MEDS: hydroCHLOROthiazide 12.5mg 12.5 MG PO (05:30)
[2022-05-25] MEDS: Cefdinir 300 MG Capsule PO ×2 (05:30→17:15)
[2022-05-25] MEDS: NYSTATIN 500,000 UNIT/5 ML UDC 500000 UNIT PO ×4 (05:30→22:37)
[2022-05-25] MEDS: Cholecalciferol (Vit D3) 125 MCG CAPSULE (5,000 UNITS) PO (08:06)
[2022-05-25] MEDS: Aspirin E.C. 81 MG Tablet PO ×2 (08:06→17:16)
[2022-05-25] MEDS: Potassium Chloride Oral Tablet 20 MEQ PO ×3 (08:06→17:16)
[2022-05-25] MEDS: Carvedilol 12.5 MG Tablet PO ×2 (08:06→17:16)
[2022-05-25 14:09] VITALS: PULSE 83
[2022-05-25 14:42] VITALS: BP 124/69; PULSE 83; RESP 14; TEMP 36.6; O2SAT 95
[2022-05-25] MEDS: Acetaminophen 500 MG Tablet 1000 MG PO (17:44)
[2022-05-25 22:38] VITALS: BP 119/62; PULSE 74
[2022-05-25] MEDS: traZODone 100 MG Tablet 200 MG PO (22:39)
[2022-05-25] MEDS: Primidone 250 MG Tablet PO (22:39)
[2022-05-25] MEDS: Primidone 50 MG Tablet PO (22:39)
[2022-05-25] MEDS: Pravastatin 40 MG Tablet PO (22:40)
[2022-05-26] MEDS: Lisinopril 40 MG Tablet PO (06:14)
[2022-05-26] MEDS: Cefdinir 300 MG Capsule PO ×2 (06:14→17:05)
[2022-05-26] MEDS: Escitalopram Oxalate 20 MG Tablet PO (06:14)
[2022-05-26] MEDS: Pantoprazole Sodium 40 MG Tablet PO (06:14)
[2022-05-26] MEDS: hydroCHLOROthiazide 12.5mg 12.5 MG PO (06:14)
[2022-05-26 06:15] VITALS: BP 115/61; PULSE 83
[2022-05-26] MEDS: hydrALAZINE 25 MG Tablet PO ×3 (06:15→22:49)
[2022-05-26] MEDS: Loperamide 2 MG Capsule PO (06:15)
[2022-05-26] MEDS: NYSTATIN 500,000 UNIT/5 ML UDC 500000 UNIT PO ×4 (06:16→22:50)
[2022-05-26 06:21] VITALS: TEMP 36.7
[2022-05-26] MEDS: Potassium Chloride Oral Tablet 20 MEQ PO ×3 (08:07→17:04)
[2022-05-26] MEDS: Cholecalciferol (Vit D3) 125 MCG CAPSULE (5,000 UNITS) PO (08:08)
[2022-05-26] MEDS: Aspirin E.C. 81 MG Tablet PO ×2 (08:08→17:04)
[2022-05-26] MEDS: Carvedilol 12.5 MG Tablet PO ×2 (08:08→17:04)
[2022-05-26 13:56] VITALS: BP 119/54; PULSE 72; RESP 16; TEMP 36.4; O2SAT 95
[2022-05-26 13:58] VITALS: PULSE 72
[2022-05-26] MEDS: Acetaminophen 500 MG Tablet 1000 MG PO ×2 (15:20→22:48)
[2022-05-26] MEDS: Primidone 50 MG Tablet PO (22:48)
[2022-05-26] MEDS: Pravastatin 40 MG Tablet PO (22:48)
[2022-05-26 22:49] VITALS: BP 135/63; PULSE 81
[2022-05-26] MEDS: Primidone 250 MG Tablet PO (22:49)
[2022-05-26] MEDS: traZODone 100 MG Tablet 200 MG PO (22:49)
[2022-05-27] VITALS (8 sets, daily range): BP systolic 115–149; BP diastolic 46–67; PULSE 64–88; RESP 14–18; TEMP 36.7; O2SAT 95
--- NOTE | 2022-05-27 01:34 | NURSING ---
Left vm for social media coordinator, Roslyn, with pt's request to be dc'ed today. Street to be paved starting today and will not be able to leave her home for approximately 5 days. Declining therapy for today as she reports being told she is unable to participate in therapy and be discharged from the unit the same day as insurance will not cover therapy.
[2022-05-27] MEDS: Pantoprazole Sodium 40 MG Tablet PO (06:48)
[2022-05-27] MEDS: hydrALAZINE 25 MG Tablet PO ×3 (06:48→22:05)
[2022-05-27] MEDS: Lisinopril 40 MG Tablet PO (06:49)
[2022-05-27] MEDS: Escitalopram Oxalate 20 MG Tablet PO (06:49)
[2022-05-27] MEDS: Loperamide 2 MG Capsule PO (06:49)
[2022-05-27] MEDS: hydroCHLOROthiazide 12.5mg 12.5 MG PO (06:49)
[2022-05-27] MEDS: NYSTATIN 500,000 UNIT/5 ML UDC 500000 UNIT PO ×4 (06:50→22:03)
--- NOTE | 2022-05-27 08:18 | CASEMGMT ---
Social Work This social security assessor received voicemail from nursing staff, Phyllis with patient request to discharge today. This social security assessor collaborating with Dr. Gan. Dr. Gan is not recommending for patient to discharge and for patient to continue with care/treatment on the Transitional Care Unit. This socia worker to patient room. This social security assessor introduced self and social security assessor role. Patient remembering this social security assessor from prior interactions. This social security assessor broached topic of patient request to discharge to home today. Patient states to have pavement improvement work on patient street for the next 5 days and to have to park a distance from the home. Patient states my won't be able to get me in the house. Patient wanting to leave today as today is prep day and patient believes that patient will still be able to park close to patient home in order for patient to get into the home. This social security assessor collaborating with patient on pros and cons of patient discharging today and also communicating to patient that Dr. Gan is recommending for patient to continue with care and not recommending for patient to discharge to home. Patient voiced understanding that if patient would leave today that patient would be leaving Against Medical Advice. This social security assessor exploring concern of patient discharging to a home that patient is not able to get out of for 5 days. Patient voiced understanding to this social workers concern. Patient is agreeable to continued stay and care on the Transitional Care Unit. Patient to have Plan of Care Meeting this week and plan is to discuss discharge date/plan further at the plan of care meeting, patient is agreeable to this plan. Active support and listening provided. Social Work to continue to follow. Chelsey ERVIN, CUATE
[2022-05-27] MEDS: Potassium Chloride Oral Tablet 20 MEQ PO ×3 (08:25→17:32)
[2022-05-27] MEDS: Carvedilol 12.5 MG Tablet PO ×2 (08:26→17:31)
[2022-05-27] MEDS: Aspirin E.C. 81 MG Tablet PO ×2 (08:26→17:31)
[2022-05-27] MEDS: Cholecalciferol (Vit D3) 125 MCG CAPSULE (5,000 UNITS) PO (08:27)
--- NOTE | 2022-05-27 08:33 | CASEMGMT ---
Social Work Brief interview for mental status (BIMS) and resident mood assessment (PHQ-9) completed on this day. Chelsey ERVIN, ECHOS
--- NOTE | 2022-05-27 10:05 | NURSING ---
PT IS TO SEE DR. GEE 06/03/22 FOR HER THYROID NODULE. PT AWARE.
--- NOTE | 2022-05-27 13:35 | NURSING ---
PT STATED TO THIS NURSE THAT SHE FELT PRESSURE IN BLADDER AND DIDNT FEEL LIKE SHE WAS EMPTYING OUT. PRN BLADDER SCAN ORDERED. PT HAD 293 AFTER VOIDING. RN AWARE
[2022-05-27] MEDS: Acetaminophen 500 MG Tablet 1000 MG PO (15:52)
[2022-05-27] MEDS: traZODone 100 MG Tablet 200 MG PO (22:03)
[2022-05-27] MEDS: Primidone 250 MG Tablet PO (22:04)
[2022-05-27] MEDS: Pravastatin 40 MG Tablet PO (22:05)
[2022-05-27] MEDS: Primidone 50 MG Tablet PO (22:05)
[2022-05-28] MEDS: Lisinopril 40 MG Tablet PO (06:14)
[2022-05-28] MEDS: Escitalopram Oxalate 20 MG Tablet PO (06:14)
[2022-05-28] MEDS: hydroCHLOROthiazide 12.5mg 12.5 MG PO (06:14)
[2022-05-28] MEDS: NYSTATIN 500,000 UNIT/5 ML UDC 500000 UNIT PO ×4 (06:14→22:45)
[2022-05-28] MEDS: Loperamide 2 MG Capsule PO (06:14)
[2022-05-28] MEDS: Pantoprazole Sodium 40 MG Tablet PO (06:14)
[2022-05-28 06:16] VITALS: BP 133/59; PULSE 80
[2022-05-28] MEDS: hydrALAZINE 25 MG Tablet PO ×3 (06:16→22:46)
[2022-05-28] MEDS: Carvedilol 12.5 MG Tablet PO ×2 (08:05→17:16)
[2022-05-28] MEDS: Potassium Chloride Oral Tablet 20 MEQ PO ×3 (08:05→17:16)
[2022-05-28] MEDS: Cholecalciferol (Vit D3) 125 MCG CAPSULE (5,000 UNITS) PO (08:06)
[2022-05-28] MEDS: Aspirin E.C. 81 MG Tablet PO ×2 (08:06→17:16)
[2022-05-28] MEDS: Acetaminophen 500 MG Tablet 1000 MG PO ×2 (08:10→17:19)
[2022-05-28 08:12] VITALS: BP 129/63; PULSE 88
[2022-05-28] MEDS: Nystatin Powder 15gm Bottle 1 APPLIC TOPICAL (09:35)
[2022-05-28 13:34] VITALS: BP 122/53; PULSE 78; RESP 16; TEMP 36.1; O2SAT 95
[2022-05-28 13:37] VITALS: BP 122/53; PULSE 78
[2022-05-28] MEDS: traZODone 100 MG Tablet 200 MG PO (22:45)
[2022-05-28 22:46] VITALS: BP 132/56; PULSE 75
[2022-05-28] MEDS: Primidone 50 MG Tablet PO (22:46)
[2022-05-28] MEDS: Pravastatin 40 MG Tablet PO (22:46)
[2022-05-28] MEDS: Primidone 250 MG Tablet PO (22:46)
[2022-05-28 23:00] VITALS: PULSE 75; RESP 16; O2SAT 96
[2022-05-29 05:45] LABS: Absolute Lymphocyte Count 2.19 X10^3/uL (0.83-4.51); Absolute Neutrophil Count 3.2 X10^3/uL (2.0-7.7); Basophil# 0.05 X10^3/uL; Basophil% 0.8 % (0-1); Eosinophil# 0.22 X10^3/uL; Eosinophils% 3.5 % (0-5); Hematocrit 38.1 % (37-47); Hemoglobin 12.4 g/dL (12.0-15.0); Lymphocyte # 2.19 X10^3/ul (0.83-4.51); Lymphocyte % 34.4 % (19-41); Mean Corp Hgb Conc 32.5 g/dL (32-36); Mean Corpuscular Hgb 30.5 pg (27.0-32.0); Mean Corpuscular Volume 93.8 fL (81-99); Mean Platelet Vol. 9.4 fl (6.2-12.0); Monocyte# 0.69 X10^3/uL; Monocyte% 10.8 % (0-10); NRBC Flagged by Analyzer 0 % (0-5); Neutrophil # 3.16 X10^3/uL (2.7-7.7); Neutrophil % 49.6 % (47-70); Platelet Count 254 K/mm3 (150-450); RBC Distribution Width CV 14.7 % (11.6-14.6); RBC Distribution Width SD 50.8 fl (35.1-43.9); Red Blood Count 4.06 M/mm3 (4.2-5.4); White Blood Count 6.4 K/mm3 (4.4-11.0)
[2022-05-29] MEDS: NYSTATIN 500,000 UNIT/5 ML UDC 500000 UNIT PO ×4 (06:14→23:11)
[2022-05-29 06:15] VITALS: PULSE 79
[2022-05-29] MEDS: Lisinopril 40 MG Tablet PO (06:15)
[2022-05-29] MEDS: Pantoprazole Sodium 40 MG Tablet PO (06:15)
[2022-05-29] MEDS: hydrALAZINE 25 MG Tablet PO ×2 (06:15→23:11)
[2022-05-29] MEDS: hydroCHLOROthiazide 12.5mg 12.5 MG PO (06:15)
[2022-05-29] MEDS: Loperamide 2 MG Capsule PO (06:15)
[2022-05-29] MEDS: Escitalopram Oxalate 20 MG Tablet PO (06:15)
[2022-05-29 06:18] LABS: Anion Gap 4 (5-15); BUN 12 mg/dL (7-18); BUN/Creat Ratio 21.8 RATIO (10-20); Calcium,Total 9.1 mg/dL (8.5-10.1); Chloride 106 mmol/L (98-107); Creatinine, Serum 0.55 mg/dL (0.55-1.02); EST Glomerular Filtration Rate 114 mL/min (>60); Est Glom Filt Rate - Afr Amer 138 mL/min (>60); Estimated Creatinine Clearance 36.68 ml/min; Glucose 99 mg/dL (74-106); Potassium 4.2 mmol/L (3.5-5.1); Sodium Level 139 mmol/L (136-145)
[2022-05-29 06:20] VITALS: BP 137/62; PULSE 79; RESP 18; TEMP 36.9; O2SAT 96
[2022-05-29] MEDS: Aspirin E.C. 81 MG Tablet PO ×2 (08:26→17:02)
[2022-05-29] MEDS: Potassium Chloride Oral Tablet 20 MEQ PO ×3 (08:26→17:02)
[2022-05-29] MEDS: Cholecalciferol (Vit D3) 125 MCG CAPSULE (5,000 UNITS) PO (08:26)
[2022-05-29] MEDS: Carvedilol 12.5 MG Tablet PO ×2 (08:26→17:02)
--- NOTE | 2022-05-29 09:02 | CASEMGMT ---
Social Work Plan of care meeting held. Patient present as well as patient spouse, Don. Patient making good progress in physical, occupational and speech therapy. Patient requesting to discharge to home on 05/31/2022. Team is agreeable to patient discharge request. Physical, Occupational and Speech therapy recommending for patient to continue with services through home health care. Patient is agreeable to recommendation and request for home health care to be set up through [facility] ([facility]). Patient reports to have all needed DME in the community including a walker. Patient spouse plans to provide transportation to home for patient and plans to pick patient up at 10:30am on 05/31/2022. Patient denies any further request or concerns on returning to home. This social studies teacher to continue to follow to make referrals as indicated. Proposed discharge date: 05/31/2022 PLAN: Discharge to home with spouse and home health care. Chelsey ERVIN, ECHOS
--- NOTE | 2022-05-29 09:44 | CASEMGMT ---
Social Work Telephone call to [facility], Angy. This social services director made referral for physical, occupational, and speech therapy. Order entered. Angy to get back to this social services director on if able to accept patient. This social services director to patient room, Notice of Medicare Non-Coverage Care Form signed. Patient aware of rights to an appeal. Patient choosing to discharge to home on 05/31/2022. Proposed discharge date: 05/31/2022 PLAN: Discharge to home with spouse and home health services. Chelsey ERVIN, ECHOS
[2022-05-29] MEDS: Tuberculin,Purif.prot.deriv. 50 TU/ML Vial 0.1 ML ID (11:21)
[2022-05-29] MEDS: Nystatin Powder 15gm Bottle 1 APPLIC TOPICAL (11:26)
[2022-05-29 13:37] VITALS: BP 108/54; PULSE 91; RESP 18; TEMP 36.5; O2SAT 98
[2022-05-29] MEDS: Acetaminophen 500 MG Tablet 1000 MG PO ×2 (16:51→23:10)
[2022-05-29 17:05] VITALS: BP 136/65; PULSE 78
[2022-05-29 18:28] LABS: Bacteria 0 SEEN /hpf (None Seen); Mucous, Urine 0 SEEN /hpf (<or=2+); Red Blood Cells-Urine 0 SEEN /hpf (0-5); Squamous Epithelial Cells - UA 0 SEEN /hpf (5-10); White Blood Cells 0 SEEN /hpf (0-5)
[2022-05-29 18:30] LABS: Color, Urine Straw (Yellow); Glucose, Dipstick Normal (Normal); Ketone-Dipstick Negative (Negative); Leukocyte Esterase-Dipstick Negative /ul (Negative); Nitrite-Dipstick Negative (Negative); Occult Blood-Urine 10 /ul (Negative); Protein-Dipstick Negative (Negative); Urine Bilirubin Dipstick Negative (Negative); Urine Clarity Clear (Clear); Urine Urobilinogen Normal (Normal)
[2022-05-29 23:06] VITALS: BP 126/54; PULSE 72
[2022-05-29] MEDS: Pravastatin 40 MG Tablet PO (23:10)
[2022-05-29 23:11] VITALS: PULSE 72
[2022-05-29] MEDS: traZODone 100 MG Tablet 200 MG PO (23:11)
[2022-05-29] MEDS: Primidone 50 MG Tablet PO (23:11)
[2022-05-29] MEDS: Primidone 250 MG Tablet PO (23:11)
[2022-05-30] VITALS (7 sets, daily range): BP systolic 101–128; BP diastolic 41–54; PULSE 70–92; RESP 16; TEMP 36.5; O2SAT 96
[2022-05-30] MEDS: NYSTATIN 500,000 UNIT/5 ML UDC 500000 UNIT PO ×4 (06:43→22:28)
[2022-05-30] MEDS: Loperamide 2 MG Capsule PO (06:43)
[2022-05-30] MEDS: Escitalopram Oxalate 20 MG Tablet PO (06:43)
[2022-05-30] MEDS: Pantoprazole Sodium 40 MG Tablet PO (06:43)
--- NOTE | 2022-05-30 08:10 | CASEMGMT ---
Addendum entered by Shonna Valdez 05/30/22 08:14: This dialysis social worker communicated below information to patient. Patient voiced understanding. Original Note: Social Work Telephone call from [facility], Angy. Patient PCP is Dr. Gan, meaning that Dr. Gan requires to see patient in the office prior to signing order for home health. [place] able to get PCP appointment set up for 06/04/2022 @ 1:00pm. This dialysis social worker updated Angy on appointment time and date. If Dr. Gan approved home health [facility] will be able to see patient for PT/OT/SENIOR DATA QUALITY ANALYST. Chelsey ERVIN, NEDA-S
[2022-05-30] MEDS: Aspirin E.C. 81 MG Tablet PO ×2 (08:47→17:00)
[2022-05-30] MEDS: Potassium Chloride Oral Tablet 20 MEQ PO ×3 (08:47→16:59)
[2022-05-30] MEDS: Carvedilol 12.5 MG Tablet PO ×2 (08:48→17:00)
[2022-05-30] MEDS: Lisinopril 40 MG Tablet PO (08:49)
[2022-05-30] MEDS: hydroCHLOROthiazide 12.5mg 12.5 MG PO (08:49)
[2022-05-30] MEDS: Cholecalciferol (Vit D3) 125 MCG CAPSULE (5,000 UNITS) PO (08:49)
[2022-05-30] MEDS: Nystatin Powder 15gm Bottle 1 APPLIC TOPICAL (10:16)
[2022-05-30] MEDS: Acetaminophen 500 MG Tablet 1000 MG PO ×2 (13:09→22:22)
--- NOTE | 2022-05-30 17:16 | PCM.DC ---
Discharge Instructions Diet Discharge Diet: - (Heart [id number], low-salt. Lactose free diet due to lactose intolerance.) Activity Discharge Activity: Return to Normal Activity (needs standby assistance with toileting, minimal assistance with lower body dressing, contact-guard assist for tub/shower transfer.), May Not Drive, May Shower and Use Walker Weight Bearing Status: Full weight bearing Dressing / Incision Call your doctor if you observe: Fever of 101 or Higher, Inability to urinate, Inability to have a bowel movement, Shortness of breath, Dizziness, Fainting spells, Swelling in the ankles, Chest pain, Calf discomfort and Uncontrolled pain Follow Up Care Please Follow Up With: Dr. Richard Segal Test Results: Test results from this visit will be discussed in further detail at your follow-up appointment, if applicable. Pending Tests Upon Discharge: none Discharge Plan Admission Admit Date/Time: 05/21/22 15:46 Primary Reason for Your Visit: debility due to urosepsis Attending Provider: Ld Gan Chi Primary Care Provider: Ld Gan Chi Instructions Patient Instructions: Common Thyroid Problems, Biopsy Thyroid Fine Needle Aspir, UITs Women Additional Instructions / Restrictions: 1. Constipation is a big cause of urine retention in women. If you have hard stool and have to strain to have a BM start a stool softener such as Metamucil, Citrucel, Colace or Miralax and take it daily or every other day. These medications are available at your local pharmacy and they are over the counter medications. 2. If you wear a pad to help with some leakage of urine make sure to change it as soon as you can after it gets wet. 3. The urine test that was done on 05/29/22 was negative for infection. 4. I suggest you follow up with Dr. Dan to discuss your problems with urination. You will like her.....she is not only very knowledgeable but, she is very nice. 5. Have someone help you when you are getting into the shower or the tub for the next couple weeks to make sure you don't fall....you are still a little weak. Also have someone help with lower body dressing if you can not dress yourself using a screwhead polisher and a sock aid. 6. You were really sick when you ca,me to the hospital with the urinary tract infection. Usually when you get this sick the infection (UTI) has been there for a few days. As women get older they do not always have burning with a UTI. Other symptoms include urgency to go to the bathroom, increased frequency of urination, hesitancy when trying to urinate, bladder spasms, nausea, chills,fever and flank pain. Any of these symptoms should prompt you to see Dr. Gan and have your urine checked. 7. You have a nodule in the thyroid gland in your neck. These are usually benign but, sometimes they are cancerous. You need to have a biopsy done and you are going to follow up with Dr. Segal for this. I am giving you some information to read on thyroid nodules and how the biopsy is usually done. 8. If you have any questions after leaving [facility] and before Dr. Gan gets back in town next Friday please call me Office [phone] CEll [phone] Discharge Orders/Prescriptions Prescriptions: New primidone 50 mg Tablet 50 mg PO QHS Qty: 30 0RF nystatin 100,000 unit/mL Suspension 500,000 unit PO 4X/DAY Qty: 160 0RF hydralazine 25 mg Tablet 25 mg PO TID Qty: 90 0RF tamsulosin 0.4 mg Capsule 0.4 mg PO DAILY@1730 Qty: 0 0RF trazodone 100 mg Tablet 200 mg PO QHS Qty: 0 0RF Continued pravastatin 40 mg tablet 40 mg PO QHS escitalopram oxalate [Lexapro] 20 mg tablet 20 mg PO DAILY loperamide [Imodium A-D] 2 mg tablet 2 mg PO DAILY hydrochlorothiazide 12.5 mg tablet 12.5 mg PO DAILY primidone 250 mg tablet 250 mg PO QHS carvedilol 12.5 mg Tablet 12.5 mg PO BID pantoprazole 20 mg Tablet,Delayed Release (Dr/Ec) 40 mg PO DAILY cholecalciferol (vitamin D3) [Vitamin D3] 125 mcg (5,000 unit) Tablet 125 mcg PO DAILY aspirin 81 mg Tablet,Delayed Release (Dr/Ec) 81 mg PO BID acetaminophen 500 mg Tablet 1,000 mg PO Q6H PRN PRN (Reason: Pain Score 1-5) Qty: 0 0RF lisinopril 40 mg tablet 1 tab PO DAILY Label Comments: TAKE 1 TABLET BY MOUTH EVERY DAY diazepam [Valium] 5 mg tablet 5 mg PO BID PRN (Reason: Anxiety) 2 Days Qty: 4 0RF potassium chloride 10 mEq tablet,ER particles/crystals 20 meq PO TIDCM Discontinued sennosides [senna] 8.6 mg Tablet 8.6 mg PO BID PRN (Reason: Constipation) ondansetron HCl 4 mg Tablet 4 mg PO Q8H PRN (Reason: Nausea/Vomiting) oxycodone 5 mg Tablet 5 mg PO Q4H PRN PRN (Reason: Pain Score 6-10) Qty: 0 0RF cefdinir 300 mg capsule 300 mg PO BID Referrals / Follow Up: Ld Gan Chi, MD [Primary Care Provider] - 06/05/22 1:40 pm ( ) Disposition Disposition (needs filled in before D/C Order can be placed): Home, Self Care
--- NOTE | 2022-05-30 17:51 | PCM.DC.SUM ---
Providers Date of Admission: 05/21/22 Date of Discharge: 05/31/22 Primary Care Physician: Dr. Ld Gan MD Reason For Visit: ACUTE ENCEPHALOPATHY due to urosepsis Diagnosis Discharge Diagnosis (1) Debility: Status: Acute Code(s): R53.81 - Other malaise (2) Fall: Status: Resolved Code(s): W19.XXXA - Unspecified fall, initial encounter (3) Acute encephalopathy: Status: Resolved Code(s): G93.40 - Encephalopathy, unspecified Plan: Etiology? May be due to polypharmacy? Urine Culture was negative. (4) Thyroid nodule: Status: Acute Code(s): E04.1 - Nontoxic single thyroid nodule Plan: Will follow up with Dr. Richard Seagl for bx. (5) Urinary tract infection: Status: Acute Code(s): N39.0 - Urinary tract infection, site not specified Plan: The urine culture had no growth. She received a full course of Cefdinir. (6) Hyperlipidemia: Status: Acute Code(s): E78.5 - Hyperlipidemia, unspecified (7) Depression: Status: Acute Code(s): F32.A - Depression, unspecified (8) Muscle spasm: Status: Acute Code(s): M62.838 - Other muscle spasm (9) Anxiety: Status: Acute Code(s): F41.9 - Anxiety disorder, unspecified (10) Hypertension: Status: Chronic Code(s): I10 - Essential (primary) hypertension (11) Insomnia: Status: Acute Code(s): G47.00 - Insomnia, unspecified (12) Essential tremor: Status: Acute Code(s): G25.0 - Essential tremor (13) Gastroesophageal reflux disease: Status: Acute Code(s): K21.9 - Gastro-esophageal reflux disease without esophagitis (14) Hypokalemia: Status: Acute Code(s): E87.6 - Hypokalemia (15) At risk for polypharmacy: Status: Acute Code(s): Z91.89 - Other specified personal risk factors, not elsewhere classified Plan 1. DC home on 05/31/22. 2. Follow-up with Dr. Richard Segal for thyroid biopsy 3. Follow-up with Dr. Gan for primary care 4. Follow-up with Dr. Nabila Dan for urine retention Medications at Discharge Home Medications pravastatin 40 mg tablet 40 mg PO QHS Cholestrol 02/09/19 escitalopram oxalate 20 mg tablet (Lexapro) 20 mg PO DAILY Mood 07/20/19 loperamide 2 mg tablet (Imodium A-D) 2 mg PO DAILY Diarrhea 07/28/19 hydrochlorothiazide 12.5 mg tablet 12.5 mg PO DAILY Water retention 05/11/21 primidone 250 mg tablet 250 mg PO QHS Tremors 07/15/21 carvedilol 12.5 mg tablet 12.5 mg PO BID bp 09/05/21 aspirin 81 mg tablet,delayed release 81 mg PO BID Heart 02/20/22 cholecalciferol (vitamin D3) 125 mcg (5,000 unit) tablet (Vitamin D3) 125 mcg PO DAILY Supplement 02/20/22 pantoprazole 20 mg tablet,delayed release 40 mg PO DAILY GERD 02/20/22 acetaminophen 500 mg tablet 1,000 mg PO Q6H PRN PRN Pain Score 1-5 #0 tabs 03/20/22 lisinopril 40 mg tablet 1 tab PO DAILY BP 05/20/22 diazepam 5 mg tablet (Valium) 5 mg PO BID PRN Anxiety 2 days #4 tabs 05/21/22 potassium chloride 10 mEq tablet,extended release(part/cryst) 20 meq PO TIDCM Supplement 05/21/22 hydralazine 25 mg tablet 25 mg PO TID #90 tabs 05/30/22 nystatin 100,000 unit/mL oral suspension 500,000 unit (5 mL) PO 4X/DAY #160 mL 05/30/22 primidone 50 mg tablet 50 mg PO QHS #30 tabs 05/30/22 tamsulosin 0.4 mg capsule 0.4 mg PO DAILY@1730 #0 caps 05/30/22 trazodone 100 mg tablet 200 mg PO QHS #0 tabs 05/30/22 Hospital Course Operations None Procedures None Summary of Care Provided Minutes Spent on Discharge: 40 Hospital Course: Kaila Figueroa is a 77-year-old female who presented to the [facility] emergency department on 05/20/2022 after a fall at home complaining of confusion that started 05/19/22. Lab in the emergency department was unremarkable. The UA had 0-5 RBCs and 0-5 WBCs with rare urine bacteria. Urine culture had no growth. CT brain revealed no acute findings. CT neck showed no fractures. CTA of the head and neck showed no large vessel occlusions. MRI of the brain showed no evidence for acute infarct but did show chronic small vessel ischemic gliosis. An incidental finding was subtle tiny filling defects within at least 2 of the small vessel left upper lobe pulmonary artery branches and a CTA of the chest was recommended. CTA of the neck also showed thyroid nodules. She was given a therapeutic dose of Lovenox in the emergency department and was admitted to the hospitalist service. She was hydrated and a CTA of the chest was ordered for the following morning. CTA of the chest showed thyroid nodules measuring up to 8 mm and there were no pulmonary emboli identified. Echocardiogram was obtained while she was in the hospital and showed a normal left ventricular ejection fraction of 60% with stage I diastolic dysfunction. She is on multiple sedating medications including baclofen, Valium, primidone, trazodone, meclizine and oxycodone. No infectious etiology of encephalopathy could be found. Sedating medications were held at admission and the confusion resolved prior to DC to TCU. I suspect the confusion is due to polypharmacy. She was treated for a UTI with 5 days of antibiotics however the urine culture was negative. She was transferred to Transitional care on 05/21/2022 for additional PT/OT prior to returning home. Dr. Gan discussed tapering and stopping some of the sedating medications and she was agreeable. She did well in therapy and was discharged home on 05/30/22. At the time of DC she was alert, oriented X 3, appropriate and could carry on a conversation. She plans on following up with Dr. Nabila Dan post DC to discuss urine retention and tx available. She will also follow up with Dr. Gan for primary care. She has an appt with Dr. Richard Segal to discuss a thyroid biopsy. Physical Exam Const alert, oriented x3 and no apparent distress Constitutional Narrative: Sitting in the recliner at the bedside. HEENT normocephalic and head/scalp atraumatic Mouth: dry mucous membranes Eyes PERRL and EOMs intact bilaterally Neck supple Resp normal respiratory effort, normal air movement and clear to auscultation bilaterally Resp Narrative: Able to speak in complete sentences. Cardio regular rate, regular rhythm, S1 normal heart sound, S2 normal heart sound, no murmurs, no rub and no gallops Cardio Narrative: No ectopy. GI normal to inspection, nondistended, normoactive bowel sounds, soft to palpation and non-tender GI Narrative: Tells me her bowels are moving regularly. She is not taking the as needed senna. Extremity no calf tenderness General Extremity: Negative for edema Skin General Skin Exam: no breakdown Rashes: no rashes Neuro CN's II-XII intact bilaterally and no focal motor deficits Psych affect normal Psych Narrative: Calm, makes good eye contact when I am speaking with her, no tremors, appropriate, thought process normal Appearance: appropriate Weight / BMI Weight Weight: 188 lb 8 oz Body Mass Index (BMI) 35.7 ABG / Lab / Microbiology Data Result Diagrams: 05/29/22 05:09 05/29/22 05:09 Laboratory: Laboratory Results - last 24 hr 05/29/22 18:18: Urine Color Straw, Urine Clarity Clear, Urine pH 6.0, Ur Specific [place] 1.010, Urine Protein Negative, Urine Glucose (UA) Normal, Urine Ketones Negative, Urine Occult Blood 10 H, Urine Nitrite Negative, Urine Bilirubin Negative, Urine Urobilinogen Normal, Ur Leukocyte Esterase Negative, Urine RBC 0 SEEN, Urine WBC 0 SEEN, Ur Squamous Epith Cells 0 SEEN, Urine Bacteria 0 SEEN, Urine Mucus 0 SEEN Microbiology: Microbiology 05/30/22 08:55 Nasal Secretion SARS-CoV-2 Antigen (Rapid) - Final 05/28/22 06:25 Nasal Secretion SARS-CoV-2 Antigen (Rapid) - Final 05/21/22 16:14 Nasal Secretion SARS-CoV-2 Antigen (Rapid) - Final D/C Instructions Discharge Diet: - (Heart [id number]-[id number], low-salt. Lactose free diet due to lactose intolerance.) Weight Bearing Status: Full weight bearing Call your doctor if you observe: Fever of 101 or Higher, Inability to urinate, Inability to have a bowel movement, Shortness of breath, Dizziness, Fainting spells, Swelling in the ankles, Chest pain, Calf discomfort and Uncontrolled pain Pending Tests Upon Discharge: none Please Follow Up With: Dr. Richard Segal Meaningful Use Info Meaningful Use Diagnoses (Choose all that apply): None applicable Discharge Plan Admission Admit Date/Time: 05/21/22 15:46 Primary Reason for Your Visit: debility due to urosepsis Attending Provider: Ld Gan Chi Primary Care Provider: Ld Gan Chi Instructions Patient Instructions: Common Thyroid Problems, Biopsy Thyroid Fine Needle Aspir, UITs Women Additional Instructions / Restrictions: 1. Constipation is a big cause of urine retention in women. If you have hard stool and have to strain to have a BM start a stool softener such as Metamucil, Citrucel, Colace or Miralax and take it daily or every other day. These medications are available at your local pharmacy and they are over the counter medications. 2. If you wear a pad to help with some leakage of urine make sure to change it as soon as you can after it gets wet. 3. The urine test that was done on 05/29/22 was negative for infection. 4. I suggest you follow up with Dr. Dan to discuss your problems with urination. You will like her.....she is not only very knowledgeable but, she is very nice. 5. Have someone help you when you are getting into the shower or the tub for the next couple weeks to make sure you don't fall....you are still a little weak. Also have someone help with lower body dressing if you can not dress yourself using a quality assurance practice manager and a sock aid. 6. You were really sick when you ca,me to the hospital with the urinary tract infection. Usually when you get this sick the infection (UTI) has been there for a few days. As women get older they do not always have burning with a UTI. Other symptoms include urgency to go to the bathroom, increased frequency of urination, hesitancy when trying to urinate, bladder spasms, nausea, chills,fever and flank pain. Any of these symptoms should prompt you to see Dr. Gan and have your urine checked. 7. You have a nodule in the thyroid gland in your neck. These are usually benign but, sometimes they are cancerous. You need to have a biopsy done and you are going to follow up with Dr. Segal for this. I am giving you some information to read on thyroid nodules and how the biopsy is usually done. 8. If you have any questions after leaving [facility] and before Dr. Gan gets back in town next Friday please call me Office [phone] CEll [phone] Discharge Orders/Prescriptions Prescriptions: New primidone 50 mg Tablet 50 mg PO QHS Qty: 30 0RF nystatin 100,000 unit/mL Suspension 500,000 unit PO 4X/DAY Qty: 160 0RF hydralazine 25 mg Tablet 25 mg PO TID Qty: 90 0RF tamsulosin 0.4 mg Capsule 0.4 mg PO DAILY@1730 Qty: 0 0RF trazodone 100 mg Tablet 200 mg PO QHS Qty: 0 0RF Continued pravastatin 40 mg tablet 40 mg PO QHS escitalopram oxalate [Lexapro] 20 mg tablet 20 mg PO DAILY loperamide [Imodium A-D] 2 mg tablet 2 mg PO DAILY hydrochlorothiazide 12.5 mg tablet 12.5 mg PO DAILY primidone 250 mg tablet 250 mg PO QHS carvedilol 12.5 mg Tablet 12.5 mg PO BID pantoprazole 20 mg Tablet,Delayed Release (Dr/Ec) 40 mg PO DAILY cholecalciferol (vitamin D3) [Vitamin D3] 125 mcg (5,000 unit) Tablet 125 mcg PO DAILY aspirin 81 mg Tablet,Delayed Release (Dr/Ec) 81 mg PO BID acetaminophen 500 mg Tablet 1,000 mg PO Q6H PRN PRN (Reason: Pain Score 1-5) Qty: 0 0RF lisinopril 40 mg tablet 1 tab PO DAILY Label Comments: TAKE 1 TABLET BY MOUTH EVERY DAY diazepam [Valium] 5 mg tablet 5 mg PO BID PRN (Reason: Anxiety) 2 Days Qty: 4 0RF potassium chloride 10 mEq tablet,ER particles/crystals 20 meq PO TIDCM Discontinued sennosides [senna] 8.6 mg Tablet 8.6 mg PO BID PRN (Reason: Constipation) ondansetron HCl 4 mg Tablet 4 mg PO Q8H PRN (Reason: Nausea/Vomiting) oxycodone 5 mg Tablet 5 mg PO Q4H PRN PRN (Reason: Pain Score 6-10) Qty: 0 0RF cefdinir 300 mg capsule 300 mg PO BID Referrals / Follow Up: Ld Gan Chi, MD [Primary Care Provider] - 06/05/22 1:40 pm ( ) Disposition Disposition (needs filled in before D/C Order can be placed): Home Health Service Charges/Coding Visit Charges Inpatient E&M: 82088 SNF Disch >30 Min
[2022-05-30] MEDS: Tamsulosin HCl 0.4 MG Capsule PO (18:25)
[2022-05-30] MEDS: traZODone 100 MG Tablet 200 MG PO (22:28)
[2022-05-30] MEDS: Pravastatin 40 MG Tablet PO (22:28)
[2022-05-30] MEDS: Primidone 50 MG Tablet PO (22:28)
[2022-05-30] MEDS: Primidone 250 MG Tablet PO (22:28)
[2022-05-30] MEDS: hydrALAZINE 25 MG Tablet PO (22:29)
[2022-05-31] MEDS: Escitalopram Oxalate 20 MG Tablet PO (05:37)
[2022-05-31] MEDS: Pantoprazole Sodium 40 MG Tablet PO (05:37)
[2022-05-31] MEDS: NYSTATIN 500,000 UNIT/5 ML UDC 500000 UNIT PO (05:37)
[2022-05-31 05:38] VITALS: BP 122/61; PULSE 74
[2022-05-31] MEDS: hydrALAZINE 25 MG Tablet PO (05:38)
[2022-05-31] MEDS: Loperamide 2 MG Capsule PO (05:38)
[2022-05-31] MEDS: Cholecalciferol (Vit D3) 125 MCG CAPSULE (5,000 UNITS) PO (08:02)
[2022-05-31] MEDS: Lisinopril 40 MG Tablet PO (08:02)
[2022-05-31] MEDS: Carvedilol 12.5 MG Tablet PO (08:04)
[2022-05-31] MEDS: Aspirin E.C. 81 MG Tablet PO (08:04)
[2022-05-31] MEDS: Potassium Chloride Oral Tablet 20 MEQ PO (08:04)
[2022-05-31] MEDS: hydroCHLOROthiazide 12.5mg 12.5 MG PO (08:05)
[2022-05-31] MEDS: Nystatin Powder 15gm Bottle 1 APPLIC TOPICAL (08:10)
[2022-05-31 09:00] VITALS: BP 115/50; PULSE 76; RESP 16; TEMP 36.2; O2SAT 94
[2022-05-31] MEDS: Acetaminophen 500 MG Tablet 1000 MG PO (09:16)
--- NOTE | 2022-05-31 09:53 | CASEMGMT ---
Social Work BIMS () and PHQ-9 () completed for MDS assessment. Roslyn Walden MSW SCHOOL TRAFFIC GUARD
[2022-05-31 10:00] VITALS: PULSE 76; RESP 16
--- NOTE | 2022-06-03 14:47 | MDS.RN ---
Information for the mds was obtained from review of the clinical record, interview of resident, staff, and direct observation of resident's care.
--- NOTE | 2022-06-12 12:54 | NURSING ---
Gis Technician Note: Initial activity assessment completed on paper by interim clinical program coordinator.
== END 2022-05-31 10:15 | disposition home health service (06) | DRG 690 ==
PROVIDERS: Internal Medicine; Admitting Provider Family Medicine Geriatric Medicine; PCP Family Medicine Geriatric Medicine; Visit Provider Family Medicine Geriatric Medicine
DX: N39.0 Urinary tract infection, site not specified (principal); E04.1 Nontoxic single thyroid nodule; M79.7 Fibromyalgia; G25.0 Essential tremor; I10 Essential (primary) hypertension; E87.6 Hypokalemia; F41.9 Anxiety disorder, unspecified; E55.9 Vitamin D deficiency, unspecified; K21.9 Gastro-esophageal reflux disease without esophagitis; E78.00 Pure hypercholesterolemia, unspecified; Z79.82 Long term (current) use of aspirin; Z87.891 Personal history of nicotine dependence; F32.A Depression, unspecified; Z79.899 Other long term (current) drug therapy
CPT/HCPCS: 36415; 80048; 81001; 85025; 87086; 87426; 87811; 92507; 92523; 97110; 97116; 97162; 97166; 97530; 97535; 97802

== ENCOUNTER → 2022-06-05 | Outpatient (CLI) | payer MEDICARE, OTHER, SELFPAY ==
[2022-06-05 15:36] LABS: Absolute Lymphocyte Count 1.46 X10^3/uL (0.83-4.51); Absolute Neutrophil Count 5.6 X10^3/uL (2.0-7.7); Basophil# 0.06 X10^3/uL; Basophil% 0.7 % (0-1); Eosinophil# 0.17 X10^3/uL; Eosinophils% 2.1 % (0-5); Hematocrit 40.5 % (37-47); Hemoglobin 13.1 g/dL (12.0-15.0); Lymphocyte # 1.46 X10^3/ul (0.83-4.51); Lymphocyte % 18.2 % (19-41); Mean Corp Hgb Conc 32.3 g/dL (32-36); Mean Corpuscular Hgb 30.1 pg (27.0-32.0); Mean Corpuscular Volume 93.1 fL (81-99); Mean Platelet Vol. 9.7 fl (6.2-12.0); Monocyte% 8.7 % (0-10); NRBC Flagged by Analyzer 0 % (0-5); Neutrophil % 69.7 % (47-70); Platelet Count 281 K/mm3 (150-450); RBC Distribution Width CV 14.5 % (11.6-14.6); Red Blood Count 4.35 M/mm3 (4.2-5.4)
[2022-06-05 16:02] LABS: Vitamin D,25 Hydroxy 78.6 ng/mL
[2022-06-05 16:10] LABS: ALB/GLOB Ratio 0.9 RATIO (0.9-2.4); AST(SGOT) 18 U/L (15-37); Alanine Aminotransfer ALT/SGPT 20 U/L (13-56); Albumin, Serum 3.4 g/dL (3.2-5.0); Alkaline Phosphatase 94 U/L (45-117); Anion Gap 8 (5-15); BUN 10 mg/dL (7-18); BUN/Creat Ratio 17.9 RATIO (10-20); Calcium,Total 9.5 mg/dL (8.5-10.1); Chloride 101 mmol/L (98-107); Creatinine, Serum 0.56 mg/dL (0.55-1.02); EST Glomerular Filtration Rate 113 mL/min (>60); Est Glom Filt Rate - Afr Amer 136 mL/min (>60); Globulin 3.6 g/dL (2.2-4.2); Glucose 108 mg/dL (74-106); Potassium 3.9 mmol/L (3.5-5.1); Sodium Level 138 mmol/L (136-145); Thyroid Stim Hormone (TSH) 0.45 uIU/mL (0.358-3.74)
== END | disposition home or self-care (01) ==
PROVIDERS: PCP Family Medicine Geriatric Medicine; Visit Provider Family Medicine Geriatric Medicine
DX: R53.83 Other fatigue (principal); E55.9 Vitamin D deficiency, unspecified
CPT/HCPCS: 36415; 80053; 82306; 84443; 85025

== ENCOUNTER → 2022-06-11 | Outpatient (CLI) | payer MEDICARE, OTHER, SELFPAY ==
--- NOTE | 2022-06-11 14:45 | ASPS_PTH ---
PATIENT: TINA GARCIA LOC: [facility] U#:[id number] AGE/SX: 77/F ROOM: RE06/11/[address]: Dr. Richard Segal MD : 1945 BED: DIS: 06/11/2022 SPEC #: [id number] RECD: 06/11/22 15:25 STATUS: PATRICIO HENRY #: [id number] KARMA: 06/11/22 14:[address]: Richard Segal DEPT: CYTOLOGY RECD BY: Phyllis Ordonez ENTERED: 06/12/22 10:16 SP TYPE: ASPIRATION OTHR DR: Dr. Ld Gan MD Tissues: Thyroid gland, NOS Procedures: Special Stain Group II Cytology Other HEADER OPERATION: Ultrasound guided fine needle aspiration, right thyroid PRE-OP DIAGNOSIS: Thyroid nodule E04.1 TISSUE SUBMITTED: Fine needle aspiration, right thyroid DIAGNOSIS CYTOLOGY Right thyroid, fine needle aspiration (smears): Consistent with benign follicular nodule with cystic change ([place] category II). AM:robin 06/13/2022 COMMENT Immediate cytologic evaluation to determine adequacy is not applicable. The specimen is adequate for evaluation. The [place] system for reporting thyroid cytopathology was used in the evaluation of this case. CYTOLOGY STUDY Slides are reviewed. CYTOLOGY GROSS Received are 8 smears labeled with the patient's name and designated per the requisition as FNA right thyroid. Submitted for staining. /Anurag 06/12/22 TC:5 CPT: 03129
== END | disposition home or self-care (01) ==
LOC: LABSPEC 15:27
PROVIDERS: PCP Family Medicine Geriatric Medicine; Visit Provider Surgery
DX: E04.1 Nontoxic single thyroid nodule (principal)
CPT/HCPCS: 88161; 88313

== ENCOUNTER 2022-08-21 15:17 | Outpatient (CLI) | payer MEDICARE, OTHER, SELFPAY ==
--- NOTE | 2022-08-21 15:25 | VDLE_ITS ---
Reason For Study: edema RIGHT LEFT GSV is normal. CFV is compressible, spontaneous, phasic, CFV is compressible, spontaneous, phasic, competent, and demonstrates normal competent and demonstrates normal augmentation. augmentation. FV is compressible, spontaneous, phasic, competent and demonstrates normal augmentation. POP V is compressible, spontaneous, phasic, competent and demonstrates normal augmentation. T/P Trunk is compressible. PTV is compressible. RT PerV is compressible. Procedure This is a venous duplex using B-mode, color flow and spectral Doppler. Exam performed in department. The exam was diagnostic. A preliminary report was called and/or faxed to Dr. Gan's office. VL/Venous Duplex US, Unilateral Interpretation Summary There is no evidence of right lower extremity deep vein thrombosis. Right great saphenous vein appears patent and compressible segmentally. Normal flow patterns left common f emoral vein Ordering Physician: Ld Gan Chi Referring Physician: Ld Gan Chi Performed By: Fred Smyth RVT
--- NOTE | 2022-08-21 15:59 | RAD_ITS ---
EXAM: XR RIGHT KNEE COMPLETE, 4 OR MORE VIEWS CLINICAL INDICATION: KNEE PAIN TECHNIQUE: Four or more views of the right knee. This report was created using Visto report generation technology. COMPARISON: None. FINDINGS: BONES/JOINTS: Total right knee prosthesis components. SOFT TISSUES: Minimal if any prepatellar soft tissue swelling. No evidence of joint effusion. No evidence of fracture or prosthesis component loosening. No radiopaque foreign body. OTHER FINDINGS: 5 views. RAD/Knee 4 or More Views IMPRESSION: No fracture, dislocation or joint effusion identified. Total knee prosthesis. Electronically Signed: Hoa Cordova MD at 5:00 EDT ,
== END 2022-08-21 23:59 | disposition home or self-care (01) ==
PROVIDERS: PCP Family Medicine Geriatric Medicine; Visit Provider Family Medicine Geriatric Medicine
DX: R60.0 Localized edema (principal); T84.84XA Pain due to internal orthopedic prosthetic devices, implants and grafts, initial encounter; M25.569 Pain in unspecified knee
CPT/HCPCS: 36415; 73564; 80048; 85025; 85652; 86140; 93971

== ENCOUNTER → 2022-08-21 | Outpatient (CLI) | payer MEDICARE, OTHER, SELFPAY ==
[2022-08-21 18:03] LABS: Absolute Lymphocyte Count 1.74 X10^3/uL (0.83-4.51); Absolute Neutrophil Count 5.4 X10^3/uL (2.0-7.7); Basophil# 0.04 X10^3/uL; Basophil% 0.5 % (0-1); Eosinophil# 0.19 X10^3/uL; Eosinophils% 2.4 % (0-5); Hematocrit 41.4 % (37-47); Hemoglobin 13.7 g/dL (12.0-15.0); Lymphocyte # 1.74 X10^3/ul (0.83-4.51); Lymphocyte % 22.1 % (19-41); Mean Corp Hgb Conc 33.1 g/dL (32-36); Mean Corpuscular Hgb 31.4 pg (27.0-32.0); Mean Platelet Vol. 10.7 fl (6.2-12.0); Monocyte# 0.53 X10^3/uL; Monocyte% 6.7 % (0-10); NRBC Flagged by Analyzer 0 % (0-5); Neutrophil # 5.36 X10^3/uL (2.7-7.7); Neutrophil % 67.9 % (47-70); Platelet Count 240 K/mm3 (150-450); RBC Distribution Width CV 13.2 % (11.6-14.6); RBC Distribution Width SD 46.7 fl (35.1-43.9); Red Blood Count 4.36 M/mm3 (4.2-5.4); White Blood Count 7.9 K/mm3 (4.4-11.0)
[2022-08-21 18:20] LABS: Erythrocyte Sedimentation Rate 31 mm/hr (0-30)
[2022-08-21 18:32] LABS: Anion Gap 5 (5-15); BUN 20 mg/dL (7-18); BUN/Creat Ratio 37.5 RATIO (10-20); Calcium,Total 9.6 mg/dL (8.5-10.1); Chloride 105 mmol/L (98-107); Creatinine, Serum 0.53 mg/dL (0.55-1.02); EST Glomerular Filtration Rate 119 mL/min (>60); Est Glom Filt Rate - Afr Amer 143 mL/min (>60); Glucose 105 mg/dL (74-106); Potassium 3.7 mmol/L (3.5-5.1); Sodium Level 138 mmol/L (136-145)
== END | disposition home or self-care (01) ==
LOC: POLAB3 14:40
PROVIDERS: PCP Family Medicine Geriatric Medicine; Visit Provider Family Medicine Geriatric Medicine
DX: T84.84XA Pain due to internal orthopedic prosthetic devices, implants and grafts, initial encounter (principal)
CPT/HCPCS: 36415; 80048; 85025; 85652; 86140

== ENCOUNTER 2022-08-28 11:01 | Outpatient (RCR) | payer MEDICARE, OTHER, SELFPAY ==
--- NOTE | 2022-08-28 13:53 | HP.PTEVAL ---
Patient's Visit Information TINA GARCIA is a 77 year old F referred to Physical Therapy by Dr. Ld Gan MD with a diagnosis of Weakness. Date of Evaluation: 08/28/22 Physical Therapist: Farideh Liang DPT - Visit Plan Frequency: 2-3x /Week Duration: 4 Weeks Plan: Focus on LE strength/stabilization, proprioception, ambulation with LRD and functional mobility-Fearful of movement - Subjective Patient has had a year of left ankle fracture with 2 surgeries- and has spent a year in/out of PT. She has had all of the PT/OT allowed but she feels that she can't get rid of the FWW. She has had a right TKR and revision and it is swollen and painful. She is having a hard time with stairs- she can go down but has a hard time going up. She has a ramp at home. She would like to be able to to walk with LRD and do stairs. She has fibro so she has pain everywhere. Knee pain- Worst: 8/10 Best: 0/10. Dr. Madrid did the first one with Dr. Delgado at [facility] do a revision- she has had x-rays taken and they are a little bit off- they are suggesting another knee surgery. Plans to go see Dr. Cooper again. Sleep: okay with medication- Neuropathy in her feet so they are numb just to the ankles. Only fall was the one where she broke her left ankle. She stopped PT 2 months ago. She uses a PMHx/Meds: will bring list next visit - Objective Posture: FH, RS- can correct with verbal cues but does not maintain. Gait: FWW- slow vivek- forward posture- cautious. SLS: weight shift but not SLS. HR/TR: able in standing with UE A. ROM: WFL. Strength: Core: fair minus, Hip: 4/5 Knee: 4/5, Ankle: 4/5 - Balance/Special Test Scores Functional Gait Assessment Score: 11 % Disability: 63.3400 Lower Extremity Functional Score: 14 TUG Test Time Seconds: 33 - Goals Goal 1:: Patient will be I with HEP and progression Goal Time Frame: 4-6 Weeks Goal 2:: Patient will asc/desc 8 stairs with 2 HR Goal Time Frame: 4-6 Weeks Goal 3:: Patient will ambulate >300 feet with LRD Goal Time Frame: 4-6 Weeks Goal 4:: Patient will report 80% improvement Goal Time Frame: 4-6 Weeks - Rehabilitation Potential Physical Therapy Diagnosis: Patient presents with hypomobility- she has decreased LE and core strength/stabilization, proprioception, flex and muscular endurance leading to increased difficulty with ADL's. Rehabilitation Potential: Fair - Anticipated Interventions Patient/Client Instruction: Educate patient on: Benefits of Fitness Program Therapeutic Exercise to Include: Strength training, Endurance training, Balance training, Coordination, Agility training, Body mechanics, Postural training, Flexibilty training, Gait and locomotor training, Neuromotor development, Dynamic Lumbar Stabilization, Scapular Strength/Stabilization Cryotherapy (ice pack, ice massage): Yes Thermo therapy (hot pack): Yes Ultrasound (thermal/non thermal): No Thank you for the opportunity to evaluate your patient. For Medicare and Medicare HMO plans, please review the plan of care and approve it. It will need to be FAXED BACK to us at [phone] for Medicare purposes. For Medicare only, by signing this I certify the plan of care. Please let me know if there are questions or concerns regarding this plan of care. Physician Signature: Date:
--- NOTE | 2022-12-26 10:39 | HP.PT.NRP ---
TINA GARCIA was seen in my office for initial evaluation on 08/28/22. The following Plan of Care was established for this patient: Initial Frequency: 2-3x /Week Initial Duration: 4 Weeks Patient/Client Instruction: Educate patient on: Benefits of Fitness Program Therapeutic Exercise to Include: Strength training, Endurance training, Balance training, Coordination, Agility training, Body mechanics, Postural training, Flexibilty training, Gait and locomotor training, Neuromotor development, Dynamic Lumbar Stabilization, Scapular Strength/Stabilization Cryotherapy (ice pack, ice massage): Yes Thermo therapy (hot pack): Yes Ultrasound (thermal/non thermal): No This patient was last seen in our office . Pertinent comments regarding their Physical therapy will appear below: Patient has not attended PT in over 90 days- appropriate to be d/c and return to MD for further evaluation as needed. At this point I will be discontinuing this patient from physical therapy. I would be happy to see this patient again in the future if found appropriate by the physician. Thank you! Farideh Liang DPT Balance/Gait/Functional tests - Balance/Special Test Scores Functional Gait Assessment Score: 11 % Disability: [phone] Lower Extremity Functional Score: 14 TUG Test Time Seconds: 33 Tug Test: >30sec.=impaired mobility
== END 2022-08-28 19:00 | disposition home or self-care (01) ==
LOC: PT 11:01
PROVIDERS: PCP Family Medicine Geriatric Medicine; Referring Provider Family Medicine Geriatric Medicine; Visit Provider Family Medicine Geriatric Medicine
DX: R53.1 Weakness (principal)
CPT/HCPCS: 97162

== ENCOUNTER → 2022-08-30 | Outpatient (CLI) | payer MEDICARE, OTHER, SELFPAY ==
--- NOTE | 2022-08-30 12:43 | BI_ITS ---
MAMMOGRAPHY - BILATERAL SCREENING REASON FOR EXAM: Female, 77 years old. Routine annual screening examination. PERTINENT HISTORY: Non-contributory. Prior bilateral stereotactic breast biopsy TECHNIQUE: Digital bilateral breast sukhdev (3D mammographic acquisition) in the CC and MLO projections. 2-D mediolateral oblique (MLO) and craniocaudad (CC) views of both breasts were obtained. CAD: Full Field Digital Mammography with Computer Added Detection was performed. COMPARISON: Comparison is made with prior examination dated 12/06/2019 and 09/02/2018. FINDINGS: Breast Composition: The breasts are heterogeneously dense, which may obscure small masses. Since prior study, there has been an increase in the number of microcalcifications in the deep upper lateral aspect of the right breast. Targeted biopsy is recommended. 2, tissue markers are once again seen in the upper midportion of the left breast. A tissue clip marker is also seen in the anterior upper lateral portion of the right breast. No other significant abnormalities are identified. BI/SCRN MAMM (CAD)W/SUKHDEV BILAT IMPRESSION: Increase in number of microcalcifications in the deep upper lateral aspect of the right breast. Biopsy recommended. ASSESSMENT CATEGORY: BIRADS Category 4: Suspicious - Biopsy Should Be Considered. A letter regarding these results will be sent to the patient by the facility within 30 days. Approximately 10% of breast cancers are not detected by mammography. A normal mammogram should not delay biopsy of a clinically suspicious abnormality. [id number] Electronically Signed: Fer Helms MD at 14:12 EDT ,
== END | disposition home or self-care (01) ==
PROVIDERS: PCP Family Medicine Geriatric Medicine; Referring Provider Family Medicine Geriatric Medicine; Visit Provider Family Medicine Geriatric Medicine
DX: Z12.31 Encounter for screening mammogram for malignant neoplasm of breast (principal)
CPT/HCPCS: 77063; 77067

== ENCOUNTER → 2022-09-12 | Outpatient (CLI) | payer MEDICARE, OTHER, SELFPAY ==
--- NOTE | 2022-09-12 | IMM_PTH ---
PATIENT: TINA GARCIA LOC: [facility] U#:[id number] AGE/SX: 77/F ROOM: RE09/12/[address]: Dr. Richard Segal MD : 1945 BED: DIS: 09/12/2022 SPEC #: [id number] RECD: 09/16/22 13:22 STATUS: PATRICIO REQ #: [id number] KARMA: 09/12/22 00:[address]: Richard Segal DEPT: IMMUNOHISTOCHEMISTRY RECD BY: Rhonda Sutton ENTERED: 09/16/22 13:26 SP TYPE: IMMUNO OTHR DR: Dr. Ld Gan MD Tissues: Left breast, NOS Procedures: Calponin-1(initial) CK8 (add) E-CAD (add) P40 (add) PHYSICIAN & INSTITUTION [place] [address] SPECIMEN INFORMATION: Tissue Source: Left breast Clinical Info: Upper outer quadrant microcalcifications Specimen Number: [id number] #1 CPT code: 94620, 58421 x3 METHODOLOGY: Deparaffinized sections of prefer/formalin-fixed tissue or PAP/DQ stained slides are incubated with monoclonal/polyclonal antibodies/oligonucleotide probes. Localization is made via biotin free immunoperoxidase method. Appropriate controls are performed and reacted as expected. Results on target cell population are indicated in the following table: RESULTS: ANTIBODY / CLONE RESULT Block 1 P40 (BC28) positive Calponin-1 (FA013N) positive CK8 ([id number]) positive E-Cad (ECH-6) negative These tests were developed and their performance characteristics determined by [facility]. They may not have been cleared or approved by the U.S. Food and Drug Administration. The FDA has determined that such clearance or approval is not necessary. The above immunohistochemical/dualISH markers are ordered and reviewed by the Pathologist. INTERPRETATION: Left breast, upper outer quadrant microcalcifications, stereotactic core biopsy: Focal atypical lobular hyperplasia. SJ:henri 09/17/2022
--- NOTE | 2022-09-12 | BRBX_PTH ---
PATIENT: TINA GARCIA LOC: [facility] U#:[id number] AGE/SX: 77/F ROOM: RE09/12/[address]: Dr. Richard Segal MD : 1945 BED: DIS: 09/12/2022 SPEC #: [id number] RECD: 09/12/22 12:44 STATUS: PATRICIO REEddy #: [id number] KARMA: 09/12/22 00:[address]: Richard Segal DEPT: SURGICAL PATHOLOGY RECD BY: Aníbal Morales ENTERED: 09/12/22 12:44 SP TYPE: BREAST BX OTHR DR: Dr. Ld Gan MD Tissues: Left breast, NOS Procedures: Surgery Specimen Level IV HEADER OPERATION: Left breast stereotactic biopsy PRE-OP DIAGNOSIS: Left breast upper outer quadrant microcalcifications TISSUE SUBMITTED: Left breast core tissue ISCHEMIC TIME: 1 minute FIXATION TIME: 32.5 hours MICROSCOPIC DIAGNOSIS Left breast, upper outer quadrant microcalcifications, stereotactic core biopsy: Hyalinized fibroadenoma with calcifications. Atypical lobular hyperplasia. Focal fibrocystic changes. Negative for malignancy. See comment. JEFFREY:henri 09/16/2022 COMMENT Immunohistochemistry ([id number]) supports the above diagnosis. Case has been reviewed in consultation with Dr. Ortiz who concurs with the above diagnosis. IDC:AM MICROSCOPIC DESCRIPTION Slides are reviewed. GROSS DESCRIPTION Received in formalin is one container labeled with the patient name and designated left breast. The specimen consists of multiple irregular and elongated fragments of connor-white tissue measuring in aggregate 5 x 3 x 0.3 cm. The specimen is totally submitted in two cassettes. / JEFFREY:lupis 09/12/2022 TC:1 CPT: 23148
--- NOTE | 2022-09-12 11:02 | PCM.HP.BLA ---
History and Physical Date of Admission: 09/12/[address] Richard Segal MD on 09/11/22 at 1334 Intake Chief Complaint: Thyroid nodule Allergies azithromycin Allergy (Verified 09/11/22 12:44) Upset Stomach Medications pravastatin 40 mg tablet 40 mg PO QHS Cholestrol 02/09/19 [History Confirmed 09/11/22] escitalopram oxalate 20 mg tablet (Lexapro) 20 mg PO DAILY Mood 07/20/19 [History Confirmed 09/11/22] loperamide 2 mg tablet (Imodium A-D) 2 mg PO DAILY Diarrhea 07/28/19 [History Confirmed 09/11/22] hydrochlorothiazide 12.5 mg tablet 12.5 mg PO DAILY Water retention 05/11/21 [History Confirmed 09/11/22] primidone 250 mg tablet 250 mg PO QHS Tremors 07/15/21 [History Confirmed 09/11/22] carvedilol 12.5 mg tablet 12.5 mg PO BID bp 09/05/21 [History Confirmed 09/11/22] aspirin 81 mg tablet,delayed release 81 mg PO BID Heart 02/20/22 [History Confirmed 09/11/22] cholecalciferol (vitamin D3) 125 mcg (5,000 unit) tablet (Vitamin D3) 125 mcg PO DAILY Supplement 02/20/22 [History Confirmed 09/11/22] pantoprazole 20 mg tablet,delayed release 40 mg PO DAILY GERD 02/20/22 [History Confirmed 09/11/22] acetaminophen 500 mg tablet 1,000 mg PO Q6H PRN PRN Pain Score 1-5 #0 tabs 03/20/22 [Rx Confirmed 09/11/22] lisinopril 40 mg tablet 1 tab PO DAILY BP 05/20/22 [History Confirmed 09/11/22] diazepam 5 mg tablet (Valium) 5 mg PO BID PRN Anxiety 2 days #4 tabs 05/21/22 [Rx Confirmed 09/11/22] potassium chloride 10 mEq tablet,extended release(part/cryst) 20 meq PO TIDCM Supplement 05/21/22 [History Confirmed 09/11/22] hydralazine 25 mg tablet 25 mg PO TID #90 tabs 05/30/22 [Rx Confirmed 09/11/22] nystatin 100,000 unit/mL oral suspension 500,000 unit (5 mL) PO 4X/DAY #160 mL 05/30/22 [Rx Confirmed 09/11/22] primidone 50 mg tablet 50 mg PO QHS #30 tabs 05/30/22 [Rx Confirmed 09/11/22] tamsulosin 0.4 mg capsule 0.4 mg PO DAILY@1730 #0 caps 05/30/22 [Rx Confirmed 09/11/22] trazodone 100 mg tablet 200 mg PO QHS #0 tabs 05/30/22 [Rx Confirmed 09/11/22] Assessment and Plan Assessment and Plan (1) Abnormal mammogram of left breast: ?Status:?Acute ?Plan: Subsequent to the patient's visit it is become apparent that there was a radiology interpretation mistake.? The microcalcifications are in the upper outer quadrant of the left breast and not the right breast.? This is subsequently being corrected.? Plan to proceed with a stereotactic needle core left breast biopsy. Richard Segal M.D., F.A.C.S. ? ? ? Orders: Orders Stereo Breast Biopsy [address] [place] [address] 09/12/22 R92.8 - Other abnormal and inconclusive findings on diagnostic imaging of breast ? 09/11/22 1334 <Electronically signed by Richard Segal MD> Date Richard Segal MD cc:? Dr. Ld Gan MD ~* Signed Intake Vital Signs ? 06/11/2215:06 Height 5 ft 1 in Intake Visit Reasons:?BIRADS 4- ONLY ON MAMMO Chief Complaint: Thyroid nodule Allergies azithromycin Allergy (Verified 06/11/22 15:07) Upset Stomach PFSH Medical History? Ambulates with cane Anxiety Anxiety Back pain Closed trimalleolar fracture of left ankle Depression Diastolic dysfunction Essential and other specified forms of tremor Essential hypertension Essential tremor Essential tremor Fibromyalgia Former smoker Gastroesophageal reflux disease High cholesterol History of chronic diarrhea History of echocardiogram History of GI bleed History of revision of total replacement of right knee joint (~2014) History of stress test Hyperlipidemia Hypertension Hypokalemia Insomnia Lactose intolerance Muscle spasm Osteoporosis Pulmonary hypertension Shortness of breath on exertion Uses wheelchair Walker as ambulation aid Wears glasses Surgical History? History of cholecystectomy History of open reduction and internal fixation (ORIF) procedure History of tonsillectomy History of total right knee replacement (~2010) Family History? Mother DementiaFather Colon cancer ?? ? age 70, unclear specific onset date. Social History? household members:? spouse Smoking Status:? Former smoker how long ago did patient quit smoking:? Quit 15 years ago, 1/2 ppd starting in high school. alcohol intake:? never substance use type:? does not use caffeine:? No HPI HPI HPI: 77-year-old female who is referred because of an abnormal mammogram. ? The patient is referred by Dr. Ld Gan and a written copy of my surgical consult recommendations will return to him. I have most recently assisted her on June 11, 2022 having performed a ultrasound-guided fine-needle aspiration of a dominant right thyroid nodule.? Cytology demonstrated benign follicular nodule with cystic change Philipp category 2.? The specimen was felt to be adequate for analysis.? This nodule had smooth edges and was solid cystic. More recently on August 30, 2022 she had routine screening mammography.? There was felt to be increase in the number of microcalcifications in the deep upper outer aspect of the right breast.? 2 tissue markers are seen in the upper midportion of the left breast and a tissue clip is also seen in the anterior upper outer of the right breast.? She has had a stereotactic needle core biopsy right breast performed July 03, 2017 with findings consistent with a hyalinized fibroadenoma with calcifications. First child was born when she was 26.? Menarche at age 15.? No family history of breast cancer. She has no specific complaints at this time August 30, 2022 MAMMOGRAPHY - BILATERAL SCREENING REASON FOR EXAM:? ? Female, 77 years old.? Routine annual screening examination. PERTINENT HISTORY:? Non-contributory.? Prior bilateral stereotactic breast biopsy TECHNIQUE: ? Digital bilateral breast sukhdev (3D mammographic acquisition) in the CC and MLO projections. 2-D mediolateral oblique (MLO) and craniocaudad (CC) views of both breasts were obtained.? CAD: Full Field Digital Mammography with Computer Added Detection was performed. COMPARISON: ? Comparison is made with prior examination dated 12/06/2019 and 09/02/2018. FINDINGS: Breast Composition:? The breasts are heterogeneously dense, which may obscure small masses. Since prior study, there has been an increase in the number of microcalcifications in the deep upper lateral aspect of the right breast. Targeted biopsy is recommended.? 2, tissue markers are once again seen in the upper midportion of the left breast.? A tissue clip marker is also seen in the anterior upper lateral portion of the right breast. No other significant abnormalities are identified. BI/SCRN MAMM (CAD)W/SUKHDEV BILAT IMPRESSION: Increase in number of microcalcifications in the deep upper lateral aspect of the right breast.? Biopsy recommended. ? ? ASSESSMENT CATEGORY: BIRADS Category 4:? Suspicious - Biopsy Should Be Considered.? A letter regarding these results will be sent to the patient by the facility within 30 days. ? Approximately 10% of breast cancers are not detected by mammography.? A normal mammogram should not delay biopsy of a clinically suspicious abnormality. ? [id number] ? Electronically Signed: Fer Helms MD at 14:12 EDT , ROS General General: Yes weight change; No appetite, fatigue, colon cancer, breast cancer or weakness HEENT HEENT: No difficulty swallowing, eye injury, eye surgery, swollen glands or hoarseness Endo Endocrine: No thyroid disease, diabetes mellitus, thyroid cancer, Hair loss, heat intolerance or cold intolerance Skin Skin: No rash or changing moles Breast Breast: No left breast lump, right breast lump, nipple discharge, breast pain, abnormal mammogram, abnormal US or breast enlargement Musc Musculoskeletal: Yes back problems and arthritis; No rheumatoid arthritis, gout or joint pain Cardio Cardiovascular: Yes high blood pressure; No murmur, pacemaker, heart disease, atrial fibrillation, heart attack, heart stent, palpitations, shortness of breat with exertion or chest pain Psych Psychiatric: Yes depression and anxiety; No hearing voices Resp Respiratory: No shortness of breath, No sleep apnea, No cough, No COPD, No asthma, No emphysema and No wheezing Gastro Gastrointestinal: No abdominal pain, Yes nausea or vomiting, Yes diarrhea, No constipation, No blood in stool, Yes acid reflux, Yes hemorrhoids, Yes ulcers, Yes gallbladder problem and No black,tarry stools Domo Hematologic: No blood thinners, No blood disorders, No bleeding, No anemia and No blood clots Neuro Neurologic: No system reviewed and no additional complaints, except as documented, No as per HPI, No abnormal gait, No abnormal hearing, No abnormal movements, No abnormal speech, No behavioral changes, No burning sensations, No confusion, No convulsions, No disequilibrium, No dizziness, No localized weakness, No frequent falls, No headache(s), No lack of coordination, No loss of vision, No memory loss, No numbness, No other visual disturbances, No radicular pain, No restless legs, No sensory deficit, No syncope, No tingling, No tremor(s), No weakness and No other Exam Chest Other: Right breast: No focal mass.? No nipple discharge.? No axillary colopathy Left breast: Diffusely tender in the outer left breast but no focal mass.? No nipple discharge.? No axillary or clavicular adenopathy. Assessment and Plan Assessment and Plan (1) Abnormal mammogram of left breast: ?Status:?Acute ?Plan: I recommended to patient a stereotactic needle core biopsy deep upper outer left breast.? Patient is aware of the technique, benefit, risk, alternatives.? We will schedule procedure at her discretion. Copy: Dr. Ld Segal M.D., F.A.C.S. Corrections have been made. Interpretation per radiology was incorrect stating right breast warrants correction is a left breast. We will proceed with a stereotactic needle core biopsy left breast. Richard Segal M.D., F.A.C.S.
--- NOTE | 2022-09-12 11:26 | PCM.OPRPT ---
Report of Operation Date of Procedure: 09/12/22 Pre-Operative Diagnosis: Clustered microcalcifications upper outer left breast. Post-Operative Diagnosis: Same Surgery/Procedure Performed:: Stereotactic needle core biopsy upper outer quadrant left breast Description of Surgical Findings:: Timeout and informed consent was obtained. 77-year-old female was taken to the stereotactic room placed prone on the table the left breast was placed in the cc view the microcalcifications in question rapidly identified stereotactic images were obtained digital information was taken on the single target site. The breast was prepped with Betadine. 1% lidocaine was used as a local anesthetic. A total of 10 cc was used. A small stab incision was created. An 8 gauge resolved needle was advanced to prefire depth. Prefire films were obtained demonstrating adequate localization. 6 cores were obtained. Specimen films were obtained demonstrating cores with microcalcifications. A marking clip was left at 12 o'clock position. On fast view demonstrated removal of the vast majority of the microcalcifications with marking clip in place. The cores were immediately transferred to formalin. She was released from the device. Pressure was held for hemostasis. Steri-Strip Telfa OpSite dressing applied. She was given activity wound care instructions. No apparent complication. She will be notified of pathology results as they become available. Richard Segal M.D., F.A.C.S. Surgeon: Richard Segal Type of Anesthesia: Local
== END | disposition home or self-care (01) ==
PROVIDERS: PCP Family Medicine Geriatric Medicine; Visit Provider Surgery
DX: R92.0 Mammographic microcalcification found on diagnostic imaging of breast (principal); E04.1 Nontoxic single thyroid nodule; Z87.891 Personal history of nicotine dependence; N62 Hypertrophy of breast
CPT/HCPCS: 19081; 88305; 88341; 88342; J7050

== ENCOUNTER → 2022-10-14 | Outpatient (CLI) | payer MEDICARE, OTHER, SELFPAY ==
--- NOTE | 2022-10-14 14:39 | RAD_ITS ---
STUDY: X-RAY - ABDOMEN/PELVIS REASON FOR EXAM: Female, 77 years old. ABDOMINAL PAIN -- 2 VIEW TECHNIQUE: Two AP supine views of the abdomen and pelvis. COMPARISON: None. FINDINGS: Normal visualized lung bases. There is an unremarkable bowel gas pattern. There is no demonstrated free abdominal air. The visualized liver, spleen and kidneys are grossly normal in size and morphology. Normal soft tissue structures. Moderate dextroscoliotic cholecystectomy clips are in place. Curve of the thoracolumbar spine is present. RAD/Abd Inc Decub and/or Erect IMPRESSION: Normal x-ray examination of the abdomen and pelvis. Prominent stool within the ascending colon is noted. Electronically Signed: Babar Katz DO at 18:46 EST ,
== END | disposition home or self-care (01) ==
PROVIDERS: PCP Family Medicine Geriatric Medicine; Referring Provider Family Medicine Geriatric Medicine; Visit Provider Family Medicine Geriatric Medicine
DX: R10.9 Unspecified abdominal pain (principal); N39.0 Urinary tract infection, site not specified
CPT/HCPCS: 74019; 87086; 87088

== ENCOUNTER → 2022-11-04 | Outpatient (CLI) | payer MEDICARE, OTHER, SELFPAY | END | disposition home or self-care (01) | LOC: POLAB3 11:37 | PROVIDERS: PCP Family Medicine Geriatric Medicine; Visit Provider Family Medicine Geriatric Medicine | DX: N39.0 Urinary tract infection, site not specified (principal) | CPT/HCPCS: 87077; 87086; 87088; 87186 ==

== ENCOUNTER → 2022-11-06 | Outpatient (CLI) | payer MEDICARE, OTHER, SELFPAY ==
[2022-11-06 12:41] LABS: Absolute Lymphocyte Count 1.03 X10^3/uL (0.83-4.51); Absolute Neutrophil Count 5.6 X10^3/uL (2.0-7.7); Basophil# 0.07 X10^3/uL; Basophil% 0.9 % (0-1); Eosinophil# 0.15 X10^3/uL; Hematocrit 41.1 % (37-47); Hemoglobin 13.6 g/dL (12.0-15.0); Lymphocyte # 1.03 X10^3/ul (0.83-4.51); Lymphocyte % 13.7 % (19-41); Mean Corp Hgb Conc 33.1 g/dL (32-36); Mean Corpuscular Hgb 30.3 pg (27.0-32.0); Mean Corpuscular Volume 91.5 fL (81-99); Mean Platelet Vol. 9.8 fl (6.2-12.0); Monocyte# 0.63 X10^3/uL; Monocyte% 8.4 % (0-10); NRBC Flagged by Analyzer 0 % (0-5); Neutrophil # 5.57 X10^3/uL (2.7-7.7); Neutrophil % 74.1 % (47-70); Platelet Count 267 K/mm3 (150-450); RBC Distribution Width CV 13.3 % (11.6-14.6); RBC Distribution Width SD 45.1 fl (35.1-43.9); Red Blood Count 4.49 M/mm3 (4.2-5.4); White Blood Count 7.5 K/mm3 (4.4-11.0)
[2022-11-06 13:07] LABS: Prothrombin Time (Protime)PT. 12.8 SECONDS (11.7-14.9)
[2022-11-06 13:28] LABS: Anion Gap 8 (5-15); BUN 10 mg/dL (7-18); BUN/Creat Ratio 17.2 RATIO (10-20); Calcium,Total 9.5 mg/dL (8.5-10.1); Chloride 105 mmol/L (98-107); Creatinine, Serum 0.58 mg/dL (0.55-1.02); EST Glomerular Filtration Rate 107 mL/min (>60); Est Glom Filt Rate - Afr Amer 130 mL/min (>60); Glucose 101 mg/dL (74-106); Potassium 4.3 mmol/L (3.5-5.1); Sodium Level 139 mmol/L (136-145)
== END | disposition home or self-care (01) ==
LOC: POLAB3 12:09
PROVIDERS: PCP Family Medicine Geriatric Medicine; Visit Provider Family Medicine Geriatric Medicine
DX: Z01.818 Encounter for other preprocedural examination (principal); I48.0 Paroxysmal atrial fibrillation
CPT/HCPCS: 36415; 80048; 85025; 85610

== ENCOUNTER → 2022-11-12 | Outpatient (CLI) | payer MEDICARE, OTHER, SELFPAY ==
--- NOTE | 2022-11-12 15:10 | CT_ITS ---
ACR Level 3 findings have been noted. An addendum which confirms receipt of the report will follow. STUDY: CT ABDOMEN AND PELVIS WITH CONTRAST REASON FOR EXAM: Female, 77 years old. ABD PAIN X 2 MONTHS. GB AND UTERUS REMOVED RADIATION DOSAGE (If Supplied By Facility): CTDIvol = ( 14.48 ) mGy, DLP = ( 1012.56 ) mGycm TECHNIQUE: Transaxial images were obtained from the dome of the diaphragm to the symphysis pubis with oral contrast. IV 100mL Isovue-[id number] was administered. Sagittal and coronal images were reconstructed. Individualized dose optimization techniques were used for this CT. COMPARISON: March 15, 2015 FINDINGS: The visualized lung bases are unremarkable. The visualized portions of the heart are within normal limits. Normal liver. There are surgical clips in the gallbladder fossa consistent with a prior cholecystectomy. Normal spleen. Normal pancreas. Normal bilateral adrenal glands. Normal right kidney. Normal left kidney. Normal visualized stomach. Normal small intestine. There is wall thickening of the sigmoid colon. The appendix is visualized and appears normal. There is atherosclerotic calcification of the abdominal aorta, without a demonstrated aneurysm. Normal inferior vena cava. Normal retroperitoneum. Normal urinary bladder. There is absence of the uterus consistent with a prior hysterectomy. There is 8.1 x 6.7 cm heterogeneous density mass at the vaginal cuff. There is moderate free fluid in the abdomen and pelvis. There is omental thickening. Normal abdominal wall. There is dextroscoliosis of the spine with degenerative change. There is spondylolisthesis at the lumbosacral junction. CT/Abdomen/Pelvis WITH Contrast IMPRESSION: Pelvic mass. Omental thickening and ascites consistent with peritoneal carcinomatosis. Wall thickening of the sigmoid colon potential mass versus colitis. Electronically Signed: Hank Church MD at 18:45 EST ,
== END | disposition home or self-care (01) ==
LOC: CT 15:09
PROVIDERS: PCP Family Medicine Geriatric Medicine; Referring Provider Family Medicine Geriatric Medicine; Visit Provider Family Medicine Geriatric Medicine
DX: R10.9 Unspecified abdominal pain (principal)
CPT/HCPCS: 74177; Q9967

== ENCOUNTER → 2022-11-13 | Outpatient (CLI) | payer MEDICARE, OTHER, SELFPAY | END | disposition home or self-care (01) | LOC: POLAB3 16:37 | PROVIDERS: PCP Family Medicine Geriatric Medicine; Visit Provider Family Medicine Geriatric Medicine | DX: C78.6 Secondary malignant neoplasm of retroperitoneum and peritoneum (principal) | CPT/HCPCS: 36415; 86304 ==